=== PATIENT | female | born 1965 | race Caucasian/White ===

== ENCOUNTER 2020-04-21 12:26 | Outpatient (REF) | payer OTHER, SELFPAY ==
[2020-04-21 13:19] LABS: MANUAL DIFF FLAG NO
[2020-04-21 13:23] LABS: Basophils Absolute Auto 0.1 X10*3/uL (0.0-0.2); Basophils Percent Auto 1.1 % (0-2); Eosinophils Absolute Auto 0.2 X10*3/uL (0.0-0.4); Eosinophils Percent Auto 4.4 % (0-4); Hematocrit 38.4 % (37-47); Hemoglobin 12.9 g/dl (12.0-16.0); Imm Gran Abs Auto 0.01 X10*3/uL (0.00-0.03); Imm Gran Pct Auto 0.2 % (0.0-0.4); Lymphocytes Absolute Auto 1.9 X10*3/uL (1.2-4.9); Lymphocytes Percent Auto 41.8 % (20-40); Mean Corpuscular HGB Conc 33.6 g/dl (31.0-35.0); Mean Corpuscular Hemoglobin 32.7 pg (27.0-33.0); Mean Corpuscular Volume 97.2 fL (80-98); Mean Platelet Volume 10.7 fL (9.4-12.3); Monocytes Absolute Auto 0.4 X10*3/uL (0.1-1.2); Neutrophils Percent Auto 44.5 % (45-73); Platelet Count 211 X10*3/uL (160-400); Red Blood Count 3.95 X10*6/uL (4.20-5.50); Red Cell Distribution Width 13.6 % (11.0-16.0); White Blood Count 4.5 X10*3/uL (4.8-10.8)
[2020-04-21 14:11] LABS: Alanine Aminotransferase 7 U/L (0-31); Albumin Level 4.1 g/dL (3.5-5.0); Alkaline Phosphatase 52 U/L (39-117); Anion Gap 11 (12-20); Aspartate Amino Transferase 13 U/L (5-31); Bilirubin Total 0.4 mg/dL (0.0-1.0); Blood Urea Nitrogen 11 mg/dL (9-16); C Reactive Protein 0.05 mg/dL (< or = 0.50); Calcium 8.7 mg/dL (8.4-10.2); Carbon Dioxide 25 mmol/L (22-29); Chloride 106 mmol/L (96-108); Estimated Glomerular Filt Rate > 60; Glucose Random 116 mg/dL (60-115); Potassium 4.4 mmol/l (3.3-5.1); Sodium 138 mmol/L (135-145); Total Protein 6.6 g/dL (6.5-8.0)
[2020-04-21 14:21] LABS: Erythrocyte Sedimentation Rate 2 MM/HR (0-20)
== END 2020-04-21 12:27 | disposition home or self-care (01) ==
LOC: HO.LAB 12:26
PROVIDERS: PCP Nurse Practitioner Family; Visit Provider Student in an Organized Health Care Education/Training Program
DX: L40.50 Arthropathic psoriasis, unspecified (principal); L40.9 Psoriasis, unspecified; I10 Essential (primary) hypertension
CPT/HCPCS: 36415; 80053; 85025; 85652; 86140

== ENCOUNTER → 2020-04-22 09:46 | Outpatient (BNVA) | payer OTHER, SELFPAY | PROVIDERS: PCP Nurse Practitioner Family; Referring Provider Nurse Practitioner Family; Visit Provider Student in an Organized Health Care Education/Training Program | DX: L40.59 Other psoriatic arthropathy (principal); M19.90 Unspecified osteoarthritis, unspecified site; L40.9 Psoriasis, unspecified; F41.8 Other specified anxiety disorders; Z79.899 Other long term (current) drug therapy | CPT/HCPCS: 99212 ==

== ENCOUNTER → 2020-06-09 08:37 | Outpatient (BNVA) | payer OTHER, SELFPAY | PROVIDERS: PCP Nurse Practitioner Family; Visit Provider Nurse Practitioner | DX: Z76.89 Persons encountering health services in other specified circumstances (principal) ==

== ENCOUNTER → 2020-07-21 10:58 | Outpatient (BNVA) | payer OTHER, SELFPAY | PROVIDERS: PCP Nurse Practitioner Family; Visit Provider Internal Medicine | DX: F17.210 Nicotine dependence, cigarettes, uncomplicated (principal); J44.9 Chronic obstructive pulmonary disease, unspecified | CPT/HCPCS: 99212 ==

== ENCOUNTER 2020-08-24 16:02 | Outpatient (REF) | payer OTHER, SELFPAY ==
[2020-08-24 16:29] LABS: MANUAL DIFF FLAG NO
[2020-08-24 16:32] LABS: Basophils Percent Auto 0.5 % (0-2); Eosinophils Absolute Auto 0.2 X10*3/uL (0.0-0.4); Eosinophils Percent Auto 2.7 % (0-4); Hematocrit 41.4 % (37-47); Hemoglobin 13.8 g/dl (12.0-16.0); Lymphocytes Percent Auto 35.8 % (20-40); Mean Corpuscular HGB Conc 33.3 g/dl (31.0-35.0); Mean Corpuscular Hemoglobin 33.1 pg (27.0-33.0); Mean Corpuscular Volume 99.3 fL (80-98); Monocytes Absolute Auto 0.5 X10*3/uL (0.1-1.2); Monocytes Percent Auto 8.7 % (2-11); Neutrophils Percent Auto 52.3 % (45-73); Platelet Count 258 X10*3/uL (160-400); Red Blood Count 4.17 X10*6/uL (4.20-5.50); Red Cell Distribution Width 13.9 % (11.0-16.0); White Blood Count 5.6 X10*3/uL (4.8-10.8)
[2020-08-24 17:12] LABS: Albumin Level 4.4 g/dL (3.5-5.0); Alkaline Phosphatase 88 U/L (39-117); Anion Gap 13 (12-20); Aspartate Amino Transferase 14 U/L (5-31); Blood Urea Nitrogen 14 mg/dL (9-16); C Reactive Protein 0.44 mg/dL (< or = 0.50); Calcium 9.2 mg/dL (8.4-10.2); Carbon Dioxide 27 mmol/L (22-29); Chloride 105 mmol/L (96-108); Estimated Glomerular Filt Rate 56; Glucose Random 98 mg/dL (60-115); Potassium 4.2 mmol/L (3.3-5.1); Sodium 141 mmol/L (135-145)
[2020-08-24 17:18] LABS: Erythrocyte Sedimentation Rate 3 MM/HR (0-20)
[2020-08-24 19:02] LABS: Alanine Aminotransferase 16 U/L (0-31); Bilirubin Total 0.6 mg/dL (0.0-1.0); Total Protein 7.5 g/dL (6.5-8.0)
== END 2020-08-24 16:03 | disposition home or self-care (01) ==
LOC: HO.LAB 16:02
PROVIDERS: PCP Nurse Practitioner Family; Visit Provider Student in an Organized Health Care Education/Training Program
DX: L40.50 Arthropathic psoriasis, unspecified (principal)
CPT/HCPCS: 36415; 80053; 85025; 85652; 86140

== ENCOUNTER → 2020-08-26 14:24 | Outpatient (BNV) | payer OTHER, SELFPAY | PROVIDERS: PCP Nurse Practitioner Family; Visit Provider Internal Medicine Medical Oncology | DX: D47.2 Monoclonal gammopathy (principal) | CPT/HCPCS: 99213; 99214 ==

== ENCOUNTER → 2020-12-10 13:45 | Outpatient (BNVA) | payer OTHER, SELFPAY | PROVIDERS: PCP Nurse Practitioner Family; Visit Provider Student in an Organized Health Care Education/Training Program | DX: L40.50 Arthropathic psoriasis, unspecified (principal); Z79.899 Other long term (current) drug therapy | CPT/HCPCS: 99212 ==

== ENCOUNTER 2020-12-13 12:54 | Outpatient (REF) | payer OTHER, SELFPAY ==
[2020-12-13 13:35] LABS: MANUAL DIFF FLAG NO
[2020-12-13 13:43] LABS: Basophils Absolute Auto 0.1 X10*3/uL (0.0-0.2); Eosinophils Absolute Auto 0.3 X10*3/uL (0.0-0.4); Eosinophils Percent Auto 6.7 % (0-4); Hematocrit 39.5 % (37-47); Hemoglobin 13.2 g/dl (12.0-16.0); Imm Gran Abs Auto 0.01 X10*3/uL (0.00-0.03); Imm Gran Pct Auto 0.2 % (0.0-0.4); Lymphocytes Absolute Auto 1.8 X10*3/uL (1.2-4.9); Lymphocytes Percent Auto 37.5 % (20-40); Mean Corpuscular HGB Conc 33.4 g/dl (31.0-35.0); Mean Corpuscular Hemoglobin 32.8 pg (27.0-33.0); Mean Platelet Volume 11.2 fL (9.4-12.3); Monocytes Absolute Auto 0.5 X10*3/uL (0.1-1.2); Neutrophils Absolute Auto 2.1 X10*3/uL (2.0-8.3); Neutrophils Percent Auto 43.6 % (45-73); Platelet Count 221 X10*3/uL (160-400); Red Blood Count 4.03 X10*6/uL (4.20-5.50); White Blood Count 4.8 X10*3/uL (4.8-10.8)
[2020-12-13 14:09] LABS: Alanine Aminotransferase 14 U/L (0-31); Albumin Level 3.8 g/dL (3.5-5.0); Alkaline Phosphatase 76 U/L (39-117); Anion Gap 12 (12-20); Aspartate Amino Transferase 14 U/L (5-31); Bilirubin Total 0.2 mg/dL (0.0-1.0); Blood Urea Nitrogen 21 mg/dL (9-16); C Reactive Protein 0.17 mg/dL (< or = 0.50); Calcium 9.2 mg/dL (8.4-10.2); Carbon Dioxide 23 mmol/L (22-29); Chloride 108 mmol/L (96-108); Estimated Glomerular Filt Rate > 60; Glucose Random 103 mg/dL (60-115); Sodium 138 mmol/L (135-145); Total Protein 6.7 g/dL (6.5-8.0)
[2020-12-13 14:23] LABS: Erythrocyte Sedimentation Rate 5 MM/HR (0-20)
== END 2020-12-13 12:55 | disposition home or self-care (01) ==
LOC: HO.LAB 12:54
PROVIDERS: PCP Nurse Practitioner Family; Visit Provider Student in an Organized Health Care Education/Training Program
DX: L40.50 Arthropathic psoriasis, unspecified (principal)
CPT/HCPCS: 36415; 80053; 85025; 85652; 86140

== ENCOUNTER → 2020-12-20 13:26 | Outpatient (BNVA) | payer OTHER, SELFPAY | PROVIDERS: PCP Nurse Practitioner Family; Referring Provider Nurse Practitioner Family; Visit Provider Nurse Practitioner | DX: F07.81 Postconcussional syndrome (principal); R11.2 Nausea with vomiting, unspecified; R63.4 Abnormal weight loss; D47.2 Monoclonal gammopathy; F10.11 Alcohol abuse, in remission; K21.9 Gastro-esophageal reflux disease without esophagitis | CPT/HCPCS: 99212 ==

== ENCOUNTER 2020-12-30 15:11 | Outpatient (REF) | payer OTHER, SELFPAY ==
[2020-12-30 15:38] LABS: MANUAL DIFF FLAG NO
[2020-12-30 15:43] LABS: Basophils Percent Auto 0.5 % (0-2); Eosinophils Absolute Auto 0.3 X10*3/uL (0.0-0.4); Eosinophils Percent Auto 4.7 % (0-4); Imm Gran Abs Auto 0.02 X10*3/uL (0.00-0.03); Imm Gran Pct Auto 0.3 % (0.0-0.4); Lymphocytes Absolute Auto 1.9 X10*3/uL (1.2-4.9); Lymphocytes Percent Auto 32.2 % (20-40); Mean Corpuscular HGB Conc 33.3 g/dl (31.0-35.0); Mean Corpuscular Hemoglobin 32.3 pg (27.0-33.0); Mean Corpuscular Volume 96.8 fL (80-98); Mean Platelet Volume 10.1 fL (9.4-12.3); Monocytes Absolute Auto 0.5 X10*3/uL (0.1-1.2); Monocytes Percent Auto 8.4 % (2-11); Neutrophils Absolute Auto 3.2 X10*3/uL (2.0-8.3); Neutrophils Percent Auto 53.9 % (45-73); Platelet Count 266 X10*3/uL (160-400); Red Blood Count 4.34 X10*6/uL (4.20-5.50); Red Cell Distribution Width 13.7 % (11.0-16.0)
[2020-12-30 16:04] LABS: Alanine Aminotransferase 11 U/L (0-31); Albumin Level 4.1 g/dL (3.5-5.0); Alkaline Phosphatase 84 U/L (39-117); Anion Gap 14 (12-20); Aspartate Amino Transferase 11 U/L (5-31); Bilirubin Total 0.2 mg/dL (0.0-1.0); Blood Urea Nitrogen 20 mg/dL (9-16); Calcium 9.5 mg/dL (8.4-10.2); Carbon Dioxide 24 mmol/L (22-29); Chloride 104 mmol/L (96-108); Estimated Glomerular Filt Rate > 60; Glucose Random 119 mg/dL (60-115); Potassium 4.5 mmol/L (3.3-5.1); Sodium 137 mmol/L (135-145); Total Protein 7.2 g/dL (6.5-8.0)
[2020-12-30 16:09] LABS: Amylase 83 U/L (28-100)
[2020-12-30 16:19] LABS: Glucose Urine UA NEG (NEG); Leukocyte Esterase Urine 1+ (NEG); Nitrite Urine NEG (NEG); PH 6.5 (5.0-8.0); Specific Gravity - Urine 1.015 (1.005-1.025); UACC Culture Trigger YES; Urine Blood NEG (NEG); Urine Ketones NEG (NEG); Urine Protein TRACE MG/DL (NEG-TRACE)
[2020-12-30 16:23] LABS: Appearance Urine CLEAR; Color Urine DARK YELLOW
[2020-12-30 16:23] LABS: Lipase 78 U/L (8-78)
[2020-12-30 16:25] LABS: TSH reflex Free T4 1.16 uIU/mL (0.32-4.0)
[2020-12-30 16:30] LABS: Bacteria Urine 1+ /LPF; Mucus Urine 1+ /LPF; RBC Urine 0-2 /HPF (0); Squamous Epithelial Cell Urine TRACE /LPF
[2021-01-01 12:16] LABS: IgA 187 mg/dL (47-310); IgG 1428 mg/dL (600-1640); IgM 70 mg/dL (50-300)
[2021-01-04 12:17] LABS: Gliadin Deamidated IgA Ab 4 Units; Gliadin Deamidated IgG Ab 2 Units
[2021-01-04 14:41] LABS: Transglutaminase Ab IgG 1 U/mL; Transglutaminase IgA 1 U/mL
== END 2020-12-30 15:12 | disposition home or self-care (01) ==
LOC: HO.LAB 15:11
PROVIDERS: Internal Medicine Medical Oncology; PCP Nurse Practitioner Family; Visit Provider Nurse Practitioner
DX: D47.2 Monoclonal gammopathy (principal); R11.2 Nausea with vomiting, unspecified; R63.4 Abnormal weight loss
CPT/HCPCS: 36415; 80053; 81001; 81003; 82150; 82784; 83516; 83690; 84443; 85025; 86334; 87086

== ENCOUNTER 2021-01-04 15:59 | Outpatient (REF) | payer OTHER, SELFPAY ==
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
== END 2021-01-04 16:00 | disposition home or self-care (01) ==
LOC: HO.HMGCX 15:59
PROVIDERS: PCP Nurse Practitioner Family; Visit Provider Nurse Practitioner Family
DX: M25.532 Pain in left wrist (principal); M79.602 Pain in left arm; M79.603 Pain in arm, unspecified; W19.XXXA Unspecified fall, initial encounter; Y09 Assault by unspecified means
CPT/HCPCS: 73090; 73110

== ENCOUNTER 2021-01-10 16:03 | Outpatient (REF) | payer OTHER, SELFPAY ==
[2021-01-10 17:53] LABS: Glucose Urine UA NEG (NEG); Leukocyte Esterase Urine 1+ (NEG); Nitrite Urine NEG (NEG); PH 6.5 (5.0-8.0); UACC Culture Trigger YES; Urine Blood NEG (NEG); Urine Ketones NEG (NEG); Urine Protein TRACE MG/DL (NEG-TRACE)
[2021-01-10 17:56] LABS: Appearance Urine CLOUDY; Color Urine YELLOW
[2021-01-10 18:08] LABS: Amorphous Sediment Urine 3+ /LPF; Bacteria Urine 1+ /LPF; RBC Urine 0 /HPF (0); Squamous Epithelial Cell Urine 2+ /LPF
== END 2021-01-10 16:04 | disposition home or self-care (01) ==
LOC: HO.LAB 16:03
PROVIDERS: PCP Nurse Practitioner Family; Visit Provider Nurse Practitioner
DX: N39.0 Urinary tract infection, site not specified (principal)
CPT/HCPCS: 81001; 81003; 87086

== ENCOUNTER → 2021-02-22 10:34 | Outpatient (REF) | payer OTHER, SELFPAY ==
--- NOTE | ~2021-02-22 | NM_ITS ---
EXAMINATION: RADIONUCLIDE SOLID FOOD GASTRIC EMPTYING 4-HOUR STUDY CLINICAL INFORMATION: Nausea with vomiting. COMPARISON: No previous gastric emptying study is available for comparison. TECHNIQUE: A standard meal consisting of 4 oz of Egg Beaters brand equivalent tagged with 580 microcuries Tc-99m Sulfur Colloid, 8 oz water and 2 slices of toast with jelly was administered orally to the patient. Images were obtained using a dual head gamma camera in the anterior and posterior projections over of the stomach immediately post ingestion and at hourly intervals up to 4 hours post ingestion. The anterior and posterior counts at each time interval were averaged using the geometric mean and expressed as percentage of the immediate post ingestion counts. FINDINGS: There is good visualization of activity in the stomach immediately post ingestion. As the study progresses, there is there is some clearance of activity from the stomach and progressively increasing small bowel activity visualized, but at the end of the study there is mildly severe abnormal retention of activity in the stomach at 4 hours. Retention in the stomach at each time interval was: 1 hour 88% (normal 37%-90%) 2 hours 68% (normal 30%-60%) 3 hours 38% 4 hours 25% (normal 0%-10%) VA/NM gastric emptying study IMPRESSION: Abnormal study. There is mild abnormal retention of solid food in the stomach at 4 hours.
== END ==
LOC: HO.NUCMED 10:34
PROVIDERS: Visit Provider Nurse Practitioner
DX: R11.2 Nausea with vomiting, unspecified (principal); R63.4 Abnormal weight loss
CPT/HCPCS: 78264; A9541

== ENCOUNTER 2021-03-16 10:29 | Outpatient (REF) | payer OTHER, SELFPAY ==
--- NOTE | ~2021-03-16 | US_ITS ---
EXAMINATION: US ABDOMEN COMPLETE CLINICAL INFORMATION: Nausea with vomiting. COMPARISON: None TECHNIQUE: Real-time imaging of the abdominal viscera. FINDINGS: PANCREAS: Normal. ABDOMINAL AORTA: The abdominal aorta is normal in caliber. INFERIOR VENA CAVA: Visualized portions are normal. LIVER: Normal. The liver is normal in size. The liver contour is normal. Parenchymal echogenicity is normal. No focal hepatic lesion. There is no intrahepatic biliary duct dilatation seen. GALLBLADDER: The gallbladder is contracted without evidence of stones, sludge, polyps, or pericholecystic fluid. COMMON BILE DUCT: Normal in caliber measuring 0.2 cm in diameter. RIGHT KIDNEY: There is a small 1 cm cyst in the midpole. No hydronephrosis or renal calculi. The kidney measures 10.7 cm in maximum dimension. LEFT KIDNEY: There is a 3 mm stone in the lower pole. No hydronephrosis or focal parenchymal lesions. The kidney measures 10.2 cm in maximum dimension. SPLEEN: Normal. The spleen measures 8.4 cm in maximum dimension. FREE FLUID: None. US/US abdomen complete IMPRESSION: Contracted gallbladder. Small right renal cyst. Small left renal stone.
== END 2021-03-16 10:30 | disposition home or self-care (01) ==
LOC: HO.HMGCX 10:29
PROVIDERS: PCP Nurse Practitioner Family; Visit Provider Nurse Practitioner
DX: R11.2 Nausea with vomiting, unspecified (principal); R63.4 Abnormal weight loss
CPT/HCPCS: 76700

== ENCOUNTER → 2021-03-17 11:56 | Day surgery (SDC) | payer OTHER, SELFPAY ==
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
[2021-03-17 12:18] VITALS: BMI 18.8
[2021-03-17 12:37] VITALS: BP 106/71; PULSE 68; RESP 15; TEMP 36.8; O2SAT 97
[2021-03-17] MEDS: Lactated Ringers 1,000 ML 100 ML IVCONT (12:50)
[2021-03-17] MEDS: ondansetron HCL 4 MG/2 ML VIAL 8 MG IVPUSH (13:06)
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
--- NOTE | 2021-03-17 14:42 | P.BOP_ITS ---
Brief Operative Note Date of Service: 03/17/21 Pre-op diagnosis: GERD, altered bowel habits Post-op diagnosis: same Procedure: see op note Surgeon: Ham Lopez MD Anesthesia: MAC Was an Investigative Agent used for this Procedure?: No Estimated blood loss (mL): 0 Condition: stable Disposition: PACU
--- NOTE | 2021-03-17 14:44 | P.OP_ITS ---
Operative Note Operative Note Date of Service: 03/17/21 Narrative: Operative Information Procedure Description: EGD, Colonoscopy FLEXIBLE TRANSORAL UPPER GASTROINTESTINAL ENDOSCOPY AND COLONOSCOPY PROCEDURE NOTE UPPER ENDOSCOPY Consent: Indications for the procedure and potential complications of bleeding, perforation, reaction to medications and missed diagnosis were discussed with the patient and informed consent was obtained. Instrument: Olympus GIF H 190 J mid size upper endoscope Monitoring: Vital signs and clinical assessment, continuous EKG monitoring, Pulse oximetry, Carbon Dioxide monitoring and blood pressure monitoring were done throughout the procedure. Procedure: The patient was placed in the left lateral decubitis position and pre-procedure medications were administered and a bite block was placed. The endoscope was inserted into the mouth and advanced under direct vision to the third part of duodenum. A careful inspection was made as the upper endoscope was withdrawn including a retroflexed examination of the proximal stomach; Findings and interventions are described below. Findings: Larynx:normal Esophagus: GE junction at 40 cm, diaphragm hiatus at 40 cm, esophagitis LA grade A noted with patulous LES Stomach: Patchy erythema. Biopsies were obtained. Grade 3 flap valve on retroflexed examination of the cardia. There were granules in her stomach probably from ingested medications. Duodenum: Normal bulb and descending duodenum, bx taken Intervention: Biopsies as noted above COLONOSCOPY Instrument: Olympus variable stiffness pediatric scope 190L then swapped to EGD scoep again due to v tight rectosigmoid junction Colonoscopy Monitoring: Vital signs and clinical assessment, continuous EKG monitoring, Pulse oximetry, Carbon Dioxide monitoring and blood pressure monitoring were done throughout the procedure. Colon withdrawal time was 12 minutes. Procedure: The patient was placed in the left lateral decubitis position and pre-procedure medications were administered. After a digital rectal examination of the ano-rectum, the video colonoscope was inserted into the rectum and advanced through the colon to the cecum/TI. The colonoscope was slowly withdrawn in a retrograde panoramic fashion and the colon mucosa was carefully examined including a retroflexed view of the rectum. Findings and interventions are described below. Procedure Difficulty:hard due to angulated rectosigmoid, and pressure applied to reach cecum Findings: Terminal Ileum-not intubated Cecum:normal Ascending Colon: 8-10 mm long sessile polyp removed with cold snare Transverse Colon -normal Descending Colon:normal Sigmoid Colon:moderate severe diverticulosis, with tight colon and hypertrophied mucosa Rectum: Retroflexion with small internal hemorrhoids, grade I Anorectum - normal Colon preparation: [place] Bowel Preparation Scale Right colon; 2 Transverse colon: 1 Left colon; 1 (0 = Unprepared colon segment with mucosa not seen due to solid stool that cannot be cleared. 1 = Portion of mucosa of the colon segment seen, but other areas of the colon segment not well seen due to staining, residual stool and/or opaque liquid. 2 = Minor amount of residual staining, small fragments of stool and/or opaque liquid, but mucosa of colon segment seen well. 3 = Entire mucosa of colon segment seen well with no residual staining, small fragments of stool or opaque liquid) Impression and Post Procedure Diagnosis: Endoscopy Findings: gastroparesis esophagitis gastritis Colonoscopy Findings: polyp internal hemorrhoids diverticular disease poor prep Plan: Await Pathology results Repeat Colonoscopy in 1 year or earlier if clinically indicated, next time consider 2 d prep avoid straining at stool, epsom salts and sitz bath, anusol supps or cream Above findings were reviewed with the patient and relevant handouts were provided if indicated.
[2021-03-17 15:26] VITALS: BP 99/52; PULSE 56; RESP 15; TEMP 36.4; O2SAT 99
[2021-03-17 15:41] VITALS: BP 116/80; PULSE 64; RESP 18; TEMP 36.4; O2SAT 97
== END | disposition home or self-care (01) ==
PROVIDERS: PCP Nurse Practitioner Family; Visit Provider Internal Medicine Gastroenterology
PROC: (CPT 45385; principal; 2021-03-17 14:10)
DX: K21.00 Gastro-esophageal reflux disease with esophagitis, without bleeding (principal); K31.84 Gastroparesis; K29.70 Gastritis, unspecified, without bleeding; R63.4 Abnormal weight loss; R19.4 Change in bowel habit; D12.2 Benign neoplasm of ascending colon; K57.30 Diverticulosis of large intestine without perforation or abscess without bleeding; K64.0 First degree hemorrhoids; I10 Essential (primary) hypertension; J44.9 Chronic obstructive pulmonary disease, unspecified; F17.210 Nicotine dependence, cigarettes, uncomplicated; Z79.899 Other long term (current) drug therapy
CPT/HCPCS: 45385; 43239; 88305; 88342; J2405; J3010

== ENCOUNTER → 2021-04-29 11:29 | Outpatient (BNVA) | payer OTHER, SELFPAY | PROVIDERS: PCP Nurse Practitioner Family; Referring Provider Nurse Practitioner Family; Visit Provider Nurse Practitioner | DX: K30 Functional dyspepsia (principal); K21.9 Gastro-esophageal reflux disease without esophagitis; R63.4 Abnormal weight loss | CPT/HCPCS: 99212 ==

== ENCOUNTER → 2021-05-27 14:35 | Outpatient (BNVA) | payer OTHER, SELFPAY | PROVIDERS: PCP Nurse Practitioner Family; Referring Provider Nurse Practitioner Family; Visit Provider Nurse Practitioner | DX: K59.04 Chronic idiopathic constipation (principal); K21.9 Gastro-esophageal reflux disease without esophagitis; K30 Functional dyspepsia | CPT/HCPCS: 99212 ==

== ENCOUNTER 2021-06-27 14:27 | Outpatient (REF) | payer OTHER, SELFPAY ==
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
== END 2021-06-27 14:28 | disposition home or self-care (01) ==
LOC: HO.HMGCX 14:27
PROVIDERS: PCP Nurse Practitioner Family; Visit Provider Nurse Practitioner Family
DX: B34.9 Viral infection, unspecified (principal)
CPT/HCPCS: 71046

== ENCOUNTER 2021-06-27 14:31 | Outpatient (REF) | payer OTHER, SELFPAY | END 2021-06-27 14:32 | disposition home or self-care (01) | LOC: HO.HMGCLDS 14:31 | PROVIDERS: Visit Provider Internal Medicine | DX: Z20.822 Contact with and (suspected) exposure to COVID-19 (principal) | CPT/HCPCS: C9803; U0003; U0005 ==

== ENCOUNTER 2021-06-28 14:44 | Outpatient (REF) | payer OTHER, SELFPAY | END 2021-06-28 14:45 | disposition home or self-care (01) | LOC: HO.HMGCLNP 14:44 | PROVIDERS: Visit Provider Nurse Practitioner Family | DX: B34.9 Viral infection, unspecified (principal) | CPT/HCPCS: 87070; 87077; 87186; 87205 ==

== ENCOUNTER 2021-06-30 14:57 | Outpatient (REF) | payer OTHER, SELFPAY ==
[2021-06-30 16:32] LABS: MANUAL DIFF FLAG NO
[2021-06-30 16:37] LABS: Basophils Percent Auto 0.5 % (0-2); Eosinophils Absolute Auto 0.2 X10*3/uL (0.0-0.4); Eosinophils Percent Auto 3.9 % (0-4); Hematocrit 36.6 % (37.0-47.0); Hemoglobin 12.2 g/dl (12.0-16.0); Imm Gran Abs Auto 0.02 X10*3/uL (0.00-0.03); Imm Gran Pct Auto 0.4 % (0.0-0.4); Lymphocytes Absolute Auto 1.6 X10*3/uL (1.2-4.9); Lymphocytes Percent Auto 28.1 % (20-40); Mean Corpuscular HGB Conc 33.3 g/dl (31.0-35.0); Mean Corpuscular Hemoglobin 32.5 pg (27.0-33.0); Mean Corpuscular Volume 97.6 fL (80.0-98.0); Monocytes Absolute Auto 0.6 X10*3/uL (0.1-1.2); Monocytes Percent Auto 10.9 % (2-11); Neutrophils Absolute Auto 3.1 x10*3/uL (2.0-8.3); Neutrophils Percent Auto 56.2 % (45-73); Platelet Count 324 X10*3/uL (160-400); Red Blood Count 3.75 X10*6/uL (4.20-5.50); Red Cell Distribution Width 14.6 % (11.0-16.0); White Blood Count 5.6 X10*3/uL (4.8-10.8)
[2021-06-30 17:04] LABS: Alanine Aminotransferase 15 U/L (0-31); Albumin Level 3.6 g/dL (3.5-5.0); Alkaline Phosphatase 78 U/L (39-117); Anion Gap 9 (12-20); Aspartate Amino Transferase 13 U/L (5-31); Bilirubin Total 0.2 mg/dL (0.0-1.0); Blood Urea Nitrogen 22 mg/dL (9-16); C Reactive Protein 0.69 mg/dL (< or = 0.50); Calcium 9.2 mg/dL (8.4-10.2); Carbon Dioxide 28 mmol/L (22-29); Chloride 107 mmol/L (96-108); Estimated Glomerular Filt Rate > 60; Glucose Random 101 mg/dL (60-115); Potassium 4.9 mmol/L (3.3-5.1); Sodium 139 mmol/L (135-145); Total Protein 6.7 g/dL (6.5-8.0)
[2021-06-30 18:04] LABS: Erythrocyte Sedimentation Rate 16 MM/HR (0-20)
== END 2021-06-30 14:58 | disposition home or self-care (01) ==
LOC: HO.HMGCLDS 14:57
PROVIDERS: PCP Nurse Practitioner Family; Visit Provider Nurse Practitioner Family
DX: L40.50 Arthropathic psoriasis, unspecified (principal)
CPT/HCPCS: 36415; 80053; 85025; 85652; 86140

== ENCOUNTER 2021-07-14 15:28 | Outpatient (REF) | payer OTHER, SELFPAY ==
--- NOTE | ~2021-07-14 | XR_ITS ---
EXAMINATION: XR ABDOMEN WITH DECUBITUS VIEWS CLINICAL INDICATION: Chronic idiopathic constipation COMPARISON: Ultrasound abdomen 03/21/2021 TECHNIQUE: Abdomen with decubitus view FINDINGS: On upright view there is no air-fluid level or free air. There is scattered stool in the left colon. There is gas without distention in right colon and the small bowel loops. There is no organomegaly. No radiopaque calculi seen. No gross bony abnormality. XR/XR abdomen w decubitus IMPRESSION: Mild constipation.
== END 2021-07-14 15:29 | disposition home or self-care (01) ==
LOC: HO.XRAY 15:28
PROVIDERS: PCP Nurse Practitioner Family; Referring Provider Nurse Practitioner Family; Visit Provider Nurse Practitioner
DX: K59.04 Chronic idiopathic constipation (principal); K30 Functional dyspepsia; K21.9 Gastro-esophageal reflux disease without esophagitis
CPT/HCPCS: 74021; 99212

== ENCOUNTER 2021-07-20 10:23 | Outpatient (REF) | payer OTHER, SELFPAY ==
--- NOTE | ~2021-07-20 | CT_ITS ---
EXAMINATION: CT chest w con. CLINICAL INFORMATION: Reason for Exam R91.1 - Solitary pulmonary nodule COMPARISON: Multiple prior CTs most recent May 2019 TECHNIQUE: Multidetector volumetric CT imaging of the chest was done. Axial MIP volume rendering provided. Sagittal and coronal reformatted images were obtained. This CT examination was performed using dose optimization techniques as appropriate, variously including the following: *Automated exposure control *Adjustment of mA and/or kV according to patient size (this includes techniques or standardized protocols for targeted exams where dose is matched to indication/reason for exam; i.e. extremities or head) *Use of iterative reconstruction technique CONTRAST: 65 mL of Omnipaque 350 injected DLP: 76 mGy-cm FINDINGS: SPORT PSYCHOLOGIST: LINES/TUBES: Legal Administrative Assistant reviewed, no lines. LUNGS: Lung parenchyma: Mild pulmonary emphysema. Lung nodules/masses: There are several patchy solid and nonsolid opacities in the left upper and left lower lobe the largest peripheral pleural-based irregular nodule left lower lobe measures 1.2 x 1.1 cm image 315 series 8, irregular nodule left lower lobe 1.2 x 0.6 cm image 423 series 8 peripheral pleural-based density at lingula 0.8 cm. Irregular density left lower lobe 1 x 0.6 cm image 368 series 8. Peripheral pleural-based 6 mm density left lower lobe image of 333 series 8. Few other smaller densities present, right parahilar partially solid density the solid component measure 1.4 x 1 cm image 245 series 8, given the multiplicity of these nodules this is concerning for possible organizing pneumonia, underlying pathologic process neoplasm cannot be excluded. These have newly developed since most recent prior CT of 2019. AIRWAYS: Trachea and bronchi are normal. PLEURA: No pleural effusion or pneumothorax. MEDIASTINUM AND JÚNIOR: No mediastinal, hilar or axillary lymphadenopathy. No mediastinal mass. VESSELS: HEART AND PERICARDIUM: Thoracic aorta is normal in size. Heart is normal in size. No pericardial effusion. Pulmonary arteries are normal in size. LOWER NECK, AXILLA: The visualized thyroid gland is unremarkable. No axillary mass or adenopathy. VISUALIZED ABDOMEN: Unremarkable CHEST WALL AND BONES: No chest wall mass. The visualized bony thorax is within normal limits. CT/CT chest w con IMPRESSION: *There are several patchy irregular solid and partially solid opacities newly developed since prior CT, there are found in the lungs bilaterally, the largest involving the right parahilar region, also found in the lingula base, and mostly involving the left lower lobe, the largest in the right hilar region measure up to 1.2 cm. And largest on the left lower lobe 1.2 cm. Although may represent organizing pneumonia, cannot rule out pathologic process. Would recommend correlation with short-term follow-up CT in 12 weeks. *No lymphadenopathy. *Mild pulmonary emphysema. Various management parameters for solitary pulmonary nodules are in the literature. According to the UPDATED 2017 Fleischner Society recommendations, the advised follow-up imaging for multiple solid nodules, the largest measuring 6 mm or greater, is: LOW RISK PATIENT: CT at 3-6 months, then consider CT at 18-24 months. HIGH RISK PATIENT: CT at 3-6 months, then at 18-24 months. Reference: Guidelines for Management of Incidental Pulmonary Nodules Detected on CT Images: From the Fleischner Society 2017.
[2021-07-20] MEDS: iohexoL 350 MG/ML 100 ML INFUS..BTL IV (11:41)
== END 2021-07-20 10:24 | disposition home or self-care (01) ==
LOC: HO.CT 10:23
PROVIDERS: Visit Provider Nurse Practitioner Family
DX: R91.1 Solitary pulmonary nodule (principal)
CPT/HCPCS: 71260; Q9967

== ENCOUNTER 2021-08-22 14:58 | Outpatient (REF) | payer OTHER, SELFPAY ==
[2021-08-22 16:31] LABS: MANUAL DIFF FLAG NO
[2021-08-22 16:45] LABS: Basophils Absolute Auto 0.1 X10*3/uL (0.0-0.2); Basophils Percent Auto 0.9 % (0-2); Eosinophils Absolute Auto 0.2 X10*3/uL (0.0-0.4); Hematocrit 37.5 % (37.0-47.0); Hemoglobin 12.3 g/dl (12.0-16.0); Imm Gran Abs Auto 0.01 X10*3/uL (0.00-0.03); Imm Gran Pct Auto 0.2 % (0.0-0.4); Lymphocytes Absolute Auto 2.5 X10*3/uL (1.2-4.9); Mean Corpuscular HGB Conc 32.8 g/dl (31.0-35.0); Mean Corpuscular Hemoglobin 31.9 pg (27.0-33.0); Mean Corpuscular Volume 97.4 fL (80.0-98.0); Mean Platelet Volume 10.6 fL (9.4-12.3); Monocytes Absolute Auto 0.7 X10*3/uL (0.1-1.2); Monocytes Percent Auto 12.3 % (2-11); Neutrophils Percent Auto 36.6 % (45-73); Platelet Count 232 X10*3/uL (160-400); Red Blood Count 3.85 X10*6/uL (4.20-5.50); White Blood Count 5.5 X10*3/uL (4.8-10.8)
[2021-08-22 16:55] LABS: Alanine Aminotransferase 13 U/L (0-31); Alkaline Phosphatase 66 U/L (39-117); Anion Gap 10 (12-20); Aspartate Amino Transferase 17 U/L (5-31); Bilirubin Total 0.3 mg/dL (0.0-1.0); Blood Urea Nitrogen 15 mg/dL (9-16); C Reactive Protein 0.09 mg/dL (< or = 0.50); Calcium 9.3 mg/dL (8.4-10.2); Carbon Dioxide 29 mmol/L (22-29); Chloride 103 mmol/L (96-108); Estimated Glomerular Filt Rate > 60; Glucose Random 81 mg/dL (60-115); Potassium 4.3 mmol/L (3.3-5.1); Sodium 138 mmol/L (135-145); Total Protein 6.8 g/dL (6.5-8.0)
[2021-08-22 17:38] LABS: Erythrocyte Sedimentation Rate 3 MM/HR (0-20)
== END 2021-08-22 14:59 | disposition home or self-care (01) ==
LOC: HO.HMGCLDS 14:58
PROVIDERS: PCP Nurse Practitioner Family; Visit Provider Nurse Practitioner Family
DX: L40.50 Arthropathic psoriasis, unspecified (principal)
CPT/HCPCS: 36415; 80053; 85025; 85652; 86140

== ENCOUNTER → 2021-08-23 15:12 | Outpatient (BNVA) | payer OTHER, SELFPAY | PROVIDERS: PCP Nurse Practitioner Family; Visit Provider Internal Medicine | DX: J44.9 Chronic obstructive pulmonary disease, unspecified (principal); R91.8 Other nonspecific abnormal finding of lung field; U09.9 Post COVID-19 condition, unspecified; F17.210 Nicotine dependence, cigarettes, uncomplicated; Z79.899 Other long term (current) drug therapy | CPT/HCPCS: 99212 ==

== ENCOUNTER → 2021-08-25 13:23 | Outpatient (BNVA) | payer OTHER, SELFPAY | PROVIDERS: PCP Nurse Practitioner Family; Visit Provider Nurse Practitioner Family | DX: L40.50 Arthropathic psoriasis, unspecified (principal); M79.7 Fibromyalgia; J44.9 Chronic obstructive pulmonary disease, unspecified; U09.9 Post COVID-19 condition, unspecified; R06.2 Wheezing; F07.81 Postconcussional syndrome; S09.90XD Unspecified injury of head, subsequent encounter; X58.XXXD Exposure to other specified factors, subsequent encounter; F17.210 Nicotine dependence, cigarettes, uncomplicated; Z88.6 Allergy status to analgesic agent; Z79.899 Other long term (current) drug therapy | CPT/HCPCS: 99212 ==

== ENCOUNTER 2021-09-29 11:00 | Outpatient (REF) | payer OTHER, SELFPAY ==
--- NOTE | 2021-09-29 15:54 | PFT_ITS ---
INDICATION: COPD. SPIROMETRY: FEV1 to FVC is 67% with an FEV1 of 2.66 L, which is 91% predicted and an FVC of 3.96 L, which is 105% predicted. No significant response to bronchodilators noted. Maximum voluntary ventilation 82% predicted. LUNG VOLUMES: Total lung capacity 119% predicted. Residual volume 127% predicted. DIFFUSION CAPACITY: DLCO 56% predicted. COMPARISONS: PFTs from 2019. INTERPRETATION: There is an obstructive ventilatory defect consistent mild COPD. No significant response to bronchodilators noted. Normal maximum voluntary ventilation. Lung volumes with a trend of hyperinflation and significant air trapping. In addition to that, the patient does have a moderate diffusion impairment, likely secondary to emphysema and/or the parenchymal lung conditions should be considered. When compared to 2019, there was a significant improvement in the FVC, a trend improvement in the FEV1, trend increase in the total lung capacity, a trend increase in the residual volume and a trend increase in the diffusion capacity. Clinical correlation warranted. MD ALMAZ Varghese/ENMA / [id number]
== END 2021-09-29 11:01 | disposition home or self-care (01) ==
LOC: HO.RESP 11:00
PROVIDERS: PCP Nurse Practitioner Family; Visit Provider Internal Medicine
DX: J44.9 Chronic obstructive pulmonary disease, unspecified (principal); U09.9 Post COVID-19 condition, unspecified; F17.210 Nicotine dependence, cigarettes, uncomplicated
CPT/HCPCS: 94060; 94727; 94729

== ENCOUNTER 2021-10-06 10:52 | Outpatient (REF) | payer OTHER, SELFPAY ==
--- NOTE | ~2021-10-06 | CT_ITS ---
EXAMINATION: CT CHEST WITH CONTRAST CLINICAL INFORMATION: Abnormal lung findings. COMPARISON: CT chest 10/06/2021. TECHNIQUE: Multidetector volumetric CT imaging of the chest was obtained after the administration of 50 mL of Omnipaque 350 intravenous contrast without immediate adverse reactions. Axial MIP volume rendering provided. Sagittal and coronal reformatted images were obtained. This CT examination was performed using dose optimization techniques as appropriate, variously including the following: *Automated exposure control *Adjustment of mA and/or kV according to patient size (this includes techniques or standardized protocols for targeted exams where dose is matched to indication/reason for exam; i.e. extremities or head) *Use of iterative reconstruction technique DLP: 84 mGy-cm FINDINGS: ROUTE SUPERVISOR: Hyperexpanded lungs. LUNGS: There is minimal bilateral apical parenchymal scarring with pleural thickening. Previously visualized multiple patchy irregular shaped opacities have resolved. They were probably multifocal infiltrates. There is no acute infiltrative process seen at this time. There are no lung nodules, mass or consolidation. Minimal dependent atelectasis seen in the right lung base. MEDIASTINUM: The thyroid lobes are symmetrical and normal. The central trachea and bronchi are widely patent. The heart size and great vessels are normal caliber. No pericardial effusion seen. The central trachea and the bronchi are widely patent. No abnormal size mediastinal lymphadenopathy seen. PLEURA: There is no pleural effusion. No pleural mass or thickening. AXILLA: No lymphadenopathy. UPPER ABDOMEN: Visualized liver, spleen, pancreas and bilateral adrenal glands unremarkable. OSSEOUS STRUCTURES: No lytic or sclerotic process seen. CT/CT chest w con IMPRESSION: Interval complete resolution of multiple solid and partially semi solid opacities throughout both lungs. There is no parenchymal masses, consolidation or nodules. Fleischner guidelines were followed.
[2021-10-06 11:21] LABS: Alanine Aminotransferase 14 U/L (0-31); Albumin Level 3.9 g/dL (3.5-5.0); Alkaline Phosphatase 65 U/L (39-117); Anion Gap 10 (12-20); Aspartate Amino Transferase 14 U/L (5-31); Bilirubin Total 0.4 mg/dL (0.0-1.0); Blood Urea Nitrogen 17 mg/dL (9-16); Calcium 9.1 mg/dL (8.4-10.2); Carbon Dioxide 28 mmol/L (22-29); Chloride 105 mmol/L (96-108); Estimated Glomerular Filt Rate > 60; Glucose Random 110 mg/dL (60-115); Potassium 4.2 mmol/L (3.3-5.1); Sodium 139 mmol/L (135-145); Total Protein 6.9 g/dL (6.5-8.0)
[2021-10-06] MEDS: iohexoL 350 MG/ML 100 ML INFUS..BTL 65 ML IV (11:57)
== END 2021-10-06 10:53 | disposition home or self-care (01) ==
LOC: HO.CT 10:52
PROVIDERS: Visit Provider Nurse Practitioner Family
DX: R91.1 Solitary pulmonary nodule (principal)
CPT/HCPCS: 36415; 71260; 80053; Q9967

== ENCOUNTER → 2021-10-18 11:12 | Outpatient (BNVA) | payer OTHER, SELFPAY | PROVIDERS: PCP Nurse Practitioner Family; Visit Provider Internal Medicine | DX: J44.9 Chronic obstructive pulmonary disease, unspecified (principal); U09.9 Post COVID-19 condition, unspecified; R91.8 Other nonspecific abnormal finding of lung field; F17.210 Nicotine dependence, cigarettes, uncomplicated | CPT/HCPCS: 99212 ==

== ENCOUNTER → 2021-10-20 14:04 | Outpatient (BNVA) | payer OTHER, SELFPAY | PROVIDERS: PCP Nurse Practitioner Family; Referring Provider Nurse Practitioner Family; Visit Provider Nurse Practitioner | DX: K30 Functional dyspepsia (principal); K59.04 Chronic idiopathic constipation; K21.9 Gastro-esophageal reflux disease without esophagitis; Z79.899 Other long term (current) drug therapy | CPT/HCPCS: 99212 ==

== ENCOUNTER 2021-11-25 13:21 | Outpatient (REF) | payer OTHER, SELFPAY ==
[2021-11-25 16:32] LABS: MANUAL DIFF FLAG NO
[2021-11-25 16:37] LABS: Basophils Percent Auto 0.9 % (0-2); Eosinophils Absolute Auto 0.2 X10*3/uL (0.0-0.4); Eosinophils Percent Auto 5.3 % (0-4); Hematocrit 40.6 % (37.0-47.0); Hemoglobin 13.5 g/dl (12.0-16.0); Imm Gran Abs Auto 0.01 X10*3/uL (0.00-0.03); Imm Gran Pct Auto 0.2 % (0.0-0.4); Lymphocytes Absolute Auto 1.6 X10*3/uL (1.2-4.9); Mean Corpuscular HGB Conc 33.3 g/dl (31.0-35.0); Mean Corpuscular Hemoglobin 31.6 pg (27.0-33.0); Mean Corpuscular Volume 95.1 fL (80.0-98.0); Mean Platelet Volume 10.6 fL (9.4-12.3); Monocytes Absolute Auto 0.5 X10*3/uL (0.1-1.2); Monocytes Percent Auto 11.2 % (2-11); Neutrophils Absolute Auto 2.2 x10*3/uL (2.0-8.3); Neutrophils Percent Auto 48.4 % (45-73); Platelet Count 235 X10*3/uL (160-400); Red Blood Count 4.27 X10*6/uL (4.20-5.50); Red Cell Distribution Width 14.1 % (11.0-16.0); White Blood Count 4.6 X10*3/uL (4.8-10.8)
[2021-11-25 16:51] LABS: Alanine Aminotransferase 17 U/L (0-31); Alkaline Phosphatase 69 U/L (39-117); Anion Gap 12 (12-20); Aspartate Amino Transferase 16 U/L (5-31); Bilirubin Total 0.5 mg/dL (0.0-1.0); Blood Urea Nitrogen 16 mg/dL (9-16); C Reactive Protein 0.71 mg/dL (< or = 0.50); Calcium 9.1 mg/dL (8.4-10.2); Carbon Dioxide 25 mmol/L (22-29); Chloride 105 mmol/L (96-108); Estimated Glomerular Filt Rate > 60; Glucose Random 113 mg/dL (60-115); Potassium 4.9 mmol/L (3.3-5.1); Sodium 137 mmol/L (135-145); Total Protein 7.1 g/dL (6.5-8.0)
[2021-11-25 17:46] LABS: Erythrocyte Sedimentation Rate 4 MM/HR (0-20)
== END 2021-11-25 13:22 | disposition home or self-care (01) ==
LOC: HO.HMGCLDS 13:21
PROVIDERS: PCP Nurse Practitioner Family; Visit Provider Nurse Practitioner Family
DX: L40.50 Arthropathic psoriasis, unspecified (principal)
CPT/HCPCS: 36415; 80053; 85025; 85652; 86140

== ENCOUNTER → 2021-11-28 10:52 | Outpatient (BNVA) | payer OTHER, SELFPAY | PROVIDERS: PCP Nurse Practitioner Family; Visit Provider Nurse Practitioner Family | DX: L40.50 Arthropathic psoriasis, unspecified (principal); L40.9 Psoriasis, unspecified | CPT/HCPCS: 99212 ==

== ENCOUNTER 2021-12-05 14:38 | Outpatient (REF) | payer OTHER, SELFPAY ==
[2021-12-05 16:14] LABS: MANUAL DIFF FLAG NO
[2021-12-05 16:23] LABS: Basophils Absolute Auto 0.1 X10*3/uL (0.0-0.2); Basophils Percent Auto 0.8 % (0-2); Eosinophils Absolute Auto 0.4 X10*3/uL (0.0-0.4); Eosinophils Percent Auto 6.9 % (0-4); Hematocrit 37.3 % (37.0-47.0); Hemoglobin 12.3 g/dl (12.0-16.0); Imm Gran Abs Auto 0.02 X10*3/uL (0.00-0.03); Imm Gran Pct Auto 0.3 % (0.0-0.4); Lymphocytes Absolute Auto 2.5 X10*3/uL (1.2-4.9); Lymphocytes Percent Auto 39.8 % (20-40); Mean Corpuscular Hemoglobin 31.9 pg (27.0-33.0); Mean Corpuscular Volume 96.6 fL (80.0-98.0); Mean Platelet Volume 10.2 fL (9.4-12.3); Monocytes Absolute Auto 0.7 X10*3/uL (0.1-1.2); Monocytes Percent Auto 10.6 % (2-11); Neutrophils Absolute Auto 2.6 x10*3/uL (2.0-8.3); Neutrophils Percent Auto 41.6 % (45-73); Platelet Count 239 X10*3/uL (160-400); Red Blood Count 3.86 X10*6/uL (4.20-5.50); Red Cell Distribution Width 14.6 % (11.0-16.0); White Blood Count 6.2 X10*3/uL (4.8-10.8)
== END 2021-12-05 14:39 | disposition home or self-care (01) ==
LOC: HO.HMGCLDS 14:38
PROVIDERS: PCP Nurse Practitioner Family; Visit Provider Nurse Practitioner Family
DX: L40.50 Arthropathic psoriasis, unspecified (principal)
CPT/HCPCS: 36415; 85025

== ENCOUNTER 2021-12-28 13:00 | Outpatient (REF) | payer OTHER, SELFPAY ==
[2021-12-28 14:28] LABS: C Reactive Protein 0.09 mg/dL (< or = 0.50)
== END 2021-12-28 13:01 | disposition home or self-care (01) ==
LOC: HO.HMGCLDS 13:00
PROVIDERS: Visit Provider Nurse Practitioner Family
DX: L40.50 Arthropathic psoriasis, unspecified (principal)
CPT/HCPCS: 36415; 86140

== ENCOUNTER 2022-03-16 18:37 | Outpatient (REF) | payer OTHER, SELFPAY ==
--- NOTE | ~2022-03-16 | MR_ITS ---
EXAMINATION: MR BRAIN WITHOUT AND WITH CONTRAST CLINICAL INFORMATION: 56-year-old with history of head injury/concussions, with headaches. Right opercular T2 lesion. Follow-up exam. COMPARISON: 11/07/2018 MRI. TECHNIQUE: Multiplanar, multisequence MRI of the brain was obtained before and after the intravenous administration of 6.5 mL Gadavist. FINDINGS: Brain Volume: Within normal limits within the limitations of qualitative assessment. 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 Brain and Meninges: DWI sequence demonstrates no restricted diffusion to suggest acute or subacute cerebral ischemia. Redemonstrated are scattered patchy zones of FLAIR/T2 signal hyperintensity within the subcortical and deeper white matter of both parieto-occipital regions which are stable in number and morphology from the previous study. Punctate foci of subcortical white matter T2 hyperintensity are seen within the left frontal lobe which are stable, with a patchy nonspecific zone of FLAIR/T2 signal hyperintensity within the immediate subcortical and juxtacortical region of the left frontal operculum unchanged in morphology. A few stable small T2 hyperintensities are seen within the subcortical white matter along the cerebral convexities bilaterally. No definite new lesions are identified since the previous exam. No posterior fossa lesions. No pathologic enhancement identified and no evidence for extra-axial fluid collection, mass lesion, space-occupying process or mass effect. Gradient refocused imaging demonstrates no evidence for hemorrhage, hemosiderin staining or abnormal mineral deposition. Ventricles and Subarachnoid Spaces: The ventricular system and subarachnoid spaces are within normal limits without hydrocephalus, stable in appearance. Orbital Structures: The visualized orbital structures are grossly unremarkable within the limitations of the study. Vascular: Signal voids are noted in the visualized major intracranial vessels. Osseous Structures, Sinuses/Mastoids, Extracranial Soft Tissues: Minor mucosal thickening in the ethmoid complex is stable. Osseous marrow signal intensity appears within normal limits. There are chronic posttraumatic changes involving the subgaleal soft tissues along the right frontal convexity unchanged in appearance. MR/MR head/brain wo/w con IMPRESSION: 1. Nonspecific T2 hyperintense lesions throughout both cerebral hemispheres with no abnormal enhancement largely unchanged in appearance. No definite new lesions are identified. The overall pattern is nonspecific but chronic ischemic microangiopathy is a consideration. Findings in the left frontal operculum could conceivably be postinflammatory or postinfectious. There is no mass effect to suggest tumor. 2. No pathologic intracranial enhancement, space-occupying process, mass effect, hemorrhage or hydrocephalus.
== END 2022-03-16 18:38 | disposition home or self-care (01) ==
LOC: HO.MRI 18:37
PROVIDERS: Visit Provider Psychiatry & Neurology Neurology
DX: F07.81 Postconcussional syndrome (principal)
CPT/HCPCS: 70553; A9585

== ENCOUNTER 2022-03-21 13:00 | Outpatient (RCR) | payer OTHER, SELFPAY ==
[2022-01-24 12:58] VITALS: BP 120/90; PULSE 56; O2SAT 98
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
--- NOTE | 2022-03-24 13:16 | MHC.PT.DC ---
[facility] [place] Office [place] Office [place] Office [address] Annabelle Deleon [address] [phone] F: [phone] F: [phone] F: [phone] F: [phone] Physical Therapy Discharge Report Diagnosis: This is a 56 yo female presenting to skilled PT with a script for vestibular disorder. Date of Surgery: Date of Evaluation: 01/24/22 Date of Discharge: 03/24/22 Treatments to Date: 11 Cancellations to Date: 0 No Shows to Date: 0 Discharge Status: Achieved Goals Improved Function Independent with HEP Patient Elected to Stop Discharge Summary: Patient was instructed in vestibular HEP for MCCLELLAND, dizziness and memory. She feels like she has had reduced sxs of pressure in the occiput and less throbbing pain in her head however continues to have MCCLELLAND's regularly. She feels ready for self management and has improved overall. She is following up with her PCP in regards to her concerns. DC to HEP Electronically signed by: Kanchan Rowan PT Please sign and return to therapist. Thank you for your referral.
== END 2022-03-24 13:16 | disposition home or self-care (01) ==
LOC: HO.PTCHIC 13:00
PROVIDERS: PCP Nurse Practitioner Family; Visit Provider Nurse Practitioner Family
DX: H81.90 Unspecified disorder of vestibular function, unspecified ear (principal)
CPT/HCPCS: 97110; 97112; 97140; 97162

== ENCOUNTER → 2022-04-17 11:06 | Outpatient (BNVA) | payer OTHER, SELFPAY | PROVIDERS: PCP Nurse Practitioner Family; Visit Provider Internal Medicine | DX: J44.9 Chronic obstructive pulmonary disease, unspecified (principal); F17.210 Nicotine dependence, cigarettes, uncomplicated; Z86.16 Personal history of COVID-19 | CPT/HCPCS: 99212 ==

== ENCOUNTER → 2022-04-20 11:55 | Outpatient (BNVA) | payer OTHER, SELFPAY | PROVIDERS: PCP Nurse Practitioner Family; Visit Provider Nurse Practitioner | DX: K59.04 Chronic idiopathic constipation (principal); K30 Functional dyspepsia; K21.9 Gastro-esophageal reflux disease without esophagitis | CPT/HCPCS: 99212 ==

== ENCOUNTER 2022-04-28 13:08 | Outpatient (REF) | payer OTHER, SELFPAY ==
[2022-04-28 13:55] LABS: MANUAL DIFF FLAG NO
[2022-04-28 14:05] LABS: Basophils Absolute Auto 0.1 X10*3/uL (0.0-0.2); Basophils Percent Auto 0.9 % (0-2); Eosinophils Absolute Auto 0.4 X10*3/uL (0.0-0.4); Eosinophils Percent Auto 6.4 % (0-4); Hematocrit 39.4 % (37.0-47.0); Hemoglobin 13.1 g/dl (12.0-16.0); Imm Gran Abs Auto 0.03 X10*3/uL (0.00-0.03); Imm Gran Pct Auto 0.6 % (0.0-0.4); Lymphocytes Absolute Auto 1.9 X10*3/uL (1.2-4.9); Lymphocytes Percent Auto 34.2 % (20-40); Mean Corpuscular HGB Conc 33.2 g/dl (31.0-35.0); Mean Corpuscular Hemoglobin 32.3 pg (27.0-33.0); Mean Platelet Volume 10.3 fL (9.4-12.3); Monocytes Absolute Auto 0.7 X10*3/uL (0.1-1.2); Monocytes Percent Auto 12.9 % (2-11); Neutrophils Absolute Auto 2.5 x10*3/uL (2.0-8.3); Platelet Count 233 X10*3/uL (160-400); Red Blood Count 4.06 X10*6/uL (4.20-5.50); Red Cell Distribution Width 14.1 % (11.0-16.0); White Blood Count 5.4 X10*3/uL (4.8-10.8)
[2022-04-28 14:41] LABS: Erythrocyte Sedimentation Rate 3 MM/HR (0-20)
[2022-04-28 15:05] LABS: Alanine Aminotransferase 13 U/L (0-31); Aspartate Amino Transferase 13 U/L (5-31); C Reactive Protein 0.26 mg/dL (< or = 0.50); Estimated Glomerular Filt Rate > 60
== END 2022-04-28 13:09 | disposition home or self-care (01) ==
LOC: HO.HMGCLDS 13:08
PROVIDERS: PCP Nurse Practitioner Family; Visit Provider Nurse Practitioner Family
DX: L40.50 Arthropathic psoriasis, unspecified (principal); Z79.899 Other long term (current) drug therapy
CPT/HCPCS: 36415; 82565; 84450; 84460; 85025; 85652; 86140

== ENCOUNTER → 2022-05-01 10:57 | Outpatient (BNVA) | payer OTHER, SELFPAY | PROVIDERS: PCP Nurse Practitioner Family; Referring Provider Nurse Practitioner Family; Visit Provider Nurse Practitioner Family | DX: L40.50 Arthropathic psoriasis, unspecified (principal); L40.9 Psoriasis, unspecified | CPT/HCPCS: 99212 ==

== ENCOUNTER → 2022-08-22 11:14 | Outpatient (BNVA) | payer OTHER, SELFPAY | PROVIDERS: PCP Nurse Practitioner Family; Visit Provider Internal Medicine | DX: K21.9 Gastro-esophageal reflux disease without esophagitis (principal) ==

== ENCOUNTER 2022-09-13 10:40 | Outpatient (REF) | payer OTHER, SELFPAY ==
[2022-09-13 11:52] LABS: MANUAL DIFF FLAG NO
[2022-09-13 12:07] LABS: Basophils Absolute Auto 0.1 X10*3/uL (0.0-0.2); Basophils Percent Auto 0.8 % (0-2); Eosinophils Absolute Auto 0.4 X10*3/uL (0.0-0.4); Hematocrit 39.8 % (37.0-47.0); Hemoglobin 13.3 g/dl (12.0-16.0); Imm Gran Abs Auto 0.04 X10*3/uL (0.00-0.03); Imm Gran Pct Auto 0.5 % (0.0-0.4); Lymphocytes Absolute Auto 1.8 X10*3/uL (1.2-4.9); Lymphocytes Percent Auto 23.7 % (20-40); Mean Corpuscular HGB Conc 33.4 g/dl (31.0-35.0); Mean Corpuscular Hemoglobin 32.8 pg (27.0-33.0); Mean Platelet Volume 10.6 fL (9.4-12.3); Monocytes Absolute Auto 0.7 X10*3/uL (0.1-1.2); Monocytes Percent Auto 8.8 % (2-11); Neutrophils Absolute Auto 4.5 x10*3/uL (2.0-8.3); Neutrophils Percent Auto 61.2 % (45-73); Platelet Count 259 X10*3/uL (160-400); Red Blood Count 4.06 X10*6/uL (4.20-5.50); White Blood Count 7.4 X10*3/uL (4.8-10.8)
[2022-09-13 12:42] LABS: Erythrocyte Sedimentation Rate 17 MM/HR (0-20)
[2022-09-13 13:18] LABS: Alanine Aminotransferase 16 U/L (0-31); Aspartate Amino Transferase 16 U/L (5-31); C Reactive Protein 0.47 mg/dL (< or = 0.50); Estimated Glomerular Filt Rate > 60
== END 2022-09-13 10:41 | disposition home or self-care (01) ==
LOC: HO.HMGCLDS 10:40
PROVIDERS: PCP Nurse Practitioner Family; Visit Provider Nurse Practitioner Family
DX: L40.50 Arthropathic psoriasis, unspecified (principal); Z79.899 Other long term (current) drug therapy
CPT/HCPCS: 36415; 82565; 84450; 84460; 85025; 85652; 86140

== ENCOUNTER → 2022-10-18 13:47 | Outpatient (BNVA) | payer OTHER, SELFPAY | PROVIDERS: PCP Nurse Practitioner Family; Visit Provider Nurse Practitioner Family | DX: L40.50 Arthropathic psoriasis, unspecified (principal); L40.9 Psoriasis, unspecified | CPT/HCPCS: 99212 ==

== ENCOUNTER 2022-10-23 15:29 | Outpatient (REF) | payer OTHER, SELFPAY ==
--- NOTE | ~2022-10-23 | CT_ITS ---
EXAMINATION: CT CHEST SCREENING CLINICAL INFORMATION: Nicotine dependence. COMPARISON: CT chest 10/06/2021. TECHNIQUE: Multidetector volumetric CT imaging of the chest is performed without contrast using low dose technique. Additional 2D coronal and sagittal reformatted images and axial 3D maximum intensity projection (MIP) images are generated on the CT workstation. This CT examination was performed using dose optimization techniques as appropriate, variously including the following: *Automated exposure control *Adjustment of mA and/or kV according to patient size (this includes techniques or standardized protocols for targeted exams where dose is matched to indication/reason for exam; i.e. extremities or head) *Use of iterative reconstruction technique DLP: 38 mGy-cm FINDINGS: LUNGS: The lungs are expanded with patchy atelectatic changes right lung base. There is a 3 mm soft tissue nodule right upper lobe medially axial image 19/4, stable. It appears more of a focal parenchymal thickening. It is stable and unchanged. No additional nodules seen. MEDIASTINUM: Thyroid lobes are symmetrical and normal. The central trachea and bronchi are widely patent. Heart size and the great vessels are normal caliber. No abnormal size mediastinal or hilar lymph nodes seen. CORONARY ARTERY CALCIFICATION: None visualized on this study. PLEURA: There is no pleural effusion. No pleural mass or thickening. AXILLA: No lymphadenopathy. UPPER ABDOMEN: Visualized liver, spleen and adrenal glands are unremarkable. OSSEOUS STRUCTURES: No aggressive lytic or sclerotic process seen. CT/CT lung screening IMPRESSION: Unremarkable CT chest exam. ASSESSMENT: Lung-RADS category 2: Benign RECOMMENDATION: Low-dose annual CT chest.
== END 2022-10-23 15:30 | disposition home or self-care (01) ==
LOC: HO.CT 15:29
PROVIDERS: PCP Nurse Practitioner Family; Visit Provider Physician Assistant Medical
DX: Z12.2 Encounter for screening for malignant neoplasm of respiratory organs (principal); F17.210 Nicotine dependence, cigarettes, uncomplicated
CPT/HCPCS: 71271

== ENCOUNTER → 2022-10-27 14:03 | Outpatient (BNVA) | payer OTHER, SELFPAY | PROVIDERS: PCP Nurse Practitioner Family; Visit Provider Physician Assistant Medical | DX: F17.210 Nicotine dependence, cigarettes, uncomplicated (principal) | CPT/HCPCS: G0296 ==

== ENCOUNTER → 2022-11-01 10:36 | Outpatient (BNVA) | payer OTHER, SELFPAY | PROVIDERS: PCP Nurse Practitioner Family; Visit Provider Internal Medicine | DX: J44.9 Chronic obstructive pulmonary disease, unspecified (principal); F17.210 Nicotine dependence, cigarettes, uncomplicated | CPT/HCPCS: 99212 ==

== ENCOUNTER → 2022-11-10 12:19 | Outpatient (BNVA) | payer OTHER, SELFPAY | PROVIDERS: PCP Nurse Practitioner Family; Visit Provider Nurse Practitioner | DX: K30 Functional dyspepsia (principal); K21.9 Gastro-esophageal reflux disease without esophagitis; K59.04 Chronic idiopathic constipation | CPT/HCPCS: 99212 ==

== ENCOUNTER 2022-11-30 10:59 | Outpatient (REF) | payer OTHER, SELFPAY ==
--- NOTE | ~2022-11-30 | MM_ITS ---
EXAMINATION: BONE DENSITOMETRY CLINICAL INDICATION: Nicotine dependence, unspecified, uncomplicated. COMPARISON: Baseline BD dated 12/13/2018. TECHNIQUE: Using a [employer] DXA System (software version: 13.1) manufactured by [employer], dual-energy x-ray absorptiometry was performed of the lumbar spine and left hip. The images are of good technical quality. Summary results are attached. FINDINGS: AP SPINE L1-L4: Current: BMD 1.047 g/cm2, Z-score -0.2, T-score -1.1, osteopenia, 4.4% decrease from baseline (<5% change is not significant). Baseline: BMD 1.095 g/cm2. LEFT FEMUR, NECK: Current: BMD 0.653 g/cm2, Z-score -1.7, T-score -2.8, osteoporosis. Baseline: BMD 0.763 g/cm2. LEFT FEMUR, TOTAL: Current: BMD 0.777 g/cm2, Z-score -1.1, T-score -1.8, osteopenia, 10.9% decrease from baseline (<5% change is not significant). Baseline: BMD 0.872 g/cm2. IDENTIFIED RISK FACTORS: Early menopause, secondary osteoporosis, tobacco use (current smoker), family history (parental hip fracture). HISTORY OF FRACTURE: None listed. MEDICATIONS: Calcium supplements or multivitamin, vitamin D. MM/XR DEXA axial skeleton IMPRESSION: 1. DIAGNOSIS: Osteoporosis based on the lowest T-score value of -2.8 in the femoral neck applying World Health Organization criteria. 2. 10-YEAR FRACTURE RISK PREDICTION, FRAX: According to the guidelines, FRAX calculation should only be performed on patients in the osteopenia bone density category. Therefore, FRAX was not performed on this patient. 3. Treatment Recommendations: NOF guidelines recommend consideration for treatment in postmenopausal women and men age 50 and older presenting with the following: -A hip or vertebral (clinical or morphometric) fracture. -T-score less than or equal to -2.5 at the femoral neck or spine after appropriate evaluation to exclude secondary causes. -Low bone mass at the hip or spine and a 10-year fracture probability by FRAX of greater than or equal to 3% for hip fracture or greater than or equal to 20% for major osteoporotic fracture based on the [place] adapted WHO algorithm. 4. Other Recommendations: All treatment decisions require clinical judgment and consideration of individual patient factors, including patient preferences, comorbidities, previous drug use, risk factors not captured in the FRAX model (e.g. frailty, falls, vitamin D deficiency, increased bone turnover, interval significant decline in bone density) and possible under or overestimation of fracture risk by FRAX. Additional medical evaluation for secondary cause of low bone mineral density may be appropriate. FUTURE SCAN RECOMMENDATION: People with diagnosed cases of osteoporosis or at high risk for fracture should have regular bone mineral density tests. For patients eligible for Medicare, routine testing is allowed once every 2 years. The testing frequency can be increased to one year for patients who have rapidly progressing disease, those who are receiving or discontinuing medical therapy to restore bone mass, or have additional risk factors.
== END 2022-11-30 11:00 | disposition home or self-care (01) ==
LOC: HO.MAMMO 10:59
PROVIDERS: PCP Nurse Practitioner Family; Visit Provider Nurse Practitioner Family
DX: Z13.820 Encounter for screening for osteoporosis (principal); Z78.0 Asymptomatic menopausal state; M85.80 Other specified disorders of bone density and structure, unspecified site
CPT/HCPCS: 77080

== ENCOUNTER 2023-02-06 14:11 | Outpatient (AMB) | payer OTHER, SELFPAY ==
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
[2023-02-06 14:28] VITALS: BP 116/92; PULSE 69; BMI 23.9
== END 2023-02-06 15:40 | disposition home or self-care (01) ==
PROVIDERS: PCP Nurse Practitioner Family; Visit Provider Internal Medicine Endocrinology, Diabetes & Metabolism
DX: M81.0 Age-related osteoporosis without current pathological fracture (principal)
CPT/HCPCS: 99204

== ENCOUNTER → 2023-02-06 14:11 | Outpatient (BNVA) | payer OTHER, SELFPAY | PROVIDERS: PCP Nurse Practitioner Family; Visit Provider Internal Medicine Endocrinology, Diabetes & Metabolism | DX: M81.0 Age-related osteoporosis without current pathological fracture (principal) | CPT/HCPCS: 99202 ==

== ENCOUNTER 2023-02-07 10:56 | Outpatient (REF) | payer OTHER, SELFPAY ==
[2023-02-07 13:12] LABS: MANUAL DIFF FLAG NO
[2023-02-07 13:24] LABS: Appearance Urine Clear; Basophils Absolute Auto 0.1 X10*3/uL (0.0-0.2); Basophils Percent Auto 0.7 % (0-2); Color Urine Yellow; Eosinophils Absolute Auto 0.2 X10*3/uL (0.0-0.4); Eosinophils Percent Auto 3.3 % (0-4); Glucose Urine UA Negative (Negative); Hematocrit 43.7 % (37.0-47.0); Hemoglobin 14.7 g/dl (12.0-16.0); Imm Gran Abs Auto 0.03 X10*3/uL (0.00-0.03); Imm Gran Pct Auto 0.4 % (0.0-0.4); Leukocyte Esterase Urine Negative (Negative); Lymphocytes Absolute Auto 2.1 X10*3/uL (1.2-4.9); Lymphocytes Percent Auto 30.8 % (20-40); Mean Corpuscular HGB Conc 33.6 g/dl (31.0-35.0); Mean Corpuscular Hemoglobin 32.1 pg (27.0-33.0); Mean Corpuscular Volume 95.4 fL (80.0-98.0); Mean Platelet Volume 10.4 fL (9.4-12.3); Monocytes Absolute Auto 0.5 X10*3/uL (0.1-1.2); Monocytes Percent Auto 7.6 % (2-11); Neutrophils Absolute Auto 3.8 x10*3/uL (2.0-8.3); Neutrophils Percent Auto 57.2 % (45-73); Nitrite Urine Negative (Negative); Platelet Count 301 X10*3/uL (160-400); Red Blood Count 4.58 X10*6/uL (4.20-5.50); Red Cell Distribution Width 14.3 % (11.0-16.0); UMIC TRIGGER UACC YES; Urine Blood Trace (Negative); Urine Ketones Negative (Negative); Urine Protein Negative (Neg-Trace); White Blood Count 6.7 X10*3/uL (4.8-10.8)
[2023-02-07 13:33] LABS: Bacteria Urine None Seen (None Seen); Hyaline Casts Urine 0-2 /LPF (0-2); Squamous Epithelial Cell Urine 0-2 /HPF (0-2); WBC Urine 0-5 /HPF (0-5)
[2023-02-07 13:43] LABS: Alanine Aminotransferase 11 U/L (0-31); Alkaline Phosphatase 70 U/L (39-117); Anion Gap 11 (12-20); Aspartate Amino Transferase 13 U/L (5-31); Bilirubin Total 0.5 mg/dL (0.0-1.0); Blood Urea Nitrogen 12 mg/dL (9-16); C Reactive Protein 0.33 mg/dL (< or = 0.50); Calcium 9.6 mg/dL (8.4-10.2); Carbon Dioxide 27 mmol/L (22-29); Chloride 106 mmol/L (96-108); Cholesterol 256 mg/dL; Estimated Glomerular Filt Rate > 60; Glucose Fasting 111 mg/dL (60-99); Glucose Random 113 mg/dL (60-115); HDL Cholesterol 68 mg/dL; LDL Cholesterol Calculated 171 mg/dl; Potassium 3.8 mmol/L (3.3-5.1); Sodium 140 mmol/L (135-145); Total Protein 7.5 g/dL (6.5-8.0); Triglycerides 86 mg/dL
[2023-02-07 14:02] LABS: TSH reflex Free T4 1.73 uIU/mL (0.32-4.0); Vitamin D 25-OH Total 75.7 ng/mL (>30)
[2023-02-07 14:06] LABS: Erythrocyte Sedimentation Rate 10 MM/HR (0-20)
== END 2023-02-07 10:57 | disposition home or self-care (01) ==
LOC: HO.HMGCLDS 10:56
PROVIDERS: Absent Provider Nurse Practitioner Family; PCP Nurse Practitioner Family; Referring Provider Internal Medicine Medical Oncology; Visit Provider Nurse Practitioner Family
DX: Z00.00 Encounter for general adult medical examination without abnormal findings (principal); M85.80 Other specified disorders of bone density and structure, unspecified site; L40.50 Arthropathic psoriasis, unspecified
CPT/HCPCS: 36415; 80053; 80061; 81001; 82306; 84443; 85025; 85652; 86140

== ENCOUNTER 2023-02-14 12:57 | Outpatient (REF) | payer OTHER, SELFPAY ==
[2023-02-14 16:26] LABS: Phosphorus 3.2 mg/dL (2.7-4.5)
[2023-02-14 16:39] LABS: Free T4 (Free Thyroxine) 0.89 ng/dL (0.71-1.85); Thyroid Stimulating Hormone 2.76 uIU/mL (0.32-4.0); Vitamin D 25-OH Total 93.8 ng/mL (>30)
== END 2023-02-14 12:58 | disposition home or self-care (01) ==
LOC: HO.HMGCLDS 12:57
PROVIDERS: Visit Provider Internal Medicine Endocrinology, Diabetes & Metabolism
DX: M81.0 Age-related osteoporosis without current pathological fracture (principal)
CPT/HCPCS: 36415; 82306; 84100; 84439; 84443

== ENCOUNTER 2023-03-16 14:50 | Outpatient (REF) | payer OTHER, SELFPAY ==
[2023-03-16 15:59] LABS: Urine Cytology See Pathology rpt
[2023-03-16 16:05] LABS: Appearance Urine Clear; Color Urine Yellow; Glucose Urine UA Negative (Negative); Leukocyte Esterase Urine Negative (Negative); Nitrite Urine Negative (Negative); Specific Gravity - Urine <= 1.005 (1.005-1.025); Urine Blood Negative (Negative); Urine Ketones Negative (Negative); Urine Protein Negative (Neg-Trace)
== END 2023-03-16 14:51 | disposition home or self-care (01) ==
LOC: HO.HMGCLDS 14:50
PROVIDERS: PCP Nurse Practitioner Family; Visit Provider Nurse Practitioner Family
DX: Z00.00 Encounter for general adult medical examination without abnormal findings (principal); R31.29 Other microscopic hematuria
CPT/HCPCS: 81001; 81003; 87086; 88112

== ENCOUNTER 2023-03-20 12:52 | Outpatient (AMB) | payer OTHER, SELFPAY ==
[2023-03-20 12:58] VITALS: BP 100/68; PULSE 69; O2SAT 96; BMI 24.6
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
== END 2023-03-20 13:26 | disposition home or self-care (01) ==
PROVIDERS: Visit Provider Nurse Practitioner Family
DX: R73.01 Impaired fasting glucose (principal); Z78.0 Asymptomatic menopausal state; F32.9 Major depressive disorder, single episode, unspecified; F41.9 Anxiety disorder, unspecified; F43.10 Post-traumatic stress disorder, unspecified
CPT/HCPCS: 99213

== ENCOUNTER 2023-03-21 10:14 | Outpatient (AMB) | payer OTHER, SELFPAY ==
--- NOTE | 2023-03-21 10:17 | A.OFFVIS_ITS ---
Intake Vital Signs 03/21/23 10:18 Height 5 ft 7 in Weight 158 lb 11.725 oz BMI 24.9 BP 104/66 Blood Pressure Location Rt brachial Position Sitting Pulse 60 Pulse Source Pulse Oximeter Temp 97.3 F Temp Source Skin Pulse Oximetry (%) 97 Intake Visit Reasons: psoriatic arthritis Intake Note: Pt seen today for PsA follow up. 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 Accompanied by: Self / Same As Patient Allergies gabapentin [GABAPENTIN] Allergy (Mild, Verified 03/21/23 10:20) SWELLING pregabalin [From LYRICA] Allergy (Mild, Verified 03/21/23 10:20) AGITATION, swelling, SWELLING Medication List - Last Reconciled 03/21/23 by Rafi Liao MD amitriptyline 50 mg PO BEDTIME bempedoic acid-ezetimibe 180-10 mg 1 tab PO DAILY 90 days ubunxffxjx-qjrjckdjcscvy-eyoo 50-325-40 mg 1 tab PO Q6H PRN clonazepam 1 mg PO BID 30 days etanercept (Enbrel SureClick) 50 mg subcut QWEEK fluticasone propion-salmeterol 250-50 mcg/dose (Advair Diskus) 1 inh inhalation BID 30 days hydroxyzine HCl 50 mg PO BID PRN loratadine (Allergy Relief (loratadine)) 10 mg PO DAILY PRN 30 days methocarbamol 750 mg PO TID PRN 30 days metoclopramide HCl 10 mg PO QID omeprazole 40 mg PO DAILY ondansetron 8 mg PO Q12H PRN 30 days polyethylene glycol 3350 (Miralax) 17 grams PO DAILY PRN propranolol 20 mg PO BID trazodone 100 mg (2 x 50 mg) PO BEDTIME PRN venlafaxine ER 75 mg PO DAILY 90 days venlafaxine ER 150 mg PO DAILY Ventolin HFA 90 mcg/actuation (albuterol sulfate) 2 puffs inhalation Q6H PRN 30 days NS HPI HPI Comments History of Present Illness Details 57yoF presents for follow-up of psoriatic arthritis. Last seen by Gabi Watts On Enbrel weekly, tolerating this well. Patient is doing well overall. She states that 2 months ago she held the Enbrel due to a mild viral infection, she had a few spots of psoriasis that lasted about a week then they resolved when Enbrel was restarted. She was recently evaluated by Endocrinology for osteoporosis and started on vitamin-D. She has no complaints today [facility] Medical History (Updated 03/21/23 @ 10:53 by Rafi Liao MD) Nicotine dependence, cigarettes, uncomplicated Osteopenia (~2018) Hypertensive retinopathy of both eyes Tubular adenoma of colon (~2020) Post covid-19 condition, unspecified (~06/2021) Delayed gastric emptying PTSD (post-traumatic stress disorder) HTN (hypertension) Depression COPD (chronic obstructive pulmonary disease) Cigarette nicotine dependence History of cocaine abuse History of alcohol abuse Nausea Post concussive syndrome (~2019) Fibromyalgia Psoriasis Psoriatic arthritis Facial trauma Surgical History History of right breast biopsy History of cranial surgery History of colonoscopy History of foot surgery History of foot surgery Family History Father Family history of diabetes mellitus Medical history non-contributory Maternal Grandmother Rectal cancer Maternal Grandfather Stomach cancer Family/Other Bone cancer Mother Breast cancer Social History Household Members: Spouse Housing: Apartment Are you a primary medicare coordinator to a significant other at home: No Do you presently have visiting nurse or other home services: No Alcohol intake: current Alcohol intake frequency: holidays/special occasions only Patient Tobacco Use Status: Current everyday Tobacco user Tobacco use type: Cigarette Cigarette Packs Per Day: 0.5 Years Smoked: (onset 11yo, x 46yrs, max 1ppd, now 1/2ppd - 30pyh) e-Cigarette/Vaping Use: Never Used Second Hand Smoke Exposure: Yes Substance Use Type: Marijuana service: No Current occupational status: disabled Cognitive needs: No Hearing needs: No Vision needs: No Review of Systems Musc Denies arthralgias Skin/Breast Denies rash Physical Exam Vital Signs: Last Vital Signs Temp 97.3 F 03/21/23 10:18 Pulse 60 03/21/23 10:18 BP 104/66 03/21/23 10:18 Pulse Ox 97 03/21/23 10:18 BMI result Body Mass Index 24.9 Const General: cooperative, healthy appearing and comfortable Nutritional Appearance: average body habitus Orientation/consciousness: patient oriented x3 Limitations: no limitations HEENT Head: Yes normocephalic and Yes atraumatic Mouth: moist mucous membranes Resp Effort & Inspection: normal respiratory effort and able to speak in complete sentences Auscultation: clear to auscultation bilaterally Cardio Rate: regular rate Rhythm: regular rhythm Heart sounds: S1 normal heart sound present GI Inspection: No distended Palpation (GI): Soft to palpation and nontender Skin General skin exam: no rashes or lesions noted Neuro General: patient oriented x3 Extrem Other: Mild osteoarthritic changes of both hands with no active synovitis No nail pitting Normal range of motion of both elbows and shoulders without pain Assessment & Plan Assessment & Plan (1) Psoriatic arthritis: Comment: Enbrel 02/2019- present effective Methotrexate: before 2018- dates are not available to me-patient is unsure why this was stopped. Code(s): L40.50 - Arthropathic psoriasis, unspecified Plan: This is a 57-year-old female with psoriasis and psoriatic arthritis. Well controlled on Enbrel weekly. Inflammatory markers normal. Patient gets flares of psoriasis when Enbrel is held (when she has a viral infection for example) Continue Enbrel 50 mg once weekly Labs before next visit in 6 months (2) Psoriasis: Comment: (Derm = Dr. Becca Bonilla) no longer follows up with Derm Code(s): L40.9 - Psoriasis, unspecified Plan: Skin is clear today (3) High risk medication use: Code(s): Z79.899 - Other exterminator helper (current) drug therapy Plan: Side effects of Enbrel were discussed with the patient in detail including increased risk of infection, demyelinating disease, reactivation of latent TB, possible increased risk of solid and skin tumors. Patient fully aware. Advised patient to seek medical care KIRK if patient has an infection and advised patient to stop the medication until the infection is resolved. Advised patient to get a yearly skin exam (4) Immunization counseling: Code(s): Z71.85 - Encounter for immunization safety counseling Plan: Inform patient that the fall is upon os and there is an increase in respiratory infections. Advised patient to get the flu vaccine for this season. Inform patient to get the new COVID booster if available and new RSV vaccine if available. No need to hold Enbrel for these vaccines. (5) Osteoporosis: Code(s): M81.0 - Age-related osteoporosis without current pathological fracture Qualifiers: Osteoporosis type: age-related Presence of current pathological fracture: without current pathological fracture Qualified Code(s): M81.0 - Age- related osteoporosis without current pathological fracture Plan: Managed by endocrinology Plan I spent 32 minutes reviewing patient's chart, evaluating patient, ordering diagnostic workup, counseling patient and documenting in the chart Orders: Orders Complete Blood Count Auto Diff 6 Months L40.50 - Arthropathic psoriasis, unspecified C Reactive Protein 6 Months L40.50 - Arthropathic psoriasis, unspecified T Spot TB 6 Months Z11.7 - Encounter for testing for latent tuberculosis infection Comprehensive Met. Panel 6 Months L40.50 - Arthropathic psoriasis, unspecified Erythrocyte Sedimentation Rate 6 Months L40.50 - Arthropathic psoriasis, unspecified Hepatitis A,B,C Profile 6 Months Z11.59 - Encounter for screening for other v iral diseases Coding Level of Care Code Est Pt Level 4 (18075) Diagnoses Psoriatic arthritis L40.50 Psoriasis L40.9 High risk medication use Z79.899 Immunization counseling Z71.85 Age-related osteoporosis without current pathological fracture M81.0 Osteoporosis type: age-related Presence of current pathological fracture: without current pathological fracture
[2023-03-21 10:18] VITALS: BP 104/66; PULSE 60; TEMP 36.3; O2SAT 97; BMI 24.9
== END 2023-03-21 10:47 | disposition home or self-care (01) ==
PROVIDERS: PCP Nurse Practitioner Family; Visit Provider Student in an Organized Health Care Education/Training Program
DX: L40.50 Arthropathic psoriasis, unspecified (principal); L40.9 Psoriasis, unspecified; Z79.899 Other long term (current) drug therapy; Z71.85 Encounter for immunization safety counseling; M81.0 Age-related osteoporosis without current pathological fracture
CPT/HCPCS: 99214

== ENCOUNTER → 2023-03-21 10:14 | Outpatient (BNVA) | payer OTHER, SELFPAY | PROVIDERS: PCP Nurse Practitioner Family; Visit Provider Student in an Organized Health Care Education/Training Program | DX: L40.50 Arthropathic psoriasis, unspecified (principal); M81.0 Age-related osteoporosis without current pathological fracture; Z71.85 Encounter for immunization safety counseling; Z79.899 Other long term (current) drug therapy | CPT/HCPCS: 99212 ==

== ENCOUNTER 2023-03-26 09:48 | Outpatient (AMB) | payer OTHER, SELFPAY ==
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
[2023-03-26 09:53] VITALS: BP 122/80; PULSE 66; O2SAT 94; BMI 24.7
== END 2023-03-26 11:11 | disposition home or self-care (01) ==
PROVIDERS: Visit Provider Nurse Practitioner Family
DX: G43.009 Migraine without aura, not intractable, without status migrainosus (principal); F07.81 Postconcussional syndrome; R41.89 Other symptoms and signs involving cognitive functions and awareness; R90.82 White matter disease, unspecified; R06.83 Snoring; G25.81 Restless legs syndrome; G47.9 Sleep disorder, unspecified; G47.19 Other hypersomnia
CPT/HCPCS: 99204

== ENCOUNTER → 2023-03-26 09:48 | Outpatient (BNVA) | payer OTHER, SELFPAY | PROVIDERS: Visit Provider Nurse Practitioner Family ==

== ENCOUNTER → 2023-04-16 11:15 | Outpatient (BNVA) | payer OTHER, SELFPAY | PROVIDERS: PCP Nurse Practitioner Family; Visit Provider Nurse Practitioner Family ==

== ENCOUNTER 2023-04-24 10:22 | Outpatient (AMB) | payer OTHER, SELFPAY ==
--- NOTE | 2023-04-24 10:30 | MHC.OFFVIS ---
Intake Vital Signs 04/24/23 10:31 Height 5 ft 7 in Weight 154 lb BMI 24.1 BP 130/90 H Blood Pressure Location Lt brachial Position Sitting Pulse 71 Pulse Source Pulse Oximeter Pulse Oximetry (%) 99 Oxygen Delivery Method Room Air Intake Visit Reasons: COPD Intake Note: pt is here for follow up and states her shortness of breath is more than usual, the phelgm in am Director Of Consulting Services Required: No Allergies gabapentin [GABAPENTIN] Allergy (Mild, Verified 04/24/23 10:57) SWELLING pregabalin [From LYRICA] Allergy (Mild, Verified 04/24/23 10:57) AGITATION, swelling, SWELLING Medication List - Last Reconciled 04/24/23 by Rome Parekh MD amitriptyline 50 mg PO BEDTIME dmxoeodvpg-mbbmahrzrxojl-ydpw 50-325-40 mg 1 tab PO Q6H PRN calcium citrate 250 mg PO DAILY cholecalciferol (vitamin D3) 50 mcg PO DAILY clonazepam 1 mg PO BID 30 days Enbrel SureClick (etanercept) 50 mg subcut QWEEK NS ezetimibe 10 mg PO DAILY 90 days fluoride (sodium) 1.1% (Denta 5000 Plus) 1 appl PO DAILY fluticasone propion-salmeterol 250-50 mcg/dose (Advair Diskus) 1 ea inhalation BID galcanezumab-gnlm (Emgality Pen) 120 mg subcut ONCE 30 days hydroxyzine HCl 50 mg PO BID PRN loratadine (Allergy Relief (loratadine)) 10 mg PO DAILY PRN 30 days magnesium oxide 400 mg PO BEDTIME 30 days methocarbamol 750 mg PO TID PRN 30 days omeprazole 40 mg PO DAILY ondansetron 8 mg PO Q12H PRN 30 days polyethylene glycol 3350 (Miralax) 17 grams PO DAILY PRN propranolol 20 mg PO BID riboflavin (vitamin B2) 400 mg PO DAILY 30 days trazodone 100 mg (2 x 50 mg) PO BEDTIME PRN venlafaxine ER 75 mg PO DAILY 90 days venlafaxine ER 150 mg PO DAILY Ventolin HFA 90 mcg/actuation (albuterol sulfate) 2 puffs inhalation Q6H PRN 30 days NS Do you need a note to return to daycare/school/sports/work: No HPI COPD HPI Details 57 YEARS OLD FEMALE CASE OF CHRONIC OBSTRUCTIVE PULMONARY DISEASE, COMES FOR HER ROUTINE FOLLOW-UP. SAY IS THAT HER BREATHING IS LITTLE BIT WORSE, WITH INCREASED SHORTNESS OF BREATH ON WALKING AROUND OR CLIMBING STAIRS. ALSO HAS MORE FREQUENT COUGH AND SOMETIMES PRODUCTIVE OF YELLOWISH PHLEGM. SHE DOES USE HER ADVAIR TWICE A DAY REGULARLY AND ALBUTEROL ONLY NEEDED. THE MAIN PROBLEM IS WHICH SHE RECOGNIZES VERY WELL, THAT SHE CONTINUES TO SMOKE. SHE HAD QUIT FOR A SHORT PERIOD THEN RESUMED SMOKING, NOW SHE IS TRYING TO CUT DOWN THE CIGARETTES , AND IS DOWN TO 6 A DAY. [facility] Medical History (Updated 04/24/23 @ 11:02 by Rome Parekh MD) Nicotine dependence, cigarettes, uncomplicated Osteopenia (~2018) Hypertensive retinopathy of both eyes Tubular adenoma of colon (~2020) Post covid-19 condition, unspecified (~06/2021) Delayed gastric emptying PTSD (post-traumatic stress disorder) HTN (hypertension) Depression COPD (chronic obstructive pulmonary disease) Cigarette nicotine dependence History of cocaine abuse History of alcohol abuse Nausea Post concussive syndrome (~2019) Fibromyalgia Psoriasis Psoriatic arthritis Facial trauma Surgical History History of right breast biopsy History of cranial surgery History of colonoscopy History of foot surgery History of foot surgery Family History Father Family history of diabetes mellitus Medical history non-contributory Maternal Grandmother Rectal cancer Maternal Grandfather Stomach cancer Family/Other Bone cancer Mother Breast cancer Social History (Updated 04/24/23 @ 10:40 by Mariam White Marla) Household Members: Spouse Housing: Apartment Are you a primary healthcare administrative assistant to a significant other at home: No Do you presently have visiting nurse or other home services: No Alcohol intake: current Alcohol intake frequency: holidays/special occasions only Patient Tobacco Use Status: Current everyday Tobacco user Tobacco use type: Cigarette Cigarette Packs Per Day: 0.25 Cigarettes Per Day: 6 Years Smoked: (onset 11yo, x 46yrs, max 1ppd, now 1/2ppd - 30pyh) e-Cigarette/Vaping Use: Never Used Second Hand Smoke Exposure: Yes Substance Use Type: Marijuana service: No Current occupational status: disabled Cognitive needs: No Hearing needs: No Vision needs: No Review of Systems Const All systems reviewed & are unremarkable except as noted in HPI and below Reports headache(s) Eyes Reports no additional complaints ENT Reports headache(s) and Reports nasal congestion (MILD OFF AND ON) Card Denies chest pain, Denies irregular heart rhythm and Denies leg edema Resp Reports as per HPI GI Reports no additional complaints, Reports heartburn and Reports nausea Reports no additional complaints Musc Reports back pain Skin/Breast Reports system reviewed and no additional complaints, except as documented Neuro Reports headache(s) and Reports memory loss (Has had post concussion syndrome) Psych Reports anxiety (Mild chronic), Reports depression (Mild) and Reports memory loss (Has had post concussion syndrome) Physical Exam Vital Signs: Last Vital Signs Pulse 71 04/24/23 10:31 BP 130/90 H 04/24/23 10:31 Pulse Ox 99 04/24/23 10:31 Oxygen Delivery Method Room Air 04/24/23 10:31 BMI result Body Mass Index 24.1 Const General: comfortable, no acute distress, alert and awake Orientation/consciousness: patient oriented x3 HEENT Head: Yes normal to inspection General nose exam: No nasal polyps present and No nasal discharge present Face and sinus: Yes sinuses nontender Mouth: oropharynx normal Throat: Yes posterior oropharynx normal Eyes General: appearance normal, both eyes and all related structures Neck Neck: Yes normal visual inspection, Yes no lymphadenopathy, Yes trachea midline and Yes no JVD Thyroid: Thyroid normal Chest Chest palpation & inspection: normal inspection of the chest, normal palpation of entire chest wall and no tenderness Resp Other: Percussion note is resonant, she does have good breath sounds on both sides,slightly distant , equal. No audible wheezes crepitations or rhonchi. Cardio Palpation: normal PMI Rate: regular rate Rhythm: regular rhythm Heart sounds: no gallops and no murmurs GI Palpation (GI): Soft to palpation, Tenderness to palpation present (GI), No hepatosplenomegaly present and Palpable mass present Auscultation: normal bowel sounds Back/Spine/Pelvis Thoracic/Lumbar Spine: thoracic and lumbar spine normal to inspection Skin General skin exam: no rashes or lesions noted Neuro General: patient oriented x3 and no focal motor deficits Cranial nerves: Yes CN's II-XII intact bilaterally Extrem General: Yes normal to inspection, Yes no clubbing, cyanosis or edema and Yes no calf tenderness Psych Speech and movement: Normal speech and movement present Assessment & Plan Assessment & Plan (1) COPD (chronic obstructive pulmonary disease): Comment: She has mild to moderate degree of chronic obstructive pulmonary disease, which has stayed quite stable over the past many years. Now she complains of slightly increased cough and SOB . sec to cigarettes smoking . TX : ADVAIR 250-50 one inh bid Albuterol HFA ( VENTOLIN ) 2 puffs Q 6 hours only p.r.n.. * I a.m. requesting an appointment for complete pulmonary function test. Then will decide if we need to upgrade her treatment regimen. Code(s): J44.9 - Chronic obstructive pulmonary disease, unspecified (2) Cigarette nicotine dependence: Comment: (current smoker x 40+yrs, down to 4-5 cig /day) determined to quit completely. HAD QUIT COMPLETELY FOR A FEW MONTHS AND THEN RESUME SMOKING NOW SMOKING 10 CIGARETTES A DAY, COUNSELLED TO QUIT , TRYING TO REDUCE THE NUMBER OF CIGARETTES SLOWLY ON HER OWN, NOW DOWN TO 6 CIGARETTES A DAY. SHE IS IN ANNUAL LUNG SCREENING PROGRAM, BUT HAS HAD NO CT SCAN YET. Code(s): F17.210 - Nicotine dependence, cigarettes, uncomplicated Coding Level of Care Code Est Pt Level 3 (10557) Diagnoses COPD (chronic obstructive pulmonary disease) J44.9 Cigarette nicotine dependence F17.210
[2023-04-24 10:31] VITALS: BP 130/90; PULSE 71; O2SAT 99; BMI 24.1
== END 2023-04-24 10:58 | disposition home or self-care (01) ==
PROVIDERS: PCP Nurse Practitioner Family; Visit Provider Internal Medicine
DX: J44.9 Chronic obstructive pulmonary disease, unspecified (principal); F17.210 Nicotine dependence, cigarettes, uncomplicated
CPT/HCPCS: 99213

== ENCOUNTER → 2023-04-24 10:22 | Outpatient (BNVA) | payer OTHER, SELFPAY | PROVIDERS: PCP Nurse Practitioner Family; Visit Provider Internal Medicine | DX: J44.9 Chronic obstructive pulmonary disease, unspecified (principal); F17.210 Nicotine dependence, cigarettes, uncomplicated | CPT/HCPCS: 99212 ==

== ENCOUNTER 2023-04-25 12:38 | Outpatient (RCR) | payer OTHER, SELFPAY ==
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
== END 2023-06-06 11:50 | disposition home or self-care (01) ==
LOC: HO.OT 12:38
PROVIDERS: PCP Nurse Practitioner Family; Visit Provider Nurse Practitioner Family
DX: F07.81 Postconcussional syndrome (principal); F09 Unspecified mental disorder due to known physiological condition
CPT/HCPCS: 97166

== ENCOUNTER 2023-05-19 13:45 | Outpatient (REF) | payer OTHER, SELFPAY ==
[2023-05-19 15:22] LABS: Anion Gap 12 (12-20); Blood Urea Nitrogen 19 mg/dL (9-16); Calcium 9.2 mg/dL (8.4-10.2); Carbon Dioxide 27 mmol/L (22-29); Chloride 103 mmol/L (96-108); Estimated Glomerular Filt Rate 53; Glucose Random 125 mg/dL (60-115); Potassium 3.8 mmol/L (3.3-5.1); Sodium 138 mmol/L (135-145)
== END 2023-05-19 13:46 | disposition home or self-care (01) ==
LOC: HO.HMGCLDS 13:45
PROVIDERS: PCP Nurse Practitioner Family; Visit Provider Nurse Practitioner Family
DX: I10 Essential (primary) hypertension (principal)
CPT/HCPCS: 36415; 80048

== ENCOUNTER 2023-05-21 09:59 | Outpatient (REF) | payer OTHER, SELFPAY ==
--- NOTE | ~2023-05-21 | CT_ITS ---
EXAMINATION: CT ANGIOGRAM NECK CLINICAL INFORMATION: 57-year-old with abnormal findings on previous brain MRI. COMPARISON: 03/16/2022 MRI brain. TECHNIQUE: Volumetric CT angiography of the head and neck was performed from the upper thorax to the skull vertex utilizing the bolus intravenous administration of 70 mL of Omnipaque 350 contrast material. 2D multiplanar reconstructions and 3D MIP renderings were performed either on an independent workstation or at the CT console workstation. Precontrast and delayed postcontrast imaging of the brain was obtained as well. The degree of stenosis determined by NASCET criteria. This CT examination was performed using dose optimization techniques as appropriate, variously including the following: *Automated exposure control *Adjustment of mA and/or kV according to patient size (this includes techniques or standardized protocols for targeted exams where dose is matched to indication/reason for exam; i.e. extremities or head) *Use of iterative reconstruction technique DLP: 2362 mGy-cm FINDINGS: CTA NECK/CHEST: The thoracic aortic arch shows normal morphology. There is a bovine origin of the left common carotid artery which is an anatomic variant. There is limited assessment of the brachiocephalic vessels due to artifacts. Within these limitations, the brachiocephalic vessels are patent without significant stenosis. The visualized subclavian arteries are patent without significant and stenosis. The right vertebral artery origin is widely patent and normal in caliber at its origin. The left vertebral artery origin is also widely patent and normal in caliber at its origin. The vertebral arteries are codominant and demonstrate no significant focal stenosis or segmental occlusion throughout the neck. Tiny focus of calcified plaque noted in the mid left cervical vertebral artery. Right Carotid: Right common carotid artery is patent and normal in caliber with a smoothly contoured appearance to the right carotid bifurcation with no significant plaque formation. There is tortuosity of the proximal right ICA which is otherwise smoothly contoured and normal in caliber. The right ECA is patent and normal in caliber. Left Carotid: Left common carotid artery is patent and normal in caliber, with a smoothly contoured appearance to the carotid bifurcation with no significant plaque formation. The external carotid artery is patent and normal in caliber. There is tortuosity of the mid left cervical ICA, which forms a 270-degree loop, which is otherwise patent and normal in caliber. CTA HEAD: The intracranial ICAs are patent and normal in caliber. Mild mural calcifications are seen corresponding to both carotid siphons. The A1 and A2 segments are patent and normal in caliber. The anterior communicating artery is not well visualized. The M1 segments, MCA bifurcations and M2 branches are patent and normal in caliber. The intradural vertebral arteries are patent and normal in caliber. The basilar artery is smoothly contoured, patent and normal in caliber. Posterior cerebral arteries are patent and normal in caliber. The posterior communicating arteries are not visualized. CT BRAIN: The brain is structurally within normal limits. There are patchy zones of hypodensity in the subcortical white matter of the parieto-occipital regions bilaterally which appear to correspond to T2 abnormalities on previous MRI and may reflect chronic ischemic microangiopathy. The remainder of the brain is normal in attenuation. Benavides-white matter interface is preserved. No acute territorial infarct, intracranial mass lesion, pathologic intracranial enhancement, space-occupying process, or mass effect are identified. The ventricular system and subarachnoid spaces are within normal limits without hydrocephalus. The calvarium is intact. The visualized airspaces are unopacified. Orbital soft tissue structures appear bilaterally symmetric. There is mild incidental prominence of the left superior ophthalmic vein on current study which is nonspecific. CT NECK/UPPER CHEST, NONVASCULAR IMAGES: No acute process. BONY STRUCTURES: Multilevel cervical DDD and spondylosis noted primarily at C3-C4 and C6-C7 with mild anterolisthesis at C7-T1. Multilevel cervical DJD also noted bilaterally. Otherwise, skeletal structures appear grossly intact. CT/CT angio head neck IMPRESSION: 1. No evidence for large vessel occlusion or significant focal stenosis in the intracranial or extracranial arterial circulation. No evidence for aneurysm, vascular malformation or dissection. 2. Patchy zones of hypodensity in the subcortical white matter of the parieto-occipital regions bilaterally which may reflect chronic ischemic microangiopathy. No regional oligemia. 3. No acute territorial infarct or pathologic intracranial enhancement. No mass effect or hydrocephalus. 4. Multilevel cervical degenerative changes and mild subluxations in the cervical spine, as described above. Note that there was some degree of spinal canal stenosis at C3-C4 and C4-C5 and C5-C6 on previous MRI.
[2023-05-21] MEDS: iohexoL 350 MG/ML 75 ML INFUS..BTL 70 ML IV (11:31)
== END 2023-05-21 10:00 | disposition home or self-care (01) ==
LOC: HO.CT 09:59
PROVIDERS: PCP Nurse Practitioner Family; Visit Provider Nurse Practitioner Family
DX: R90.82 White matter disease, unspecified (principal); R90.89 Other abnormal findings on diagnostic imaging of central nervous system; E78.5 Hyperlipidemia, unspecified; I10 Essential (primary) hypertension
CPT/HCPCS: 70496; 70498; Q9967

== ENCOUNTER 2023-06-06 14:34 | Outpatient (AMB) | payer OTHER, SELFPAY ==
--- NOTE | 2023-06-06 14:47 | MHC.OFFVIS ---
Intake Vital Signs 06/06/23 14:49 Height 5 ft 7 in Weight 149 lb BMI 23.3 BP 120/82 Blood Pressure Location Lt brachial Position Sitting Pulse 72 Pulse Source Pulse Oximeter Pulse Oximetry (%) 98 Oxygen Delivery Method Room Air Intake Visit Reasons: increased shortness of breath Intake Note: pt is here for urgent visit due to shortness of breath that has been going on for 3 weeks. At all times, having to use rescue 3-4 times daily which is new. Not much use prior to this starting 3 weeks ago. Desktop Operator Required: No Allergies gabapentin [GABAPENTIN] Allergy (Mild, Verified 06/06/23 15:13) SWELLING pregabalin [From LYRICA] Allergy (Mild, Verified 06/06/23 15:13) AGITATION, swelling, SWELLING Medication List - Last Reconciled 06/06/23 by Rome Parekh MD amitriptyline 50 mg PO BEDTIME [id number] 50-325-40 mg 1 tab PO Q6H PRN calcium citrate 250 mg PO DAILY cholecalciferol (vitamin D3) 50 mcg PO DAILY clonazepam 1 mg PO BID 30 days Enbrel SureClick (etanercept) 50 mg subcut QWEEK NS ezetimibe 10 mg PO DAILY 90 days fluoride (sodium) 1.1% (Denta 5000 Plus) 1 appl PO DAILY fluticasone propion-salmeterol 250-50 mcg/dose (Advair Diskus) 1 ea inhalation BID galcanezumab-gnlm (Emgality Pen) 120 mg subcut ONCE 30 days hydroxyzine HCl 50 mg PO BID PRN loratadine (Allergy Relief (loratadine)) 10 mg PO DAILY PRN 30 days magnesium oxide 400 mg PO BEDTIME 30 days methocarbamol 750 mg PO TID PRN 30 days omeprazole 40 mg PO DAILY ondansetron 8 mg PO Q12H PRN 30 days polyethylene glycol 3350 (Miralax) 17 grams PO DAILY PRN propranolol 20 mg PO BID riboflavin (vitamin B2) 400 mg PO DAILY 30 days trazodone 100 mg (2 x 50 mg) PO BEDTIME PRN venlafaxine ER 75 mg PO DAILY 90 days venlafaxine ER 150 mg PO DAILY Ventolin HFA 90 mcg/actuation (albuterol sulfate) 2 puffs inhalation Q6H PRN 30 days NS Do you need a note to return to daycare/school/sports/work: No HPI increased shortness of breath HPI Details 57 YEARS OLD FEMALE, SMOKER, WITH THE CHRONIC OBSTRUCTIVE PULMONARY DISEASE. HAS BEEN SICK FOR THE LAST 2 WEEKS AFTER SYMPTOMS OF COMMON COLD. SHE HAS INCREASED COUGH AND SHORTNESS OF BREATH, AND HAS NEEDED TO USE THE RESCUE INHALER 3 TO 4 TIMES A DAY. STILL WAKING UP AT NIGHT WITH SOME WHEEZING, HAS HARD TIME TO WALK AROUND DURING THE DAYTIME DUE TO INCREASED SHORTNESS OF BREATH. FEELS SOMEWHAT WALL BUT HAS NOT CHECKED HER TEMPERATURE. STILL SMOKING NOW HAS CUT DOWN TO LESS THAN HALF PACK A DAY. [facility] Medical History (Updated 06/06/23 @ 15:21 by Rome Parekh MD) COPD exacerbation Nicotine dependence, cigarettes, uncomplicated Osteopenia (~2018) Hypertensive retinopathy of both eyes Tubular adenoma of colon (~2020) Post covid-19 condition, unspecified (~06/2021) Delayed gastric emptying PTSD (post-traumatic stress disorder) HTN (hypertension) Depression COPD (chronic obstructive pulmonary disease) Cigarette nicotine dependence History of cocaine abuse History of alcohol abuse Nausea Post concussive syndrome (~2019) Fibromyalgia Psoriasis Psoriatic arthritis Facial trauma Surgical History History of right breast biopsy History of cranial surgery History of colonoscopy History of foot surgery History of foot surgery Family History Father Family history of diabetes mellitus Medical history non-contributory Maternal Grandmother Rectal cancer Maternal Grandfather Stomach cancer Family/Other Bone cancer Mother Breast cancer Social History Household Members: Spouse Housing: Apartment Are you a primary patient care coordinator to a significant other at home: No Do you presently have visiting nurse or other home services: No Alcohol intake: current Alcohol intake frequency: holidays/special occasions only Patient Tobacco Use Status: Current everyday Tobacco user Tobacco use type: Cigarette Cigarette Packs Per Day: 0.25 Cigarettes Per Day: 6 Years Smoked: (onset 11yo, x 46yrs, max 1ppd, now 1/2ppd - 30pyh) e-Cigarette/Vaping Use: Never Used Second Hand Smoke Exposure: Yes Substance Use Type: Marijuana service: No Current occupational status: disabled Cognitive needs: No Hearing needs: No Vision needs: No Review of Systems Const All systems reviewed & are unremarkable except as noted in HPI and below Reports headache(s) Eyes Reports no additional complaints ENT Reports headache(s) and Reports nasal congestion (MILD OFF AND ON) Card Denies chest pain, Denies irregular heart rhythm and Denies leg edema Resp Reports as per HPI GI Reports no additional complaints, Reports heartburn and Reports nausea Reports no additional complaints Musc Reports back pain Skin/Breast Reports system reviewed and no additional complaints, except as documented Neuro Reports headache(s) and Reports memory loss (Has had post concussion syndrome) Psych Reports anxiety (Mild chronic), Reports depression (Mild) and Reports memory loss (Has had post concussion syndrome) Physical Exam Vital Signs: Last Vital Signs Pulse 72 06/06/23 14:49 BP 120/82 06/06/23 14:49 Pulse Ox 98 06/06/23 14:49 Oxygen Delivery Method Room Air 06/06/23 14:49 BMI result Body Mass Index 23.3 Const General: comfortable, no acute distress, alert and awake Orientation/consciousness: patient oriented x3 HEENT Head: Yes normal to inspection General nose exam: No nasal polyps present and No nasal discharge present Face and sinus: Yes sinuses nontender Mouth: oropharynx normal Throat: Yes posterior oropharynx normal Eyes General: appearance normal, both eyes and all related structures Neck Neck: Yes normal visual inspection, Yes no lymphadenopathy, Yes trachea midline and Yes no JVD Thyroid: Thyroid normal Chest Chest palpation & inspection: normal inspection of the chest, normal palpation of entire chest wall and no tenderness Resp Other: Percussion note is resonant . Breath sounds are distant with prolonged expiratory phase. She does have a few scattered wheezes in the mid chest on both sides. Cardio Palpation: normal PMI Rate: regular rate Rhythm: regular rhythm Heart sounds: no gallops and no murmurs GI Palpation (GI): Soft to palpation, Tenderness to palpation present (GI), No hepatosplenomegaly present and Palpable mass present Auscultation: normal bowel sounds Back/Spine/Pelvis Thoracic/Lumbar Spine: thoracic and lumbar spine normal to inspection Skin General skin exam: no rashes or lesions noted Neuro General: patient oriented x3 and no focal motor deficits Cranial nerves: Yes CN's II-XII intact bilaterally Extrem General: Yes normal to inspection, Yes no clubbing, cyanosis or edema and Yes no calf tenderness Psych Speech and movement: Normal speech and movement present Assessment & Plan Assessment & Plan (1) Nicotine dependence, cigarettes, uncomplicated: Comment: (current smoker, 1ppd x 46yrs, now 1/2ppd - 30pyh) Code(s): F17.210 - Nicotine dependence, cigarettes, uncomplicated Plan: I had a good talk with her and stressed that she has to quit smoking. She does have nicotine patch at home and I told her to start using it. (2) COPD exacerbation: Comment: She is a known case of advanced chronic obstructive pulmonary disease. At present she has acute exacerbation probably due to acute bronchitis caused by a viral infection. Code(s): J44.1 - Chronic obstructive pulmonary disease with (acute) exacerbation (3) COPD (chronic obstructive pulmonary disease): Comment: She has mild to moderate degree of chronic obstructive pulmonary disease, which has stayed quite stable over the past many years. Now she complains of slightly increased cough and SOB . sec to cigarettes smoking . TX : ADVAIR 250-50 one inh bid Albuterol HFA ( VENTOLIN ) 2 puffs Q 6 hours only p.r.n.. * I a.m. requesting an appointment for complete pulmonary function test. Then will decide if we need to upgrade her treatment regimen. Code(s): J44.9 - Chronic obstructive pulmonary disease, unspecified Plan Prednisone 20 mg b.i.d. for 5 days is prescribed Z-Gabriel # 1 Come back after 1 week to 10 days if not fully improved. She has regular appointment in June 2023, I requested a pulmonary function test to be done before that. Orders: Orders PFT pulmonary function test Today F17.210 - Nicotine dependence, cigarettes, uncomplicated, J44.9 - Chronic obstructive pulmonary disease, unspecified Coding Level of Care Code Est Pt Level 3 (19085) Diagnoses Nicotine dependence, cigarettes, uncomplicated F17.210 COPD exacerbation J44.1 COPD (chronic obstructive pulmonary disease) J44.9
[2023-06-06 14:49] VITALS: BP 120/82; PULSE 72; O2SAT 98; BMI 23.3
== END 2023-06-06 15:13 | disposition home or self-care (01) ==
PROVIDERS: PCP Nurse Practitioner Family; Visit Provider Internal Medicine
DX: F17.210 Nicotine dependence, cigarettes, uncomplicated (principal); J44.1 Chronic obstructive pulmonary disease with (acute) exacerbation; J44.9 Chronic obstructive pulmonary disease, unspecified
CPT/HCPCS: 99213

== ENCOUNTER → 2023-06-06 14:34 | Outpatient (BNVA) | payer OTHER, SELFPAY | PROVIDERS: PCP Nurse Practitioner Family; Visit Provider Internal Medicine | DX: J44.1 Chronic obstructive pulmonary disease with (acute) exacerbation (principal); F17.210 Nicotine dependence, cigarettes, uncomplicated | CPT/HCPCS: 99212 ==

== ENCOUNTER 2023-06-14 09:32 | Outpatient (REF) | payer OTHER, SELFPAY ==
[2023-06-14 11:29] LABS: MANUAL DIFF FLAG NO
[2023-06-14 11:52] LABS: Basophils Percent Auto 0.2 % (0-2); Eosinophils Percent Auto 0.5 % (0-4); Hematocrit 40.4 % (37.0-47.0); Hemoglobin 13.6 g/dl (12.0-16.0); Imm Gran Abs Auto 0.04 X10*3/uL (0.00-0.03); Imm Gran Pct Auto 0.5 % (0.0-0.4); Lymphocytes Absolute Auto 2.5 X10*3/uL (1.2-4.9); Lymphocytes Percent Auto 30.4 % (20-40); Mean Corpuscular HGB Conc 33.7 g/dl (31.0-35.0); Mean Corpuscular Hemoglobin 32.2 pg (27.0-33.0); Mean Corpuscular Volume 95.5 fL (80.0-98.0); Mean Platelet Volume 10.7 fL (9.4-12.3); Monocytes Absolute Auto 0.6 X10*3/uL (0.1-1.2); Monocytes Percent Auto 6.9 % (2-11); Neutrophils Absolute Auto 5.1 x10*3/uL (2.0-8.3); Neutrophils Percent Auto 61.5 % (45-73); Platelet Count 255 X10*3/uL (160-400); Red Blood Count 4.23 X10*6/uL (4.20-5.50); Red Cell Distribution Width 14.6 % (11.0-16.0); White Blood Count 8.3 X10*3/uL (4.8-10.8)
[2023-06-14 11:54] LABS: Estimated Average Glucose 108 mg/dL; Hemoglobin A1c % 5.4 % (<6.0)
[2023-06-14 12:32] LABS: Alanine Aminotransferase 10 U/L (0-31); Alkaline Phosphatase 46 U/L (39-117); Anion Gap 13 (12-20); Aspartate Amino Transferase 11 U/L (5-31); Bilirubin Total 0.3 mg/dL (0.0-1.0); Blood Urea Nitrogen 20 mg/dL (9-16); Calcium 9.3 mg/dL (8.4-10.2); Carbon Dioxide 27 mmol/L (22-29); Chloride 106 mmol/L (96-108); Cholesterol 245 mg/dL (<200); Estimated Glomerular Filt Rate > 60; Glucose Fasting 92 mg/dL (60-99); HDL Cholesterol 68 mg/dL (>40); LDL Cholesterol Calculated 155 mg/dL (<100); Potassium 3.6 mmol/L (3.3-5.1); Sodium 142 mmol/L (135-145); Total Protein 6.9 g/dL (6.5-8.0); Triglycerides 110 mg/dL (<150)
== END 2023-06-14 09:33 | disposition home or self-care (01) ==
LOC: HO.HMGCLDS 09:32
PROVIDERS: PCP Nurse Practitioner Family; Visit Provider Nurse Practitioner Family
DX: R73.01 Impaired fasting glucose (principal); Z13.220 Encounter for screening for lipoid disorders
CPT/HCPCS: 36415; 80053; 80061; 83036; 85025

== ENCOUNTER 2023-06-19 14:33 | Outpatient (AMB) | payer OTHER, SELFPAY ==
[2023-06-19 14:36] VITALS: BP 108/80; PULSE 63; O2SAT 97; BMI 24.6
--- NOTE | 2023-06-19 14:36 | A.OFFVIS_ITS ---
Intake Vital Signs 06/19/23 14:36 Height 5 ft 7 in Weight 157 lb BMI 24.6 BP 108/80 Blood Pressure Location Lt brachial Position Sitting Pulse 63 Pulse Source Pulse Oximeter Pulse Oximetry (%) 97 Oxygen Delivery Method Room Air Intake Visit Reasons: Shortness of breath Intake Note: pt is here for sick visit, she had antiobiotic and prednisone and it worked for a few days but the shortness of breath is taking toll on her, on the cough, severe short of breath with any exertion, coughing with some production brown/green, a lot of wheezing and the need to use rescue inhaler 3-4 times daily, which she hardly used prior to this illness. Physician Specialist Required: No Allergies gabapentin [GABAPENTIN] Allergy (Mild, Verified 06/19/23 14:56) SWELLING pregabalin [From LYRICA] Allergy (Mild, Verified 06/19/23 14:56) AGITATION, swelling, SWELLING Medication List - Last Reconciled 06/19/23 by Rome Parekh MD amitriptyline 50 mg PO BEDTIME uyxfciqhmx-uyyeeablckjgj-azov 50-325-40 mg 1 tab PO Q6H PRN calcium citrate 250 mg PO DAILY cholecalciferol (vitamin D3) 50 mcg PO DAILY clonazepam 1 mg PO BID 30 days Enbrel SureClick (etanercept) 50 mg subcut QWEEK NS ezetimibe 10 mg PO DAILY 90 days fluoride (sodium) 1.1% (Denta 5000 Plus) 1 appl PO DAILY fluticasone propion-salmeterol 250-50 mcg/dose (Advair Diskus) 1 ea inhalation BID galcanezumab-gnlm (Emgality Pen) 120 mg subcut ONCE 30 days hydroxyzine HCl 50 mg PO BID PRN loratadine (Allergy Relief (loratadine)) 10 mg PO DAILY PRN 30 days magnesium oxide 400 mg PO BEDTIME 30 days methocarbamol 750 mg PO TID PRN 30 days omeprazole 40 mg PO DAILY ondansetron 8 mg PO Q12H PRN 30 days polyethylene glycol 3350 (Miralax) 17 grams PO DAILY PRN prednisone 20 mg PO BID 5 days propranolol 20 mg PO BID riboflavin (vitamin B2) 400 mg PO DAILY 30 days trazodone 100 mg (2 x 50 mg) PO BEDTIME PRN venlafaxine ER 75 mg PO DAILY 90 days venlafaxine ER 150 mg PO DAILY Ventolin HFA 90 mcg/actuation (albuterol sulfate) 2 puffs inhalation Q6H PRN 30 days NS Do you need a note to return to daycare/school/sports/work: No HPI Shortness of breath HPI Details 57 years old female life long smoker, glover s chronic obstructive pulmonary disease. She was seen here a few weeks ago for her routine visit, and was found to have an acute exacerbation. She was treated with a course of prednisone and Z-Gabriel. After that she did get better for a few days, as soon as she stopped taking prednisone the symptoms started coming back. And she continues to have increased cough some wheezing and shortness of breath on minimal exertion. She does not have any fever or chills or chest pain. She has continue to smoke about half pack of cigarettes a day, But in the last 3 days she has not smoked because of this acute exacerbation. [facility] Medical History COPD exacerbation Nicotine dependence, cigarettes, uncomplicated Osteopenia (~2018) Hypertensive retinopathy of both eyes Tubular adenoma of colon (~2020) Post covid-19 condition, unspecified (~06/2021) Delayed gastric emptying PTSD (post-traumatic stress disorder) HTN (hypertension) Depression COPD (chronic obstructive pulmonary disease) Cigarette nicotine dependence History of cocaine abuse History of alcohol abuse Nausea Post concussive syndrome (~2019) Fibromyalgia Psoriasis Psoriatic arthritis Facial trauma Surgical History History of right breast biopsy History of cranial surgery History of colonoscopy History of foot surgery History of foot surgery Family History Father Family history of diabetes mellitus Medical history non-contributory Maternal Grandmother Rectal cancer Maternal Grandfather Stomach cancer Family/Other Bone cancer Mother Breast cancer Social History Household Members: Spouse Housing: Apartment Are you a primary laboratory animal caretaker to a significant other at home: No Do you presently have visiting nurse or other home services: No Alcohol intake: current Alcohol intake frequency: holidays/special occasions only Patient Tobacco Use Status: Current everyday Tobacco user Tobacco use type: Cigarette Cigarette Packs Per Day: 0.25 Cigarettes Per Day: 6 Years Smoked: (onset 11yo, x 46yrs, max 1ppd, now 1/2ppd - 30pyh) e-Cigarette/Vaping Use: Never Used Second Hand Smoke Exposure: Yes Substance Use Type: Marijuana service: No Current occupational status: disabled Cognitive needs: No Hearing needs: No Vision needs: No Review of Systems Const All systems reviewed & are unremarkable except as noted in HPI and below Reports headache(s) Eyes Reports no additional complaints ENT Reports headache(s) and Reports nasal congestion (MILD OFF AND ON) Card Denies chest pain, Denies irregular heart rhythm and Denies leg edema Resp Reports as per HPI GI Reports no additional complaints, Reports heartburn and Reports nausea Reports no additional complaints Musc Reports back pain Skin/Breast Reports system reviewed and no additional complaints, except as documented Neuro Reports headache(s) and Reports memory loss (Has had post concussion syndrome) Psych Reports anxiety (Mild chronic), Reports depression (Mild) and Reports memory loss (Has had post concussion syndrome) Physical Exam Vital Signs: Last Vital Signs Pulse 63 06/19/23 14:36 BP 108/80 06/19/23 14:36 Pulse Ox 97 06/19/23 14:36 Oxygen Delivery Method Room Air 06/19/23 14:36 BMI result Body Mass Index 24.6 Const General: comfortable, no acute distress, alert and awake Orientation/consciousness: patient oriented x3 HEENT Head: Yes normal to inspection General nose exam: No nasal polyps present and No nasal discharge present Face and sinus: Yes sinuses nontender Mouth: oropharynx normal Throat: Yes posterior oropharynx normal Eyes General: appearance normal, both eyes and all related structures Neck Neck: Yes normal visual inspection, Yes no lymphadenopathy, Yes trachea midline and Yes no JVD Thyroid: Thyroid normal Chest Chest palpation & inspection: normal inspection of the chest, normal palpation of entire chest wall and no tenderness Resp Other: Percussion note is resonant . Breath sounds are distant with prolonged expiratory phase. She does have a few scattered wheezes in the upper chest anteriorly . Cardio Palpation: normal PMI Rate: regular rate Rhythm: regular rhythm Heart sounds: no gallops and no murmurs GI Palpation (GI): Soft to palpation, Tenderness to palpation present (GI), No hepatosplenomegaly present and Palpable mass present Auscultation: normal bowel sounds Back/Spine/Pelvis Thoracic/Lumbar Spine: thoracic and lumbar spine normal to inspection Skin General skin exam: no rashes or lesions noted Neuro General: patient oriented x3 and no focal motor deficits Cranial nerves: Yes CN's II-XII intact bilaterally Extrem General: Yes normal to inspection, Yes no clubbing, cyanosis or edema and Yes no calf tenderness Psych Speech and movement: Normal speech and movement present Results Reviewed Results Reviewed: PFT awaited Assessment & Plan Assessment & Plan (1) COPD exacerbation: Comment: She is a known case of advanced chronic obstructive pulmonary disease. She continues to have low-grade excessive Frederick mckeon of for COPD. Code(s): J44.1 - Chronic obstructive pulmonary disease with (acute) exacerbation Plan: Advised, absolutely no smoking PREDNISONE 20 MG BID FOR 5 DAYS, AND THEN WILL KEEP HER ON PREDNISONE 5 MG DAILY FOR A FEW WEEKS. CONTINUE ADVAIR 250-50 1 INHALATION B.I.D. USE ALBUTEROL HFA 2 PUFFS Q 4-6 HOURS P.R.N. ROBITUSSIN SYRUP 2 TSP T.I.D. FOR COUGH * PATIENT WOULD BE GETTING PULMONARY FUNCTION TEST IN THE NEXT FEW WEEKS AND THEN I WERE RE-EVALUATE HER AFTER THAT. (2) Cigarette nicotine dependence: Comment: (current smoker x 40+yrs, down to 4-5 cig /day) determined to quit completely. HAD QUIT COMPLETELY FOR A FEW MONTHS AND THEN RESUME SMOKING NOW SMOKING 10 CIGARETTES A DAY, COUNSELLED TO QUIT , TRYING TO REDUCE THE NUMBER OF CIGARETTES SLOWLY ON HER OWN, NOW DOWN TO 6 CIGARETTES A DAY. SHE IS IN ANNUAL LUNG SCREENING PROGRAM, BUT HAS HAD NO CT SCAN YET. Code(s): F17.210 - Nicotine dependence, cigarettes, uncomplicated Plan: ADVISE THAT SHE SHOULD QUIT COMPLETELY AND NOW THAT SHE HAS NOT SMOKED FOR 3 DAYS SHE SHOULD NOT GO BACK TO SMOKING AT ALL. Coding Level of Care Code Est Pt Level 3 (52027) Diagnoses COPD exacerbation J44.1 Cigarette nicotine dependence F17.210
== END 2023-06-19 14:54 | disposition home or self-care (01) ==
PROVIDERS: PCP Nurse Practitioner Family; Visit Provider Internal Medicine
DX: J44.1 Chronic obstructive pulmonary disease with (acute) exacerbation (principal); F17.210 Nicotine dependence, cigarettes, uncomplicated
CPT/HCPCS: 99213

== ENCOUNTER → 2023-06-19 14:33 | Outpatient (BNVA) | payer OTHER, SELFPAY | PROVIDERS: PCP Nurse Practitioner Family; Visit Provider Internal Medicine | DX: J44.1 Chronic obstructive pulmonary disease with (acute) exacerbation (principal); F17.210 Nicotine dependence, cigarettes, uncomplicated | CPT/HCPCS: 99212 ==

== ENCOUNTER 2023-07-11 13:28 | Outpatient (AMB) | payer OTHER, SELFPAY ==
[2023-07-11 13:32] VITALS: BP 128/84; PULSE 76; O2SAT 100
--- NOTE | 2023-07-11 13:32 | A.OFFVIS_ITS ---
Intake Vital Signs 07/11/23 13:32 Height 5 ft 7 in BP 128/84 Blood Pressure Location Rt brachial Position Sitting Pulse 76 Pulse Source Pulse Oximeter Pulse Oximetry (%) 100 Oxygen Delivery Method Room Air Intake Visit Reasons: 3 mnts Postconcussional Syndr-Confirmed Intake Note: Patient presents 3 months follow up. im not sure how the injection is working, the second dose taken late due to getting lost Allergies gabapentin [GABAPENTIN] Allergy (Mild, Verified 07/11/23 13:36) SWELLING pregabalin [From LYRICA] Allergy (Mild, Verified 07/11/23 13:36) AGITATION, swelling, SWELLING Medication List - Last Reconciled 07/11/23 by FREDERICK Christy amitriptyline 50 mg PO BEDTIME ycstpctihx-qhytnyailjfwg-mbld 50-325-40 mg 1 tab PO Q6H PRN calcium citrate 250 mg PO DAILY cholecalciferol (vitamin D3) 50 mcg PO DAILY clonazepam 1 mg PO BID 30 days Enbrel SureClick (etanercept) 50 mg subcut QWEEK NS ezetimibe 10 mg PO DAILY 90 days fluoride (sodium) 1.1% (Denta 5000 Plus) 1 appl PO DAILY fluticasone propion-salmeterol 250-50 mcg/dose (Advair Diskus) 1 ea inhalation BID galcanezumab-gnlm (Emgality Pen) 120 mg subcut ONCE 30 days hydroxyzine HCl 50 mg PO BID PRN loratadine (Allergy Relief (loratadine)) 10 mg PO DAILY PRN 30 days magnesium oxide 400 mg PO BEDTIME 30 days methocarbamol 750 mg PO TID PRN 30 days omeprazole 40 mg PO DAILY ondansetron 8 mg PO Q12H PRN 30 days polyethylene glycol 3350 (Miralax) 17 grams PO DAILY PRN prednisone 5 mg PO DAILY 30 days propranolol 20 mg PO BID riboflavin (vitamin B2) 400 mg PO DAILY 30 days trazodone 100 mg (2 x 50 mg) PO BEDTIME PRN venlafaxine ER 75 mg PO DAILY 90 days venlafaxine ER 150 mg PO DAILY Ventolin HFA 90 mcg/actuation (albuterol sulfate) 2 puffs inhalation Q6H PRN 30 days NS HPI HPI Comments History of Present Illness Details 57-yr-old female presents for f/u visit. Pt endorses the following interval medical history changes: she has had a prolonged COPD exacerbation x's the past few weeks. Currently on Prednisone 10mg qd until she has her PFTs and sees Dr Parekh on 07/23/23. Patient denies any chest pain, peripheral swelling. She was not able to complete her home sleep study due to her COPD exacerbation. She continues to have significant shortness of breath at rest. She did start Emgality 240mg x's 1, which did seem to be helpful. The last injection was done a week late, as [facility] delivered it to the wrong house. The last 2 injections- she did have some injection site redness x's 1-2 days. Did not notice an uptick in her respiratory symptoms after any og the Emgality injections. Still waking up daily w/ headache but the headache is not as severe or lasting as long. After review of the follow-up CT angio of the head and neck, which did not show any cervical or intracranial vessel aneurysm, malformations, stenosis, or dissection. However it did show multilevel degenerative changes and mild subluxation in the cervical spine. Patient was offered physical therapy which she has agreed to. She continues to have postconcussive cognitive difficulties. She did have evaluation for OT postconcussion cognitive therapy however there was a scheduling issue, and and then she was not able to start the actual therapy. Baseline headache characteristics: Moderate to severe. Usually starts denton retroorbital, left-sided, but can be holocranial. Crushing pain, throbbing a/w Photophobia, phonophobia, osmophobia- less so now, nausea, brain fog, activity intolerance. 05/21/23, CT/CT angio head neck IMPRESSION: 1. No evidence for large vessel occlusio n or significant focal stenosis in the intracranial or extracranial arterial circulation. No evidence for aneurysm, vascular malformation or dissection. 2. Patchy zones of hypodensity in the danielle bcortical white matter of the parieto-occipital regions bilaterally which may reflect chronic ischemic microangiopathy. No regional oligemia. 3. No acute territorial infarct or patho logic intracranial enhancement. No mass effect or hydrocephalus. 4. Multilevel cervical degenerative mccullough ges and mild subluxations in the cervical spine, as described above. Note that there was some degree of spinal canal stenosis at C3-C4 and C4-C5 and C5-C6 on previous MRI. PFSH Medical History COPD exacerbation Nicotine dependence, cigarettes, uncomplicated Osteopenia (~2018) Hypertensive retinopathy of both eyes Tubular adenoma of colon (~2020) Post covid-19 condition, unspecified (~06/2021) Delayed gastric emptying PTSD (post-traumatic stress disorder) HTN (hypertension) Depression COPD (chronic obstructive pulmonary disease) Cigarette nicotine dependence History of cocaine abuse History of alcohol abuse Nausea Post concussive syndrome (~2019) Fibromyalgia Psoriasis Psoriatic arthritis Facial trauma Surgical History History of right breast biopsy History of cranial surgery History of colonoscopy History of foot surgery History of foot surgery Family History Father Family history of diabetes mellitus Medical history non-contributory Maternal Grandmother Rectal cancer Maternal Grandfather Stomach cancer Family/Other Bone cancer Mother Breast cancer Social History Household Members: Spouse Housing: Apartment Are you a primary career based intervention coordinator to a significant other at home: No Do you presently have visiting nurse or other home services: No Alcohol intake: current Alcohol intake frequency: holidays/special occasions only Patient Tobacco Use Status: Current everyday Tobacco user Tobacco use type: Cigarette Cigarette Packs Per Day: 0.25 Cigarettes Per Day: 6 Years Smoked: (onset 11yo, x 46yrs, max 1ppd, now 1/2ppd - 30pyh) e-Cigarette/Vaping Use: Never Used Second Hand Smoke Exposure: Yes Substance Use Type: Marijuana service: No Current occupational status: disabled Cognitive needs: No Hearing needs: No Vision needs: No Physical Exam Vital Signs: Last Vital Signs Pulse 76 07/11/23 13:32 BP 128/84 07/11/23 13:32 Pulse Ox 100 07/11/23 13:32 Oxygen Delivery Method Room Air 07/11/23 13:32 Const General: cooperative and no acute distress Orientation/consciousness: patient oriented x3 Resp Other: Patient has shortness of breath at rest Breath sounds: Left upper and left lower lobes expiratory wheeze, right lower lobe expiratory wheeze Cardio Rate: regular rate Rhythm: regular rhythm Neuro General: patient oriented x3 Cranial nerves: Yes CN's II-XII intact bilaterally Cognition (Neuro): normal cognition Psych Appearance: grossly normal Mental Status: mental status grossly normal Speech and movement: Normal speech and movement present Affect: normal affect Attitude: cooperative Assessment & Plan Assessment & Plan (1) Post concussive syndrome: Onset Date: ~2019 Comment: (frontal skull fx, s/p repair - still has headaches, light sensitivity and nausea) Code(s): F07.81 - Postconcussional syndrome (2) Cognitive dysfunction: Code(s): F09 - Unspecified mental disorder due to known physiological condition (3) Shortness of breath at rest: Code(s): R06.02 - Shortness of breath Plan Order placed for chest x-ray, as patient has persistent shortness of breath at rest. Encouraged patient to increase her p.r.n. Ventolin use. Follow-up with Dr. Parekh. Reviewed head/neck CTA- no cervical/intracranial vessel stenosis, malformation or aneurysm Old HST to assess for sleep apnea- until her current respiratory symptoms are improved As are OT Department is no longer operating post-concussion cognitive tx, will refer patient for his speech therapy for the same. ? ? For overall headache management: Track headaches Patient may try blue light filtering glasses, green glasses, green light bulb, green light therapy. Avoid wearing sunglasses inside. ? For acute headache treatment: May continue Fioricet for now. Consider gepant in f/u. Previous acute migraine medication trials: Sumatriptan- ineffective Acute migraine medication contraindications: Tripatns d/t HTN and HLD ? For headache prevention medication: Riboflavin 400mg qam Magnesium 400mg qhs Continue Amitriptyline 50mg qhs Continue Propranolol 20mg bid- would not increase furtehr d/t Asthma/COPD dx. Continue Emgality 120mg sc q month- monitor injection site redness, if worsens can pre treat with Benadryl p.r.n.. Previous migraine prevention medication trials: As above Migraine prevention medication contraindications: Topiramate- d/t h/o nephrolithiasis ? Pt to follow-up in 3 months or sooner prn. Orders: Orders XR chest 2V Today J44.1 - Chronic obstructive pulmonary disease with (acute) exacerbation, R06.02 - Shortness of breath Referrals Speech and Hearing Referral F07.81 - Postconcussional syndrome, F09 - Unspecified mental disorder due to known physiological condition Coding Level of Care Code Est Pt Level 4 (30554) Diagnoses Post concussive syndrome F07.81 Cognitive dysfunction F09 Shortness of breath at rest R06.02
== END 2023-07-11 14:23 | disposition home or self-care (01) ==
PROVIDERS: PCP Nurse Practitioner Family; Visit Provider Nurse Practitioner Family
DX: J44.9 Chronic obstructive pulmonary disease, unspecified (principal); R41.89 Other symptoms and signs involving cognitive functions and awareness; F07.81 Postconcussional syndrome; G44.309 Post-traumatic headache, unspecified, not intractable
CPT/HCPCS: 99214

== ENCOUNTER → 2023-07-11 13:28 | Outpatient (BNVA) | payer OTHER, SELFPAY | PROVIDERS: PCP Nurse Practitioner Family; Visit Provider Nurse Practitioner Family | DX: F07.81 Postconcussional syndrome (principal); F09 Unspecified mental disorder due to known physiological condition; R06.02 Shortness of breath; Z79.899 Other long term (current) drug therapy | CPT/HCPCS: 99212 ==

== ENCOUNTER 2023-07-11 15:06 | Outpatient (REF) | payer OTHER, SELFPAY ==
--- NOTE | ~2023-07-11 | XR_ITS ---
EXAMINATION: XR CHEST CLINICAL INFORMATION: Shortness of breath COMPARISON: Frontal view 06/27/21 TECHNIQUE: 2 views of the chest were obtained. FINDINGS: There is tortuosity the aorta. The cardiac size vernell and vasculature are within normal limits. There are large lung volumes. There is no pneumonia, edema, or mass. No pleural fluid or pneumothorax. XR/XR chest 2V IMPRESSION: No pneumonia or edema. Hyperinflation.
== END 2023-07-11 15:07 | disposition home or self-care (01) ==
LOC: HO.HMGCX 15:06
PROVIDERS: PCP Nurse Practitioner Family; Visit Provider Nurse Practitioner Family
DX: R06.02 Shortness of breath (principal); J44.1 Chronic obstructive pulmonary disease with (acute) exacerbation
CPT/HCPCS: 71046

== ENCOUNTER 2023-07-23 09:52 | Outpatient (REF) | payer OTHER, SELFPAY ==
--- NOTE | 2023-07-23 11:13 | PFT_ITS ---
Indication: COPD Spirometry [FEV1 to FVC 62%; FEV1 2.27 L; FVC 3.64 L. No significant response to bronchodilators noted. Maximum voluntary ventilation 78% predicted] Lung Volumes [Total lung capacity 105% predicted; residual volume 110% predicted] Diffusion Capacity [DLCO 80% predicted] Comparisons [None] Interpretation [There has an obstructive ventilatory defect consistent with COPD. Most significant response to bronchodilators noted. Mild decrease in the maximum voluntary ventilation which could be secondary to deconditioning. Lung volumes are normal except for trend of air trapping due to COPD. The diffusing capacity is low normal. Clinical correlation warranted] MTDD
== END 2023-07-23 09:53 | disposition home or self-care (01) ==
LOC: HO.RESP 09:52
PROVIDERS: PCP Nurse Practitioner Family; Visit Provider Internal Medicine
DX: J44.9 Chronic obstructive pulmonary disease, unspecified (principal); F17.210 Nicotine dependence, cigarettes, uncomplicated; Z79.899 Other long term (current) drug therapy
CPT/HCPCS: 94010; 94727; 94729; 99212

== ENCOUNTER 2023-07-23 11:13 | Outpatient (AMB) | payer OTHER, SELFPAY ==
[2023-07-23 11:33] VITALS: BP 130/90; PULSE 62; O2SAT 97; BMI 24.1
--- NOTE | 2023-07-23 11:33 | MHC.OFFVIS ---
Intake Vital Signs 07/23/23 11:33 Height 5 ft 7 in Weight 154 lb BMI 24.1 BP 130/90 H Blood Pressure Location Lt brachial Position Sitting Pulse 62 Pulse Source Pulse Oximeter Pulse Oximetry (%) 97 Oxygen Delivery Method Room Air Intake Visit Reasons: Same day PFT Intake Note: pt is here for follow up and still short of breath, and intermittent cough . Had PFT this AM Prison Warden Required: No Allergies gabapentin [GABAPENTIN] Allergy (Mild, Verified 07/23/23 12:02) SWELLING pregabalin [From LYRICA] Allergy (Mild, Verified 07/23/23 12:02) AGITATION, swelling, SWELLING Medication List - Last Reconciled 07/23/23 by Rome Parekh MD amitriptyline 50 mg PO BEDTIME gjbzaulobw-qigbeawptupvl-xipc 50-325-40 mg 1 tab PO Q6H PRN calcium citrate 250 mg PO DAILY cholecalciferol (vitamin D3) 50 mcg PO DAILY clonazepam 1 mg PO BID 30 days Enbrel SureClick (etanercept) 50 mg subcut QWEEK NS ezetimibe 10 mg PO DAILY 90 days fluoride (sodium) 1.1% (Denta 5000 Plus) 1 appl PO DAILY fluticasone propion-salmeterol 250-50 mcg/dose (Advair Diskus) 1 ea inhalation BID galcanezumab-gnlm (Emgality Pen) 120 mg subcut ONCE 30 days hydroxyzine HCl 50 mg PO BID PRN loratadine (Allergy Relief (loratadine)) 10 mg PO DAILY PRN 30 days magnesium oxide 400 mg PO BEDTIME 30 days methocarbamol 750 mg PO TID PRN 30 days omeprazole 40 mg PO DAILY ondansetron 8 mg PO Q12H PRN 30 days polyethylene glycol 3350 (Miralax) 17 grams PO DAILY PRN prednisone 5 mg PO DAILY 30 days propranolol 20 mg PO BID riboflavin (vitamin B2) 400 mg PO DAILY 30 days trazodone 100 mg (2 x 50 mg) PO BEDTIME PRN venlafaxine ER 75 mg PO DAILY 90 days venlafaxine ER 150 mg PO DAILY Ventolin HFA 90 mcg/actuation (albuterol sulfate) 2 puffs inhalation Q6H PRN 30 days NS Do you need a note to return to daycare/school/sports/work: No HPI Same day PFT HPI Details This 58 years old female is here for follow-up for her bronchial asthma/COPD. In the last few weeks she was having an acute exacerbation, with cough, and wheezing. She has taken a course of prednisone and then after that she was on prednisone 5 mg once a day for the last week. Currently she has improved, She still has intermittent cough but seems to be mostly related to her smoking. She still gets short of breath on walking fast or climbing stairs. She has mild nasal congestion. She does have history of anxiety and mild depression. She had quit smoking for a few months but then restarted smoking about 4-5 cigarettes a day. She claims that her still smokes and is difficult for her to quit completely. [facility] Medical History (Updated 07/23/23 @ 12:13 by Rome Parekh MD) Asthma COPD exacerbation Nicotine dependence, cigarettes, uncomplicated Osteopenia (~2018) Hypertensive retinopathy of both eyes Tubular adenoma of colon (~2020) Post covid-19 condition, unspecified (~06/2021) Delayed gastric emptying PTSD (post-traumatic stress disorder) HTN (hypertension) Depression COPD (chronic obstructive pulmonary disease) Cigarette nicotine dependence History of cocaine abuse History of alcohol abuse Nausea Post concussive syndrome (~2019) Fibromyalgia Psoriasis Psoriatic arthritis Facial trauma Surgical History History of right breast biopsy History of cranial surgery History of colonoscopy History of foot surgery History of foot surgery Family History Father Family history of diabetes mellitus Medical history non-contributory Maternal Grandmother Rectal cancer Maternal Grandfather Stomach cancer Family/Other Bone cancer Mother Breast cancer Social History Household Members: Spouse Housing: Apartment Are you a primary pediatric acute care unit nurse to a significant other at home: No Do you presently have visiting nurse or other home services: No Alcohol intake: current Alcohol intake frequency: holidays/special occasions only Patient Tobacco Use Status: Current everyday Tobacco user Tobacco use type: Cigarette Cigarette Packs Per Day: 0.25 Cigarettes Per Day: 3 Years Smoked: (onset 11yo, x 46yrs, max 1ppd, now 1/2ppd - 30pyh) e-Cigarette/Vaping Use: Never Used Second Hand Smoke Exposure: Yes Substance Use Type: Marijuana service: No Current occupational status: disabled Cognitive needs: No Hearing needs: No Vision needs: No Review of Systems Const All systems reviewed & are unremarkable except as noted in HPI and below Reports headache(s) Eyes Reports no additional complaints ENT Reports headache(s) and Reports nasal congestion (MILD OFF AND ON) Card Denies chest pain, Denies irregular heart rhythm and Denies leg edema Resp Reports as per HPI GI Reports no additional complaints, Reports heartburn and Reports nausea Reports no additional complaints Musc Reports back pain Skin/Breast Reports system reviewed and no additional complaints, except as documented Neuro Reports headache(s) and Reports memory loss (Has had post concussion syndrome) Psych Reports anxiety (Mild chronic), Reports depression (Mild) and Reports memory loss (Has had post concussion syndrome) Physical Exam Vital Signs: Last Vital Signs Pulse 62 07/23/23 11:33 BP 130/90 H 07/23/23 11:33 Pulse Ox 97 07/23/23 11:33 Oxygen Delivery Method Room Air 07/23/23 11:33 BMI result Body Mass Index 24.1 Const General: comfortable, no acute distress, alert and awake Orientation/consciousness: patient oriented x3 HEENT Head: Yes normal to inspection General nose exam: No nasal polyps present and No nasal discharge present Face and sinus: Yes sinuses nontender Mouth: oropharynx normal Throat: Yes posterior oropharynx normal Eyes General: appearance normal, both eyes and all related structures Neck Neck: Yes normal visual inspection, Yes no lymphadenopathy, Yes trachea midline and Yes no JVD Thyroid: Thyroid normal Chest Chest palpation & inspection: normal inspection of the chest, normal palpation of entire chest wall and no tenderness Resp Other: Percussion note is resonant . Breath sounds are slightly distant , No wheezes or crepitations are heard today . Cardio Palpation: normal PMI Rate: regular rate Rhythm: regular rhythm Heart sounds: no gallops and no murmurs GI Palpation (GI): Soft to palpation, Tenderness to palpation present (GI), No hepatosplenomegaly present and Palpable mass present Auscultation: normal bowel sounds Back/Spine/Pelvis Thoracic/Lumbar Spine: thoracic and lumbar spine normal to inspection Skin General skin exam: no rashes or lesions noted Neuro General: patient oriented x3 and no focal motor deficits Cranial nerves: Yes CN's II-XII intact bilaterally Extrem General: Yes normal to inspection, Yes no clubbing, cyanosis or edema and Yes no calf tenderness Psych Speech and movement: Normal speech and movement present Results Reviewed Results Reviewed: PULMONARY FUNCTION TEST PERFORMED THIS MORNING, IS ESSENTIALLY NORMAL. THERE IS ONLY MILD OBSTRUCTIVE AIRWAY DISORDER WITHOUT MUCH RESPONSE TO BRONCHODILATOR THERAPY. Assessment & Plan Assessment & Plan (1) Asthma: Comment: PATIENT DOES HAVE FEATURES OF CHRONIC ASTHMA/COPD. PULMONARY FUNCTION TEST TODAY DOES NOT SHOW ANY SIGNIFICANT ABNORMALITY EXCEPT FOR MILD DECREASE IN FEF 25-75 CLINICALLY I THINK SHE HAS BRONCHIAL ASTHMA , WITH FREQUENT FLARE UPS. Code(s): J45.909 - Unspecified asthma, uncomplicated Plan: EXPLAINED TO HER AND REASSURED. TX : ADVAIR 250-51 INHALATION B.I.D. VENTOLIN HFA 2 PUFFS Q. 4-6 HOURS P.R.N. NO NEED OF PREDNISONE AT THIS TIME. SHE MAY NEED INTERMITTENT SHORT COURSES OF PREDNISONE IF SHE GETS ANY. ACUTE EXACERBATION (2) Cigarette nicotine dependence: Comment: (current smoker x 40+yrs, down to 4-5 cig /day) determined to quit completely. HAD QUIT COMPLETELY FOR A FEW MONTHS AND THEN RESUMED SMOKING NOW SMOKING 5-6 CIGARETTES A DAY, Code(s): F17.210 - Nicotine dependence, cigarettes, uncomplicated Plan: COUNSELLED TO QUIT , TRYING TO REDUCE THE NUMBER OF CIGARETTES SLOWLY ON HER OWN, NOW DOWN TO 6 CIGARETTES A DAY. I STRESS THAT SHE MUST QUIT COMPLETELY. I EXPLAINED TO HER THAT HER AGGRAVATED SYMPTOMS ARE MOSTLY DUE TO SMOKING. SHE IS IN ANNUAL LUNG SCREENING PROGRAM, BUT HAS HAD NO CT SCAN YET. (3) Anxiety and depression: Comment: SHE HAS CHRONIC BIPOLAR DISORDER WITH ANXIETY AND DEPRESSION. ALSO HAS MILD COGNITIVE IMPAIRMENT AND FOR THAT SHE HAS BEEN SEEN BY [facility] [place] [facility]ICINE [facility]. Code(s): F41.9 - Anxiety disorder, unspecified; F32.9 - Major depressive disorder, single episode, unspecified Plan: ABOVE Coding Level of Care Code Est Pt Level 3 (93549) Diagnoses Asthma J45.909 Cigarette nicotine dependence F17.210 Anxiety and depression F41.9; F32.9
== END 2023-07-23 12:02 | disposition home or self-care (01) ==
PROVIDERS: PCP Nurse Practitioner Family; Visit Provider Internal Medicine
DX: J45.909 Unspecified asthma, uncomplicated (principal); F17.210 Nicotine dependence, cigarettes, uncomplicated
CPT/HCPCS: 94060; 94727; 94729; 99213

== ENCOUNTER 2023-08-01 10:00 | Outpatient (REF) | payer OTHER, SELFPAY ==
[2023-08-01 14:15] LABS: Creatinine, mg/dL 31.27
[2023-08-01 14:30] LABS: Creatinine, 24Hr Urine 0.9 G/Day (1.0-2.0); Total Volume 24 Hour Urine 2825 mL
[2023-08-02 17:58] LABS: Calcium, 24 Hr Urine 113 mg/24 h; Calcium/Creatinine Ratio 121 mg/g creat (30-275); Creatinine 24Hr Urine 0.93 g/24 h (0.50-2.15)
== END 2023-08-01 10:01 | disposition home or self-care (01) ==
LOC: HO.HMGCLNP 10:00
PROVIDERS: PCP Nurse Practitioner Family; Visit Provider Internal Medicine Endocrinology, Diabetes & Metabolism
DX: M81.0 Age-related osteoporosis without current pathological fracture (principal)
CPT/HCPCS: 82340; 82570

== ENCOUNTER 2023-08-09 12:40 | Outpatient (AMB) | payer OTHER, SELFPAY ==
--- NOTE | 2023-08-09 12:47 | MHC.OFFVIS ---
Intake Vital Signs 08/09/23 12:56 Height 5 ft 7 in Weight 147 lb 14.883 oz BMI 23.2 BP 130/78 Blood Pressure Location Lt brachial Position Sitting Pulse 78 Pulse Source Pulse Oximeter Intake Visit Reasons: Osteoporosis-confirmed Intake Note: Patient present today for Osteoporosis follow up visit. Coin Machine Supervisor Required: No Accompanied by: Spouse Allergies gabapentin [GABAPENTIN] Allergy (Mild, Verified 08/09/23 13:04) SWELLING pregabalin [From LYRICA] Allergy (Mild, Verified 08/09/23 13:04) AGITATION, swelling, SWELLING HPI HPI Comments History of Present Illness Details 57 YO F with is seen in consultation at the request of PCP for Osteoporosis. First diagnosed in couple of mos ago . Never Received treatment in the past No history of pathologic fracture or ONJ. Has several servings of dietary calcium per day in the form ofmilk and cheese . Not Takes Calcium supplement Took 5000 IU of Vitamin D dailyup to couple of days ago Takes PPI, anticoagulant, antiepileptic or glucocorticoid medication. Does weight bearing exercise 7 days per week in the form of push- ups . Fracture history: No Height loss: Yes 2 inches CERTIFIED PROSTHETIST history: Menopause early 40s nl menses before Denies history of Kidney stones: Denies family history of Osteoporosis or hip fracture. UTD on dental cleanings and sees dentist every 6 months. No planned upcoming dental work or extractions. Current tabacco use 1/2 ppd /day Has hot flashes . Had precancerous breast cancer DXA dated : TScore in L femoral neck =-2.8 T-Score L-S =-1.1 Labs: C/O dizziness [facility] Medical History (Updated 07/23/23 @ 12:13 by Rome Parekh MD) Asthma COPD exacerbation Nicotine dependence, cigarettes, uncomplicated Osteopenia (~2018) Hypertensive retinopathy of both eyes Tubular adenoma of colon (~2020) Post covid-19 condition, unspecified (~06/2021) Delayed gastric emptying PTSD (post-traumatic stress disorder) HTN (hypertension) Depression COPD (chronic obstructive pulmonary disease) Cigarette nicotine dependence History of cocaine abuse History of alcohol abuse Nausea Post concussive syndrome (~2019) Fibromyalgia Psoriasis Psoriatic arthritis Facial trauma Surgical History History of right breast biopsy History of cranial surgery History of colonoscopy History of foot surgery History of foot surgery Family History Father Family history of diabetes mellitus Medical history non-contributory Maternal Grandmother Rectal cancer Maternal Grandfather Stomach cancer Family/Other Bone cancer Mother Breast cancer Social History Household Members: Spouse Housing: Apartment Are you a primary career development engineer to a significant other at home: No Do you presently have visiting nurse or other home services: No Alcohol intake: current Alcohol intake frequency: holidays/special occasions only Patient Tobacco Use Status: Current everyday Tobacco user Tobacco use type: Cigarette Cigarette Packs Per Day: 0.25 Cigarettes Per Day: 3 Years Smoked: (onset 11yo, x 46yrs, max 1ppd, now 1/2ppd - 30pyh) e-Cigarette/Vaping Use: Never Used Second Hand Smoke Exposure: Yes Substance Use Type: Marijuana service: No Current occupational status: disabled Cognitive needs: No Hearing needs: No Vision needs: No Physical Exam Vital Signs: Last Vital Signs Pulse 78 08/09/23 12:56 BP 130/78 08/09/23 12:56 BMI result Body Mass Index 23.2 Assessment & Plan Assessment & Plan (1) Osteoporosis: Code(s): M81.0 - Age-related osteoporosis without current pathological fracture Qualifiers: Osteoporosis type: age-related Presence of current pathological fracture: without current pathological fracture Qualified Code(s): M81.0 - Age-related osteoporosis without current pathological fracture Plan: This is a 57-year-old white female with a history of osteoporosis. Negative secondary workup After a long and Careful conversation with the patient and her father, regarding possible treatment options including use of oral or intravenous bisphosphonate or Prolia, or observation with follow-up DEXA, patient is opting for non pharmacologic treatment with calcium and vitamin-D. Considering her age she is still at low risk for fracture. She will be referred back to her primary care provider who can order a DEXA bone density in 1 year's time if the osteoporosis progress, can either start oral or intravenous bisphosphonate or send the patient back to endocrinology Coding Level of Care Code Est Pt Level 3 (90485) Diagnoses Age-related osteoporosis without current pathological fracture M81.0 Osteoporosis type: age-related Presence of current pathological fracture: without current pathological fracture
[2023-08-09 12:56] VITALS: BP 130/78; PULSE 78; BMI 23.2
== END 2023-08-09 13:38 | disposition home or self-care (01) ==
PROVIDERS: PCP Nurse Practitioner Family; Visit Provider Internal Medicine Endocrinology, Diabetes & Metabolism
DX: M81.0 Age-related osteoporosis without current pathological fracture (principal)
CPT/HCPCS: 99213

== ENCOUNTER → 2023-08-09 12:40 | Outpatient (BNVA) | payer OTHER, SELFPAY | PROVIDERS: PCP Nurse Practitioner Family; Visit Provider Internal Medicine Endocrinology, Diabetes & Metabolism | DX: M81.0 Age-related osteoporosis without current pathological fracture (principal) | CPT/HCPCS: 99212 ==

== ENCOUNTER 2023-08-13 13:04 | Outpatient (AMB) | payer OTHER, SELFPAY ==
--- NOTE | 2023-08-13 13:08 | MHC.PC.OV ---
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: No Accompanied by: Self / Same As Patient Allergies gabapentin [GABAPENTIN] Allergy (Mild, Verified 08/13/23 16:06) SWELLING pregabalin [From LYRICA] Allergy (Mild, Verified 08/13/23 16:06) AGITATION, swelling, SWELLING Medication List - Last Reconciled 08/13/23 by David Stinson, PSYCHOLOGIST CHIEF-BC amitriptyline 50 mg PO BEDTIME [id number]-[id number]-amvs 50-325-40 mg 1 tab PO Q6H PRN calcium citrate 250 mg PO DAILY cholecalciferol (vitamin D3) 50 mcg PO DAILY clonazepam 1 mg PO BID 30 days Enbrel SureClick (etanercept) 50 mg subcut QWEEK NS ezetimibe 10 mg PO DAILY 90 days fluoride (sodium) 1.1% (Denta 5000 Plus) 1 appl PO DAILY fluticasone propion-salmeterol 250-50 mcg/dose (Advair Diskus) 1 ea inhalation BID galcanezumab-gnlm (Emgality Pen) 120 mg subcut ONCE 30 days hydroxyzine HCl 50 mg PO BID PRN loratadine (Allergy Relief (loratadine)) 10 mg PO DAILY PRN 30 days magnesium oxide 400 mg PO BEDTIME 30 days methocarbamol 750 mg PO TID PRN 30 days omeprazole 40 mg PO DAILY ondansetron 8 mg PO Q12H PRN 30 days polyethylene glycol 3350 (Miralax) 17 grams PO DAILY PRN propranolol 20 mg PO BID riboflavin (vitamin B2) 400 mg PO DAILY 30 days trazodone 100 mg (2 x 50 mg) PO BEDTIME PRN venlafaxine ER 150 mg PO DAILY venlafaxine ER 75 mg PO DAILY 90 days Ventolin HFA 90 mcg/actuation (albuterol sulfate) 2 puffs inhalation Q6H PRN 30 days NS Tobacco use date assessed: 08/13/23 Dental Screening Dental Screen Date: 08/13/23 Did you have a dental visit in the last 12 months?: Yes Did you have a dental problem in the last 6 months where you did not have access to dental care?: No Was dental information given to patient?: Patient has dentist HPI Follow up/Missed 07/19/23 HPI Details headaches/Post concussive syndrome. sees neurology, getting emgality injections. She reports these injections were not consistent like they should be. She does report a slight difference in her headaches (not as long lasting). Pt does report ongoing photophobia and sonophobia. Denies fever, chills, n/v, blurred vision. [facility] Medical History Asthma COPD exacerbation Nicotine dependence, cigarettes, uncomplicated Osteopenia (~2018) Hypertensive retinopathy of both eyes Tubular adenoma of colon (~2020) Post covid-19 condition, unspecified (~06/2021) Delayed gastric emptying PTSD (post-traumatic stress disorder) HTN (hypertension) Depression COPD (chronic obstructive pulmonary disease) Cigarette nicotine dependence History of cocaine abuse History of alcohol abuse Nausea Post concussive syndrome (~2019) Fibromyalgia Psoriasis Psoriatic arthritis Facial trauma Surgical History History of right breast biopsy History of cranial surgery History of colonoscopy History of foot surgery History of foot surgery Family History Father Family history of diabetes mellitus Medical history non-contributory Maternal Grandmother Rectal cancer Maternal Grandfather Stomach cancer Family/Other Bone cancer Mother Breast cancer Social History Household Members: Spouse Housing: Apartment Are you a primary pet care attendant to a significant other at home: No Do you presently have visiting nurse or other home services: No Alcohol intake: current Alcohol intake frequency: holidays/special occasions only Patient Tobacco Use Status: Current everyday Tobacco user Tobacco use type: Cigarette Cigarette Packs Per Day: 0.25 Cigarettes Per Day: 3 Years Smoked: (onset 11yo, x 46yrs, max 1ppd, now 1/2ppd - 30pyh) Packs Per Year: 0 Packs per year/per ci.00 e-Cigarette/Vaping Use: Never Used Second Hand Smoke Exposure: Yes Substance Use Type: Marijuana service: No Current occupational status: disabled Cognitive needs: No Hearing needs: No Vision needs: No Questionnaire PHQ-9 Over the last 2 weeks, how often have you been bothered by any of the following problems? 1. Little interest or pleasure in doing things: several days 2. Feeling down, depressed, or hopeless: several days 3. Trouble falling or staying asleep, or sleeping too much: nearly every day 4. Feeling tired or having little energy: nearly every day 5. Poor appetite or overeating: nearly every day 6. Feeling bad about yourself - or that you are a failure or have let yourself or your family down: nearly every day 7. Trouble concentrating on things, such as reading the newspaper or watching television: nearly every day 8. Moving or speaking so slowly that other people could have noticed. Or the opposite - being so fidgety or restless that you have been moving around a lot more than usual: not at all 9. Thoughts that you would be better off or of hurting yourself in some way: not at all Total score: 17 Depression Screening Interpretation: Positive Depression Screening Done: Yes 05604 - PHQ-9 Billing: Yes Source: Developed by Drs. Natalio Zimmer, Angelique Bucio, Joseph Frederick and colleagues, with an educational diandra from [employer]. Thrive Questionnaire Date Thrive assessed: 08/13/23 I am a: Patient What is your living situation today?: I have a steady place to live Within the past 12 months, did the food you bought not last and you didn't have the money to get more?: Never true Within the past 12 months, did you worry whether your food would run out before you got money to buy more?: Never true Do you have trouble paying for medicines?: No Do you have trouble getting transportation to medical appointments?: No Do you have trouble paying your heating and electricity bill?: No Do you have trouble taking care of your child, family member or friend?: No Do you have trouble with day-to-day activities such as bathing, preparing meals, shopping, managing finances, etc.?: No Are you currently unemployed and looking for a job?: No Are you interested in more education?: No Please select the resources that you would like help with: None Currently or been in a relationship where the following occur: no concerns reported THRIVE Score: 0 AUDIT C Alcohol Use Questionnaire (AUDIT-C) 1. How often do you have a drink containing alcohol?: Monthly or less 2. How many drinks containing alcohol do you have on a typical day when you are drinking?: 1 or 2 3. How often do you have six or more drinks on one occasion?: Never Total Score: 1 Score Reviewed/Action Taken: Yes JODEE-7 AMB Questionnaire JODEE-7 Date JODEE - 7 assessed: 08/13/23 Feeling nervous, anxious, or on edge: 2 = More than half the days Not being able to stop or control worryin = Several days Worrying too much about different things: 1 = Several days Trouble relaxin = Several days Being so restless that it is hard to sit still: 1 = Several days Becoming easily annoyed or irritable: 1 = Several days Feeling afraid as if something awful might happen: 0 = Not at all Total JODEE-7 score (0-4 normal; 5-9 mild; 10-14 moderate; 15-21 severe): 7 Source: Developed by Drs. Natalio Zimmer, Angelique Bucio, Joseph Frederick and colleagues, with an educational diandra from [employer]. JODEE-7 Assessment Billing JODEE-7 Assessment Tool: JODEE-7 Assessment 56580 Review of Systems Const Reports as per HPI Physical exam (Primary Care) Vital Signs: Last Vital Signs Pulse 78 08/13/23 13:09 BP 112/80 08/13/23 13:09 Pulse Ox 98 08/13/23 13:09 BMI result Body Mass Index 24.1 Tobacco/Smoking Status: Tobacco use Status Tobacco use date assessed 08/13/23 08/13/23 13:10 Patient Tobacco Use Status Current everyday Tobacco 08/13/23 13:10 Tobacco use type Cigarette 08/13/23 13:10 e-Cigarette/Vaping Use Never Used 08/13/23 13:10 PHQ-9: PHQ-9 Score PHQ-9: Total score 17 08/13/23 13:51 Depression Screening Interpretation: Positive Thrive Assessment: Date of Thrive Assessment Date Thrive assessed 08/13/23 08/13/23 13:24 Currently or been in a relationship where the following occur: no concerns reported Const General: cooperative Orientation/consciousness: patient oriented x3 Eyes Pupils: Equal, round and reactive pupils present Resp Effort & Inspection: normal respiratory effort Auscultation: diminished lung sounds Cardio Rate: regular rate Rhythm: regular rhythm Heart sounds: S1 normal heart sound present and S2 normal heart sound present Neuro Other: arm pull test negative General: patient oriented x3 and CN's II-XI intact bilaterally Cranial nerves: Yes Equal, round and reactive pupils present Gait exam (Neuro): Normal gait present Motor exam (neuro): 5/5 motor strength present throughout Coordination: pqym-qe-gmci test normal Romberg Test: Negative Psych Appearance: grossly normal Mental Status: mental status grossly normal Speech and movement: Normal speech and movement present Affect: normal affect Attitude: cooperative Thought process: Normal thought process present Thought content: Normal thought content present Insight: Good insight present (Psych) Judgement: Good judgement present (Psych) Office Procedures Flu Questionnaire Does the patient have a severe egg allergy?: No Does the patient have severe life threatening allergies?: No Does the patient have a fever or illness today?: No Has the patient ever had Guillain-[place] Syndrome?: No Has the patient ever had any past reaction to a flu shot?: No Immunizations flu vacc [id number] 6mos up(PF) 60 mcg(15 mcgx4)/0.5 mL IM syringe Performing Provider: EBER Granger [facility] Administered by: Kota Perkins CMA on 08/13/23 13:56 Dose Route Admin Location Dispensed Lot Number Expiration Date NDC Methods Time Analyst 0.5 mL IM Left Deltoid 0.5 mL [id number] 12/23/23 58877-853-78 [employer] VIS Given Date VIS Provided VIS Publication Date 08/13/23 Single Vaccine 21 Eligibility Eligibility Date Funding Source Not [facility] Eligible 08/13/23 Private Assessment and Plan Assessment & Plan (1) Osteoporosis: Code(s): M81.0 - Age-related osteoporosis without current pathological fracture Qualifiers: Osteoporosis type: age-related Presence of current pathological fracture: without current pathological fracture Qualified Code(s): M81.0 - Age-related osteoporosis without current pathological fracture Plan: Bone density ordered (2) Migraine without aura: Code(s): G43.009 - Migraine without aura, not intractable, without status migrainosus (3) Post concussive syndrome: Onset Date: ~2019 Comment: (frontal skull fx, s/p repair - still has headaches, light sensitivity and nausea) Code(s): F07.81 - Postconcussional syndrome Plan: cont following up with neuro Plan The patient agreed to the use of a medical secretary for this encounter. Scribed for EBER Nixon by Elvia López medical secretary, on 08/13/2023 at 13:35 EST. Orders: Orders XR DEXA axial skeleton 364 Days M81.0 - Age-related osteoporosis without current pathological fracture Influenza [id number] Immunization Today Z23 - Encounter for immunization Coding Level of Care Code Est Pt Level 3 (13397) Diagnoses Age-related osteoporosis without current pathological fracture M81.0 Osteoporosis type: age-related Presence of current pathological fracture: without current pathological fracture Migraine without aura G43.009 Post concussive syndrome F07.81 Additional Codes JODEE-7 Assessment Billing - JODEE-7 Assessment Tool: JODEE-7 Assessment 43867 ([id number])
[2023-08-13 13:09] VITALS: BP 112/80; PULSE 78; O2SAT 98; BMI 24.1
== END 2023-08-13 14:32 | disposition home or self-care (01) ==
PROVIDERS: PCP Nurse Practitioner Family; Visit Provider Nurse Practitioner Family
DX: M81.0 Age-related osteoporosis without current pathological fracture (principal); G43.009 Migraine without aura, not intractable, without status migrainosus; F07.81 Postconcussional syndrome; Z23 Encounter for immunization
CPT/HCPCS: 90471; 90686; 99213

== ENCOUNTER → 2023-10-10 12:50 | Outpatient (REF) | payer OTHER, SELFPAY | LOC: HO.SL 12:50 | PROVIDERS: PCP Nurse Practitioner Family; Visit Provider Nurse Practitioner Family | DX: G25.81 Restless legs syndrome (principal); R06.83 Snoring; G47.9 Sleep disorder, unspecified | CPT/HCPCS: 95806 ==

== ENCOUNTER → 2023-10-10 13:01 | Outpatient (BNV) | payer OTHER, SELFPAY | PROVIDERS: PCP Nurse Practitioner Family; Visit Provider Psychiatry & Neurology Neurology | DX: R06.83 Snoring (principal) | CPT/HCPCS: 95806 ==

== ENCOUNTER 2023-10-12 13:18 | Outpatient (AMB) | payer OTHER, SELFPAY ==
[2023-10-12 13:39] VITALS: BP 98/82; PULSE 72; O2SAT 98; BMI 24.0
--- NOTE | 2023-10-12 13:39 | MHC.OFFVIS ---
Vital Signs 10/12/23 13:39 Height 5 ft 7 in Weight 153 lb BMI 24.0 BP 98/82 Blood Pressure Location Rt brachial Position Sitting Pulse 72 Pulse Source Pulse Oximeter Pulse Oximetry (%) 98 Oxygen Delivery Method Room Air Intake Visit Reasons: 3 mnts f/u-conf Intake Note: Patient presents for 3 month follow up. patient had the sleep study last night. headaches are less frequent but still there. Allergies gabapentin [GABAPENTIN] Allergy (Mild, Verified 10/12/23 13:42) SWELLING pregabalin [From LYRICA] Allergy (Mild, Verified 10/12/23 13:42) AGITATION, swelling, SWELLING Medication List - Last Reconciled 10/12/23 by FREDERICK Christy amitriptyline 50 mg PO BEDTIME [id number]-[id number]-fqdh 50-325-40 mg 1 tab PO Q6H PRN calcium citrate 250 mg PO DAILY cholecalciferol (vitamin D3) 50 mcg PO DAILY clonazepam 1 mg PO BID 30 days doxycycline hyclate 100 mg PO BID 10 days Enbrel SureClick (etanercept) 50 mg subcut QWEEK NS ezetimibe 10 mg PO DAILY 90 days fluoride (sodium) 1.1% (Denta 5000 Plus) 1 appl PO DAILY fluticasone furoate-vilanterol 200-25 mcg/dose (Breo Ellipta) 1 inh inhalation DAILY 30 days fluticasone propion-salmeterol 250-50 mcg/dose (Advair Diskus) 1 ea inhalation BID galcanezumab-gnlm (Emgality Pen) 120 mg subcut ONCE 30 days hydroxyzine HCl 50 mg PO BID PRN loratadine (Allergy Relief (loratadine)) 10 mg PO DAILY PRN 30 days magnesium oxide 400 mg PO BEDTIME 30 days methocarbamol 750 mg PO TID PRN 30 days omeprazole 40 mg PO DAILY ondansetron 8 mg PO Q12H PRN 30 days polyethylene glycol 3350 (Miralax) 17 grams PO DAILY PRN propranolol 20 mg PO BID riboflavin (vitamin B2) 400 mg PO DAILY 30 days trazodone 100 mg (2 x 50 mg) PO BEDTIME PRN venlafaxine ER 150 mg PO DAILY venlafaxine ER 75 mg PO DAILY 90 days Ventolin HFA 90 mcg/actuation (albuterol sulfate) 2 puffs inhalation Q6H PRN 30 days NS HPI Comments Details: 58-yr-old female presents for f/u visit. Pt reports she has been working w/ Dr Parekh for her ongoing SOB and COPD management. She again today is quite SOB. She did her HST last night. She has not started cognitive tx yet- her 1st appt is 11/24/23. She continues to have postconcussive cognitive difficulties- very forgetful. She is still waking up daily w/ sinus congestion and headache, but not as severe or lasting as long. Baseline headache characteristics: Moderate to severe. Usually starts denton retroorbital, left-sided, but can be holocranial. Crushing pain, throbbing a/w Photophobia, phonophobia, osmophobia- less so now, nausea, brain fog, activity intolerance. [facility] Medical History Asthma COPD exacerbation Nicotine dependence, cigarettes, uncomplicated Osteopenia (~2018) Hypertensive retinopathy of both eyes Tubular adenoma of colon (~2020) Post covid-19 condition, unspecified (~06/2021) Delayed gastric emptying PTSD (post-traumatic stress disorder) HTN (hypertension) Depression COPD (chronic obstructive pulmonary disease) Cigarette nicotine dependence History of cocaine abuse History of alcohol abuse Nausea Post concussive syndrome (~2019) Fibromyalgia Psoriasis Psoriatic arthritis Facial trauma Surgical History History of right breast biopsy History of cranial surgery History of colonoscopy History of foot surgery History of foot surgery Family History Father Family history of diabetes mellitus Medical history non-contributory Maternal Grandmother Rectal cancer Maternal Grandfather Stomach cancer Family/Other Bone cancer Mother Breast cancer Social History Household Members: Spouse Housing: Apartment Are you a primary life care planner to a significant other at home: No Do you presently have visiting nurse or other home services: No Alcohol intake: current Alcohol intake frequency: holidays/special occasions only Patient Tobacco Use Status: Current everyday Tobacco user Tobacco use type: Cigarette Cigarette Packs Per Day: 0.25 Cigarettes Per Day: 3 Years Smoked: (onset 11yo, x 46yrs, max 1ppd, now 1/2ppd - 30pyh) e-Cigarette/Vaping Use: Never Used Second Hand Smoke Exposure: Yes Substance Use Type: Marijuana service: No Current occupational status: disabled Cognitive needs: No Hearing needs: No Vision needs: No Physical Exam Vital Signs: Last Vital Signs Pulse 72 10/12/23 13:39 BP 98/82 10/12/23 13:39 Pulse Ox 98 10/12/23 13:39 Oxygen Delivery Method Room Air 10/12/23 13:39 BMI result Body Mass Index 24.0 Const General: cooperative and no acute distress Orientation/consciousness: patient oriented x3 Resp Other: Non-productive loose cough. Effort & Inspection: normal respiratory effort and able to speak in complete sentences Auscultation: rhonchi throughout Neuro General: patient oriented x3 Cranial nerves: Yes CN's II-XII intact bilaterally Cognition (Neuro): normal cognition Psych Appearance: grossly normal Mental Status: mental status grossly normal Speech and movement: Normal speech and movement present Affect: normal affect Attitude: cooperative Assessment & Plan Assessment & Plan (1) Migraine without aura: Code(s): G43.009 - Migraine without aura, not intractable, without status migrainosus Category: Medical (2) Cognitive dysfunction: Code(s): F09 - Unspecified mental disorder due to known physiological condition Category: Medical (3) Sleep difficulties: Code(s): G47.9 - Sleep disorder, unspecified Category: Medical Plan For ongoing cough and SOB: Pt advised to f/u w/ Dr Parekh. Encouraged pt to increase her p.r.n. Ventolin use. Trial Azelastine- in hops this alleviates nasal/sinus congestion and am headaches. Will review HST results when available. 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 ?? For overall headache management: Track headaches Patient may try blue light filtering glasses, green glasses, green light bulb, green light therapy. Avoid wearing sunglasses inside. ? For acute headache treatment: May continue Fioricet for now. Consider gepant in f/u. Previous acute migraine medication trials: Sumatriptan- ineffective Acute migraine medication contraindications: Triptans d/t HTN and HLD ? For headache prevention medication: Riboflavin 400mg qam Magnesium 400mg qhs Continue Amitriptyline 50mg qhs Continue Propranolol 20mg bid- would not increase furtehr d/t Asthma/COPD dx. Continue Emgality 120mg sc q month- monitor injection site redness, if worsens can pre treat with Benadryl p.r.n.. Previous migraine prevention medication trials: As above Migraine prevention medication contraindications: Topiramate- d/t h/o nephrolithiasis ? Pt to follow-up in 6 months or sooner prn. Addendum: 10/23/23, HST showed AHI 1.4/hr w/ O2 travis 84% (w/ SpO2 < 90% x's 135min and < 88% x's 27.7 min of 499 min study). Will forward results to Dr Parekh. Medications: New azelastine administer into each nostril 2 sprays intranasal BID 30 mL 6RF 30 days Scribe Plan - Not visible on output: Reviewed possible medication side effects, including but not limited to drowsiness, dizziness. Coding Level of Care Code Est Pt Level 4 (16972) Diagnoses Migraine without aura G43.009 Cognitive dysfunction F09 Sleep difficulties G47.9
== END 2023-10-12 14:16 | disposition home or self-care (01) ==
PROVIDERS: PCP Nurse Practitioner Family; Visit Provider Nurse Practitioner Family
DX: G43.009 Migraine without aura, not intractable, without status migrainosus (principal); R41.89 Other symptoms and signs involving cognitive functions and awareness; G47.9 Sleep disorder, unspecified
CPT/HCPCS: 99214

== ENCOUNTER → 2023-10-12 13:18 | Outpatient (BNVA) | payer OTHER, SELFPAY | PROVIDERS: PCP Nurse Practitioner Family; Visit Provider Nurse Practitioner Family | DX: G43.009 Migraine without aura, not intractable, without status migrainosus (principal); F09 Unspecified mental disorder due to known physiological condition; G47.9 Sleep disorder, unspecified | CPT/HCPCS: 99212 ==

== ENCOUNTER 2023-10-30 15:23 | Outpatient (REF) | payer OTHER, SELFPAY ==
--- NOTE | ~2023-10-30 | XR_ITS ---
EXAMINATION: XR CHEST CLINICAL INFORMATION: COPD with acute exacerbation. COMPARISON: 07/11/2023. TECHNIQUE: 2 views of the chest were obtained. FINDINGS: Again noted are hyperinflated lungs. There may be some minimal atelectasis at the right lung base. No consolidation, lung masses or effusions. Heart size normal. No evidence of CHF. XR/XR chest 2V IMPRESSION: No acute intrathoracic disease. Some minimal right basilar atelectasis.
== END 2023-10-30 15:24 | disposition home or self-care (01) ==
LOC: HO.XRAY 15:23
PROVIDERS: PCP Nurse Practitioner Family; Visit Provider Internal Medicine
DX: J44.1 Chronic obstructive pulmonary disease with (acute) exacerbation (principal)
CPT/HCPCS: 71046; 99212

== ENCOUNTER 2023-10-30 15:23 | Outpatient (AMB) | payer OTHER, SELFPAY ==
[2023-10-30 15:31] VITALS: BP 110/80; PULSE 79; O2SAT 98; BMI 23.3
--- NOTE | 2023-10-30 15:31 | A.OFFVIS_ITS ---
Vital Signs 10/30/23 15:31 Height 5 ft 7 in Weight 148 lb 12.992 oz BMI 23.3 BP 110/80 Blood Pressure Location Lt brachial Position Sitting Pulse 79 Pulse Source Pulse Oximeter Pulse Oximetry (%) 98 Oxygen Delivery Method Room Air Intake Visit Reasons: COPD Intake Note: pt is here for follow up and is having a difficult time with shortness of breath all the time, wheezing, she just is not feeling good at all, this has been going on for months [employer] Consultant Required: No Allergies gabapentin [GABAPENTIN] Allergy (Mild, Verified 10/30/23 16:01) SWELLING pregabalin [From LYRICA] Allergy (Mild, Verified 10/30/23 16:01) AGITATION, swelling, SWELLING Medication List - Last Reconciled 10/30/23 by Rome aPrekh MD amitriptyline 50 mg PO BEDTIME azelastine 2 sprays intranasal BID 30 days pyxtrfuemr-mwekylrdksjnb-kqnx 50-325-40 mg 1 tab PO Q6H PRN calcium citrate 250 mg PO DAILY cholecalciferol (vitamin D3) 50 mcg PO DAILY clonazepam 1 mg PO BID 30 days Enbrel SureClick (etanercept) 50 mg subcut QWEEK NS ezetimibe 10 mg PO DAILY 90 days fluoride (sodium) 1.1% (Denta 5000 Plus) 1 appl PO DAILY fluticasone furoate-vilanterol 200-25 mcg/dose (Breo Ellipta) 1 inh inhalation DAILY 30 days galcanezumab-gnlm (Emgality Pen) 120 mg subcut ONCE 30 days hydroxyzine HCl 50 mg PO BID PRN loratadine (Allergy Relief (loratadine)) 10 mg PO DAILY PRN 30 days magnesium oxide 400 mg PO BEDTIME 30 days methocarbamol 750 mg PO TID PRN 30 days omeprazole 40 mg PO DAILY ondansetron 8 mg PO Q12H PRN 30 days polyethylene glycol 3350 (Miralax) 17 grams PO DAILY PRN propranolol 20 mg PO BID riboflavin (vitamin B2) 400 mg PO DAILY 30 days trazodone 100 mg (2 x 50 mg) PO BEDTIME PRN venlafaxine ER 75 mg PO DAILY 90 days venlafaxine ER 150 mg PO DAILY Ventolin HFA 90 mcg/actuation (albuterol sulfate) 2 puffs inhalation Q6H PRN 30 days NS Do you need a note to return to daycare/school/sports/work: No HPI HPI COPD: Details: THIS 58 YEARS OLD FEMALE IS HERE FOR AN URGENT VISIT BECAUSE SHE HAS BEEN FEELING CONGESTED ALL THE TIMES WITH FREQUENT COUGH AND INCREASED SHORTNESS OF BREATH FOR ABOUT 2-3 WEEKS. SHE DENIES ANY FEVER OR CHILLS. SHE FEELS TIRED. HAS HAD NO EXPOSURE TO ANY SICK%. SHE STILL SMOKES 1 OR 2 CIGARETTES IN THE MORNING. [facility] Medical History Asthma COPD exacerbation Nicotine dependence, cigarettes, uncomplicated Osteopenia (~2018) Hypertensive retinopathy of both eyes Tubular adenoma of colon (~2020) Post covid-19 condition, unspecified (~06/2021) Delayed gastric emptying PTSD (post-traumatic stress disorder) HTN (hypertension) Depression COPD (chronic obstructive pulmonary disease) Cigarette nicotine dependence History of cocaine abuse History of alcohol abuse Nausea Post concussive syndrome (~2019) Fibromyalgia Psoriasis Psoriatic arthritis Facial trauma Surgical History History of right breast biopsy History of cranial surgery History of colonoscopy History of foot surgery History of foot surgery Family History Father Family history of diabetes mellitus Medical history non-contributory Maternal Grandmother Rectal cancer Maternal Grandfather Stomach cancer Family/Other Bone cancer Mother Breast cancer Social History Household Members: Spouse Housing: Apartment Are you a primary cardiac care nurse to a significant other at home: No Do you presently have visiting nurse or other home services: No Alcohol intake: current Alcohol intake frequency: holidays/special occasions only Patient Tobacco Use Status: Current everyday Tobacco user Tobacco use type: Cigarette Cigarette Packs Per Day: 0.25 Cigarettes Per Day: 1 Years Smoked: (onset 11yo, x 46yrs, max 1ppd, now 1/2ppd - 30pyh) e-Cigarette/Vaping Use: Never Used Second Hand Smoke Exposure: Yes Substance Use Type: Marijuana service: No Current occupational status: disabled Cognitive needs: No Hearing needs: No Vision needs: No Review of Systems Const All systems reviewed & are unremarkable except as noted in HPI and below Reports headache(s) Eyes Reports no additional complaints ENT Reports headache(s) and Reports nasal congestion (MILD OFF AND ON) Card Denies chest pain, Denies irregular heart rhythm and Denies leg edema Resp Reports as per HPI GI Reports no additional complaints, Reports heartburn and Reports nausea Reports no additional complaints Musc Reports back pain Skin/Breast Reports system reviewed and no additional complaints, except as documented Neuro Reports headache(s) and Reports memory loss (Has had post concussion syndrome) Psych Reports anxiety (Mild chronic), Reports depression (Mild) and Reports memory loss (Has had post concussion syndrome) Physical Exam Vital Signs: Last Vital Signs Pulse 79 10/30/23 15:31 BP 110/80 10/30/23 15:31 Pulse Ox 98 10/30/23 15:31 Oxygen Delivery Method Room Air 10/30/23 15:31 BMI result Body Mass Index 23.3 Const General: comfortable, no acute distress, alert and awake Orientation/consciousness: patient oriented x3 HEENT Head: Yes normal to inspection General nose exam: No nasal polyps present and No nasal discharge present Face and sinus: Yes sinuses nontender Mouth: oropharynx normal Throat: Yes posterior oropharynx normal Eyes General: appearance normal, both eyes and all related structures Neck Neck: Yes normal visual inspection, Yes no lymphadenopathy, Yes trachea midline and Yes no JVD Thyroid: Thyroid normal Chest Chest palpation & inspection: normal inspection of the chest, normal palpation of entire chest wall and no tenderness Resp Other: Percussion note is resonant . Breath sounds are slightly distant , HAS BILATERAL SCATTERED WHEEZES THROUGHOUT THE CHEST. Cardio Palpation: normal PMI Rate: regular rate Rhythm: regular rhythm Heart sounds: no gallops and no murmurs GI Palpation (GI): Soft to palpation, Tenderness to palpation present (GI), No hepatosplenomegaly present and Palpable mass present Auscultation: normal bowel sounds Back/Spine/Pelvis Thoracic/Lumbar Spine: thoracic and lumbar spine normal to inspection Skin General skin exam: no rashes or lesions noted Neuro General: patient oriented x3 and no focal motor deficits Cranial nerves: Yes CN's II-XII intact bilaterally Extrem General: Yes normal to inspection, Yes no clubbing, cyanosis or edema and Yes no calf tenderness Psych Speech and movement: Normal speech and movement present Assessment & Plan Assessment & Plan (1) COPD exacerbation: Comment: She is a known case of advanced chronic obstructive pulmonary disease. She continues to have low-grade EXCERBATION of COPD. Code(s): J44.1 - Chronic obstructive pulmonary disease with (acute) exacerbation Category: Medical Plan: CHEST X-RAY ORDERED TO RULE OUT ANY CONSOLIDATION. CONTINUE BREO-, 201 INHALATION DAILY CONTINUE USING VENTOLIN 2 PUFFS. Q 4-6 HOURS P.R.N. PREDNISONE 5 MG 2 TABLETS B.I.D. FOR 1 WEEK 2 TABLETS DAILY FOR 1 WEEK ONE TABLET DAILY TO CONTINUE TILL NEXT VISIT. (2) Asthma: Comment: PATIENT DOES HAVE FEATURES OF CHRONIC ASTHMA/COPD. PULMONARY FUNCTION TEST DID NOT SHOW ANY SIGNIFICANT ABNORMALITY EXCEPT FOR MILD DECREASE IN FEF 25-75 CLINICALLY I THINK SHE HAS BRONCHIAL ASTHMA , WITH FREQUENT FLARE UPS. Code(s): J45.909 - Unspecified asthma, uncomplicated Category: Medical Plan: TX UNDER COPD EXCERBATION (3) Nicotine dependence, cigarettes, uncomplicated: Comment: (current smoker, 1ppd x 46yrs, now 1/2ppd - 30pyh).says she has reduced to 1-2 cigarettes a day Code(s): F17.210 - Nicotine dependence, cigarettes, uncomplicated Category: Medical Plan: I counseled her and stress that she has to stop smoking completely . Orders: Orders XR chest 2V Today J44.1 - Chronic obstructive pulmonary disease with (acute) exacerbation Medications: New prednisone patient was instructed to take 2 tabs bid for one week the decrease to 2 tabs daily 10 mg (2 x 5 mg) PO BID 14 days 56 tabs 0RF copd excerbation Coding Level of Care Code Est Pt Level 4 (43645) Diagnoses COPD exacerbation J44.1 Asthma J45.909 Nicotine dependence, cigarettes, uncomplicated F17.210
== END 2023-10-30 16:00 | disposition home or self-care (01) ==
PROVIDERS: PCP Nurse Practitioner Family; Visit Provider Internal Medicine
DX: J44.1 Chronic obstructive pulmonary disease with (acute) exacerbation (principal); J45.909 Unspecified asthma, uncomplicated; F17.210 Nicotine dependence, cigarettes, uncomplicated
CPT/HCPCS: 99214

== ENCOUNTER 2023-11-27 15:42 | Outpatient (AMB) | payer OTHER, SELFPAY ==
[2023-11-27 15:46] VITALS: BP 132/82; PULSE 64; O2SAT 99; BMI 23.8
--- NOTE | 2023-11-27 15:46 | MHC.OFFVIS ---
Vital Signs 11/27/23 15:46 Height 5 ft 7 in Weight 152 lb BMI 23.8 BP 132/82 Blood Pressure Location Lt brachial Position Sitting Pulse 64 Pulse Source Pulse Oximeter Pulse Oximetry (%) 99 Oxygen Delivery Method Room Air Intake Visit Reasons: COPD Intake Note: pt is here for follow up and still wheezing, short of breath and a lot of phegm junk coming out, no energy, sometimes she has to stop talking in the middle of a sentence to catch her breath. Medical Technologist Clinical Required: No Allergies gabapentin [GABAPENTIN] Allergy (Mild, Verified 11/27/23 15:51) SWELLING pregabalin [From LYRICA] Allergy (Mild, Verified 11/27/23 15:51) AGITATION, swelling, SWELLING Medication List - Last Reconciled 11/27/23 by Rome Parekh MD amitriptyline 50 mg PO BEDTIME azelastine 2 sprays intranasal BID 30 days wjgtrngrzf-bqtdimzjfpxxt-wcgy 50-325-40 mg 1 tab PO Q6H PRN calcium citrate 250 mg PO DAILY cholecalciferol (vitamin D3) 50 mcg PO DAILY clonazepam 1 mg PO BID 30 days Enbrel SureClick (etanercept) 50 mg subcut QWEEK NS ezetimibe 10 mg PO DAILY 90 days fluoride (sodium) 1.1% (Denta 5000 Plus) 1 appl PO DAILY fluticasone furoate-vilanterol 200-25 mcg/dose (Breo Ellipta) 1 inh inhalation DAILY 30 days galcanezumab-gnlm (Emgality Pen) 120 mg subcut ONCE 30 days hydroxyzine HCl 50 mg PO BID PRN loratadine (Allergy Relief (loratadine)) 10 mg PO DAILY PRN 30 days magnesium oxide 400 mg PO BEDTIME 30 days methocarbamol 750 mg PO TID PRN 30 days omeprazole 40 mg PO DAILY ondansetron 8 mg PO Q12H PRN 30 days polyethylene glycol 3350 (Miralax) 17 grams PO DAILY PRN propranolol 20 mg PO BID riboflavin (vitamin B2) 400 mg PO DAILY 30 days trazodone 100 mg (2 x 50 mg) PO BEDTIME PRN venlafaxine ER 75 mg PO DAILY 90 days venlafaxine ER 150 mg PO DAILY Ventolin HFA 90 mcg/actuation (albuterol sulfate) 2 puffs inhalation Q6H PRN 30 days NS Do you need a note to return to daycare/school/sports/work: No HPI HPI COPD: Details: Anne is here for follow-up after 1 month. She did have a prolonged course of prednisone, and just finished it a few days ago. She claims that it did not make any difference in her shortness of breath. She continues to have frequent cough and gets short of breath on minimal exertion. She is using Breo in the morning and then uses albuterol couple times during the day. She still smoking but down to 1 or 2 cigarettes a day. There is lot of anxiety factor. [facility] Medical History Asthma COPD exacerbation Nicotine dependence, cigarettes, uncomplicated Osteopenia (~2018) Hypertensive retinopathy of both eyes Tubular adenoma of colon (~2020) Post covid-19 condition, unspecified (~06/2021) Delayed gastric emptying PTSD (post-traumatic stress disorder) HTN (hypertension) Depression COPD (chronic obstructive pulmonary disease) Cigarette nicotine dependence History of cocaine abuse History of alcohol abuse Nausea Post concussive syndrome (~2019) Fibromyalgia Psoriasis Psoriatic arthritis Facial trauma Surgical History History of right breast biopsy History of cranial surgery History of colonoscopy History of foot surgery History of foot surgery Family History Father Family history of diabetes mellitus Medical history non-contributory Maternal Grandmother Rectal cancer Maternal Grandfather Stomach cancer Family/Other Bone cancer Mother Breast cancer Social History Household Members: Spouse Housing: Apartment Are you a primary transitional care manager to a significant other at home: No Do you presently have visiting nurse or other home services: No Alcohol intake: current Alcohol intake frequency: holidays/special occasions only Patient Tobacco Use Status: Current everyday Tobacco user Tobacco use type: Cigarette Cigarette Packs Per Day: 0.25 Cigarettes Per Day: 1 Years Smoked: (onset 11yo, x 46yrs, max 1ppd, now 1/2ppd - 30pyh) e-Cigarette/Vaping Use: Never Used Second Hand Smoke Exposure: Yes Substance Use Type: Marijuana service: No Current occupational status: disabled Cognitive needs: No Hearing needs: No Vision needs: No Review of Systems Const All systems reviewed & are unremarkable except as noted in HPI and below Reports headache(s) Eyes Reports no additional complaints ENT Reports headache(s) and Reports nasal congestion (MILD OFF AND ON) Card Denies chest pain, Denies irregular heart rhythm and Denies leg edema Resp Reports as per HPI GI Reports no additional complaints, Reports heartburn and Reports nausea Reports no additional complaints Musc Reports back pain Skin/Breast Reports system reviewed and no additional complaints, except as documented Neuro Reports headache(s) and Reports memory loss (Has had post concussion syndrome) Psych Reports anxiety (Mild chronic), Reports depression (Mild) and Reports memory loss (Has had post concussion syndrome) Physical Exam Vital Signs: Last Vital Signs Pulse 64 11/27/23 15:46 BP 132/82 11/27/23 15:46 Pulse Ox 99 11/27/23 15:46 Oxygen Delivery Method Room Air 11/27/23 15:46 BMI result Body Mass Index 23.8 Const General: comfortable, no acute distress, alert and awake Orientation/consciousness: patient oriented x3 HEENT Head: Yes normal to inspection General nose exam: No nasal polyps present and No nasal discharge present Face and sinus: Yes sinuses nontender Mouth: oropharynx normal Throat: Yes posterior oropharynx normal Eyes General: appearance normal, both eyes and all related structures Neck Neck: Yes normal visual inspection, Yes no lymphadenopathy, Yes trachea midline and Yes no JVD Thyroid: Thyroid normal Chest Chest palpation & inspection: normal inspection of the chest, normal palpation of entire chest wall and no tenderness Resp Other: Percussion note is resonant . Breath sounds are distant , There are no audible wheezes rhonchi or crepitations today. Cardio Palpation: normal PMI Rate: regular rate Rhythm: regular rhythm Heart sounds: no gallops and no murmurs GI Palpation (GI): Soft to palpation, Tenderness to palpation present (GI), No hepatosplenomegaly present and Palpable mass present Auscultation: normal bowel sounds Back/Spine/Pelvis Thoracic/Lumbar Spine: thoracic and lumbar spine normal to inspection Skin General skin exam: no rashes or lesions noted Neuro General: patient oriented x3 and no focal motor deficits Cranial nerves: Yes CN's II-XII intact bilaterally Extrem General: Yes normal to inspection, Yes no clubbing, cyanosis or edema and Yes no calf tenderness Psych Speech and movement: Normal speech and movement present Assessment & Plan Assessment & Plan (1) Asthma: Comment: PATIENT DOES HAVE FEATURES OF CHRONIC ASTHMA/COPD. PULMONARY FUNCTION TEST DID NOT SHOW ANY SIGNIFICANT ABNORMALITY EXCEPT FOR MILD DECREASE IN FEF 25-75 CLINICALLY I THINK SHE HAS BRONCHIAL ASTHMA , WITH FREQUENT FLARE UPS. Code(s): J45.909 - Unspecified asthma, uncomplicated Category: Medical Plan: Breo 200-251 inhalation daily. Combivent Respimat 1 inhalation Q 6 hours while awake. No need to take any oral prednisone (2) Shortness of breath at rest: Comment: Pulmonary function test had shown only mild obstructive disorder. Her shortness of breath at rest and on exertion is somewhat out of proportion to the findings on PFT. I think there is a component of anxiety, and deconditioning. Code(s): R06.02 - Shortness of breath Category: Medical Plan: Advised to continue meds as prescribed. Also try to do deep breathing exercises with breath holding and pursed lip breathing technique 3 times a day. (3) Cigarette nicotine dependence: Comment: (current smoker x 40+yrs, down to 1-2 cig /day) determined to quit completely. HAD QUIT COMPLETELY FOR A FEW MONTHS AND THEN RESUMED SMOKING Code(s): F17.210 - Nicotine dependence, cigarettes, uncomplicated Category: Social Hx Plan: Counseled that she should try to quit smoking completely (4) Anxiety and depression: Comment: SHE HAS CHRONIC BIPOLAR DISORDER WITH ANXIETY AND DEPRESSION. ALSO HAS MILD COGNITIVE IMPAIRMENT AND FOR THAT SHE HAS BEEN SEEN BY [facility]LEEP MEDICINE SERVICE. Code(s): F41.9 - Anxiety disorder, unspecified; F32.9 - Major depressive disorder, single episode, unspecified Category: Medical Plan: Continue the present anxiolytic medications . Coding Level of Care Code Est Pt Level 4 (92826) Diagnoses Asthma J45.909 Shortness of breath at rest R06.02 Cigarette nicotine dependence F17.210 Anxiety and depression F41.9; F32.9
== END 2023-11-27 16:01 | disposition home or self-care (01) ==
PROVIDERS: PCP Nurse Practitioner Family; Visit Provider Internal Medicine
DX: J45.909 Unspecified asthma, uncomplicated (principal); R06.02 Shortness of breath; F17.210 Nicotine dependence, cigarettes, uncomplicated; F41.9 Anxiety disorder, unspecified; F32.9 Major depressive disorder, single episode, unspecified
CPT/HCPCS: 99214

== ENCOUNTER → 2023-11-27 15:42 | Outpatient (BNVA) | payer OTHER, SELFPAY | PROVIDERS: PCP Nurse Practitioner Family; Visit Provider Internal Medicine | DX: J45.909 Unspecified asthma, uncomplicated (principal); R06.02 Shortness of breath; F41.9 Anxiety disorder, unspecified; F32.9 Major depressive disorder, single episode, unspecified; F17.210 Nicotine dependence, cigarettes, uncomplicated; Z71.6 Tobacco abuse counseling | CPT/HCPCS: 99212 ==

== ENCOUNTER 2023-11-30 15:00 | Outpatient (REF) | payer OTHER, SELFPAY ==
[2023-11-30 15:59] LABS: MANUAL DIFF FLAG NO
[2023-11-30 16:11] LABS: Basophils Percent Auto 0.6 % (0-2); Eosinophils Absolute Auto 0.1 X10*3/uL (0.0-0.4); Eosinophils Percent Auto 1.8 % (0-4); Hemoglobin 15.3 g/dl (12.0-16.0); Imm Gran Abs Auto 0.02 X10*3/uL (0.00-0.03); Imm Gran Pct Auto 0.4 % (0.0-0.4); Lymphocytes Absolute Auto 1.3 X10*3/uL (1.2-4.9); Lymphocytes Percent Auto 27.5 % (20-40); Mean Corpuscular Hemoglobin 32.7 pg (27.0-33.0); Mean Corpuscular Volume 96.2 fL (80.0-98.0); Mean Platelet Volume 9.9 fL (9.4-12.3); Monocytes Absolute Auto 0.4 X10*3/uL (0.1-1.2); Monocytes Percent Auto 7.2 % (2-11); Neutrophils Absolute Auto 3.1 x10*3/uL (2.0-8.3); Neutrophils Percent Auto 62.5 % (45-73); Platelet Count 295 X10*3/uL (160-400); Red Blood Count 4.68 X10*6/uL (4.20-5.50); Red Cell Distribution Width 15.1 % (11.0-16.0); White Blood Count 4.9 X10*3/uL (4.8-10.8)
[2023-11-30 16:35] LABS: Alanine Aminotransferase 16 U/L (0-31); Albumin Level 4.3 g/dL (3.5-5.0); Alkaline Phosphatase 74 U/L (39-117); Anion Gap 14 (12-20); Aspartate Amino Transferase 17 U/L (5-31); Bilirubin Total 0.4 mg/dL (0.0-1.0); Blood Urea Nitrogen 12 mg/dL (9-16); C Reactive Protein 0.77 mg/dL (< or = 0.50); Calcium 10.3 mg/dL (8.4-10.2); Carbon Dioxide 29 mmol/L (22-29); Chloride 101 mmol/L (96-108); Estimated Glomerular Filt Rate > 60; Glucose Random 117 mg/dL (60-115); Potassium 4.4 mmol/L (3.3-5.1); Sodium 140 mmol/L (135-145); Total Protein 8.2 g/dL (6.5-8.0)
[2023-11-30 16:52] LABS: Erythrocyte Sedimentation Rate 7 MM/HR (0-20)
[2023-12-01 03:41] LABS: HBS Num1 1.16 mIU/mL (0-7.99); HBc Num1 0.09 S/CO (0.00-0.79); HBsAGNum1 0.22 S/CO (0.00-0.99); Hepatitis A Antibody IgM 0.19 Index (0-0.79); Hepatitis B Core Antibody Nonreactive (Nonreactive); Hepatitis B Surface Antigen Negative (Negative); ~Hepatitis A Antibody IgM Nonreactive (Nonreactive); ~Hepatitis B Surface Antibody NONREACTIVE (Nonreactive); ~Hepatitis C Antibody Nonreactive (Nonreactive)
== END 2023-11-30 15:01 | disposition home or self-care (01) ==
LOC: HO.HMGCLDS 15:00
PROVIDERS: PCP Nurse Practitioner Family; Visit Provider Student in an Organized Health Care Education/Training Program
DX: L40.50 Arthropathic psoriasis, unspecified (principal); Z11.59 Encounter for screening for other viral diseases
CPT/HCPCS: 36415; 80053; 85025; 85652; 86140; 86704; 86706; 86709; 86803; 87340

== ENCOUNTER 2023-12-04 15:31 | Outpatient (AMB) | payer OTHER, SELFPAY ==
[2023-12-04 15:42] VITALS: BP 130/64; PULSE 80; O2SAT 97; BMI 23.7
--- NOTE | 2023-12-04 15:42 | A.OFFVIS_ITS ---
Vital Signs 12/04/23 15:42 Height 5 ft 7 in Weight 151 lb 3.794 oz BMI 23.7 BP 130/64 Blood Pressure Location Rt brachial Position Sitting Pulse 80 Pulse Source Pulse Oximeter Pulse Oximetry (%) 97 Oxygen Delivery Method Room Air Intake Visit Reasons: PSA Intake Note: Patient last seen 03/21/23 presents today for follow up and test results. 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 Accompanied by: Self / Same As Patient Allergies gabapentin [GABAPENTIN] Allergy (Mild, Verified 12/04/23 15:49) SWELLING pregabalin [From LYRICA] Allergy (Mild, Verified 12/04/23 15:49) AGITATION, swelling, SWELLING Medication List - Last Reconciled 12/04/23 by Rafi Liao MD amitriptyline 50 mg PO BEDTIME azelastine 2 sprays intranasal BID 30 days utkiubjbmk-jzijajmauwqre-uzdg 50-325-40 mg 1 tab PO Q6H PRN calcium citrate 250 mg PO DAILY cholecalciferol (vitamin D3) 50 mcg PO DAILY clonazepam 1 mg PO BID 30 days Enbrel SureClick (etanercept) 50 mg subcut QWEEK NS ezetimibe 10 mg PO DAILY 90 days fluoride (sodium) 1.1% (Denta 5000 Plus) 1 appl PO DAILY fluticasone furoate-vilanterol 200-25 mcg/dose (Breo Ellipta) 1 inh inhalation DAILY 30 days galcanezumab-gnlm (Emgality Pen) 120 mg subcut ONCE 30 days hydroxyzine HCl 50 mg PO BID PRN ipratropium-albuterol 20-100 mcg/actuation (Combivent Respimat) 1 puff inhalation Q6H 30 days loratadine (Allergy Relief (loratadine)) 10 mg PO DAILY PRN 30 days magnesium oxide 400 mg PO BEDTIME 30 days methocarbamol 750 mg PO TID PRN 30 days omeprazole 40 mg PO DAILY ondansetron 8 mg PO Q12H PRN 30 days polyethylene glycol 3350 (Miralax) 17 grams PO DAILY PRN propranolol 20 mg PO BID riboflavin (vitamin B2) 400 mg PO DAILY 30 days trazodone 100 mg (2 x 50 mg) PO BEDTIME PRN venlafaxine ER 75 mg PO DAILY 90 days venlafaxine ER 150 mg PO DAILY Ventolin HFA 90 mcg/actuation (albuterol sulfate) 2 puffs inhalation Q6H PRN 30 days NS HPI Comments Details: 58yoF presents for follow-up of psoriatic arthritis. On Enbrel weekly, tolerating this well. Patient states that her psoriasis and psoriatic arthritis are doing reasonably well overall. She has not had any major flare-ups. She states that she gets some pain her left thumb. No significant swelling. She states that she had a few episodes when her right knee was catching, it did not give out on her. She did not fall. She has a couple of episodes a week. Denies any trauma to the knee. She has 1 small round patch of psoriasis on her right mckeon. Over the last week patient has been having worsening shortness of breath, sore throat, productive cough and feeling cold. It looks like she is coming down with COPD exacerbation. [facility]LY [facility] Medical History Asthma COPD exacerbation Nicotine dependence, cigarettes, uncomplicated Osteopenia (~2018) Hypertensive retinopathy of both eyes Tubular adenoma of colon (~2020) Post covid-19 condition, unspecified (~06/2021) Delayed gastric emptying PTSD (post-traumatic stress disorder) HTN (hypertension) Depression COPD (chronic obstructive pulmonary disease) Cigarette nicotine dependence History of cocaine abuse History of alcohol abuse Nausea Post concussive syndrome (~2019) Fibromyalgia Psoriasis Psoriatic arthritis Facial trauma Surgical History History of right breast biopsy History of cranial surgery History of colonoscopy History of foot surgery History of foot surgery Family History Father Family history of diabetes mellitus Medical history non-contributory Maternal Grandmother Rectal cancer Maternal Grandfather Stomach cancer Family/Other Bone cancer Mother Breast cancer Social History Household Members: Spouse Housing: Apartment Are you a primary director of critical care to a significant other at home: No Do you presently have visiting nurse or other home services: No Alcohol intake: current Alcohol intake frequency: holidays/special occasions only Patient Tobacco Use Status: Current everyday Tobacco user Tobacco use type: Cigarette Cigarette Packs Per Day: 0.25 Cigarettes Per Day: 1 Years Smoked: (onset 11yo, x 46yrs, max 1ppd, now 1/2ppd - 30pyh) e-Cigarette/Vaping Use: Never Used Second Hand Smoke Exposure: Yes Substance Use Type: Marijuana service: No Current occupational status: disabled Cognitive needs: No Hearing needs: No Vision needs: No Review of Systems Const Details: Feeling cold ENT Reports sore throat Card Reports dyspnea and Reports dyspnea on exertion Resp Reports cough, Reports dyspnea, Reports dyspnea on exertion and Reports wheezing Musc Reports arthralgias Aller/Immun Reports wheezing Physical Exam Const General: cooperative, in distress and anxious Nutritional Appearance: average body habitus Orientation/consciousness: patient oriented x3 Resp Effort & Inspection: audible wheezes, Actively coughing and respiratory distress Auscultation: rhonchi and wheezes Skin Other: Small round patch of psoriasis on her right mckeon Neuro General: patient oriented x3 Extrem Other: Positive Esperanza's test on the left No active synovitis otherwise Negative Charlene's test right knee Assessment & Plan Assessment & Plan (1) Psoriatic arthritis: Comment: Enbrel 02/2019- present effective Methotrexate: before 2019- dates are not available to me-patient is unsure why this was stopped. Code(s): L40.50 - Arthropathic psoriasis, unspecified Category: Medical Plan: This is a 58-year-old female with psoriasis and psoriatic arthritis. Well controlled on Enbrel weekly. Continue Enbrel. Patient continues to have COPD exacerbations, advised patient to skip Enbrel whenever she has a COPD exacerbation. If patient continues to have frequent COPD exacerbations, Enbrel might have to P switched to a different DMARDs Continue Enbrel 50 mg once weekly for now Follow-up in 4 months (2) Psoriasis: Comment: (Derm = Dr. Becca Bonilla) no longer follows up with Derm Code(s): L40.9 - Psoriasis, unspecified Category: Medical Plan: Skin is clear today except for 1 patch on her right mckeon (3) COPD exacerbation: Comment: She is a known case of advanced chronic obstructive pulmonary disease. She continues to have low-grade EXCERBATION of COPD. Code(s): J44.1 - Chronic obstructive pulmonary disease with (acute) exacerbation Category: Medical Plan: Obvious exacerbation today, her breathing is labored, wheezing on exam, tachypneic, I strongly advised patient to go to the emergency room. She refuses. She states that she will go to the ER if her symptoms get worse. Will prescribe prednisone taper and doxycycline. (4) High risk medication use: Code(s): Z79.899 - Other terminal operator (current) drug therapy Category: Medical Plan: Side effects of Enbrel were discussed with the patient in detail including increased risk of infection, demyelinating disease, reactivation of latent TB, possible increased risk of solid and skin tumors. Patient fully aware. Advised patient to seek medical care [facility] if patient has an infection and advised patient to stop the medication until the infection is resolved. Advised patient to get a yearly skin exam (5) Osteoporosis: Code(s): M81.0 - Age-related osteoporosis without current pathological fracture Category: Medical Qualifiers: Osteoporosis type: age-related Presence of current pathological fracture: without current pathological fracture Qualified Code(s): M81.0 - Age- related osteoporosis without current pathological fracture Plan: Managed by endocrinology Plan I spent 45 minutes reviewing patient's chart, evaluating patient, ordering diagnostic workup, counseling patient and documenting in the chart Medications: New doxycycline hyclate 100 mg PO BID 10 days 20 caps 0RF prednisone 20 mg PO BID 10 tabs 0RF Coding Level of Care Code Est Pt Level 5 (83458) Diagnoses Psoriatic arthritis L40.50 Psoriasis L40.9 COPD exacerbation J44.1 High risk medication use Z79.899 Age-related osteoporosis without current pathological fracture M81.0 Osteoporosis type: age-related Presence of current pathological fracture: without current pathological fracture
== END 2023-12-04 16:04 | disposition home or self-care (01) ==
PROVIDERS: PCP Nurse Practitioner Family; Visit Provider Student in an Organized Health Care Education/Training Program
DX: L40.50 Arthropathic psoriasis, unspecified (principal); L40.9 Psoriasis, unspecified; J44.1 Chronic obstructive pulmonary disease with (acute) exacerbation; Z79.899 Other long term (current) drug therapy; M81.0 Age-related osteoporosis without current pathological fracture
CPT/HCPCS: 99215

== ENCOUNTER → 2023-12-04 15:31 | Outpatient (BNVA) | payer OTHER, SELFPAY | PROVIDERS: PCP Nurse Practitioner Family; Visit Provider Student in an Organized Health Care Education/Training Program | DX: L40.50 Arthropathic psoriasis, unspecified (principal); L40.9 Psoriasis, unspecified; J44.1 Chronic obstructive pulmonary disease with (acute) exacerbation; M81.0 Age-related osteoporosis without current pathological fracture; Z79.899 Other long term (current) drug therapy | CPT/HCPCS: 99212 ==

== ENCOUNTER 2023-12-24 13:28 | Outpatient (RCR) | payer OTHER, SELFPAY ==
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
== END 2024-03-25 12:55 | disposition still patient (30) ==
LOC: HO.SH 13:28
PROVIDERS: PCP Nurse Practitioner Family; Visit Provider Nurse Practitioner Family
DX: F07.81 Postconcussional syndrome (principal); F09 Unspecified mental disorder due to known physiological condition
CPT/HCPCS: 92523

== ENCOUNTER 2023-12-25 13:20 | Outpatient (AMB) | payer OTHER, SELFPAY ==
[2023-12-25 13:26] VITALS: BP 120/84; PULSE 63; O2SAT 96; BMI 23.3
--- NOTE | 2023-12-25 13:26 | A.OFFVIS_ITS ---
Vital Signs 12/25/23 13:26 Height 5 ft 7 in Weight 149 lb 0.9 oz BMI 23.3 BP 120/84 Blood Pressure Location Lt brachial Position Sitting Pulse 63 Pulse Source Pulse Oximeter Pulse Oximetry (%) 96 Oxygen Delivery Method Room Air Intake Visit Reasons: COPD Intake Note: pt is here for follow up and states Allergies gabapentin [GABAPENTIN] Allergy (Mild, Verified 12/25/23 13:33) SWELLING pregabalin [From LYRICA] Allergy (Mild, Verified 12/25/23 13:33) AGITATION, swelling, SWELLING Medication List - Last Reconciled 12/25/23 by Rome Parekh MD amitriptyline 50 mg PO BEDTIME azelastine 2 sprays intranasal BID 30 days ntewewihzs-xruxgzwpjjtvn-ubfl 50-325-40 mg 1 tab PO Q6H PRN calcium citrate 250 mg PO DAILY cholecalciferol (vitamin D3) 50 mcg PO DAILY clonazepam 1 mg PO BID PRN doxycycline hyclate 100 mg PO BID 10 days Enbrel SureClick (etanercept) 50 mg subcut QWEEK NS ezetimibe 10 mg PO DAILY 90 days fluoride (sodium) 1.1% (Denta 5000 Plus) 1 appl PO DAILY fluticasone furoate-vilanterol 200-25 mcg/dose (Breo Ellipta) 1 inh inhalation DAILY 30 days galcanezumab-gnlm (Emgality Pen) 120 mg subcut ONCE 30 days hydroxyzine HCl 50 mg PO BID PRN ipratropium-albuterol 20-100 mcg/actuation (Combivent Respimat) 1 puff inhalation Q6H 30 days loratadine (Allergy Relief (loratadine)) 10 mg PO DAILY PRN 30 days magnesium oxide 400 mg PO BEDTIME 30 days methocarbamol 750 mg PO TID PRN 30 days omeprazole 40 mg PO DAILY ondansetron 8 mg PO Q12H PRN 30 days polyethylene glycol 3350 (Miralax) 17 grams PO DAILY PRN prednisone 20 mg PO BID propranolol 20 mg PO BID riboflavin (vitamin B2) 400 mg PO DAILY 30 days trazodone 100 mg (2 x 50 mg) PO BEDTIME PRN venlafaxine ER 75 mg PO DAILY 90 days venlafaxine ER 150 mg PO DAILY Ventolin HFA 90 mcg/actuation (albuterol sulfate) 2 puffs inhalation Q6H PRN 30 days NS Do you need a note to return to daycare/school/sports/work: No HPI HPI COPD: Details: ABOUT 4 WEEKS AGO JAX WAS TREATED WITH A COURSE OF PREDNISONE AND DOXYCYCLINE PRESCRIBED BY THE DIE DEVELOPER.DR WALLACE . SINCE THEN SHE HAS BEEN RELATIVELY BETTER, BUT STILL GETS SHORT OF BREATH ON MINIMAL EXERTION. SOME OF FOR INCREASED SHORTNESS OF BREATH IS DEFINITELY RELATED TO HER ANXIETY. SHE IS USING BREO ELLIPTA 200-25 ONCE A DAY AND COMBIVENT RESPIMAT 2 OR 3 TIMES A DAY UNFORTUNATELY SHE IS STILL SMOKING 4-5 CIGARETTES A DAY HE REMAINS A BUNDLE OF NERVES. [facility] Medical History Asthma COPD exacerbation Nicotine dependence, cigarettes, uncomplicated Osteopenia (~2018) Hypertensive retinopathy of both eyes Tubular adenoma of colon (~2020) Post covid-19 condition, unspecified (~06/2021) Delayed gastric emptying PTSD (post-traumatic stress disorder) HTN (hypertension) Depression COPD (chronic obstructive pulmonary disease) Cigarette nicotine dependence History of cocaine abuse History of alcohol abuse Nausea Post concussive syndrome (~2019) Fibromyalgia Psoriasis Psoriatic arthritis Facial trauma Surgical History History of right breast biopsy History of cranial surgery History of colonoscopy History of foot surgery History of foot surgery Family History Father Family history of diabetes mellitus Medical history non-contributory Maternal Grandmother Rectal cancer Maternal Grandfather Stomach cancer Family/Other Bone cancer Mother Breast cancer Social History Household Members: Spouse Housing: Apartment Are you a primary care information associate to a significant other at home: No Do you presently have visiting nurse or other home services: No Alcohol intake: current Alcohol intake frequency: holidays/special occasions only Patient Tobacco Use Status: Current everyday Tobacco user Tobacco use type: Cigarette Cigarette Packs Per Day: 0.25 Cigarettes Per Day: 1 Years Smoked: (onset 11yo, x 46yrs, max 1ppd, now 1/2ppd - 30pyh) e-Cigarette/Vaping Use: Never Used Second Hand Smoke Exposure: Yes Substance Use Type: Marijuana service: No Current occupational status: disabled Cognitive needs: No Hearing needs: No Vision needs: No Review of Systems Const All systems reviewed & are unremarkable except as noted in HPI and below Reports headache(s) Eyes Reports no additional complaints ENT Reports headache(s) and Reports nasal congestion (MILD OFF AND ON) Card Denies chest pain, Denies irregular heart rhythm and Denies leg edema Resp Reports as per HPI GI Reports no additional complaints, Reports heartburn and Reports nausea Reports no additional complaints Musc Reports back pain Skin/Breast Reports system reviewed and no additional complaints, except as documented Neuro Reports headache(s) and Reports memory loss (Has had post concussion syndrome) Psych Reports anxiety (Mild chronic), Reports depression (Mild) and Reports memory loss (Has had post concussion syndrome) Physical Exam Vital Signs: Last Vital Signs Pulse 63 12/25/23 13:26 BP 120/84 12/25/23 13:26 Pulse Ox 96 12/25/23 13:26 Oxygen Delivery Method Room Air 12/25/23 13:26 BMI result Body Mass Index 23.3 Const General: comfortable, no acute distress, alert and awake Orientation/consciousness: patient oriented x3 HEENT Head: Yes normal to inspection General nose exam: No nasal polyps present and No nasal discharge present Face and sinus: Yes sinuses nontender Mouth: oropharynx normal Throat: Yes posterior oropharynx normal Eyes General: appearance normal, both eyes and all related structures Neck Neck: Yes normal visual inspection, Yes no lymphadenopathy, Yes trachea midline and Yes no JVD Thyroid: Thyroid normal Chest Chest palpation & inspection: normal inspection of the chest, normal palpation of entire chest wall and no tenderness Resp Other: Percussion note is resonant . Breath sounds are distant , There are no audible wheezes rhonchi or crepitations today. Cardio Palpation: normal PMI Rate: regular rate Rhythm: regular rhythm Heart sounds: no gallops and no murmurs GI Palpation (GI): Soft to palpation, Tenderness to palpation present (GI), No hepatosplenomegaly present and Palpable mass present Auscultation: normal bowel sounds Back/Spine/Pelvis Thoracic/Lumbar Spine: thoracic and lumbar spine normal to inspection Skin General skin exam: no rashes or lesions noted Neuro General: patient oriented x3 and no focal motor deficits Cranial nerves: Yes CN's II-XII intact bilaterally Extrem General: Yes normal to inspection, Yes no clubbing, cyanosis or edema and Yes no calf tenderness Psych Speech and movement: Normal speech and movement present Assessment & Plan Assessment & Plan (1) Cigarette nicotine dependence: Comment: (current smoker x 40+yrs, down to 4-5 cig /day) determined to quit completely. HAD QUIT COMPLETELY FOR A FEW MONTHS AND THEN RESUMED SMOKING Code(s): F17.210 - Nicotine dependence, cigarettes, uncomplicated Category: Social Hx Plan: HAD A GOOD DISCUSSION AND ENCOURAGED HER TO QUIT SMOKING COMPLETELY. SHE HAS VERY ANXIOUS PERSONALITY AND IT IS SOMEWHAT HARD FOR HER TO QUIT COMPLETELY (2) Asthma: Comment: PATIENT DOES HAVE FEATURES OF CHRONIC ASTHMA/COPD. PULMONARY FUNCTION TEST DID NOT SHOW ANY SIGNIFICANT ABNORMALITY EXCEPT FOR MILD DECREASE IN FEF 25-75 CLINICALLY I THINK SHE HAS BRONCHIAL ASTHMA , WITH FREQUENT FLARE UPS. Code(s): J45.909 - Unspecified asthma, uncomplicated Category: Medical Plan: SEE UNDER COPD (3) COPD (chronic obstructive pulmonary disease): Comment: She has mild to moderate degree of chronic obstructive pulmonary disease, which has stayed quite stable over the past many years. Now she complains of slightly increased cough and SOB . sec to cigarettes smoking . [place] : BREO 200-25 1 INH DAILY COMBIVENT RESPIMAT , 1 INH , Q 6 HRS PRN ( TRY NOT TO USE MORE THAN 3 /DAY Code(s): J44.9 - Chronic obstructive pulmonary disease, unspecified Category: Medical Coding Level of Care Code Est Pt Level 3 (72267) Diagnoses Cigarette nicotine dependence F17.210 Asthma J45.909 COPD (chronic obstructive pulmonary disease) J44.9
--- NOTE | 2023-12-25 13:53 | MHC.OFFVIS ---
Vital Signs 12/25/23 13:26 Height 5 ft 7 in Weight 149 lb 0.9 oz BMI 23.3 BP 120/84 Blood Pressure Location Lt brachial Position Sitting Pulse 63 Pulse Source Pulse Oximeter Pulse Oximetry (%) 96 Oxygen Delivery Method Room Air Intake Visit Reasons: COPD Allergies gabapentin [GABAPENTIN] Allergy (Mild, Verified 12/25/23 13:33) SWELLING pregabalin [From LYRICA] Allergy (Mild, Verified 12/25/23 13:33) AGITATION, swelling, SWELLING Medication List - Last Reconciled 12/25/23 by Rome Parekh MD amitriptyline 50 mg PO BEDTIME azelastine 2 sprays intranasal BID 30 days zhtgvlhoev-mzpklnwgacpzl-fjvi 50-325-40 mg 1 tab PO Q6H PRN calcium citrate 250 mg PO DAILY cholecalciferol (vitamin D3) 50 mcg PO DAILY clonazepam 1 mg PO BID PRN doxycycline hyclate 100 mg PO BID 10 days Enbrel SureClick (etanercept) 50 mg subcut QWEEK NS ezetimibe 10 mg PO DAILY 90 days fluoride (sodium) 1.1% (Denta 5000 Plus) 1 appl PO DAILY fluticasone furoate-vilanterol 200-25 mcg/dose (Breo Ellipta) 1 inh inhalation DAILY 30 days galcanezumab-gnlm (Emgality Pen) 120 mg subcut ONCE 30 days hydroxyzine HCl 50 mg PO BID PRN ipratropium-albuterol 20-100 mcg/actuation (Combivent Respimat) 1 puff inhalation Q6H 30 days loratadine (Allergy Relief (loratadine)) 10 mg PO DAILY PRN 30 days magnesium oxide 400 mg PO BEDTIME 30 days methocarbamol 750 mg PO TID PRN 30 days omeprazole 40 mg PO DAILY ondansetron 8 mg PO Q12H PRN 30 days polyethylene glycol 3350 (Miralax) 17 grams PO DAILY PRN prednisone 20 mg PO BID propranolol 20 mg PO BID riboflavin (vitamin B2) 400 mg PO DAILY 30 days trazodone 100 mg (2 x 50 mg) PO BEDTIME PRN venlafaxine ER 75 mg PO DAILY 90 days venlafaxine ER 150 mg PO DAILY Ventolin HFA 90 mcg/actuation (albuterol sulfate) 2 puffs inhalation Q6H PRN 30 days NS PFS Medical History Asthma COPD exacerbation Nicotine dependence, cigarettes, uncomplicated Osteopenia (~2018) Hypertensive retinopathy of both eyes Tubular adenoma of colon (~2020) Post covid-19 condition, unspecified (~06/2021) Delayed gastric emptying PTSD (post-traumatic stress disorder) HTN (hypertension) Depression COPD (chronic obstructive pulmonary disease) Cigarette nicotine dependence History of cocaine abuse History of alcohol abuse Nausea Post concussive syndrome (~2019) Fibromyalgia Psoriasis Psoriatic arthritis Facial trauma Surgical History History of right breast biopsy History of cranial surgery History of colonoscopy History of foot surgery History of foot surgery Family History Father Family history of diabetes mellitus Medical history non-contributory Maternal Grandmother Rectal cancer Maternal Grandfather Stomach cancer Family/Other Bone cancer Mother Breast cancer Social History Household Members: Spouse Housing: Apartment Are you a primary nonfarm animal caretaker to a significant other at home: No Do you presently have visiting nurse or other home services: No Alcohol intake: current Alcohol intake frequency: holidays/special occasions only Patient Tobacco Use Status: Current everyday Tobacco user Tobacco use type: Cigarette Cigarette Packs Per Day: 0.25 Cigarettes Per Day: 1 Years Smoked: (onset 11yo, x 46yrs, max 1ppd, now 1/2ppd - 30pyh) e-Cigarette/Vaping Use: Never Used Second Hand Smoke Exposure: Yes Substance Use Type: Marijuana service: No Current occupational status: disabled Cognitive needs: No Hearing needs: No Vision needs: No Physical Exam Vital Signs: Last Vital Signs Pulse 63 12/25/23 13:26 BP 120/84 12/25/23 13:26 Pulse Ox 96 12/25/23 13:26 Oxygen Delivery Method Room Air 12/25/23 13:26 BMI result Body Mass Index 23.3 Quality Reporting (2019) Adult ([facility] 138/2/22/69) Body Mass Index: 23.3 Assessment & Plan Assessment & Plan (1) Cigarette nicotine dependence: Comment: (current smoker x 40+yrs, down to 4-5 cig /day) determined to quit completely. HAD QUIT COMPLETELY FOR A FEW MONTHS AND THEN RESUMED SMOKING Code(s): F17.210 - Nicotine dependence, cigarettes, uncomplicated Category: Social Hx Plan: AGAIN DISCUSSED WITH HER IN DETAIL AND URGED HER TO QUIT COMPLETELY. (2) Asthma: Comment: PATIENT DOES HAVE FEATURES OF CHRONIC ASTHMA/COPD. PULMONARY FUNCTION TEST DID NOT SHOW ANY SIGNIFICANT ABNORMALITY EXCEPT FOR MILD DECREASE IN FEF 25-75 CLINICALLY I THINK SHE HAS BRONCHIAL ASTHMA , WITH FREQUENT FLARE UPS. Code(s): J45.909 - Unspecified asthma, uncomplicated Category: Medical Plan: SEE UNDER COPD (3) COPD (chronic obstructive pulmonary disease): Comment: She has mild to moderate degree of chronic obstructive pulmonary disease, which has stayed quite stable over the past many years. Now she complains of slightly increased cough and SOB . sec to cigarettes smoking . Code(s): J44.9 - Chronic obstructive pulmonary disease, unspecified Category: Medical Plan: [place] : BREO 200-25 1 INH DAILY COMBIVENT RESPIMAT , 1 INH , Q 6 HRS PRN ( TRY NOT TO USE MORE THAN 3 /DAY Coding Level of Care Code Est Pt Level 3 (53472) Diagnoses Cigarette nicotine dependence F17.210 Asthma J45.909 COPD (chronic obstructive pulmonary disease) J44.9
[2023-12-25 13:55] VITALS: BMI 23.3
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
[2023-12-25 15:01] VITALS: BMI 23.3
== END 2023-12-25 13:44 | disposition home or self-care (01) ==
PROVIDERS: PCP Nurse Practitioner Family; Visit Provider Internal Medicine
DX: J44.9 Chronic obstructive pulmonary disease, unspecified (principal); F17.210 Nicotine dependence, cigarettes, uncomplicated
CPT/HCPCS: 99213

== ENCOUNTER → 2023-12-25 13:20 | Outpatient (BNVA) | payer OTHER, SELFPAY | PROVIDERS: PCP Nurse Practitioner Family; Visit Provider Internal Medicine | DX: J44.9 Chronic obstructive pulmonary disease, unspecified (principal); J45.909 Unspecified asthma, uncomplicated; F17.210 Nicotine dependence, cigarettes, uncomplicated | CPT/HCPCS: 99212 ==

== ENCOUNTER 2023-12-26 13:01 | Outpatient (REF) | payer OTHER, SELFPAY ==
--- NOTE | ~2023-12-26 | CT_ITS ---
EXAMINATION: CT LOW-DOSE SCREENING CHEST WITHOUT CONTRAST CLINICAL INFORMATION: Nicotine dependence, cigarettes, uncomplicated. The patient is a current smoker with a 36 pack-year history of smoking. COMPARISON: Multiple prior CT scans of the chest, the most recent of which is dated 10/23/2022 and the most remote of which is dated 11/30/2006. TECHNIQUE: Multidetector volumetric CT imaging of the chest is performed on a Siemens SOMATOM Definition scanner without contrast using low dose technique. Additional 2D coronal and sagittal reformatted images and axial 3D maximum intensity projection (MIP) images are generated on the CT workstation. This CT examination was performed using dose optimization techniques as appropriate, variously including the following: *Automated exposure control. *Adjustment of mA and/or kV according to patient size (this includes techniques or standardized protocols for targeted exams where dose is matched to indication/reason for exam; i.e. extremities or head). *Use of iterative reconstruction technique. TOTAL EXAM DLP: 42 mGy-cm CTDIvol: 1.28 mGy FINDINGS: PULMONARY NODULES: A few tiny pulmonary nodules or densities are present, the largest measuring 4 mm in the right upper lobe and unchanged. No new, increasing-sized or suspicious pulmonary nodule. LUNGS: Lungs bilaterally symmetrically expanded. Some basilar scarring/atelectasis at the right lung base is unchanged. There is mild emphysema along with mild bronchial thickening No focal lung nodule or mass. No effusion or pneumothorax. Central airways patent. MEDIASTINUM: No mediastinal, hilar or axillary adenopathy or free fluid collection. CORONARY ARTERY CALCIFICATION: Mild. THYROID GLAND: Unremarkable to the extent seen. CARDIOVASCULAR STRUCTURES: Aortic and heart size normal. No pericardial effusion. CHEST WALL/AXILLA: Unremarkable. UPPER ABDOMEN: Included portions of the solid organs in the upper abdomen unremarkable on noncontrast imaging. OSSEOUS STRUCTURES: No suspicious focal findings. CT/CT lung screening IMPRESSION: 1. No evidence of pulmonary malignancy. 2. Mild emphysema and bronchial thickening. 3. Incidental findings (s category): No incidental findings. ASSESSMENT: Lung-RADS Category 2: Benign appearance or behavior of nodules. N/A. RECOMMENDATION: Continued routine annual low-dose CT lung screening in 1 year is recommended. An order for CT CHEST LOW DOSE CANCER SCREENING ([id number]) can be placed.
== END 2023-12-26 13:02 | disposition home or self-care (01) ==
LOC: HO.CT 13:01
PROVIDERS: PCP Nurse Practitioner Family; Visit Provider Physician Assistant Medical
DX: Z12.2 Encounter for screening for malignant neoplasm of respiratory organs (principal); F17.210 Nicotine dependence, cigarettes, uncomplicated
CPT/HCPCS: 71271

== ENCOUNTER 2024-01-07 13:09 | Outpatient (REF) | payer OTHER, SELFPAY ==
[2024-01-07 16:38] LABS: Alanine Aminotransferase 12 U/L (0-31); Albumin Level 3.9 g/dL (3.5-5.0); Alkaline Phosphatase 54 U/L (39-117); Anion Gap 12 (12-20); Aspartate Amino Transferase 12 U/L (5-31); Bilirubin Total 0.2 mg/dL (0.0-1.0); Blood Urea Nitrogen 14 mg/dL (9-16); Calcium 9.7 mg/dL (8.4-10.2); Carbon Dioxide 27 mmol/L (22-29); Chloride 105 mmol/L (96-108); Cholesterol 239 mg/dL (<200); Estimated Glomerular Filt Rate > 60; Glucose Fasting 104 mg/dL (60-99); HDL Cholesterol 56 mg/dL (>40); LDL Cholesterol Calculated 164 mg/dL (<100); Potassium 4.3 mmol/L (3.3-5.1); Sodium 140 mmol/L (135-145); Total Protein 7.2 g/dL (6.5-8.0); Triglycerides 97 mg/dL (<150)
== END 2024-01-07 13:10 | disposition home or self-care (01) ==
LOC: HO.HMGCLDS 13:09
PROVIDERS: PCP Nurse Practitioner Family; Visit Provider Nurse Practitioner Family
DX: E78.5 Hyperlipidemia, unspecified (principal)
CPT/HCPCS: 36415; 80053; 80061

== ENCOUNTER 2024-01-08 12:26 | Outpatient (AMB) | payer OTHER, SELFPAY ==
--- NOTE | 2024-01-08 12:29 | MHC.PC.OV ---
Vital Signs 01/08/24 12:34 Height 5 ft 7 in Weight 152 lb BMI 23.8 BP 110/68 Blood Pressure Location Rt brachial Position Sitting Pulse 72 Pulse Source Pulse Oximeter Pulse Oximetry (%) 97 Oxygen Delivery Method Room Air Intake Visit Reasons: annual physical Intake Note: Patient here for physical exam. Mammo: 2022 Pap: 2022 colon: no colonoscopy Allergies gabapentin [GABAPENTIN] Allergy (Mild, Verified 01/08/24 12:38) SWELLING pregabalin [From LYRICA] Allergy (Mild, Verified 01/08/24 12:38) AGITATION, swelling, SWELLING Medication List - Last Reconciled 01/08/24 by David Stinson, CANCER GENETIC COUNSELOR-BC amitriptyline 50 mg PO BEDTIME azelastine 2 sprays intranasal BID 30 days vhskjrpecr-sfbrqfbycedrg-gfdr 50-325-40 mg 1 tab PO Q6H PRN calcium citrate 250 mg PO DAILY cholecalciferol (vitamin D3) 50 mcg PO DAILY clonazepam 1 mg PO BID PRN 30 days Enbrel SureClick (etanercept) 50 mg subcut QWEEK NS fluoride (sodium) 1.1% (Denta 5000 Plus) 1 appl PO DAILY fluticasone furoate-vilanterol 200-25 mcg/dose (Breo Ellipta) 1 inh inhalation DAILY 30 days galcanezumab-gnlm (Emgality Pen) 120 mg subcut ONCE 30 days hydroxyzine HCl 50 mg PO BID PRN ipratropium-albuterol 20-100 mcg/actuation (Combivent Respimat) 1 puff inhalation Q6H 30 days loratadine (Allergy Relief (loratadine)) 10 mg PO DAILY PRN 30 days magnesium oxide 400 mg PO BEDTIME 30 days methocarbamol 750 mg PO TID PRN 30 days omeprazole 40 mg PO DAILY ondansetron 8 mg PO Q12H PRN 30 days polyethylene glycol 3350 (Miralax) 17 grams PO DAILY PRN prednisone 10 mg orally: 6 tabs for 2 days, 5 tabs for 2 days, 4t for 2d, 3t for 2d, 2t for 2d, 1t for 2d.; 12 days propranolol 20 mg PO BID riboflavin (vitamin B2) 400 mg PO DAILY 30 days trazodone 100 mg (2 x 50 mg) PO BEDTIME PRN venlafaxine ER 75 mg PO DAILY 90 days venlafaxine ER 150 mg PO DAILY Ventolin HFA 90 mcg/actuation (albuterol sulfate) 2 puffs inhalation Q6H PRN 30 days NS Tobacco use date assessed: 08/13/23 Dental Screening Dental Screen Date: 08/13/23 HPI annual physical HPI Details pt is here for a PE. Pt does report sob (as witnessed in room today as well), seeing pulmonary monthly for this (occurring for over a month now), CT done on 12/25 (awaiting report), sating fine, pt is holding a conversation without difficulty. 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 Will refer for repeat colon screen. Pt has a neurologist, a protohistorian, and a senior computer specialist. HPI Comments History of Present Illness Details Pt is here for a PE. colonoscopy is up to date [facility] Medical History Asthma COPD exacerbation Nicotine dependence, cigarettes, uncomplicated Osteopenia (~2018) Hypertensive retinopathy of both eyes Tubular adenoma of colon (~2020) Post covid-19 condition, unspecified (~06/2021) Delayed gastric emptying PTSD (post-traumatic stress disorder) HTN (hypertension) Depression COPD (chronic obstructive pulmonary disease) Cigarette nicotine dependence History of cocaine abuse History of alcohol abuse Nausea Post concussive syndrome (~2019) Fibromyalgia Psoriasis Psoriatic arthritis Facial trauma Surgical History History of right breast biopsy History of cranial surgery History of colonoscopy History of foot surgery History of foot surgery Family History Father Family history of diabetes mellitus Medical history non-contributory Maternal Grandmother Rectal cancer Maternal Grandfather Stomach cancer Family/Other Bone cancer Mother Breast cancer Social History Household Members: Spouse Housing: Apartment Are you a primary career technical education teacher to a significant other at home: No Do you presently have visiting nurse or other home services: No Alcohol intake: current Alcohol intake frequency: holidays/special occasions only Patient Tobacco Use Status: Current everyday Tobacco user Tobacco use type: Cigarette Cigarette Packs Per Day: 0.25 Cigarettes Per Day: 1 Years Smoked: (onset 11yo, x 46yrs, max 1ppd, now 1/2ppd - 30pyh) e-Cigarette/Vaping Use: Never Used Second Hand Smoke Exposure: Yes Substance Use Type: Marijuana service: No Current occupational status: disabled Cognitive needs: No Hearing needs: No Vision needs: No Questionnaire PHQ-9 Over the last 2 weeks, how often have you been bothered by any of the following problems? 1. Little interest or pleasure in doing things: more than half the days 2. Feeling down, depressed, or hopeless: more than half the days 3. Trouble falling or staying asleep, or sleeping too much: more than half the days 4. Feeling tired or having little energy: more than half the days 5. Poor appetite or overeating: several days 6. Feeling bad about yourself - or that you are a failure or have let yourself or your family down: several days 7. Trouble concentrating on things, such as reading the newspaper or watching television: not at all 8. Moving or speaking so slowly that other people could have noticed. Or the opposite - being so fidgety or restless that you have been moving around a lot more than usual: several days 9. Thoughts that you would be better off or of hurting yourself in some way: not at all Total score: 11 Depression Screening Interpretation: Positive (does not want a therapist currently, denies any si or hi) Depression Screening Follow-up: Existing condition Depression Screening Done: Yes 97615 - PHQ-9 Billing: Yes Source: Developed by Drs. Natalio Zimmer, Angelique Bucio, Joseph Frederick and colleagues, with an educational diandra from [employer]. Thrive Questionnaire Date Thrive assessed: 01/08/24 I am a: Patient What is your living situation today?: I have a place to live, but I am worried about losing it in the future Within the past 12 months, did the food you bought not last and you didn't have the money to get more?: Never true Within the past 12 months, did you worry whether your food would run out before you got money to buy more?: Never true Do you have trouble paying for medicines?: No Do you have trouble getting transportation to medical appointments?: No Do you have trouble paying your heating and electricity bill?: Yes Do you have trouble taking care of your child, family member or friend?: Yes Do you have trouble with day-to-day activities such as bathing, preparing meals, shopping, managing finances, etc.?: Yes Are you currently unemployed and looking for a job?: No Are you interested in more education?: No Please select the resources that you would like help with: Housing/Fci Currently or been in a relationship where the following occur: No concerns reported THRIVE Score: 2 AUDIT C Alcohol Use Questionnaire (AUDIT-C) 1. How often do you have a drink containing alcohol?: 2-4 times a month 2. How many drinks containing alcohol do you have on a typical day when you are drinking?: 1 or 2 3. How often do you have six or more drinks on one occasion?: Never Total Score: 2 JODEE-7 AMB Questionnaire JODEE-7 Date JODEE - 7 assessed: 01/08/24 Feeling nervous, anxious, or on edge: 3 = Nearly every day Not being able to stop or control worryin = Nearly every day Worrying too much about different things: 3 = Nearly every day Trouble relaxin = Nearly every day Being so restless that it is hard to sit still: 3 = Nearly every day Becoming easily annoyed or irritable: 3 = Nearly every day Feeling afraid as if something awful might happen: 1 = Several days Total JODEE-7 score (0-4 normal; 5-9 mild; 10-14 moderate; 15-21 severe): 19 Source: Developed by Drs. Natalio Zimmer, Angelique Bucio, Joseph Frederick and colleagues, with an educational diandra from [employer]. JODEE-7 Assessment Billing JODEE-7 Assessment Tool: JODEE-7 Assessment 33018 (refuses therapist/psychiatrist currently, denies any si or hi. ) Review of Systems Const Denies chills and Denies fever(s) Eyes Denies blurry vision ENT Denies vertigo, Denies dizziness and Denies sore throat Card Denies chest pain at rest, Denies chest pain with activity, Denies diaphoresis, Denies dyspnea and Denies dyspnea on exertion Resp Denies cough, Denies dyspnea, Denies dyspnea on exertion and Denies wheezing GI Denies abdominal pain, Denies melena, Denies hematochezia, Denies constipation, Denies diarrhea and Denies loose stools Denies hematuria Musc Denies numbness and Denies tingling Skin/Breast Denies lesions Neuro Denies vertigo, Denies dizziness, Denies numbness and Denies tingling Psych Denies anxiety, Denies depression, Denies homicidal ideation, Denies suicidal ideation and Denies other (substance abuse) Aller/Immun Denies wheezing Physical exam (Primary Care) Vital Signs: Last Vital Signs Pulse 72 01/08/24 12:34 BP 110/68 01/08/24 12:34 Pulse Ox 97 01/08/24 12:34 Oxygen Delivery Method Room Air 01/08/24 12:34 BMI result Body Mass Index 23.8 Tobacco/Smoking Status: Tobacco use Status Tobacco use date assessed 08/13/23 01/08/24 12:33 Patient Tobacco Use Status Current everyday Tobacco 01/08/24 12:33 Tobacco use type Cigarette 01/08/24 12:33 e-Cigarette/Vaping Use Never Used 01/08/24 12:33 PHQ-9: PHQ-9 Score PHQ-9: Total score 11 01/08/24 12:33 Depression Screening Interpretation: Positive (does not want a therapist currently, denies any si or hi) Depression Screening Follow-up: Existing condition Thrive Assessment: Date of Thrive Assessment Date Thrive assessed 01/08/24 01/08/24 12:33 Currently or been in a relationship where the following occur: No concerns reported Const General: cooperative Nutritional Appearance: well nourished Orientation/consciousness: patient oriented x3 HENMT Head: Yes normal to inspection, Yes normocephalic and Yes atraumatic Ears: TM normal on the right and TM normal on the left Eyes General: appearance normal, both eyes and all related structures Alignment and Position: alignment normal and position normal Neck Neck: Yes normal visual inspection and Yes no lymphadenopathy Resp Other: coarse wheezes throughout, Cardio Rate: regular rate Rhythm: regular rhythm Heart sounds: S1 normal heart sound present, S2 normal heart sound present and no murmurs GI Palpation (GI): Soft to palpation and nontender Auscultation: normal bowel sounds Skin Rashes: no rashes Neuro General: patient oriented x3, moves all extremities, no focal motor deficits and deep tendon reflexes 2+ bilaterally Romberg Test: Negative Extrem Right lower extremity: no edema Left lower extremity: no edema Psych Affect: normal affect Attitude: cooperative Thought process: Normal thought process present Assessment and Plan Assessment & Plan (1) Screening for colon cancer: Code(s): Z12.11 - Encounter for screening for malignant neoplasm of colon (2) Encounter for routine adult physical exam with abnormal findings: Code(s): Z00.01 - Encounter for general adult medical examination with abnormal findings (3) Wheezing: Code(s): R06.2 - Wheezing Plan: prednisone taper, follow up with pulmonary (4) Anxiety and depression: Code(s): F41.9 - Anxiety disorder, unspecified; F32.9 - Major depressive disorder, single episode, unspecified Plan: refuses therapist currently, clonazepam does help. Encouraged to use PRN only, no SI or HI noted, will cont to monitor. Orders: Referrals Gastroenterology Referral Z12.11 - Encounter for screening for malignant neoplasm of colon Medications: New prednisone 10 mg orally: 6 tabs for 2 days, 5 tabs for 2 days, 4t for 2d, 3t for 2d, 2t for 2d, 1t for 2d.; 12 days 42 tabs 0RF Changed From clonazepam 1 mg PO BID PRN 30 tabs 0RF anxiety attacks To clonazepam 1 mg PO BID 30 days PRN 60 tabs 0RF anxiety attacks Refilled trazodone 100 mg (2 x 50 mg) PO BEDTIME PRN 60 tabs 1RF for insomnia Coding Level of Care Code Est Pt Prev Care 40-64y(61976) Diagnoses Screening for colon cancer Z12.11 Encounter for routine adult physical exam with abnormal findings Z00.01 Wheezing R06.2 Anxiety and depression F41.9; F32.9 Additional Codes JODEE-7 Assessment Billing - JODEE-7 Assessment Tool: JODEE-7 Assessment [id number] ([id number])
[2024-01-08 12:34] VITALS: BP 110/68; PULSE 72; O2SAT 97; BMI 23.8
== END 2024-01-08 13:20 | disposition home or self-care (01) ==
PROVIDERS: PCP Nurse Practitioner Family; Visit Provider Nurse Practitioner Family
DX: Z00.01 Encounter for general adult medical examination with abnormal findings (principal); Z12.11 Encounter for screening for malignant neoplasm of colon; R06.2 Wheezing; F41.9 Anxiety disorder, unspecified; F32.9 Major depressive disorder, single episode, unspecified
CPT/HCPCS: 99213; 99396

== ENCOUNTER 2024-01-24 13:14 | Outpatient (AMB) | payer OTHER, SELFPAY ==
--- NOTE | 2024-01-24 13:18 | MHC.OFFVIS ---
Vital Signs 01/24/24 13:19 Height 5 ft 7 in Weight 151 lb 0.266 oz BMI 23.6 BP 110/82 Pulse 74 Pulse Source Pulse Oximeter Pulse Oximetry (%) 100 Oxygen Delivery Method Room Air Intake Visit Reasons: COPD Intake Note: pt is here for follow up and states she did have prednisone by pcp, but she is very tight today, and at times has to stop talking mid sentence at times has to stop speaking. Medical Office Technologist Required: No Allergies gabapentin [GABAPENTIN] Allergy (Mild, Verified 01/24/24 13:26) SWELLING pregabalin [From LYRICA] Allergy (Mild, Verified 01/24/24 13:26) AGITATION, swelling, SWELLING Do you need a note to return to daycare/school/sports/work: No HPI HPI COPD: Details: Anne comes for follow-up after 1 month. She could not go without the prednisone burst for 1 month, and since last week has been on prednisone taper prescribed by her primary care physician. This was not due to any acute respiratory infection, She say is that the humidity in the apartment and outdoors makes her breathing worse. She starts having increased cough and chest congestion. She is still smoking 1 or 2 cigarettes a day, claiming that when she smokes it makes her cough and bring up the phlegm, after which she feels better. She does use her Breo regularly, and Combivent Respimat 4 times a day. Also uses Ventolin as a rescue inhaler quite frequently. [facility] Medical History Asthma COPD exacerbation Nicotine dependence, cigarettes, uncomplicated Osteopenia (~2018) Hypertensive retinopathy of both eyes Tubular adenoma of colon (~2020) Post covid-19 condition, unspecified (~06/2021) Delayed gastric emptying PTSD (post-traumatic stress disorder) HTN (hypertension) Depression COPD (chronic obstructive pulmonary disease) Cigarette nicotine dependence History of cocaine abuse History of alcohol abuse Nausea Post concussive syndrome (~2019) Fibromyalgia Psoriasis Psoriatic arthritis Facial trauma Surgical History History of right breast biopsy History of cranial surgery History of colonoscopy History of foot surgery History of foot surgery Family History Father Family history of diabetes mellitus Medical history non-contributory Maternal Grandmother Rectal cancer Maternal Grandfather Stomach cancer Family/Other Bone cancer Mother Breast cancer Social History Household Members: Spouse Housing: Apartment Are you a primary healthcare associate to a significant other at home: No Do you presently have visiting nurse or other home services: No Alcohol intake: current Alcohol intake frequency: holidays/special occasions only Patient Tobacco Use Status: Current everyday Tobacco user Tobacco use type: Cigarette Cigarette Packs Per Day: 0.25 Cigarettes Per Day: 1 Years Smoked: (onset 11yo, x 46yrs, max 1ppd, now 1/2ppd - 30pyh) e-Cigarette/Vaping Use: Never Used Second Hand Smoke Exposure: Yes Substance Use Type: Marijuana service: No Current occupational status: disabled Cognitive needs: No Hearing needs: No Vision needs: No Review of Systems Const All systems reviewed & are unremarkable except as noted in HPI and below Reports headache(s) Eyes Reports no additional complaints ENT Reports headache(s) and Reports nasal congestion (MILD OFF AND ON) Card Denies chest pain, Denies irregular heart rhythm and Denies leg edema Resp Reports as per HPI GI Reports no additional complaints, Reports heartburn and Reports nausea Reports no additional complaints Musc Reports back pain Skin/Breast Reports system reviewed and no additional complaints, except as documented Neuro Reports headache(s) and Reports memory loss (Has had post concussion syndrome) Psych Reports anxiety (Mild chronic), Reports depression (Mild) and Reports memory loss (Has had post concussion syndrome) Physical Exam Vital Signs: Last Vital Signs Pulse 74 01/24/24 13:19 BP 110/82 01/24/24 13:19 Pulse Ox 100 01/24/24 13:19 Oxygen Delivery Method Room Air 01/24/24 13:19 BMI result Body Mass Index 23.6 Const General: comfortable, no acute distress, alert and awake Orientation/consciousness: patient oriented x3 HEENT Head: Yes normal to inspection General nose exam: No nasal polyps present and No nasal discharge present Face and sinus: Yes sinuses nontender Mouth: oropharynx normal Throat: Yes posterior oropharynx normal Eyes General: appearance normal, both eyes and all related structures Neck Neck: Yes normal visual inspection, Yes no lymphadenopathy, Yes trachea midline and Yes no JVD Thyroid: Thyroid normal Chest Chest palpation & inspection: normal inspection of the chest, normal palpation of entire chest wall and no tenderness Resp Other: Percussion note is resonant . Breath sounds are distant , There are scattered audible wheezes on both sides . Cardio Palpation: normal PMI Rate: regular rate Rhythm: regular rhythm Heart sounds: no gallops and no murmurs GI Palpation (GI): Soft to palpation, Tenderness to palpation present (GI), No hepatosplenomegaly present and Palpable mass present Auscultation: normal bowel sounds Back/Spine/Pelvis Thoracic/Lumbar Spine: thoracic and lumbar spine normal to inspection Skin General skin exam: no rashes or lesions noted Neuro General: patient oriented x3 and no focal motor deficits Cranial nerves: Yes CN's II-XII intact bilaterally Extrem General: Yes normal to inspection, Yes no clubbing, cyanosis or edema and Yes no calf tenderness Psych Speech and movement: Normal speech and movement present Assessment & Plan Assessment & Plan (1) COPD (chronic obstructive pulmonary disease): Comment: She has moderate degree of chronic obstructive pulmonary disease, which has stayed quite stable over the past many years. Now she complains of increased cough and SOB . sec to cigarettes smoking . THE ANXIETY SYNDROME THAT SHE SUFFERS FROM ALSO AGGRAVATES HER RESPIRATORY SYMPTOMS. She continues to have very frequent acute exacerbations requiring prednisone bursts . Code(s): J44.9 - Chronic obstructive pulmonary disease, unspecified Category: Medical Plan: CONTINUE BREO 200-25 1 INHALATION DAILY. I AM GOING TO START HER ON PREDNISONE 5 MG ON A DAILY BASIS, AND SEE IF THIS CAN CUT DOWN THE FREQUENCY OF HER ACUTE EXACERBATIONS. WILL CHANGE COMBIVENT RESPIMAT TO IPRATROPIUM-ALBUTEROL SOLUTION BY NEBULIZER Q 6 HOURS WHILE AWAKE, USE VENTOLIN 2 PUFFS Q 4-6 HOURS P.R.N. ONLY FOR ACUTE ATTACKS, (2) Nicotine dependence, cigarettes, uncomplicated: Comment: (current smoker, 1ppd x 46yrs, now 1/2ppd - 30pyh).says she has reduced to 1-2 cigarettes a day Code(s): F17.210 - Nicotine dependence, cigarettes, uncomplicated Category: Medical Plan: TALKED TO HER ABOUT QUITTING COMPLETELY, SHE TELLS ME THAT SHE IS DOWN TO 1-2 CIGARETTES A DAY, AND CAN NOT QUIT COMPLETELY AT THIS TIME. Medications: New prednisone 5 mg PO DAILY 30 days 30 tabs 3RF COPD ipratropium-albuterol 0.5 mg-3 mg(2.5 mg base)/3 mL 3 mL inhalation Q6H 30 days 360 mL 3RF ASTHMA/COPD Coding Level of Care Code Est Pt Level 3 (17269) Diagnoses COPD (chronic obstructive pulmonary disease) J44.9 Nicotine dependence, cigarettes, uncomplicated F17.210
[2024-01-24 13:19] VITALS: BP 110/82; PULSE 74; O2SAT 100; BMI 23.6
== END 2024-01-24 13:42 | disposition home or self-care (01) ==
PROVIDERS: PCP Nurse Practitioner Family; Visit Provider Internal Medicine
DX: J44.9 Chronic obstructive pulmonary disease, unspecified (principal); F17.210 Nicotine dependence, cigarettes, uncomplicated
CPT/HCPCS: 99213

== ENCOUNTER → 2024-01-24 13:14 | Outpatient (BNVA) | payer OTHER, SELFPAY | PROVIDERS: PCP Nurse Practitioner Family; Visit Provider Internal Medicine | DX: J44.9 Chronic obstructive pulmonary disease, unspecified (principal); F17.210 Nicotine dependence, cigarettes, uncomplicated | CPT/HCPCS: 99212 ==

== ENCOUNTER 2024-02-28 13:36 | Outpatient (AMB) | payer OTHER, SELFPAY ==
[2024-02-28 13:49] VITALS: BP 142/82; PULSE 76; O2SAT 99; BMI 23.3
--- NOTE | 2024-02-28 13:49 | MHC.OFFVIS ---
Vital Signs 02/28/24 13:49 Height 5 ft 7 in Weight 149 lb 0.92 oz BMI 23.3 BP 142/82 H Blood Pressure Location Lt brachial Position Sitting Pulse 76 Pulse Source Pulse Oximeter Pulse Oximetry (%) 99 Oxygen Delivery Method Room Air Intake Visit Reasons: copd Intake Note: pt is here for follow up and breathing is little better, mornings are the worst. ON prednisone 5mg daily, she did run out of her elipta inhaler for a few days. Floor Care Specialist Required: No Allergies gabapentin [GABAPENTIN] Allergy (Mild, Verified 02/28/24 14:10) SWELLING pregabalin [From LYRICA] Allergy (Mild, Verified 02/28/24 14:10) AGITATION, swelling, SWELLING Medication List - Last Reconciled 02/28/24 by Rome Parekh MD amitriptyline 50 mg PO BEDTIME azelastine 2 sprays intranasal BID 30 days zxtobdrsjy-lhhxdtgvykgpy-thke 50-325-40 mg 1 tab PO Q6H PRN calcium citrate 250 mg PO DAILY cholecalciferol (vitamin D3) 50 mcg PO DAILY clonazepam 1 mg PO BID PRN 30 days Enbrel SureClick (etanercept) 50 mg subcut QWEEK NS fluoride (sodium) 1.1% (Denta 5000 Plus) 1 appl PO DAILY fluticasone furoate-vilanterol 200-25 mcg/dose (Breo Ellipta) 1 inh inhalation DAILY 30 days galcanezumab-gnlm (Emgality Pen) 120 mg subcut ONCE 30 days hydroxyzine HCl 50 mg PO BID PRN ipratropium-albuterol 0.5 mg-3 mg(2.5 mg base)/3 mL 3 mL inhalation Q6H 30 days ipratropium-albuterol 20-100 mcg/actuation (Combivent Respimat) 1 puff inhalation Q6H 30 days loratadine (Allergy Relief (loratadine)) 10 mg PO DAILY PRN 90 days magnesium oxide 400 mg PO BEDTIME 30 days methocarbamol 750 mg PO TID PRN 30 days omeprazole 40 mg PO DAILY ondansetron 8 mg PO Q12H PRN 30 days polyethylene glycol 3350 (Miralax) 17 grams PO DAILY PRN prednisone 5 mg PO DAILY 30 days propranolol 20 mg PO BID riboflavin (vitamin B2) 400 mg PO DAILY 30 days trazodone 100 mg (2 x 50 mg) PO BEDTIME PRN venlafaxine ER 75 mg PO DAILY 90 days venlafaxine ER 150 mg PO DAILY Ventolin HFA 90 mcg/actuation (albuterol sulfate) 2 puffs inhalation Q6H PRN 30 days NS Do you need a note to return to daycare/school/sports/work: No HPI HPI copd: Details: Anne is 58 years old female, known case of asthma/COPD, smoker, and with lot of anxiety, who was getting acute exacerbations very frequently. Since last visit 1 month ago, she has been on prednisone 5 mg daily, and she has been definitely much better. Still gets short of breath on walking around and still has mild intermittent cough but she has had no acute spells of wheezing or shortness of breath. She was out of Breo for a few days and she could notes this a big difference, felt much better and back to baseline as soon as she started using it again. Smoking down to 1 cigarette a day and on some days she does not feel like smoking. [facility] Medical History Asthma COPD exacerbation Nicotine dependence, cigarettes, uncomplicated Osteopenia (~2018) Hypertensive retinopathy of both eyes Tubular adenoma of colon (~2020) Post covid-19 condition, unspecified (~06/2021) Delayed gastric emptying PTSD (post-traumatic stress disorder) HTN (hypertension) Depression COPD (chronic obstructive pulmonary disease) Cigarette nicotine dependence History of cocaine abuse History of alcohol abuse Nausea Post concussive syndrome (~2019) Fibromyalgia Psoriasis Psoriatic arthritis Facial trauma Surgical History History of right breast biopsy History of cranial surgery History of colonoscopy History of foot surgery History of foot surgery Family History Father Family history of diabetes mellitus Medical history non-contributory Maternal Grandmother Rectal cancer Maternal Grandfather Stomach cancer Family/Other Bone cancer Mother Breast cancer Social History Household Members: Spouse Housing: Apartment Are you a primary career technical education teacher to a significant other at home: No Do you presently have visiting nurse or other home services: No Alcohol intake: current Alcohol intake frequency: holidays/special occasions only Patient Tobacco Use Status: Current everyday Tobacco user Tobacco use type: Cigarette Cigarette Packs Per Day: 0.25 Cigarettes Per Day: 1 Years Smoked: (onset 11yo, x 46yrs, max 1ppd, now 1/2ppd - 30pyh) e-Cigarette/Vaping Use: Never Used Second Hand Smoke Exposure: Yes Substance Use Type: Marijuana service: No Current occupational status: disabled Cognitive needs: No Hearing needs: No Vision needs: No Review of Systems Const All systems reviewed & are unremarkable except as noted in HPI and below Reports headache(s) Eyes Reports no additional complaints ENT Reports headache(s) and Reports nasal congestion (MILD OFF AND ON) Card Denies chest pain, Denies irregular heart rhythm and Denies leg edema Resp Reports as per HPI GI Reports no additional complaints, Reports heartburn and Reports nausea Reports no additional complaints Musc Reports back pain Skin/Breast Reports system reviewed and no additional complaints, except as documented Neuro Reports headache(s) and Reports memory loss (Has had post concussion syndrome) Psych Reports anxiety (Mild chronic), Reports depression (Mild) and Reports memory loss (Has had post concussion syndrome) Physical Exam Vital Signs: Last Vital Signs Pulse 76 02/28/24 13:49 BP 142/82 H 02/28/24 13:49 Pulse Ox 99 02/28/24 13:49 Oxygen Delivery Method Room Air 02/28/24 13:49 BMI result Body Mass Index 23.3 Const General: comfortable, no acute distress, alert and awake Orientation/consciousness: patient oriented x3 HEENT Head: Yes normal to inspection General nose exam: No nasal polyps present and No nasal discharge present Face and sinus: Yes sinuses nontender Mouth: oropharynx normal Throat: Yes posterior oropharynx normal Eyes General: appearance normal, both eyes and all related structures Neck Neck: Yes normal visual inspection, Yes no lymphadenopathy, Yes trachea midline and Yes no JVD Thyroid: Thyroid normal Chest Chest palpation & inspection: normal inspection of the chest, normal palpation of entire chest wall and no tenderness Resp Other: Percussion note is resonant . Breath sounds are distant , There are no wheezes or rhonchi today. Cardio Palpation: normal PMI Rate: regular rate Rhythm: regular rhythm Heart sounds: no gallops and no murmurs GI Palpation (GI): Soft to palpation, Tenderness to palpation present (GI), No hepatosplenomegaly present and Palpable mass present Auscultation: normal bowel sounds Back/Spine/Pelvis Thoracic/Lumbar Spine: thoracic and lumbar spine normal to inspection Skin General skin exam: no rashes or lesions noted Neuro General: patient oriented x3 and no focal motor deficits Cranial nerves: Yes CN's II-XII intact bilaterally Extrem General: Yes normal to inspection, Yes no clubbing, cyanosis or edema and Yes no calf tenderness Psych Speech and movement: Normal speech and movement present Assessment & Plan Assessment & Plan (1) Asthma: Comment: PATIENT DOES HAVE FEATURES OF CHRONIC ASTHMA/COPD. PULMONARY FUNCTION TEST DID NOT SHOW ANY SIGNIFICANT ABNORMALITY EXCEPT FOR MILD DECREASE IN FEF 25-75 CLINICALLY I THINK SHE HAS BRONCHIAL ASTHMA , WITH FREQUENT FLARE UPS. IT HAS BEEN BETTER AND WELL CONTROLLED SINCE SHE IS ON DAILY PREDNISONE 5 MG A DAY. Code(s): J45.909 - Unspecified asthma, uncomplicated Category: Medical Plan: ADVISED TO CUT DOWN PREDNISONE TO 5 MG ON ALTERNATE DAYS. CONTINUE BREO 200-25 1 INHALATION DAILY. IPRATROPIUM-ALBUTEROL SOLUTION IN THE NEBULIZER Q 6 HOURS WHILE AWAKE. IPRATROPIUM-ALBUTEROL 20-100( COMBIVENT RESPIMAT) 1 INHALATION Q 6 HOURS P.R.N. WHEN OUTDOORS. (2) Cigarette nicotine dependence: Comment: (current smoker x 40+yrs, down to 5-10 cig /day) determined to quit completely. HAD QUIT COMPLETELY FOR A FEW MONTHS AND THEN RESUMED SMOKING NOW DOWN TO 1 OR 2 CIGARETTES A DAY AND IS TRYING HARD TO QUIT COMPLETELY. Code(s): F17.210 - Nicotine dependence, cigarettes, uncomplicated Category: Social Hx Plan: AGAIN COUNSELED TO STOP SMOKING COMPLETELY Coding Level of Care Code Est Pt Level 3 (97152) Diagnoses Asthma J45.909 Cigarette nicotine dependence F17.210
== END 2024-02-28 14:12 | disposition home or self-care (01) ==
PROVIDERS: PCP Nurse Practitioner Family; Visit Provider Internal Medicine
DX: J45.909 Unspecified asthma, uncomplicated (principal); F17.210 Nicotine dependence, cigarettes, uncomplicated
CPT/HCPCS: 99213

== ENCOUNTER → 2024-02-28 13:36 | Outpatient (BNVA) | payer OTHER, SELFPAY | PROVIDERS: PCP Nurse Practitioner Family; Visit Provider Internal Medicine | DX: J44.9 Chronic obstructive pulmonary disease, unspecified (principal); F17.210 Nicotine dependence, cigarettes, uncomplicated | CPT/HCPCS: 99212 ==

== ENCOUNTER 2024-04-21 14:52 | Outpatient (RCR) | payer OTHER, SELFPAY | END 2024-07-16 14:09 | disposition home or self-care (01) | LOC: HO.SH 14:52 | PROVIDERS: PCP Nurse Practitioner Family; Visit Provider Nurse Practitioner Family | DX: F07.81 Postconcussional syndrome (principal); F09 Unspecified mental disorder due to known physiological condition | CPT/HCPCS: 92507 ==

== ENCOUNTER → 2024-05-01 10:54 | Outpatient (BNVA) | payer OTHER, SELFPAY | PROVIDERS: PCP Nurse Practitioner Family; Visit Provider Internal Medicine ==

== ENCOUNTER 2024-05-09 09:53 | Outpatient (REF) | payer OTHER, SELFPAY ==
--- NOTE | ~2024-05-09 | XR_ITS ---
EXAMINATION: XR CHEST CLINICAL INFORMATION: Cough. COMPARISON: Most recent CT lung screening dated 12/26/2023. TECHNIQUE: 2 views of the chest were obtained. FINDINGS: The lungs are clear. The cardiomediastinal silhouette is normal in size. There is no pleural effusion or pneumothorax. No acute osseous abnormality. XR/XR chest 2V IMPRESSION: No acute cardiopulmonary findings. Electronically signed by: Nic Acosta MD 05/09/2024 11:47 AM [facility]
== END 2024-05-09 09:54 | disposition home or self-care (01) ==
LOC: HO.HMGCX 09:53
PROVIDERS: PCP Nurse Practitioner Family; Visit Provider Physician Assistant
DX: J44.1 Chronic obstructive pulmonary disease with (acute) exacerbation (principal); R05.9 Cough, unspecified; R11.2 Nausea with vomiting, unspecified
CPT/HCPCS: 71046; 94640; 99212

== ENCOUNTER 2024-05-09 09:53 | Outpatient (AMB) | payer OTHER, SELFPAY ==
[2024-05-09 09:54] VITALS: BP 130/90; PULSE 90; TEMP 36.5; O2SAT 100
--- NOTE | 2024-05-09 09:54 | AM.OFFWIN_ITS ---
Intake Vital Signs 05/09/24 09:54 Height 5 ft 7 in BP 130/90 H Blood Pressure Location Rt brachial Position Sitting Pulse 90 Pulse Source Pulse Oximeter Temp 97.7 F Temp Source Oral Pulse Oximetry (%) 100 Oxygen Delivery Method Room Air Intake Visit Reasons: EP-GI, copd short of breath Intake Note: pt is here for Shortness of breath due to COPD Patient Tobacco Use Status: Current everyday Tobacco user Allergies gabapentin [GABAPENTIN] Allergy (Mild, Verified 05/09/24 09:54) SWELLING pregabalin [From LYRICA] Allergy (Mild, Verified 05/09/24 09:54) AGITATION, swelling, SWELLING Do you need a note to return to daycare/school/sports/work: No HPI HPI Comments History of Present Illness Details Patient is a 58-year-old female here with multiple complaints. She tells me for the last week, she has been vomiting and unable to keep anything down. She tells me she only took small sips of water for a week straight and di d not take any of her medications for 5 days because she was unable to keep them down. She tells me that her blood pressure ended up elevated, her stomach is bothering her tremendously and she is very nauseous and she has become short of breath. She tells me that she ended up being able to take small sips of Pedialyte eventually some toast and ate her 1st meal in a week, last night. She took all of her medications this morning but she did not take her 5 mg of prednisone. She tells me she has been increasingly short of breath on and off for the last 5 days. Her systems management consultant just changed her prednisone to 5 mg every other day and she was not sure when she should restart it. She did not do an inhaler or a nebulizer treatment this morning at home. She tells me she has been using Zofran that she got from a friend because she ran out of hers. [facility] Medical History Asthma COPD exacerbation Nicotine dependence, cigarettes, uncomplicated Osteopenia (~2018) Hypertensive retinopathy of both eyes Tubular adenoma of colon (~2020) Post covid-19 condition, unspecified (~06/2021) Delayed gastric emptying PTSD (post-traumatic stress disorder) HTN (hypertension) Depression COPD (chronic obstructive pulmonary disease) Cigarette nicotine dependence History of cocaine abuse History of alcohol abuse Nausea Post concussive syndrome (~2019) Fibromyalgia Psoriasis Psoriatic arthritis Facial trauma Surgical History History of right breast biopsy History of cranial surgery History of colonoscopy History of foot surgery History of foot surgery Family History Father Family history of diabetes mellitus Medical history non-contributory Maternal Grandmother Rectal cancer Maternal Grandfather Stomach cancer Family/Other Bone cancer Mother Breast cancer Social History Household Members: Spouse Housing: Apartment Are you a primary pharmacy customer care specialist to a significant other at home: No Do you presently have visiting nurse or other home services: No Alcohol intake: current Alcohol intake frequency: holidays/special occasions only Patient Tobacco Use Status: Current everyday Tobacco user Tobacco use type: Cigarette Cigarette Packs Per Day: 0.25 Cigarettes Per Day: 1 Years Smoked: (onset 11yo, x 46yrs, max 1ppd, now 1/2ppd - 30pyh) e-Cigarette/Vaping Use: Never Used Second Hand Smoke Exposure: Yes Substance Use Type: Marijuana service: No Current occupational status: disabled Cognitive needs: No Hearing needs: No Vision needs: No Review of Systems Const All systems reviewed & are unremarkable except as noted in HPI and below Physical Exam Vital Signs: Last Vital Signs Temp 97.7 F 05/09/24 09:54 Pulse 90 05/09/24 09:54 BP 130/90 H 05/09/24 09:54 Pulse Ox 100 05/09/24 09:54 Oxygen Delivery Method Room Air 05/09/24 09:54 Const General: cooperative, healthy appearing, comfortable and acute distress mild and respiratory Orientation/consciousness: patient oriented x3 Limitations: no limitations HEENT Head: Yes normal to inspection Ears: hearing grossly normal bilaterally and external ears normal General nose exam: Normal external nose present, Normal nares present and No nasal discharge present Face and sinus: Yes normal facial exam Mouth: Normal oral and palatal mucosa present and moist mucous membranes Throat: Yes tonsils normal, Yes uvula midline and Yes posterior oropharynx abnormal (Erythema) Eyes General: appearance normal, both eyes and all related structures Neck Neck: Yes normal visual inspection Resp Effort & Inspection: normal respiratory effort, able to speak in complete sentences, not tachypneic, no tripod positioning and no use of accessory muscles Auscultation: wheezes expiratory wheezes (Slight) and diminished lung sounds Cardio Rate: regular rate Rhythm: regular rhythm Heart sounds: normal S1 and S2 Skin General skin exam: no rashes or lesions noted Neuro General: patient oriented x3 Extrem General: Yes normal to inspection and Yes no clubbing, cyanosis or edema Office Procedures Nebulizer Treatment Nebulizer Treatment [id number] RX initial, or Nebulizer Subsequent Treatment Office Meds albuterol sulfate 2.5 mg/3 mL (0.083 %) solution for nebulization Performing Provider: Naomi Yang PA-C Performing Location: [facility] Administered by: Naomi Yang PA-C on 05/09/24 10:27 Dose Route Admin Location Dispensed Lot Number Expiration Date ND Vehicle Refinisher 2.5 mg inhalation 3 mL [id number] 08/22/25 23393-725-13 prednisone 20 mg tablet Performing Provider: Naomi Yang PA-C Performing Location: [facility] [place] Administered by: Naomi Yang PA-C on 05/09/24 10:27 Dose Route Admin Location Dispensed Lot Number Expiration Date ND Vehicle Refinisher 20 mg PO 2 tab [id number] 09/22/25 Assessment & Plan Assessment & Plan (1) COPD exacerbation: Comment: She is a known case of advanced chronic obstructive pulmonary disease. She continues to have low-grade EXCERBATION of COPD. Code(s): J44.1 - Chronic obstructive pulmonary disease with (acute) exacerbation Plan: Vital signs are stable, patient was tachypneic, lung sounds were little dim with a small expiratory wheeze so we gave her a nebulizer treatment in the office and gave her 40 mg of prednisone. I am also having her get a chest x-ray though she has no other symptoms of an upper respiratory infection. (2) Nausea and vomiting: Code(s): R11.2 - Nausea with vomiting, unspecified Qualifiers: Vomiting type: unspecified Qualified Code(s): R11.2 - Nausea with vomiting, unspecified Plan: Refilled patient's prescription for Zofran and gave her a Zofran in the office. Recommended she follow up with her PCP if she still having GI issues. And keep her appointment with the GI specialist after the 1st of the year Plan See above Orders: Orders AMB Nebulizer Treatment Today J44.1 - Chronic obstructive pulmonary disease with (acute) exacerbation AMB Prednisone Adult Dose Today J44.1 - Chronic obstructive pulmonary disease with (acute) exacerbation XR chest 2V Today R05.9 - Cough, unspecified AMB Ondansetron Adult Dose Today R11.2 - Nausea with vomiting, unspecified Medications: New ondansetron 4 mg translingual ONCE 1 tab 0RF nausea R11.2 - Nausea with vomiting, unspecified prednisone 40 mg (2 x 20 mg) PO DAILY 8 tabs 0RF Refilled ondansetron 8 mg PO Q12H 30 days PRN 60 tabs 0RF nausea and vomiting Coding Level of Care Code Est Pt Level 5 (76402) Diagnoses COPD exacerbation J44.1 Nausea and vomiting, unspecified vomiting type R11.2 Vomiting type: unspecified CPT Codes Nebulizer Treatment - Nebulizer Treatment, initial or subsequent: [id number]- Nebulizer/MDI RX initial, or Nebulizer Subsequent Treatment ([id number])
== END 2024-05-09 10:56 | disposition home or self-care (01) ==
PROVIDERS: PCP Nurse Practitioner Family; Visit Provider Physician Assistant
DX: J44.1 Chronic obstructive pulmonary disease with (acute) exacerbation (principal); R11.2 Nausea with vomiting, unspecified

== ENCOUNTER 2024-06-17 12:35 | Outpatient (REF) | payer OTHER, SELFPAY ==
--- NOTE | ~2024-06-17 | XR_ITS ---
EXAMINATION: XR RIBS, BILATERAL CLINICAL INFORMATION: R07.9 - Chest pain, unspecified COMPARISON: Chest radiograph 05/09/2024 CT chest 12/26/2023 TECHNIQUE: Single view chest and 3 views of the bilateral ribs were obtained. FINDINGS: Lungs are clear. No consolidation, pneumothorax, or pleural effusion. The cardiomediastinal silhouette and pulmonary vasculature are normal. Osseous structures are unremarkable. Ribs are intact. No displaced fractures are identified. XR/XR ribs BI min 4V w CXR1V IMPRESSION: 1. No acute pulmonary disease. 2. No displaced rib fractures. Electronically signed by: Mario Ballard MD 06/17/2024 05:44 PM EST
== END 2024-06-17 12:36 | disposition home or self-care (01) ==
LOC: HO.HMGCX 12:35
PROVIDERS: PCP Nurse Practitioner Family; Visit Provider Student in an Organized Health Care Education/Training Program
DX: L40.50 Arthropathic psoriasis, unspecified (principal); L40.9 Psoriasis, unspecified; R07.9 Chest pain, unspecified; J44.1 Chronic obstructive pulmonary disease with (acute) exacerbation; M23.91 Unspecified internal derangement of right knee; Z79.899 Other long term (current) drug therapy; Z91.81 History of falling
CPT/HCPCS: 71111; 99212

== ENCOUNTER 2024-06-17 12:35 | Outpatient (AMB) | payer OTHER, SELFPAY ==
--- NOTE | 2024-06-17 12:45 | A.OFFVIS_ITS ---
Vital Signs 06/17/24 12:47 Height 5 ft 7 in Weight 139 lb BMI 21.8 BP 132/70 Blood Pressure Location Lt brachial Position Sitting Pulse 78 Pulse Source Pulse Oximeter Pulse Oximetry (%) 100 Oxygen Delivery Method Room Air Intake Visit Reasons: PSA Intake Note: Patient last seen by Doctor Rafi Liao on 12/04/23. Presents today for PsA follow up. Patient fell last week, she's hurting would like chest x-ray, if possible. Allergies gabapentin [GABAPENTIN] Allergy (Mild, Verified 06/17/24 12:46) SWELLING pregabalin [From LYRICA] Allergy (Mild, Verified 06/17/24 12:46) AGITATION, swelling, SWELLING Medication List - Last Reconciled 06/17/24 by Rafi Liao MD amitriptyline 50 mg PO BEDTIME azelastine 2 sprays intranasal BID 30 days jcplhtvtbd-fezchosbldbsd-aosu 50-325-40 mg 1 tab PO Q6H PRN calcium citrate 250 mg PO DAILY cholecalciferol (vitamin D3) 50 mcg PO DAILY clonazepam 1 mg PO BID PRN 30 days Enbrel SureClick (etanercept) 50 mg subcut QWEEK NS fluoride (sodium) 1.1% (Denta 5000 Plus) 1 appl PO DAILY fluticasone furoate-vilanterol 200-25 mcg/dose (Breo Ellipta) 1 inh inhalation DAILY 30 days galcanezumab-gnlm (Emgality Pen) 120 mg subcut ONCE 30 days hydroxyzine HCl 50 mg PO BID PRN ipratropium-albuterol 0.5 mg-3 mg(2.5 mg base)/3 mL 3 mL inhalation Q6H 30 days ipratropium-albuterol 20-100 mcg/actuation (Combivent Respimat) 1 puff inhalati on Q6H 30 days loratadine (Allergy Relief (loratadine)) 10 mg PO DAILY PRN 90 days magnesium oxide 400 mg PO BEDTIME 30 days methocarbamol 750 mg PO TID PRN 30 days omeprazole 40 mg PO DAILY ondansetron 8 mg PO Q12H PRN 30 days polyethylene glycol 3350 (Miralax) 17 grams PO DAILY PRN prednisone 40 mg (2 x 20 mg) PO DAILY prednisone 5 mg PO DAILY 30 days propranolol 20 mg PO BID riboflavin (vitamin B2) 400 mg PO DAILY 30 days tramadol 50 mg PO TID PRN trazodone 100 mg (2 x 50 mg) PO BEDTIME PRN venlafaxine ER 75 mg PO DAILY 90 days venlafaxine ER 150 mg PO DAILY Ventolin HFA 90 mcg/actuation (albuterol sulfate) 2 puffs inhalation Q6H PRN 30 days NS HPI Comments Details: 58yoF presents for follow-up of psoriatic arthritis. Patient states that she discontinued Enbrel for a few months as she was having recurrent COPD exacerbations requiring antibiotics and prednisone. She restarted Enbrel about 3 weeks ago. She stated that she has multiple psoriasis patches on her back and legs. About 2 weeks ago her right knee gave out on her and she fell and hit her chest, for the last 2 weeks she has been having chest pain that is worsening. She is concerned that she has a fracture. She has chest pain with breathing. She states that over the last few months, her right knee gave out on her multiple times, she fell twice, most recent fall was 2 weeks ago. [facility] Medical History Asthma COPD exacerbation Nicotine dependence, cigarettes, uncomplicated Osteopenia (~2018) Hypertensive retinopathy of both eyes Tubular adenoma of colon (~2020) Post covid-19 condition, unspecified (~06/2021) Delayed gastric emptying PTSD (post-traumatic stress disorder) HTN (hypertension) Depression COPD (chronic obstructive pulmonary disease) Cigarette nicotine dependence History of cocaine abuse History of alcohol abuse Nausea Post concussive syndrome (~2019) Fibromyalgia Psoriasis Psoriatic arthritis Facial trauma Surgical History History of right breast biopsy History of cranial surgery History of colonoscopy History of foot surgery History of foot surgery Family History Father Family history of diabetes mellitus Medical history non-contributory Maternal Grandmother Rectal cancer Maternal Grandfather Stomach cancer Family/Other Bone cancer Mother Breast cancer Social History Household Members: Spouse Housing: Apartment Are you a primary home health care social worker to a significant other at home: No Do you presently have visiting nurse or other home services: No Alcohol intake: current Alcohol intake frequency: holidays/special occasions only Patient Tobacco Use Status: Current everyday Tobacco user Tobacco use type: Cigarette Cigarette Packs Per Day: 0.25 Cigarettes Per Day: 1 Years Smoked: (onset 11yo, x 46yrs, max 1ppd, now 1/2ppd - 30pyh) e-Cigarette/Vaping Use: Never Used Second Hand Smoke Exposure: Yes Substance Use Type: Marijuana service: No Current occupational status: disabled Cognitive needs: No Hearing needs: No Vision needs: No Review of Systems Card Reports chest pain Musc Denies joint swelling Skin/Breast Reports rash Physical Exam Vital Signs: Last Vital Signs Pulse 78 06/17/24 12:47 BP 132/70 06/17/24 12:47 Pulse Ox 100 06/17/24 12:47 Oxygen Delivery Method Room Air 06/17/24 12:47 BMI result Body Mass Index 21.8 Const General: cooperative and anxious Nutritional Appearance: average body habitus Orientation/consciousness: patient oriented x3 Limitations: no limitations HEENT Head: Yes normocephalic and Yes atraumatic Mouth: moist mucous membranes Chest Other: Right chest wall tenderness Resp Other: Chest pain with deep breath Coarse breathing sounds but there is no wheezing today Effort & Inspection: normal respiratory effort and able to speak in complete sentences Cardio Rate: regular rate Skin Other: Small patches of psoriasis on her back, shins, Neuro General: patient oriented x3 Extrem Other: No active synovitis today Assessment & Plan Assessment & Plan (1) Psoriatic arthritis: Comment: Enbrel 02/2019- present effective Methotrexate: before 2019- dates are not available to me-patient is unsure why this was stopped. Code(s): L40.50 - Arthropathic psoriasis, unspecified Category: Medical Plan: This is a 58-year-old female with psoriasis and psoriatic arthritis who presents for follow-up. Since last visit 6 months ago patient had multiple COPD exacerbations requiring antibiotics and prednisone. She had to hold her Enbrel 4 months. Just restarted it 3 weeks ago. On exam today there is no active synovitis but she has active psoriasis patches. Discussed with patient that it was likely a good idea to switch to a non TNF inhibitor biologic DMARD. Interleukin 17 inhibitors such as Taltz have been associated with lower risk of serious infections compared to TNF inhibitors. Patient agreed to proceed. We will switch Enbrel to Taltz. Will start prior authorization for Taltz [facility] before next visit in 3 months (2) Psoriasis: Comment: (Derm = Dr. Becca Bonilla) no longer follows up with Derm Code(s): L40.9 - Psoriasis, unspecified Category: Medical Plan: Active psoriasis patches on exam today. Taltz is generally much more effective for psoriasis compared to Enbrel (3) COPD exacerbation: Comment: She is a known case of advanced chronic obstructive pulmonary disease. She continues to have low-grade EXCERBATION of COPD. Code(s): J44.1 - Chronic obstructive pulmonary disease with (acute) exacerbation Category: Medical Plan: Multiple COPD exacerbations over the last 6 months requiring antibiotics, steroids and holding her Enbrel. As mentioned above, we will switch to Taltz (4) High risk medication use: Code(s): Z79.899 - Other mcfp (current) drug therapy Category: Medical Plan: Side effects of Taltz were discussed with the patient in detail including increased risk of infection, including oropharyngeal candidiasis , reactivation of latent TB, possible increased risk of solid and skin tumors. Patient fully aware. Advised patient to seek medical care [facility] if patient has an infection and advised patient to stop the medication until the infection is resolved. Advised patient to get a yearly skin exam (5) Fall: Code(s): W19.XXXA - Unspecified fall, initial encounter Category: Medical Plan: Per patient multiple falls over the last few months as her right knee gives out on her. She continues to have right sided chest wall pain. Will order chest x- ray to rule out fracture. (6) Internal derangement of knee: Code(s): M23.90 - Unspecified internal derangement of unspecified knee Category: Medical Qualifiers: Laterality: right Qualified Code(s): M23.91 - Unspecified internal derangement of right knee Plan: Will order right knee MRI to rule out internal derangement such as a meniscal or ligament tear Plan I spent 45 minutes reviewing patient's chart, evaluating patient, ordering diagnostic workup, counseling patient and documenting in the chart Orders: Orders XR ribs BI min 4V w CXR1V Today R07.9 - Chest pain, unspecified MR knee RT wo con Today M23.90 - Unspecified internal derangement of unspecified knee Medications: New tramadol 50 mg PO TID PRN 10 tabs 0RF pain ixekizumab (Taltz Autoinjector) Inject 2 pens (160 mg) subcutaneously at week 0 then 80 mg every 4 weeks 2 mL 2RF Coding Level of Care Code Est Pt Level 5 (93104) Complex EM visit Add On G2211 Diagnoses Psoriatic arthritis L40.50 Psoriasis L40.9 COPD exacerbation J44.1 High risk medication use Z79.899 Fall W19.XXXA Internal derangement of right knee M23.91 Laterality: right
[2024-06-17 12:47] VITALS: BP 132/70; PULSE 78; O2SAT 100; BMI 21.8
== END 2024-06-17 13:12 | disposition home or self-care (01) ==
PROVIDERS: PCP Nurse Practitioner Family; Visit Provider Student in an Organized Health Care Education/Training Program
DX: L40.50 Arthropathic psoriasis, unspecified (principal); L40.9 Psoriasis, unspecified; J44.1 Chronic obstructive pulmonary disease with (acute) exacerbation; Z79.899 Other long term (current) drug therapy; W19.XXXA Unspecified fall, initial encounter; M23.91 Unspecified internal derangement of right knee
CPT/HCPCS: 99215; G2211

== ENCOUNTER 2024-07-28 12:15 | Outpatient (REF) | payer OTHER, SELFPAY ==
--- NOTE | ~2024-07-28 | MR_ITS ---
EXAMINATION: MRI RIGHT KNEE WITHOUT CONTRAST HISTORY: INTERNAL DERANGEMENT COMPARISON: Correlation is made with plain films of the right knee dated 11/13/2018. TECHNIQUE: Coronal T1 and fat-suppressed proton density, sagittal proton density and fat-suppressed proton density, and axial fat suppressed T2 weighted MR images of the right knee were obtained. FINDINGS: Bone marrow: There is a moderate to large area of bone marrow edema involving the anterior aspect of the lateral tibial plateau, compatible with a bone contusion. There are cystic changes involving the posterior aspect of the lateral tibial plateau. Joint effusion: There is no joint effusion. Dubois's cyst: There is no Dubois's cyst. Articular cartilage: There is moderate osteoarthritis of the patellofemoral compartment with cartilage loss, osteophyte formation, and subchondral marrow changes. There is mild osteoarthritis of the lateral compartment. Muscles: The visualized muscles demonstrate normal signal intensity. Anterior cruciate ligament: Intact Posterior cruciate ligament: Intact Medial collateral ligament: Intact Lateral collateral ligament: Intact Medial meniscus: Intact Lateral meniscus: There is a horizontally oriented linear T2 hyperintense focus within the lateral meniscus involving both the anterior horn, body, and posterior horn, which contacts the superior joint surface, consistent with a horizontal tear. Popliteus tendon: Intact Quadriceps tendon: Intact Patellar tendon: Intact Patellar retinacula: Intact MR/MR knee RT wo con IMPRESSION: 1. Moderate to large bone contusion involving the anterior aspect of the lateral tibial plateau. 2. Moderate osteoarthritis of the patellofemoral compartment. Mild osteoarthritis of the lateral compartment. 3. Horizontal tear of the lateral meniscus. Electronically signed by: Natalio Erickson MD 07/29/2024 07:22 AM EST
== END 2024-07-28 12:16 | disposition home or self-care (01) ==
LOC: HO.MRI 12:15
PROVIDERS: PCP Nurse Practitioner Family; Visit Provider Student in an Organized Health Care Education/Training Program
DX: M23.91 Unspecified internal derangement of right knee (principal)
CPT/HCPCS: 73721

== ENCOUNTER → 2024-07-28 12:30 | Outpatient (BNV) | payer OTHER, SELFPAY | PROVIDERS: PCP Nurse Practitioner Family; Visit Provider Radiology Diagnostic Radiology | DX: S80.01XA Contusion of right knee, initial encounter (principal); S83.281A Other tear of lateral meniscus, current injury, right knee, initial encounter; M17.11 Unilateral primary osteoarthritis, right knee | CPT/HCPCS: 73721 ==

== ENCOUNTER 2024-07-30 11:55 | Outpatient (REF) | payer OTHER, SELFPAY ==
[2024-07-30 17:29] LABS: Influenza A PCR NEGATIVE (Negative); Influenza B PCR NEGATIVE (Negative); Resp Syncy Virus RNA Qual PCR NEGATIVE (Negative); SARS COV2 PCR INHOUSE NEGATIVE (Negative)
== END 2024-07-30 11:56 | disposition home or self-care (01) ==
LOC: HO.LAB 11:55
PROVIDERS: PCP Nurse Practitioner Family; Visit Provider Physician Assistant
DX: J44.1 Chronic obstructive pulmonary disease with (acute) exacerbation (principal); J22 Unspecified acute lower respiratory infection; M54.50 Low back pain, unspecified
CPT/HCPCS: 0241U; 94640; 99212

== ENCOUNTER 2024-07-30 14:46 | Outpatient (REF) | payer OTHER, SELFPAY ==
--- NOTE | ~2024-07-30 | XR_ITS ---
EXAMINATION: XR CHEST CLINICAL INFORMATION: R05.9 - Cough, unspecified COMPARISON: June 17, 2024. TECHNIQUE: 2 views of the chest were obtained. FINDINGS: Pulmonary reticular pattern. Hyperinflated lungs. No consolidation, pleural effusion or pneumothorax. Cardiomediastinal silhouette demonstrates a tortuous thoracic aorta. Osseous structures are intact. Osteopenia versus osteoporosis. Bilateral apical lung scarring. XR/XR chest 2V IMPRESSION: Chronic interstitial lung disease should be considered. Electronically signed by: Nain Barahona MD 07/30/2024 03:21 PM [facility] MEDRANO
== END 2024-07-30 14:47 | disposition home or self-care (01) ==
LOC: HO.HMGCX 14:46
PROVIDERS: PCP Nurse Practitioner Family; Visit Provider Physician Assistant
DX: R05.9 Cough, unspecified (principal)
CPT/HCPCS: 71046

== ENCOUNTER → 2024-07-30 14:52 | Outpatient (BNV) | payer OTHER, SELFPAY | PROVIDERS: PCP Nurse Practitioner Family; Visit Provider Radiology Diagnostic Radiology | DX: R05.9 Cough, unspecified (principal) | CPT/HCPCS: 71046 ==

== ENCOUNTER 2024-08-13 12:56 | Outpatient (AMB) | payer OTHER, SELFPAY ==
[2024-08-13 13:09] VITALS: BP 116/70; PULSE 69; O2SAT 99; BMI 22.1
--- NOTE | 2024-08-13 13:09 | A.OFFVIS_ITS ---
Vital Signs 08/13/24 13:09 Height 5 ft 7 in Weight 141 lb BMI 22.1 BP 116/70 Blood Pressure Location Rt brachial Position Sitting Pulse 69 Pulse Source Pulse Oximeter Pulse Oximetry (%) 99 Oxygen Delivery Method Room Air Intake Visit Reasons: 6 mnts f/u appt Intake Note: Patient presents follow up migraine Allergies gabapentin [GABAPENTIN] Allergy (Mild, Verified 08/13/24 13:11) SWELLING pregabalin [From LYRICA] Allergy (Mild, Verified 08/13/24 13:11) AGITATION, swelling, SWELLING Medication List - Last Reconciled 08/13/24 by FREDERICK Christy amitriptyline 50 mg PO BEDTIME azelastine 2 sprays intranasal BID 30 days azithromycin For 250 mg dose pack: take 500 mg today (day 1), then 250 mg for 4 days (days 2-5) PO ahwazldjlz-zhaindhtzullf-pxnt 50-325-40 mg 1 tab PO Q6H PRN calcium citrate 250 mg PO DAILY cholecalciferol (vitamin D3) 50 mcg PO DAILY clonazepam 1 mg PO BID PRN 30 days famotidine (Pepcid) 20 mg PO BEDTIME fluoride (sodium) 1.1% (Denta 5000 Plus) 1 appl PO DAILY fluticasone furoate-vilanterol 200-25 mcg/dose (Breo Ellipta) 1 inh inhalation DAILY 30 days galcanezumab-gnlm (Emgality Pen) 120 mg subcut ONCE 30 days hydroxyzine HCl 50 mg PO BID PRN ipratropium-albuterol 0.5 mg-3 mg(2.5 mg base)/3 mL 3 mL inhalation Q6H 30 days ipratropium-albuterol 20-100 mcg/actuation (Combivent Respimat) 1 puff inhalation Q6H 30 days ixekizumab (Taltz Autoinjector) Inject 2 pens (160 mg) subcutaneously at week 0 then 80 mg every 4 weeks lidocaine 4% 1 patch topical BID PRN Magic Mouthwash Diphen/Nystat/Antacid 1:1:1 10 mL PO .every 6 hours methocarbamol 750 mg PO TID PRN 30 days omeprazole 40 mg PO DAILY ondansetron 8 mg PO Q12H PRN 30 days polyethylene glycol 3350 (Miralax) 17 grams PO DAILY PRN prednisone 50 mg PO QAM propranolol 20 mg PO BID riboflavin (vitamin B2) 400 mg PO DAILY 30 days trazodone 100 mg (2 x 50 mg) PO BEDTIME PRN HPI Comments Details: 59-yr-old female presents for f/u visit for migraine and sleep difficulties. HST did not show sleep apnea, however did show some nocturnal hypoxemia. 10/23/23, HST showed AHI 1.4/hr w/ O2 travis 84% (w/ SpO2 < 90% x's 135min and < 88% x's 27.7 min of 499 min study). She states that the azelastine at bedtime helps some, still wakes up in the morning with congestion. Pt reports she has been working closely w/ Dr Parekh for her ongoing SOB and COPD management. She continues to have postconcussive cognitive difficulties- very forgetful. She started [employer]- but then could not continue d/t being sick, her friend passing, and her being dx'd w/ dementia. She is having 2-3 migraine days per week, which can still be severe and cause activity intolerance. Prior to starting Emgality, she was having daily w/ sinus congestion and headache. In April, as she was not feeling well, she tried to hold her amitriptyline but headaches increased during that time, so she resumed it. Using Tylenol prn. Using Aleve liquigel prn, which is more helpful. Rarely using Fioricet. Baseline headache characteristics: Moderate to severe. Usually starts denton retroorbital, left-sided, but can be holocranial. Crushing pain, throbbing a/w Photophobia, phonophobia, osmophobia- less so now, nausea, brain fog, activity intolerance. She is not sleeping as well. Prone to ruminating thoughts. She states her 74 yr old has early stages of dementia. Trazodone is not helping any more. [facility] Medical History Asthma COPD exacerbation Nicotine dependence, cigarettes, uncomplicated Osteopenia (~2018) Hypertensive retinopathy of both eyes Tubular adenoma of colon (~2020) Post covid-19 condition, unspecified (~06/2021) Delayed gastric emptying PTSD (post-traumatic stress disorder) HTN (hypertension) Depression COPD (chronic obstructive pulmonary disease) Cigarette nicotine dependence History of cocaine abuse History of alcohol abuse Nausea Post concussive syndrome (~2020) Fibromyalgia Psoriasis Psoriatic arthritis Facial trauma Surgical History History of right breast biopsy History of cranial surgery History of colonoscopy History of foot surgery History of foot surgery Family History Father Family history of diabetes mellitus Medical history non-contributory Maternal Grandmother Rectal cancer Maternal Grandfather Stomach cancer Family/Other Bone cancer Mother Breast cancer Social History Household Members: Spouse Housing: Apartment Are you a primary ambulatory care to a significant other at home: No Do you presently have visiting nurse or other home services: No Alcohol intake: current Alcohol intake frequency: holidays/special occasions only Patient Tobacco Use Status: Current everyday Tobacco user Tobacco use type: Cigarette Cigarette Packs Per Day: 0.25 Cigarettes Per Day: 1 Years Smoked: (onset 11yo, x 46yrs, max 1ppd, now 1/2ppd - 30pyh) e-Cigarette/Vaping Use: Never Used Second Hand Smoke Exposure: Yes Substance Use Type: Marijuana service: No Current occupational status: disabled Cognitive needs: No Hearing needs: No Vision needs: No Physical Exam Vital Signs: Last Vital Signs Pulse 69 08/13/24 13:09 BP 116/70 08/13/24 13:09 Pulse Ox 99 08/13/24 13:09 Oxygen Delivery Method Room Air 08/13/24 13:09 BMI result Body Mass Index 22.1 Const General: cooperative and no acute distress Orientation/consciousness: patient oriented x3 Resp Effort & Inspection: normal respiratory effort and able to speak in complete sentences Neuro General: patient oriented x3 Cranial nerves: Yes CN's II-XII intact bilaterally Cognition (Neuro): normal cognition Psych Appearance: grossly normal Mental Status: mental status grossly normal Speech and movement: Normal speech and movement present Affect: normal affect Attitude: cooperative Assessment & Plan Assessment & Plan (1) Migraine without aura: Code(s): G43.009 - Migraine without aura, not intractable, without status migrainosus Category: Medical (2) Cognitive dysfunction: Code(s): F09 - Unspecified mental disorder due to known physiological condition Category: Medical (3) Sleep difficulties: Code(s): G47.9 - Sleep disorder, unspecified Category: Medical Plan For sleep difficulties: Continue Azelastine q.h.s.- to decreased nasal congestion symptoms. Trazodone 50-100 mg p.r.n.. Discussed trialing a scheduled antidepressant/antianxiety agent, such as duloxetine or escitalopram, to decrease tendency for ruminating thoughts at bedtime. Patient will consider, and let us know. List of sleep education books/resources on strategies to optimize sleep hygiene shared with patient. For postconcussive cognitive difficulties: Patient will call speech therapy office to reschedule [employer] tx appointment. ?? For overall headache management: Track headaches Patient may try blue light filtering glasses, green glasses, green light bulb, green light therapy. Avoid wearing sunglasses inside. ? For acute headache treatment: May continue Fioricet for now. Trial Ubrogepant (Ubrelvy) 100mg tab, 1/2 - 1 tab (50-100mg) at onset of h eadache, may repeat in 2 hours. Max of 2 tabs (200mg) per 24 hours. May adjunct with OTC Tylenol 650mg q 4 hours, Ibuprofen 600mg q 6 hours, or Naproxen 440mg q 12 hrs prn. Do not take w/ Butalbital (Fioricet or Fiorinal). Potential adverse effects, include but are not limited to fatigue, nausea, dry mouth, constipation Previous acute migraine medication trials: Sumatriptan- ineffective Acute migraine medication contraindications: Triptans d/t HTN and HLD ? For headache prevention medication: Riboflavin 400mg qam Magnesium 400mg qhs Continue Amitriptyline 50mg qhs Continue Propranolol 20mg bid- would not increase furtehr d/t Asthma/COPD dx. Continue Emgality 120mg sc q month- monitor injection site redness, if worsens can pre treat with Benadryl p.r.n.. Previous migraine prevention medication trials: As above Migraine prevention medication contraindications: Topiramate- d/t h/o nephrolithiasis ? Pt to follow-up in 6 months or sooner prn. Medications: New ubrogepant (Ubrelvy) take at onset of migraine, may repeat in 2hrs (may take w/ Ibuprofen) 50 - 100 mg (0.5 - 1 x 100 mg) PO ONCE PRN 16 tabs 3RF migraine headache 30 days Refilled riboflavin (vitamin B2) 400 mg PO DAILY 30 tabs 6RF 30 days Coding Level of Care Code Est Pt Level 4 (36617) Diagnoses Migraine without aura G43.009 Cognitive dysfunction F09 Sleep difficulties G47.9
== END 2024-08-13 13:49 | disposition home or self-care (01) ==
PROVIDERS: PCP Nurse Practitioner Family; Visit Provider Nurse Practitioner Family
DX: G43.009 Migraine without aura, not intractable, without status migrainosus (principal); R41.89 Other symptoms and signs involving cognitive functions and awareness; G47.9 Sleep disorder, unspecified
CPT/HCPCS: 99214

== ENCOUNTER → 2024-08-13 12:56 | Outpatient (BNVA) | payer OTHER, SELFPAY | PROVIDERS: PCP Nurse Practitioner Family; Visit Provider Nurse Practitioner Family | DX: G43.009 Migraine without aura, not intractable, without status migrainosus (principal) | CPT/HCPCS: 99212 ==

== ENCOUNTER 2024-08-21 14:14 | Outpatient (AMB) | payer OTHER, SELFPAY ==
[2024-08-21 14:24] VITALS: BP 130/70; PULSE 76; O2SAT 98; BMI 22.1
--- NOTE | 2024-08-21 14:24 | MHC.OFFVIS ---
Vital Signs 08/21/24 14:24 Height 5 ft 7 in Weight 141 lb BMI 22.1 BP 130/70 Blood Pressure Location Lt brachial Position Sitting Pulse 76 Pulse Source Pulse Oximeter Pulse Oximetry (%) 98 Oxygen Delivery Method Room Air Intake Visit Reasons: COPD Intake Note: pt is here for follow up and is not doing well due to a fall, extreme back pain, and breathing is difficult due to wheeze at times but the pain is unbearable. urgent care was full,pt needs refill on nebulizer meds (duoneb) Freight Tallier Required: No Allergies gabapentin [GABAPENTIN] Allergy (Mild, Verified 08/21/24 14:47) SWELLING pregabalin [From LYRICA] Allergy (Mild, Verified 08/21/24 14:47) AGITATION, swelling, SWELLING Medication List - Last Reconciled 08/21/24 by Rome Parekh MD amitriptyline 50 mg PO BEDTIME azelastine 2 sprays intranasal BID 30 days ooyudeiqwb-jtgpvwasoiamy-ecvs 50-325-40 mg 1 tab PO Q6H PRN calcium citrate 250 mg PO DAILY cholecalciferol (vitamin D3) 50 mcg PO DAILY clonazepam 1 mg PO BID PRN 30 days famotidine (Pepcid) 20 mg PO BEDTIME fluoride (sodium) 1.1% (Denta 5000 Plus) 1 appl PO DAILY fluticasone furoate-vilanterol 200-25 mcg/dose (Breo Ellipta) 1 inh inhalation DAILY 30 days galcanezumab-gnlm (Emgality Pen) 120 mg subcut ONCE 30 days hydroxyzine HCl 50 mg PO BID PRN ipratropium-albuterol 0.5 mg-3 mg(2.5 mg base)/3 mL 3 mL inhalation Q6H 30 days ipratropium-albuterol 20-100 mcg/actuation (Combivent Respimat) 1 puff inhalation Q6H 30 days ixekizumab (Taltz Autoinjector) Inject 2 pens (160 mg) subcutaneously at week 0 then 80 mg every 4 weeks lidocaine 4% 2 patches topical Q24H 30 days Magic Mouthwash Diphen/Nystat/Antacid 1:1:1 10 mL PO .every 6 hours methocarbamol 750 mg PO TID PRN 30 days omeprazole 40 mg PO DAILY ondansetron 8 mg PO Q12H PRN 30 days polyethylene glycol 3350 (Miralax) 17 grams PO DAILY PRN propranolol 20 mg PO BID riboflavin (vitamin B2) 400 mg PO DAILY 30 days trazodone 100 mg (2 x 50 mg) PO BEDTIME PRN ubrogepant (Ubrelvy) 50 - 100 mg (0.5 - 1 x 100 mg) PO ONCE PRN 30 days Do you need a note to return to daycare/school/sports/work: No HPI HPI COPD: Details: THIS 59 YEARS OLD FEMALE WITH SEVERE ASTHMA/COPD SYNDROME AND RECURRENT ACUTE EXACERBATIONS, COMES AFTER 3 MONTHS FOR ROUTINE FOLLOW-UP. SHE WAS ABLE TO GO OFF PREDNISONE. BREATHING QUIROZ DOING WELL WITH BREO AND USE IPRATROPIUM-ALBUTEROL SOLUTION IN THE NEBULIZER OR BY COMBIVENT INHALER. UNFORTUNATELY SHE IS COMPLAINING OF LOT OF BACK PAIN AND DIFFICULTY IN WALKING DUE TO A RECENT FALL ON THE STAIRS. HER MAIN COMPLAINT AT THIS TIME IS BACK PAIN AND BEING UNCOMFORTABLE IN VARIOUS POSITIONS. SHE IS WALKING SLOW AND IS SOMEWHAT TEARY DUE TO THE BACK PAIN [facility] Medical History Asthma COPD exacerbation Nicotine dependence, cigarettes, uncomplicated Osteopenia (~2018) Hypertensive retinopathy of both eyes Tubular adenoma of colon (~2020) Post covid-19 condition, unspecified (~06/2021) Delayed gastric emptying PTSD (post-traumatic stress disorder) HTN (hypertension) Depression COPD (chronic obstructive pulmonary disease) Cigarette nicotine dependence History of cocaine abuse History of alcohol abuse Nausea Post concussive syndrome (~2019) Fibromyalgia Psoriasis Psoriatic arthritis Facial trauma Surgical History History of right breast biopsy History of cranial surgery History of colonoscopy History of foot surgery History of foot surgery Family History Father Family history of diabetes mellitus Medical history non-contributory Maternal Grandmother Rectal cancer Maternal Grandfather Stomach cancer Family/Other Bone cancer Mother Breast cancer Social History Household Members: Spouse Housing: Apartment Are you a primary student career development specialist to a significant other at home: No Do you presently have visiting nurse or other home services: No Alcohol intake: current Alcohol intake frequency: holidays/special occasions only Patient Tobacco Use Status: Current everyday Tobacco user Tobacco use type: Cigarette Cigarette Packs Per Day: 0.25 Cigarettes Per Day: 1 Years Smoked: (onset 11yo, x 46yrs, max 1ppd, now 1/2ppd - 30pyh) e-Cigarette/Vaping Use: Never Used Second Hand Smoke Exposure: Yes Substance Use Type: Marijuana service: No Current occupational status: disabled Cognitive needs: No Hearing needs: No Vision needs: No Review of Systems Const All systems reviewed & are unremarkable except as noted in HPI and below Reports headache(s) Eyes Reports no additional complaints ENT Reports headache(s) and Reports nasal congestion (MILD OFF AND ON) Card Denies chest pain, Denies irregular heart rhythm and Denies leg edema Resp Reports as per HPI GI Reports no additional complaints, Reports heartburn and Reports nausea Reports no additional complaints Musc Reports back pain Skin/Breast Reports system reviewed and no additional complaints, except as documented Neuro Reports headache(s) and Reports memory loss (Has had post concussion syndrome) Psych Reports anxiety (Mild chronic), Reports depression (Mild) and Reports memory loss (Has had post concussion syndrome) Physical Exam Vital Signs: Last Vital Signs Pulse 76 08/21/24 14:24 BP 130/70 08/21/24 14:24 Pulse Ox 98 08/21/24 14:24 Oxygen Delivery Method Room Air 08/21/24 14:24 BMI result Body Mass Index 22.1 Const General: comfortable, no acute distress, alert and awake Orientation/consciousness: patient oriented x3 HEENT Head: Yes normal to inspection General nose exam: No nasal polyps present and No nasal discharge present Face and sinus: Yes sinuses nontender Mouth: oropharynx normal Throat: Yes posterior oropharynx normal Eyes General: appearance normal, both eyes and all related structures Neck Neck: Yes normal visual inspection, Yes no lymphadenopathy, Yes trachea midline and Yes no JVD Thyroid: Thyroid normal Chest Chest palpation & inspection: normal inspection of the chest, normal palpation of entire chest wall and no tenderness Resp Other: Percussion note is resonant . Breath sounds are distant , There are no wheezes or rhonchi today. Cardio Palpation: normal PMI Rate: regular rate Rhythm: regular rhythm Heart sounds: no gallops and no murmurs GI Palpation (GI): Soft to palpation, Tenderness to palpation present (GI), No hepatosplenomegaly present and Palpable mass present Auscultation: normal bowel sounds Back/Spine/Pelvis Thoracic/Lumbar Spine: thoracic and lumbar spine normal to inspection and other (BACK IS VERY STIFF AND TENDER TO TOUCH) Skin General skin exam: no rashes or lesions noted Neuro General: patient oriented x3 and no focal motor deficits Cranial nerves: Yes CN's II-XII intact bilaterally Extrem General: Yes normal to inspection, Yes no clubbing, cyanosis or edema and Yes no calf tenderness Psych Speech and movement: Normal speech and movement present Assessment & Plan Assessment & Plan (1) COPD (chronic obstructive pulmonary disease): Comment: She has moderate degree of chronic obstructive pulmonary disease, which has stayed quite stable over the past many years. Now she complains of increased cough and SOB . sec to cigarettes smoking . THE ANXIETY SYNDROME THAT SHE SUFFERS FROM ALSO AGGRAVATES HER RESPIRATORY SYMPTOMS. She continues to have very frequent acute exacerbations requiring prednisone bursts . Lately she has been off prednisone for many weeks. Code(s): J44.9 - Chronic obstructive pulmonary disease, unspecified Category: Medical Plan: Breo 200-251 inhalation daily. Ipratropium-albuterol solution in the nebulizer Q 6 hours p.r.n. while at home. Combivent Respimat 1 inhalation Q 6 hours p.r.n. when outdoors. (2) Asthma: Comment: PATIENT DOES HAVE FEATURES OF CHRONIC ASTHMA/COPD. PULMONARY FUNCTION TEST DID NOT SHOW ANY SIGNIFICANT ABNORMALITY EXCEPT FOR MILD DECREASE IN FEF 25-75 CLINICALLY I THINK SHE HAS BRONCHIAL ASTHMA , WITH FREQUENT FLARE UPS. IT HAS BEEN BETTER AND WELL CONTROLLED SINCE SHE IS ON DAILY PREDNISONE 5 MG A DAY, SHE HAS BEEN OFF ORAL PREDNISONE FOR THE PAST SEVERAL WEEKS. Code(s): J45.909 - Unspecified asthma, uncomplicated Category: Medical Plan: UNDER COPD (3) Nicotine dependence, cigarettes, uncomplicated: Comment: (current smoker, 1ppd x 46yrs, now 1/2ppd - 30pyh).says she has reduced to 1-2 cigarettes a day Code(s): F17.210 - Nicotine dependence, cigarettes, uncomplicated Category: Medical Plan: AGAIN DISCUSSED WITH HER AND STRESSED THAT SHE NEEDS TO QUIT SMOKING COMPLETELY Coding Level of Care Code Est Pt Level 3 (56297) Diagnoses COPD (chronic obstructive pulmonary disease) J44.9 Asthma J45.909 Nicotine dependence, cigarettes, uncomplicated F17.210
== END 2024-08-21 14:49 | disposition home or self-care (01) ==
PROVIDERS: PCP Nurse Practitioner Family; Visit Provider Internal Medicine
DX: J44.9 Chronic obstructive pulmonary disease, unspecified (principal); J45.909 Unspecified asthma, uncomplicated; F17.210 Nicotine dependence, cigarettes, uncomplicated
CPT/HCPCS: 99213

== ENCOUNTER → 2024-08-21 14:14 | Outpatient (BNVA) | payer OTHER, SELFPAY | PROVIDERS: PCP Nurse Practitioner Family; Visit Provider Internal Medicine | DX: J44.9 Chronic obstructive pulmonary disease, unspecified (principal); J45.909 Unspecified asthma, uncomplicated; F17.210 Nicotine dependence, cigarettes, uncomplicated | CPT/HCPCS: 99212 ==

== ENCOUNTER 2024-09-22 10:25 | Outpatient (AMB) | payer OTHER, SELFPAY ==
[2024-09-22 10:43] VITALS: BP 120/70; PULSE 78; O2SAT 96; BMI 21.9
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
== END 2024-09-22 11:33 | disposition home or self-care (01) ==
LOC: HO.HMCC 10:25
PROVIDERS: PCP Nurse Practitioner Family; Visit Provider Nurse Practitioner Family
DX: M54.50 Low back pain, unspecified (principal); W19.XXXA Unspecified fall, initial encounter; M79.18 Myalgia, other site; E78.5 Hyperlipidemia, unspecified

== ENCOUNTER 2024-09-22 10:25 | Outpatient (REF) | payer OTHER, SELFPAY ==
--- NOTE | ~2024-09-22 | XR_ITS ---
EXAMINATION: XR SACRUM AND COCCYX CLINICAL INFORMATION: M79.18 - Myalgia, other site COMPARISON: Correlated to lumbar x-ray dated November 13, 2018. TECHNIQUE: 2 views of the sacrum and 2 views of the coccyx were obtained. FINDINGS: No acute cortical disruption. No lytic or blastic lesions. No gross malalignment. XR/XR sacrum coccyx min 2V IMPRESSION: No acute fracture. Negative exam. Electronically signed by: Nain Barahona MD 09/23/2024 02:14 PM EDT
== END 2024-09-22 10:26 | disposition home or self-care (01) ==
LOC: HO.HMGCX 10:25
PROVIDERS: PCP Nurse Practitioner Family; Visit Provider Nurse Practitioner Family
DX: M79.18 Myalgia, other site (principal); M54.50 Low back pain, unspecified; E78.5 Hyperlipidemia, unspecified; Z91.81 History of falling; Z13.30 Encounter for screening examination for mental health and behavioral disorders, unspecified
CPT/HCPCS: 72220; 96127; 99212

== ENCOUNTER → 2024-09-22 11:36 | Outpatient (BNV) | payer OTHER, SELFPAY | PROVIDERS: PCP Nurse Practitioner Family; Visit Provider Radiology Diagnostic Radiology | DX: M79.18 Myalgia, other site (principal) | CPT/HCPCS: 72220 ==

== ENCOUNTER 2024-09-26 17:43 | Outpatient (REF) | payer OTHER, SELFPAY ==
--- NOTE | ~2024-09-26 | MR_ITS ---
EXAMINATION: MR LUMBAR SPINE WITHOUT CONTRAST CLINICAL INFORMATION: Low back pain, unspecified. Numbness and pain, both lower extremities COMPARISON: None available. TECHNIQUE: MRI of the lumbar spine was obtained using routine sequences without contrast. FINDINGS: Last rib-bearing vertebra labeled T12. Superior endplate bone marrow STIR signal at L4 with the 20% volume loss of the vertebral body. No retropulsion. Bone marrow STIR signal within the anterior inferior endplate of L2. There is Schmorl node in the inferior endplate of L2 and 30% volume loss of the anterior aspect of the vertebral body. Multilevel marginal osteophyte formation and disc desiccation. Bone marrow inhomogeneity. Modic type II endplate changes at L5-S1. Intrinsic hyperintense T1 bone lesion at T12 and L1. Grade 1 retrolisthesis at L2-3 and to a lesser extent L1-2 and L3-4 levels. Conus medullaris ends at pedicle of L1 with normal signal. T12-L1: No disc herniation. No neuroforamina stenosis. L1-2: Broad-based disc bulging. Facet joint hypertrophy. No compression upon neural elements. L2-3: Broad-based disc bulging. Facet joint and ligamentum flavum hypertrophy. Reduced AP diameter of the thecal sac and neuroforamina. No compression upon neural elements. L3-4: Broad-based disc bulging. Facet joint and ligamentum flavum hypertrophy. Reduced AP diameter of the thecal sac and the neural foramina likely encroaching the L4 nerve root on the lateral recesses. L4-5: Asymmetric to the left broad-based disc bulging. Facet joint and ligamentum flavum hypertrophy. Reduced AP diameter of the thecal sac and the neural foramina likely encroaching the L5 exiting nerve root on the lateral recesses. L5-S1: Broad-based disc bulging. Facet joint hypertrophy. Bilateral neuroforamina narrowing, left greater than right. No prevertebral compartment hematoma, mass or fluid collection. Fatty atrophy of the lower lumbar muscles from L3 to sacrum. Prominent epidural fat in the sacrum. Multifocal hyperintense T2/cystic lesions in both kidneys. MR/MR lumbar spine wo con IMPRESSION: Multilevel lumbar spondylosis more conspicuous at L2-3, L3-4 and L4-5 levels encroaching the exiting nerve roots. Acute to subacute superior endplate compression deformity at L4 and anterior vertebral body at inferior endplate of L2. Electronically signed by: Nain Barahona MD 09/29/2024 07:40 AM EDT
== END 2024-09-26 17:44 | disposition home or self-care (01) ==
LOC: HO.MRI 17:43
PROVIDERS: PCP Nurse Practitioner Family; Visit Provider Nurse Practitioner Family
DX: M54.50 Low back pain, unspecified (principal); W19.XXXA Unspecified fall, initial encounter
CPT/HCPCS: 72148

== ENCOUNTER → 2024-09-26 17:52 | Outpatient (BNV) | payer OTHER, SELFPAY | PROVIDERS: PCP Nurse Practitioner Family; Visit Provider Radiology Diagnostic Radiology | DX: M47.816 Spondylosis without myelopathy or radiculopathy, lumbar region (principal) | CPT/HCPCS: 72148 ==

== ENCOUNTER 2024-10-02 09:32 | Outpatient (REF) | payer OTHER, SELFPAY ==
[2024-10-02 13:26] LABS: MANUAL DIFF FLAG NO
[2024-10-02 13:45] LABS: Basophils Absolute Auto 0.1 X10*3/uL (0.0-0.2); Basophils Percent Auto 0.8 % (0-2); Eosinophils Absolute Auto 0.3 X10*3/uL (0.0-0.4); Eosinophils Percent Auto 4.4 % (0-4); Hemoglobin 13.6 g/dl (12.0-16.0); Imm Gran Abs Auto 0.03 X10*3/uL (0.00-0.03); Imm Gran Pct Auto 0.5 % (0.0-0.4); Lymphocytes Percent Auto 51.2 % (20-40); Mean Corpuscular HGB Conc 33.2 g/dl (31.0-35.0); Mean Corpuscular Hemoglobin 31.9 pg (27.0-33.0); Mean Corpuscular Volume 96.2 fL (80.0-98.0); Mean Platelet Volume 10.7 fL (9.4-12.3); Monocytes Absolute Auto 0.5 X10*3/uL (0.1-1.2); Monocytes Percent Auto 8.4 % (2-11); Neutrophils Absolute Auto 2.1 x10*3/uL (2.0-8.3); Neutrophils Percent Auto 34.7 % (45-73); Platelet Count 340 X10*3/uL (160-400); Red Blood Count 4.26 X10*6/uL (4.20-5.50); Red Cell Distribution Width 13.4 % (11.0-16.0); White Blood Count 5.9 X10*3/uL (4.8-10.8)
[2024-10-02 14:17] LABS: Alanine Aminotransferase 10 U/L (0-31); Alkaline Phosphatase 63 U/L (39-117); Anion Gap 13 (12-20); Aspartate Amino Transferase 16 U/L (5-31); Bilirubin Total 0.5 mg/dL (0.0-1.0); Blood Urea Nitrogen 12 mg/dL (9-16); Calcium 9.4 mg/dL (8.4-10.2); Carbon Dioxide 26 mmol/L (22-29); Chloride 107 mmol/L (96-108); Cholesterol 237 mg/dL (<200); Estimated Glomerular Filt Rate > 60; Glucose Fasting 102 mg/dL (60-99); HDL Cholesterol 55 mg/dL (>40); LDL Cholesterol Calculated 161 mg/dL (<100); Potassium 3.7 mmol/L (3.3-5.1); Sodium 142 mmol/L (135-145); TSH reflex Free T4 3.46 uIU/mL (0.32-4.0); Total Protein 7.2 g/dL (6.5-8.0); Triglycerides 106 mg/dL (<150)
[2024-10-02 16:05] LABS: Appearance Urine Clear; Color Urine Yellow; Glucose Urine UA Negative (Negative); Leukocyte Esterase Urine Negative (Negative); Nitrite Urine Negative (Negative); Urine Blood Negative (Negative); Urine Ketones Negative (Negative); Urine Protein Negative (Neg-Trace)
== END 2024-10-02 09:33 | disposition home or self-care (01) ==
LOC: HO.HMGCLDS 09:32
PROVIDERS: PCP Nurse Practitioner Family; Visit Provider Nurse Practitioner Family
DX: E78.5 Hyperlipidemia, unspecified (principal)
CPT/HCPCS: 36415; 80053; 80061; 81003; 84443; 85025

== ENCOUNTER 2024-10-03 13:42 | Outpatient (AMB) | payer OTHER, SELFPAY ==
--- NOTE | 2024-10-03 13:59 | HO.SPINEOV ---
Intake Visit Reasons: LBP Intake Note: Mrs. Leung is here today c/o low back pain. [place] [facility] [place] Ed Manager Required: No Allergies gabapentin [GABAPENTIN] Allergy (Mild, Verified 09/22/24 10:44) SWELLING pregabalin [From LYRICA] Allergy (Mild, Verified 09/22/24 10:44) AGITATION, swelling, SWELLING Assessment & Plan Assessment & Plan (1) Lumbar compression fracture: Code(s): S32.000A - Wedge compression fracture of unspecified lumbar vertebra, initial encounter for closed fracture Category: Medical Plan Dear Sola, Thank you for referring Mrs Leung to our office today. She is a 59-year-old female history of osteoporosis, lifelong smoker, presents after a fall in May which gave her low back pain, and then about a month ago after she thought she was doing better, she noticed a increase in the pain for no specific reason. It is located all along the paraspinal regions encompassing most of her lumbar spine. No radicular symptoms, no cauda equina symptoms. She has been taking tramadol, using heat, ice, lidocaine patches, icy hot etc. with no relief. She underwent an MRI recently showing degenerative disc disease and acute to subacute compression fractures at L2 and L4. She was sent in for an evaluation PMH: History of COPD, lifelong smoker, psoriatic arthritis, hypertension, history of nausea vomiting, right breast lumpectomy, surgical repair of bones on both feet. History of anxiety. Social hx: She is still smokes about half a pack a day, denies any marijuana or alcohol abuse Medications: Emgality for migraines, omeprazole, methocarbamol, hydroxyzine, Klonopin, Fioricet, loratadine, propranolol, amitriptyline, coconut oil, multivitamin, vitamin-D, calcium carbonate, vitamin B12, Breo Ellipta inhaler, Combivent, trazodone, Taltz injection for psoriatic arthritis Allergies: Gabapentin and Lyrica Physical exam: Awake alert oriented no acute distress very slow to stand up, tenderness over the lumbar region, strength is limited in hip flexion secondary to pain but otherwise motor exam and reflexes are normal Imaging review: Lumbar MRI shows multilevel moderate degenerative disc disease but of meaning related to her current pain there are 2 acute compression fractures at L2 and L4, no retropulsion Impression: 59-year-old female history of osteoporosis, for the most part untreated because the patient did not want to take any pills last time she met with Dr. Gayle, now who presents with compression fractures after fall in May. A month ago the pain got worse without trauma suggesting that her osteoporosis is a bigger factor in this. I told her there few options to treat this. One is to give her a back support brace and a little more time and it may go away on its own. Second would be a kyphoplasty, and that would expedite healing. Because she has been in pain now for a number of months she preferred to lean in the direction of kyphoplasty. I will get her in contact with Dr. Haney who can help expedite a kyphoplasty. Secondly, I reinforced the need for her to get in contact with her immigration law specialist Dr. Gayle and have a discussion again about treating her osteoporosis. In the past she has only chose to do calcium and vitamin-D because she did not want to take anymore pills, but I warnerd that this problem with the compression fractures may become chronic and lifelong if she does not try to at least prevent worsening of the osteoporosis. That would include not only taking medication, but quitting smoking. She will get in contact with Dr. Gayle office to arrange a follow up appointment. Thank you for allowing us to care for your patient. The total time spent with this visit with this patient was 45 minutes reviewing history, physical exam, lumbar imaging review, and implementation of treatment plan or further diagnostic testing Jose Roberts MD,PhD [facility] Orders: Referrals Pain Management Referral S32.000A - Wedge compression fracture of unspecified lumbar vertebra, initial encounter for closed fracture Coding Level of Care Code New Pt Level 4 (57530) Diagnoses Lumbar compression fracture S32.000A
== END 2024-10-03 14:25 | disposition home or self-care (01) ==
LOC: HO.HNS 13:43
PROVIDERS: PCP Nurse Practitioner Family; Referring Provider Nurse Practitioner Family; Visit Provider Physician Assistant
DX: S32.000A Wedge compression fracture of unspecified lumbar vertebra, initial encounter for closed fracture (principal)
CPT/HCPCS: 99204

== ENCOUNTER → 2024-10-03 13:42 | Outpatient (BNVA) | payer OTHER, SELFPAY | PROVIDERS: PCP Nurse Practitioner Family; Referring Provider Nurse Practitioner Family; Visit Provider Physician Assistant | DX: S32.000A Wedge compression fracture of unspecified lumbar vertebra, initial encounter for closed fracture (principal); M81.0 Age-related osteoporosis without current pathological fracture; W19.XXXA Unspecified fall, initial encounter; Y93.9 Activity, unspecified; Y92.9 Unspecified place or not applicable; Y99.9 Unspecified external cause status | CPT/HCPCS: 99202 ==

== ENCOUNTER → 2024-10-13 07:06 | Outpatient (BNVA) | payer OTHER, SELFPAY | PROVIDERS: PCP Nurse Practitioner Family; Visit Provider Nurse Practitioner Family ==

== ENCOUNTER 2024-10-27 10:39 | Outpatient (AMB) | payer OTHER, SELFPAY ==
--- NOTE | 2024-10-27 10:54 | MHC.OFFVIS ---
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 Allergies gabapentin [GABAPENTIN] Allergy (Mild, Verified 10/27/24 10:57) SWELLING pregabalin [From LYRICA] Allergy (Mild, Verified 10/27/24 10:57) AGITATION, swelling, SWELLING Medication List - Last Reconciled 10/27/24 by Fatoumata Pro LPN amitriptyline 50 mg PO BEDTIME azelastine 2 sprays intranasal BID 30 days xneffcwlrt-lcuojkjihlfxf-xpzy 50-325-40 mg 1 tab PO Q6H PRN calcium citrate 250 mg PO DAILY cholecalciferol (vitamin D3) 50 mcg PO DAILY clonazepam 1 mg PO BID PRN 30 days cyclobenzaprine 10 mg PO BID PRN 30 days famotidine 20 mg PO BEDTIME fluoride (sodium) 1.1% (Denta 5000 Plus) 1 appl PO DAILY fluticasone furoate-vilanterol 200-25 mcg/dose (Breo Ellipta) 1 inh inhalation DAILY 30 days galcanezumab-gnlm (Emgality Pen) 120 mg subcut ONCE 30 days hydroxyzine HCl 50 mg PO BID PRN ipratropium-albuterol 0.5 mg-3 mg(2.5 mg base)/3 mL 3 mL inhalation .prn 30 days ipratropium-albuterol 20-100 mcg/actuation (Combivent Respimat) 1 puff inhalation Q6H 30 days ixekizumab (Taltz Autoinjector) 80 mg subcut Q4W lidocaine 4% 2 patches topical Q24H 30 days lidocaine 5% 1 patch topical DAILY Magic Mouthwash Diphen/Nystat/Antacid 1:1:1 10 mL PO .every 6 hours omeprazole 40 mg PO DAILY ondansetron 8 mg PO Q12H PRN 30 days oxycodone-acetaminophen 5-325 mg (Percocet) 1 tab PO Q8H PRN 4 days polyethylene glycol 3350 (Miralax) 17 grams PO DAILY PRN propranolol 20 mg PO BID riboflavin (vitamin B2) 400 mg PO DAILY 30 days trazodone 100 mg (2 x 50 mg) PO BEDTIME PRN ubrogepant (Ubrelvy) 50 - 100 mg (0.5 - 1 x 100 mg) PO ONCE PRN 30 days HPI HPI Wedge compression fracture of lumbar vertebra: Details: History of Present Illness The patient is a 59-year-old female presenting with back pain after fall-induced lumbar compression fractures. The patient's pain, localized to the lower back, has significantly increased since a fall down six stairs in May. An MRI from last month detailed acute and subacute compression deformities at L2 and L4. The patient's pain rating varies from 8 to 9 out of 10, affecting sleep and daily activities. Previously tried medications include oxycodone and tramadol, offering slight relief. The patient's medical history is significant for osteoporosis, with past recommendations for DEXA scan follow-up. The impact is substantial, limiting her functional capacity. Pain Description - Onset and Timing: Aggravated by fall in May. - Quality and Character: Severe pain, rated 8 to 9 out of 10. - Primary Location: Lower back. - Areas of Radiation: Pain reported in back, neck, knees, feet, and head. - Exacerbating Factors: Physical activity. - Relieving Factors: Moderate relief with oxycodone and tramadol. - Interfering Activities: Sleep and ability to perform activities of daily living affected. Physical Exam - Musculoskeletal- Tenderness to palpation over the L2 and L4 spinous processes. Results - MRI of Lumbar Spine: Acute, subacute compression deformities at L2 and L4. - DEXA Scan: Osteoporosis with a T-score of -2.8 at the femoral neck. Pain Management - Affect: Pain affecting patient's mood and daily functioning. - Analgesia: Current medications include tramadol. Pain level at 8-9/10. - Adverse Effects: None reported. - Activities of Daily Living: Pain severely impacts sleep and functions. - Aberrant Drug-Related Behaviors: Concern regarding historical management noted. [facility] Medical History Asthma COPD exacerbation Nicotine dependence, cigarettes, uncomplicated Osteopenia (~2018) Hypertensive retinopathy of both eyes Tubular adenoma of colon (~2020) Post covid-19 condition, unspecified (~06/2021) Delayed gastric emptying PTSD (post-traumatic stress disorder) HTN (hypertension) Depression COPD (chronic obstructive pulmonary disease) Cigarette nicotine dependence History of cocaine abuse History of alcohol abuse Nausea Post concussive syndrome (~2019) Fibromyalgia Psoriasis Psoriatic arthritis Facial trauma Surgical History History of right breast biopsy History of cranial surgery History of colonoscopy History of foot surgery History of foot surgery Family History Father Family history of diabetes mellitus Medical history non-contributory Maternal Grandmother Rectal cancer Maternal Grandfather Stomach cancer Family/Other Bone cancer Mother Breast cancer Social History Household Members: Spouse Housing: Apartment Are you a primary healthcare administration intern to a significant other at home: No Do you presently have visiting nurse or other home services: No Alcohol intake: current Alcohol intake frequency: holidays/special occasions only Patient Tobacco Use Status: Current everyday Tobacco user Tobacco use type: Cigarette Cigarette Packs Per Day: 0.25 Cigarettes Per Day: 1 Years Smoked: (onset 11yo, x 46yrs, max 1ppd, now 1/2ppd - 30pyh) e-Cigarette/Vaping Use: Never Used Second Hand Smoke Exposure: Yes Substance Use Type: Marijuana service: No Current occupational status: disabled Cognitive needs: No Hearing needs: No Vision needs: No Physical Exam Vital Signs: Last Vital Signs Pulse 75 10/27/24 10:56 Resp 16 10/27/24 10:56 BP 124/64 10/27/24 10:56 Pulse Ox 98 10/27/24 10:56 Oxygen Delivery Method Room Air 10/27/24 10:56 BMI result Body Mass Index 26.0 Assessment & Plan Assessment & Plan (1) Osteoporosis: Code(s): M81.0 - Age-related osteoporosis without current pathological fracture Category: Medical Qualifiers: Osteoporosis type: age-related Presence of current pathological fracture: without current pathological fracture Qualified Code(s): M81.0 - Age-related osteoporosis without current pathological fracture (2) Osteoporotic compression fracture of spine with delayed healing: Code(s): M80.88XG - Other osteoporosis with current pathological fracture, vertebra(e), subsequent encounter for fracture with delayed healing Category: Medical Plan Plan - Kyphoplasty for L2 and L4 fractures. - One-time tramadol prescription for pain relief. - Follow-up DEXA scan ordered per endocrinology recommendation from last year. - Insurance authorization for kyphoplasty. - Coordinate with endocrinology post-procedure. Patient was informed and verbally consented to the use of an ambient scribe for clinic note documentation during this visit. Discussion Notes I discussed the condition of lumbar compression fractures and the available management strategies with the patient. A kyphoplasty procedure was recommended, entailing minimally invasive surgery to alleviate fractures at L2 and L4, which will involve the insertion of a balloon and cement in the vertebral body. I detailed the procedure's goals, benefits including reduction of pain, and possible complications. Tramadol prescription was issued to manage acute discomfort until the procedure. Discussions included the need for insurance authorization and subsequent placement scheduling. Coordination was advised for continued osteoporosis management via follow-up DEXA scan and endocrinology consultation. Patient Instructions - Undergo the kyphoplasty procedure as soon as scheduled. - Take prescribed tramadol only as directed for pain relief. - Complete follow-up DEXA scan as scheduled. - Monitor for any new symptoms or increased pain and report immediately. - Follow up with the social worker health services regarding osteoporosis management. Orders: Orders XR DEXA axial skeleton 10/27/24 M81.0 - Age-related osteoporosis without current pathological fracture, S32.000A - Wedge compression fracture of unspecified lumbar vertebra, initial encounter for closed fracture Coding Level of Care Code New Pt Level 4 (12483) Diagnoses Age-related osteoporosis without current pathological fracture M81.0 Osteoporosis type: age-related Presence of current pathological fracture: without current pathological fracture Osteoporotic compression fracture of spine with delayed healing M80.88XG
[2024-10-27 10:56] VITALS: BP 124/64; PULSE 75; RESP 16; O2SAT 98; BMI 26.0
== END 2024-10-27 11:28 | disposition home or self-care (01) ==
LOC: HO.PMC 10:40
PROVIDERS: PCP Nurse Practitioner Family; Visit Provider Internal Medicine
DX: M80.88XG Other osteoporosis with current pathological fracture, vertebra(e), subsequent encounter for fracture with delayed healing (principal)
CPT/HCPCS: 99204

== ENCOUNTER → 2024-10-27 10:39 | Outpatient (BNVA) | payer OTHER, SELFPAY | PROVIDERS: PCP Nurse Practitioner Family; Visit Provider Internal Medicine | DX: M81.0 Age-related osteoporosis without current pathological fracture (principal); M80.88XG Other osteoporosis with current pathological fracture, vertebra(e), subsequent encounter for fracture with delayed healing | CPT/HCPCS: 99202 ==

== ENCOUNTER 2024-11-18 13:29 | Outpatient (AMB) | payer OTHER, SELFPAY ==
[2024-11-18 13:34] VITALS: BP 130/88; PULSE 94; O2SAT 97; BMI 21.1
--- NOTE | 2024-11-18 13:34 | MHC.OFFVIS ---
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 Required: No Allergies gabapentin [GABAPENTIN] Allergy (Mild, Verified 11/18/24 13:50) SWELLING pregabalin [From LYRICA] Allergy (Mild, Verified 11/18/24 13:50) AGITATION, swelling, SWELLING Medication List - Last Reconciled 11/18/24 by Rome Parekh MD amitriptyline 50 mg PO BEDTIME azelastine 2 sprays intranasal BID 30 days npjxacpmqm-wpuhcqhzqvehv-ajja 50-325-40 mg 1 tab PO Q6H PRN calcium citrate 250 mg PO DAILY cholecalciferol (vitamin D3) 50 mcg PO DAILY clonazepam 1 mg PO BID PRN 30 days cyclobenzaprine 10 mg PO BID PRN 30 days famotidine 20 mg PO BEDTIME fluoride (sodium) 1.1% (Denta 5000 Plus) 1 appl PO DAILY fluticasone furoate-vilanterol 200-25 mcg/dose (Breo Ellipta) 1 inh inhalation DAILY 30 days galcanezumab-gnlm (Emgality Pen) 120 mg subcut ONCE 30 days hydroxyzine HCl 50 mg PO BID PRN ipratropium-albuterol 0.5 mg-3 mg(2.5 mg base)/3 mL 3 mL inhalation .prn 30 days ipratropium-albuterol 20-100 mcg/actuation (Combivent Respimat) 1 puff inhalation Q6H 30 days ixekizumab (Taltz Autoinjector) 80 mg subcut Q4W lidocaine 4% 2 patches topical Q24H 30 days lidocaine 5% 1 patch topical DAILY Magic Mouthwash Diphen/Nystat/Antacid 1:1:1 10 mL PO .every 6 hours omeprazole 40 mg PO DAILY ondansetron 8 mg PO Q12H PRN 30 days oxycodone-acetaminophen 5-325 mg (Percocet) 1 tab PO Q8H PRN 4 days polyethylene glycol 3350 (Miralax) 17 grams PO DAILY PRN propranolol 20 mg PO BID riboflavin (vitamin B2) 400 mg PO DAILY 30 days tramadol 50 mg PO BID PRN trazodone 100 mg (2 x 50 mg) PO BEDTIME PRN ubrogepant (Ubrelvy) 50 - 100 mg (0.5 - 1 x 100 mg) PO ONCE PRN 30 days Do you need a note to return to daycare/school/sports/work: No HPI HPI COPD: Details: JAX, 59 YEARS OLD FEMALE,, WITH MULTIPLE COMORBIDITIES AND ADVANCED CHRONIC ASTHMA/COPD SYNDROME, COMES FOR ROUTINE FOLLOW-UP AFTER 3 MONTHS. BREATHING QUIROZ HAS BEEN RELATIVELY STABLE IN THE LAST 3 MONTHS. LUCKILY SHE DID NOT HAVE TO TAKE ANY ORAL PREDNISONE. SHE IS DEPENDING MORE ON COMBIVENT RESPIMAT THE RESCUE INHALER, BECAUSE SHE CAN NOT USE THE DUONEB UPDRAFTS DUE TO USE DENTAL SURGERY AND SO FOR GUMS. SMOKING 3 CIGARETTES A DAY., THIS IS BETTER THAN BEFORE . MAIN COMPLAINT IS ABOUT THE BACK PAIN KNEES PAIN GENERAL WEAKNESS DIFFICULTY IN WALKING AROUND. [facility] Medical History Asthma COPD exacerbation Nicotine dependence, cigarettes, uncomplicated Osteopenia (~2018) Hypertensive retinopathy of both eyes Tubular adenoma of colon (~2020) Post covid-19 condition, unspecified (~06/2021) Delayed gastric emptying PTSD (post-traumatic stress disorder) HTN (hypertension) Depression COPD (chronic obstructive pulmonary disease) History of cocaine abuse History of alcohol abuse Nausea Post concussive syndrome (~2019) Fibromyalgia Psoriasis Psoriatic arthritis Facial trauma Surgical History History of right breast biopsy History of cranial surgery History of colonoscopy History of foot surgery History of foot surgery Family History Father Family history of diabetes mellitus Medical history non-contributory Maternal Grandmother Rectal cancer Maternal Grandfather Stomach cancer Family/Other Bone cancer Mother Breast cancer Social History Household Members: Spouse Housing: Apartment Are you a primary multi care technician to a significant other at home: No Do you presently have visiting nurse or other home services: No Alcohol intake: current Alcohol intake frequency: holidays/special occasions only Patient Tobacco Use Status: Current everyday Tobacco user Tobacco use type: Cigarette Cigarette Packs Per Day: 0.25 Cigarettes Per Day: 1 Years Smoked: (onset 11yo, x 46yrs, max 1ppd, now 1/2ppd - 30pyh) e-Cigarette/Vaping Use: Never Used Second Hand Smoke Exposure: Yes Substance Use Type: Marijuana service: No Current occupational status: disabled Cognitive needs: No Hearing needs: No Vision needs: No Review of Systems Const All systems reviewed & are unremarkable except as noted in HPI and below Reports headache(s) Eyes Reports no additional complaints ENT Reports headache(s) and Reports nasal congestion (MILD OFF AND ON) Card Denies chest pain, Denies irregular heart rhythm and Denies leg edema Resp Reports as per HPI GI Reports no additional complaints, Reports heartburn and Reports nausea Reports no additional complaints Musc Reports back pain Skin/Breast Reports system reviewed and no additional complaints, except as documented Neuro Reports headache(s) and Reports memory loss (Has had post concussion syndrome) Psych Reports anxiety (Mild chronic), Reports depression (Mild) and Reports memory loss (Has had post concussion syndrome) Physical Exam Vital Signs: Last Vital Signs Pulse 94 11/18/24 13:34 BP 130/88 11/18/24 13:34 Pulse Ox 97 11/18/24 13:34 Oxygen Delivery Method Room Air 11/18/24 13:34 BMI result Body Mass Index 21.1 Const General: comfortable, no acute distress, alert and awake Orientation/consciousness: patient oriented x3 HEENT Head: Yes normal to inspection General nose exam: No nasal polyps present and No nasal discharge present Face and sinus: Yes sinuses nontender Mouth: oropharynx normal Throat: Yes posterior oropharynx normal Eyes General: appearance normal, both eyes and all related structures Neck Neck: Yes normal visual inspection, Yes no lymphadenopathy, Yes trachea midline and Yes no JVD Thyroid: Thyroid normal Chest Chest palpation & inspection: normal inspection of the chest, normal palpation of entire chest wall and no tenderness Resp Other: Percussion note is resonant . Breath sounds are distant , There are no wheezes or rhonchi today. Cardio Palpation: normal PMI Rate: regular rate Rhythm: regular rhythm Heart sounds: no gallops and no murmurs GI Palpation (GI): Soft to palpation, Tenderness to palpation present (GI), No hepatosplenomegaly present and Palpable mass present Auscultation: normal bowel sounds Back/Spine/Pelvis Thoracic/Lumbar Spine: thoracic and lumbar spine normal to inspection and other (BACK IS VERY STIFF AND TENDER TO TOUCH) Skin General skin exam: no rashes or lesions noted Neuro General: patient oriented x3 and no focal motor deficits Cranial nerves: Yes CN's II-XII intact bilaterally Extrem General: Yes normal to inspection, Yes no clubbing, cyanosis or edema and Yes no calf tenderness Psych Speech and movement: Normal speech and movement present Assessment & Plan Assessment & Plan (1) Pulmonary nodule 1 cm or greater in diameter: Comment: SHE HAS A FEW TINY BASILAR NODULES, MAXIMUM SIZE [address] SCAN IN DECEMBER 2023, DID NOT SHOW ANY LARGE PULMONARY NODULE. Code(s): R91.1 - Solitary pulmonary nodule Category: Medical Plan: CONTINUE ANNUAL LUNG SCREENING WITH LDCT. (2) Nicotine dependence, cigarettes, uncomplicated: Comment: (current smoker, 1ppd x 46yrs, now 1/2ppd - 30pyh).says she has reduced to 2-3 cigarettes a day Code(s): F17.210 - Nicotine dependence, cigarettes, uncomplicated Category: Medical Plan: AGAIN DISCUSSED WITH HER THAT THE BEST THING IS TO QUIT SMOKING COMPLETELY. FOR THE TIME BEING TRY TO CUT DOWN TO NO MORE THAN 2 CIGARETTES A DAY. (3) Asthma: Comment: PATIENT DOES HAVE FEATURES OF CHRONIC ASTHMA/COPD. PULMONARY FUNCTION TEST DID NOT SHOW ANY SIGNIFICANT ABNORMALITY EXCEPT FOR MILD DECREASE IN FEF 25-75 CLINICALLY I THINK SHE HAS BRONCHIAL ASTHMA , WITH FREQUENT FLARE UPS. CURRENTLY SHE IS NOT TAKING ANY PREDNISONE P.O. . Code(s): J45.909 - Unspecified asthma, uncomplicated Category: Medical Plan: CONTINUE BREO ELLIPTA 200-251 INHALATION DAILY. COMBIVENT RESPIMAT 1 INHALATION Q 4-6 HOURS P.R.N. ( SHE IS CURRENTLY USING ABOUT TWICE A DAY) WHEN SHE CAN NOT TOLERATE SHE CAN GO TO IPRATROPIUM-ALBUTEROL SOLUTION IN THE NEBULIZER Q 6 HOURS P.R.N.. Coding Level of Care Code Est Pt Level 3 (33386) Diagnoses Pulmonary nodule 1 cm or greater in diameter R91.1 Nicotine dependence, cigarettes, uncomplicated F17.210 Asthma J45.909
== END 2024-11-18 13:50 | disposition home or self-care (01) ==
LOC: HO.HPS 13:30
PROVIDERS: PCP Nurse Practitioner Family; Visit Provider Internal Medicine
DX: R91.1 Solitary pulmonary nodule (principal); F17.210 Nicotine dependence, cigarettes, uncomplicated; J45.909 Unspecified asthma, uncomplicated
CPT/HCPCS: 99213

== ENCOUNTER → 2024-11-18 13:29 | Outpatient (BNVA) | payer OTHER, SELFPAY | PROVIDERS: PCP Nurse Practitioner Family; Visit Provider Internal Medicine | DX: J44.9 Chronic obstructive pulmonary disease, unspecified (principal); R91.1 Solitary pulmonary nodule; F17.210 Nicotine dependence, cigarettes, uncomplicated | CPT/HCPCS: 99212 ==

== ENCOUNTER 2024-11-24 14:00 | Outpatient (AMB) | payer OTHER, SELFPAY ==
[2024-11-24 14:05] VITALS: BMI 21.1
--- NOTE | 2024-11-24 14:05 | MHC.OFFVIS ---
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 Intake Note: Anne is a 59 year old female who presents today as a new patient for an evaluation of right knee. MRI done at [facility]. Patient reports that she took a fall down steps in May of 2024. In July of 2024 her pain increased, she has swelling with increased activity and descending stairs.No previous therapy or injection history. Has been seen with Pain Mgmt for a compression fracture of her Lumbar spine. 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: Details: Anne is a 59 year old female who presents today as a new patient for an evaluation of right knee. MRI done at [facility]. Patient reports that she took a fall down steps in May of 2024. In July of 2024 her pain increased, she has swelling with increased activity and descending stairs.No previous therapy or injection history. Has been seen with Pain Mgmt for a compression fracture of her Lumbar spine. Her knee is occasionally bothersome but her primary complaint seems to be back pain. She is very upset if she feels like pain management has not called her back and she is suffering and pain. Her history around her right knee is vague. She states she has pain with ambulation and going up and downstairs and can not clearly tell me what makes it worse or better. [facility] Medical History Asthma COPD exacerbation Nicotine dependence, cigarettes, uncomplicated Osteopenia (~2018) Hypertensive retinopathy of both eyes Tubular adenoma of colon (~2020) Post covid-19 condition, unspecified (~06/2021) Delayed gastric emptying PTSD (post-traumatic stress disorder) HTN (hypertension) Depression COPD (chronic obstructive pulmonary disease) History of cocaine abuse History of alcohol abuse Nausea Post concussive syndrome (~2019) Fibromyalgia Psoriasis Psoriatic arthritis Facial trauma Surgical History History of right breast biopsy History of cranial surgery History of colonoscopy History of foot surgery History of foot surgery Family History Father Family history of diabetes mellitus Medical history non-contributory Maternal Grandmother Rectal cancer Maternal Grandfather Stomach cancer Family/Other Bone cancer Mother Breast cancer Social History Household Members: Spouse Housing: Apartment Are you a primary director of health care marketing to a significant other at home: No Do you presently have visiting nurse or other home services: No Alcohol intake: current Alcohol intake frequency: holidays/special occasions only Patient Tobacco Use Status: Current everyday Tobacco user Tobacco use type: Cigarette Cigarette Packs Per Day: 0.25 Cigarettes Per Day: 1 Years Smoked: (onset 11yo, x 46yrs, max 1ppd, now 1/2ppd - 30pyh) e-Cigarette/Vaping Use: Never Used Second Hand Smoke Exposure: Yes Substance Use Type: Marijuana service: No Current occupational status: disabled Cognitive needs: No Hearing needs: No Vision needs: No Physical Exam Vital Signs: BMI result Body Mass Index 21.1 Extrem Other: On exam her right knee is without effusion. She has a negative Mamadou's. She has 0-125 degrees of motion. Stable to varus/valgus stress. She walks with stiff legged unsteady gait. Office Procedures Joint Inj/Aspir; Non-Pain Clin Joint Injection/Drain Details: Injected 1 mL of Decadron and 3 mL 1% lidocaine and 3 mL of 0.25% Marcaine. Site was prepped using aseptic technique. Patient tolerated the procedure well. Shoulders, Hips, Knees, Knee Large Joint Injection [id number]: Right Knee Coding Procedure code (CPT) selection complete Results Reviewed Results Reviewed: I personally reviewed relevant radiographs. IMPRESSION: 1. Moderate to large bone contusion involving the anterior aspect of the lateral tibial plateau. 2. Moderate osteoarthritis of the patellofemoral compartment. Mild osteoarthritis of the lateral compartment. 3. Horizontal tear of the lateral meniscus. Assessment & Plan Assessment & Plan (1) Contusion of bone: Code(s): T14.8XXA - Other injury of unspecified body region, initial encounter Category: Medical Plan: 59-year-old woman with a lateral bone contusion that is been present for least 4 months. She has moderate to mild tenderness over the lateral plateau so I suspect this improving. There is no surgical management for this problem at this time. She has a ongoing continued compression fractures with pain of the lumbar spine which is consistent with her knee injury. I do suspect that she has pretty poor bone health. I discussed this with her. She has what she considers to be a traumatic brain injury and so I think surgical management of her right knee is complicated in contraindicated. I injected her right knee. Hopefully this will be helpful to her. (2) Lateral meniscus tear: Code(s): S83.289A - Other tear of lateral meniscus, current injury, unspecified knee, initial encounter Category: Medical Plan: There is a degenerative posterolateral meniscus tear which does not seem to be causing symptoms. It is adjacent to the area of bony injury and so again surgical intervention would be unlikely to ameliorate her symptoms. I discussed this with her. She expressed understanding. Coding Level of Care Code New Pt Level 4 (49198) Diagnoses Contusion of bone T14.8XXA Lateral meniscus tear S83.289A CPT Codes Shoulders, Hips, Knees, - Knee Large Joint Injection : Right Knee ([id number])
--- OUTSIDE RECORDS SUMMARY | 2024-11-24 15:16 | XMS_ITS | Patient Health Record ---
Author Organization [facility] Address [address] [place] [address] Care Team Providers Care Per Diem Physical Therapist Name Role Phone Maddy Cruz MD Primary Care Provider Unavailab Frannie Caicedo Unavailable [phone] Reason For Referral No Information Medications Medication SIG (Take, Route, Fr equency, Duration) Notes Start Date End Date Status Multivitamin & Mineral as directed Orally Active Percocet 5-325 MG 1 tablet as needed O rally every 6 hrs Active Zoloft 25 MG 1 tablet Orally Once a day for 30 day(s) Active Calcium 150 MG as directed Orally Active KlonoPIN 0.5 MG 0.5 tablet Orally Twice a day Active Social History Alcohol Screen Question Answer Notes Did you have a drink containing alcohol in the p ast year? Yes Points 0 Interpretation Negative Problems Problem Type SNOMED Code ICD Code Onset Dates Problem Status W/U Status Risk Notes Problem Hallux valgus ([id number]) Hallux Valgus (735.0) Active confirmed Problem Hammer toe ([id number]) Hammer toe (735.4) Active confirmed Problem Neuralgia - Neuritis (729.2) Active confirmed Plan Of Treatment No Information Insurance Providers Payer Name Payer Address Payer Phone Subscriber Number Group Number Insured Name Patient Relationship to Insured Coverage Start Date Coverage End Date Mikhail All Others [address] [place] [address] [id number] XochitlRoseannaa Self - patient is the insured Medical (General) History Medical History History ICD Code psychiatric disorder neuropathy headaches/migraines chicken pox back, hip, knee pain asthma Anxiety disorder Surgical History Surgery Date(Month/Year) breast biopsy lumpectomy
== END 2024-11-24 15:01 | disposition home or self-care (01) ==
LOC: HO.HOS 14:01
PROVIDERS: PCP Nurse Practitioner Family; Visit Provider Orthopaedic Surgery
DX: S83.281A Other tear of lateral meniscus, current injury, right knee, initial encounter (principal); T14.8XXA Other injury of unspecified body region, initial encounter
CPT/HCPCS: 20610; 99204

== ENCOUNTER → 2024-11-24 14:00 | Outpatient (BNVA) | payer OTHER, SELFPAY | PROVIDERS: PCP Nurse Practitioner Family; Visit Provider Orthopaedic Surgery | DX: S83.281A Other tear of lateral meniscus, current injury, right knee, initial encounter (principal); T14.8XXA Other injury of unspecified body region, initial encounter; X58.XXXA Exposure to other specified factors, initial encounter; Y93.9 Activity, unspecified; Y92.9 Unspecified place or not applicable; Y99.9 Unspecified external cause status | CPT/HCPCS: 20610; 99202; J0665; J1100; J2003 ==

== ENCOUNTER 2024-11-26 13:56 | Outpatient (AMB) | payer OTHER, SELFPAY ==
--- OUTSIDE RECORDS SUMMARY | 2024-11-26 14:01 | XMS_ITS | Patient Health Record ---
Author Organization [facility] Address [address] [place] [address] Care Team Providers Care Pharmacy District Manager Name Role Phone Maddy Cruz MD Primary Care Provider Unavailab Frannie Caicedo Unavailable [phone] Reason For Referral No Information Medications Medication [...] W/U Status Risk Notes Problem Hallux valgus ([id number]) Hallux Valgus (735.0) Active confirmed Problem Hammer toe ([id number]) Hammer toe (735.4) Active confirmed Problem Neuralgia - Neuritis (729.2) Active confirmed Plan Of Treatment No Information Insurance Providers Payer Name Payer Address Payer Phone Subscriber Number Group Number Insured Name Patient Relationship to Insured Coverage Start Date Coverage End Date Mikhail All Others [address] [place] [address] [id number] XochitlRoseannaa Self - patient is the insured Medical (General) History Medical History History ICD Code psychiatric disorder neuropathy headaches/migraines chicken pox back, hip, knee pain asthma Anxiety disorder Surgical History Surgery Date(Month/Year) breast biopsy lumpectomy
--- NOTE | 2024-11-26 14:04 | MHC.OFFVIS ---
Vital Signs 11/26/24 14:05 Height 5 ft 7 in Weight 140 lb 14.006 oz BMI 22.1 BP 112/66 Blood Pressure Location Lt brachial Position Sitting Pulse 77 Pulse Source Pulse Oximeter Pulse Oximetry (%) 93 Oxygen Delivery Method Room Air Intake Visit Reasons: Osteoporosis/discuss Fosamax Intake Note: Patient present today to discuss Osteoporosis and Fosamax. 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 Compressor Engineer Required: No Accompanied by: Self / Same As Patient Allergies gabapentin [GABAPENTIN] Allergy (Mild, Verified 11/26/24 14:09) SWELLING pregabalin [From LYRICA] Allergy (Mild, Verified 11/26/24 14:09) AGITATION, swelling, SWELLING Medication List - Last Reconciled 11/26/24 by Natalio Gayle MD amitriptyline 50 mg PO BEDTIME azelastine 2 sprays intranasal BID 30 days sfdnqtazgl-zhnjaogyicllf-numn 50-325-40 mg 1 tab PO Q6H PRN calcium citrate 250 mg PO DAILY cholecalciferol (vitamin D3) 50 mcg PO DAILY clonazepam 1 mg PO BID PRN 30 days cyclobenzaprine 10 mg PO BID PRN 30 days famotidine 20 mg PO BEDTIME fluoride (sodium) 1.1% (Denta 5000 Plus) 1 appl PO DAILY fluticasone furoate-vilanterol 200-25 mcg/dose (Breo Ellipta) 1 inh inhalation DAILY 30 days galcanezumab-gnlm (Emgality Pen) 120 mg subcut ONCE 30 days hydroxyzine HCl 50 mg PO BID PRN ipratropium-albuterol 0.5 mg-3 mg(2.5 mg base)/3 mL 3 mL inhalation .prn 30 days ipratropium-albuterol 20-100 mcg/actuation (Combivent Respimat) 1 puff inhalation Q6H 30 days ixekizumab (Taltz Autoinjector) 80 mg subcut Q4W lidocaine 4% 2 patches topical Q24H 30 days lidocaine 5% 1 patch topical DAILY [LSO [place] LSO ] Magic Mouthwash Diphen/Nystat/Antacid 1:1:1 10 mL PO .every 6 hours omeprazole 40 mg PO DAILY ondansetron 8 mg PO Q12H PRN 30 days oxycodone-acetaminophen 5-325 mg (Percocet) 1 tab PO Q8H PRN 4 days polyethylene glycol 3350 (Miralax) 17 grams PO DAILY PRN propranolol 20 mg PO BID riboflavin (vitamin B2) 400 mg PO DAILY 30 days tramadol 50 mg PO BID PRN trazodone 100 mg (2 x 50 mg) PO BEDTIME PRN ubrogepant (Ubrelvy) 50 - 100 mg (0.5 - 1 x 100 mg) PO ONCE PRN 30 days HPI Comments Details: 59 YO F with is seen in consultation at the request of PCP for Osteoporosis. First diagnosed in couple of mos ago . Never Received treatment in the past No history of pathologic fracture or ONJ. Has several servings of dietary calcium per day in the form ofmilk and cheese . Not Takes Calcium supplement Took 5000 IU of Vitamin D dailyup to couple of days ago Takes PPI, anticoagulant, antiepileptic or glucocorticoid medication. Does weight bearing exercise 7 days per week in the form of push- ups . 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 UTD on dental cleanings and sees dentist every 6 months. No planned upcoming dental work or extractions. Current tabacco use 1/2 ppd /day Has hot flashes . Had precancerous breast cancer DXA dated : TScore in L femoral neck =-2.8 T-Score L-S =-1.1 Labs: Secondary workup was negative. Recent MRI of the spine showed subacute compression fracture The patient is a 59-year-old female presenting with osteoporosis with recent vertebral compression fractures. She has experienced two such fractures, leading to increased concern regarding her bone integrity and strength. Her osteoporosis was previously found to be borderline based on past bone density assessments. The patient reports a past diagnosis of precancerous breast cells, though she did not receive radiation therapy, and recalls a history of traumatic brain injury contributing to memory issues. Her insurance, [employer], makes obtaining certain medications challenging due to cost concerns. The focus of the current evaluation is on adjusting the osteoporosis management plan following these recent fractures. [facility] Medical History Asthma COPD exacerbation Nicotine dependence, cigarettes, uncomplicated Osteopenia (~2018) Hypertensive retinopathy of both eyes Tubular adenoma of colon (~2020) Post covid-19 condition, unspecified (~06/2021) Delayed gastric emptying PTSD (post-traumatic stress disorder) HTN (hypertension) Depression COPD (chronic obstructive pulmonary disease) History of cocaine abuse History of alcohol abuse Nausea Post concussive syndrome (~2019) Fibromyalgia Psoriasis Psoriatic arthritis Facial trauma Surgical History History of right breast biopsy History of cranial surgery History of colonoscopy History of foot surgery History of foot surgery Family History Father Family history of diabetes mellitus Medical history non-contributory Maternal Grandmother Rectal cancer Maternal Grandfather Stomach cancer Family/Other Bone cancer Mother Breast cancer Social History Household Members: Spouse Housing: Apartment Are you a primary care coordination manager to a significant other at home: No Do you presently have visiting nurse or other home services: No Alcohol intake: current Alcohol intake frequency: holidays/special occasions only Patient Tobacco Use Status: Current everyday Tobacco user Tobacco use type: Cigarette Cigarette Packs Per Day: 0.25 Cigarettes Per Day: 1 Years Smoked: (onset 11yo, x 46yrs, max 1ppd, now 1/2ppd - 30pyh) e-Cigarette/Vaping Use: Never Used Second Hand Smoke Exposure: Yes Substance Use Type: Marijuana service: No Current occupational status: disabled Cognitive needs: No Hearing needs: No Vision needs: No Physical Exam Vital Signs: Last Vital Signs Pulse 77 11/26/24 14:05 BP 112/66 11/26/24 14:05 Pulse Ox 93 11/26/24 14:05 Oxygen Delivery Method Room Air 11/26/24 14:05 BMI result Body Mass Index 22.1 Assessment & Plan Assessment & Plan (1) Osteoporosis: Code(s): M81.0 - Age-related osteoporosis without current pathological fracture Category: Medical Qualifiers: Osteoporosis type: age-related Presence of current pathological fracture: without current pathological fracture Qualified Code(s): M81.0 - Age-related osteoporosis without current pathological fracture Plan: This is a 57-year-old white female with a history of osteoporosis. Negative secondary workup. Had a recent compression fracture of the lumbar spine 1. Osteoporosis with Vertebral Compression Fractures I plan to initiate a more aggressive osteoporosis treatment regimen due to recent fractures. Evenity is recommended as the primary choice, with efforts to obtain insurance approval. Should this fail, Tymlos o Forteo will be considered. Follow-up is planned in six weeks to assess the effectiveness of the treatment. 3. Dementia Caregiver involvement is essential due to memory concerns. Education will be provided to both the patient and her caregiver. In addition, Evenity revealed a choice as anabolic then Tymlos or Forteo because the patient would be administered the Evenity in the office as opposed to self administering the patient has memory problems I discussed with the patient the significance of her recent vertebral compression fractures and the necessity for a more aggressive osteoporosis treatment approach. Therapy options were evaluated, highlighting Evenity for its potential to enhance bone density and reduce fracture risk, followed by maintenance with alendronate. Forteo was considered as an alternative. Challenges with insurance regarding medication approval were reviewed, including potential legal recourse options. The importance of adhering to the prescribed treatment regimen was emphasized. I also advised including her in discussions due to her cognition concerns. A six-week follow-up was planned, and the need for continued calcium and vitamin D supplementation was reinforced. - Begin calcium and vitamin D supplementation as recommended. - Be aware of the need for potential treatment adjustments due to recent fractures. - Discuss any insurance issues with [facility] as we attempt to obtain medication authorization. - Notify the office if there are concerns with adherence to the osteoporosis management plan. - The patient had an opportunity to ask questions regarding treatment plan. The patient expressed understanding and agreement with the above treatment plan. Patient was informed and verbally consented to the use of an ambient scribe for clinic note documentation during this visit. Medications: New romosozumab-aqqg (Evenity) 210 mg (2.34 mL) subcut .q mo 2.34 mL 11RF Coding Level of Care Code Est Pt Level 3 (90063) Diagnoses Age-related osteoporosis without current pathological fracture M81.0 Osteoporosis type: age-related Presence of current pathological fracture: without current pathological fracture
[2024-11-26 14:05] VITALS: BP 112/66; PULSE 77; O2SAT 93; BMI 22.1
== END 2024-11-26 14:45 | disposition home or self-care (01) ==
LOC: HO.ENCR 13:57
PROVIDERS: PCP Nurse Practitioner Family; Visit Provider Internal Medicine Endocrinology, Diabetes & Metabolism
DX: M81.0 Age-related osteoporosis without current pathological fracture (principal)
CPT/HCPCS: 99213

== ENCOUNTER → 2024-11-26 13:56 | Outpatient (BNVA) | payer OTHER, SELFPAY | PROVIDERS: PCP Nurse Practitioner Family; Visit Provider Internal Medicine Endocrinology, Diabetes & Metabolism | DX: M81.0 Age-related osteoporosis without current pathological fracture (principal) | CPT/HCPCS: 99212 ==

== ENCOUNTER 2024-12-03 11:28 | Outpatient (REF) | payer OTHER, SELFPAY ==
--- NOTE | ~2024-12-03 | MM_ITS ---
EXAMINATION: DXA BONE DENSITY AXIAL HISTORY: S32.000A - Wedge compression fracture of unspecified lumbar vertebra, in... TECHNIQUE: [employer] Dual energy absorptiometry (DEXA) of the lumbar spine, total left hip, and femoral neck was performed. COMPARISON: Comparison is made with the prior examination dated 11/30/2022. FINDINGS: The bone mineral density of the lumbar spine is 1.003, corresponding to a T-score of -1.5, and a Z-score of -0.4. This is indicative of osteopenia. This represents a BMD change of -4.2% compared to the prior exam. This is statistically significant. The bone mineral density of the left total hip is 0.818, corresponding to a T-score of -1.5, and a Z-score of -0.7. This is indicative of osteopenia. This represents a BMD change of 5.3% compared to the prior exam. This is statistically significant. The bone mineral density of the left femoral neck is 0.748, corresponding to a T-score of -2.1, and a Z-score of -0.9. This is indicative of osteopenia. This represents a BMD change of 14.5% compared to the prior exam. FRACTURE RISK: The FRAX index suggests a ten year probability of major osteoporotic fracture of 18.0%, and of hip fracture 4.4%. MM/XR DEXA axial skeleton IMPRESSION: Based on bone mineral density, and according to World Health Organization (WHO) criteria, the diagnosis is consistent with osteopenia. All bone density values are in grams per centimeter squared (g/cm2). Statistically, 68% of repeat scans fall within 1 SD (+/- 0.010 g/cm2 for AP spine L1-L4) and 1 SD (+/- 0.012 g/cm2 for femur total) FRAX is a trademark of the [employer] Metabolic Bone Disease, a World Health Organization (WHO) Collaborating Center. Electronically signed by: Natalio Erickson MD 12/03/2024 01:29 PM EDT
--- OUTSIDE RECORDS SUMMARY | 2024-12-03 13:13 | XMS_ITS | Patient Health Record ---
Author Organization [facility] Address [address] [place] [facility] [place] [address] Care Team Providers Care Electrical Engineering Teacher Name Role Phone Maddy Cruz MD Primary Care Provider Unavailab Frannie Caicedo Unavailable [phone] Reason For Referral No Information Medications Medication [...] W/U Status Risk Notes Problem Hallux valgus ([id number]) Hallux Valgus (735.0) Active confirmed Problem Hammer toe ([id number]) Hammer toe (735.4) Active confirmed Problem Neuralgia - Neuritis (729.2) Active confirmed Plan Of Treatment No Information Insurance Providers Payer Name Payer Address Payer Phone Subscriber Number Group Number Insured Name Patient Relationship to Insured Coverage Start Date Coverage End Date Mikhail All Others [address] [place] [address] [id number] Xochitl Anne Self - patient is the insured Medical (General) History Medical History History ICD Code psychiatric disorder neuropathy headaches/migraines chicken pox back, hip, knee pain asthma Anxiety disorder Surgical History Surgery Date(Month/Year) breast biopsy lumpectomy
== END 2024-12-03 11:29 | disposition home or self-care (01) ==
LOC: HO.MAMMO 11:28
PROVIDERS: PCP Nurse Practitioner Family; Visit Provider Internal Medicine
DX: M81.0 Age-related osteoporosis without current pathological fracture (principal); S32.000D Wedge compression fracture of unspecified lumbar vertebra, subsequent encounter for fracture with routine healing
CPT/HCPCS: 77080

== ENCOUNTER → 2024-12-03 11:30 | Outpatient (BNV) | payer OTHER, SELFPAY | PROVIDERS: PCP Nurse Practitioner Family; Visit Provider Radiology Diagnostic Radiology | DX: E28.39 Other primary ovarian failure (principal) | CPT/HCPCS: 77080 ==

== ENCOUNTER 2024-12-10 09:15 | Outpatient (REF) | payer OTHER, SELFPAY ==
--- OUTSIDE RECORDS SUMMARY | 2024-12-10 10:07 | XMS_ITS | Patient Health Record ---
Author Organization [facility] Address [address] [place] [address] Care Team Providers Care Freelance Photographer Name Role Phone Maddy Cruz MD Primary Care Provider Unavailab Frannie Caicedo Unavailable [phone] Reason For Referral No Information Medications Medication [...] W/U Status Risk Notes Problem Hallux valgus ([id number]) Hallux Valgus (735.0) Active confirmed Problem Hammer toe ([id number]) Hammer toe (735.4) Active confirmed Problem Neuralgia - Neuritis (729.2) Active confirmed Plan Of Treatment No Information Insurance Providers Payer Name Payer Address Payer Phone Subscriber Number Group Number Insured Name Patient Relationship to Insured Coverage Start Date Coverage End Date Mikhail All Others [address] [place] [address] [phone] [id number] XochitlRoseannaa Self - patient is the insured Medical (General) History Medical History History ICD Code psychiatric disorder neuropathy headaches/migraines chicken pox back, hip, knee pain asthma Anxiety disorder Surgical History Surgery Date(Month/Year) breast biopsy lumpectomy
[2024-12-10 13:38] LABS: Alanine Aminotransferase 33 U/L (0-31); Albumin Level 4.4 g/dL (3.5-5.0); Alkaline Phosphatase 59 U/L (39-117); Anion Gap 8 (12-20); Aspartate Amino Transferase 31 U/L (5-31); Bilirubin Total 0.5 mg/dL (0.0-1.0); Blood Urea Nitrogen 14 mg/dL (9-16); Calcium 9.5 mg/dL (8.4-10.2); Carbon Dioxide 26 mmol/L (22-29); Chloride 108 mmol/L (96-108); Cholesterol 238 mg/dL (<200); Estimated Glomerular Filt Rate > 60; Glucose Fasting 105 mg/dL (60-99); HDL Cholesterol 53 mg/dL (>40); LDL Cholesterol Calculated 146 mg/dL (<100); Sodium 138 mmol/L (135-145); Total Protein 7.6 g/dL (6.5-8.0); Triglycerides 199 mg/dL (<150)
== END 2024-12-10 09:16 | disposition home or self-care (01) ==
LOC: HO.HMGCLDS 09:15
PROVIDERS: PCP Nurse Practitioner Family; Visit Provider Nurse Practitioner Family
DX: E78.5 Hyperlipidemia, unspecified (principal)
CPT/HCPCS: 36415; 80053; 80061

== ENCOUNTER 2024-12-24 13:48 | Outpatient (AMB) | payer OTHER, SELFPAY ==
--- NOTE | 2024-12-24 13:50 | A.OFFVIS_ITS ---
Vital Signs 12/24/24 13:56 Height 5 ft 6.81 in Weight 143 lb 4.807 oz BMI 22.6 BP 112/60 Blood Pressure Location Rt brachial Position Sitting Pulse 73 Pulse Source Pulse Oximeter Pulse Oximetry (%) 96 Oxygen Delivery Method Room Air Intake Visit Reasons: Osteoporosis/Forteo side effects Intake Note: Patient present today for Osteoporosis, has side effects to Forteo. C/o after 3 days of getting the injection her muscles and joints were painful and felt like she was hit by a truck . She states picking up her coffee cup was a challenge. 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 Accompanied by: Self / Same As Patient Allergies gabapentin (GABAPENTIN) Allergy (Mild, Verified 12/24/24 13:58) SWELLING pregabalin (From LYRICA) Allergy (Mild, Verified 12/24/24 13:58) AGITATION, swelling, SWELLING Medication List - Last Reconciled 12/24/24 by Natalio Gayle MD amitriptyline 50 mg PO BEDTIME atorvastatin (Lipitor) 10 mg PO BEDTIME 90 days azelastine 2 sprays intranasal BID 30 days zytptqnvmu-zetwxeawfseeg-xlwe 50-325-40 mg 1 tab PO Q6H PRN calcium citrate 250 mg PO DAILY cholecalciferol (vitamin D3) 50 mcg PO DAILY clonazepam 1 mg PO BID PRN 30 days cyclobenzaprine 10 mg PO BID PRN 30 days famotidine 20 mg PO BEDTIME fluoride (sodium) 1.1% (Denta 5000 Plus) 1 appl PO DAILY fluticasone furoate-vilanterol 200-25 mcg/dose (Breo Ellipta) 1 inh inhalation DAILY 30 days galcanezumab-gnlm (Emgality Pen) 120 mg subcut ONCE 30 days hydroxyzine HCl 50 mg PO BID PRN ipratropium-albuterol 0.5 mg-3 mg(2.5 mg base)/3 mL 3 mL inhalation .prn 30 days ipratropium-albuterol 20-100 mcg/actuation (Combivent Respimat) 1 puff inhalation Q6H ixekizumab (Taltz Autoinjector) 80 mg subcut Q4W lidocaine 4% 2 patches topical Q24H 30 days lidocaine 5% 1 patch topical DAILY [LSO [place] LSO ] Magic Mouthwash Diphen/Nystat/Antacid 1:1:1 10 mL PO .every 6 hours omeprazole 40 mg PO DAILY ondansetron 8 mg PO Q12H PRN 30 days oxycodone-acetaminophen 5-325 mg (Percocet) 1 tab PO Q8H PRN 4 days pen needle, diabetic (Comfort EZ Pen [place]) As directed daily for use with tymlos polyethylene glycol 3350 (Miralax) 17 grams PO DAILY PRN propranolol 20 mg PO BID riboflavin (vitamin B2) 400 mg PO DAILY 30 days teriparatide (Forteo) 20 mcg (0.08 mL) subcut DAILY tramadol 50 mg PO BID PRN trazodone 100 mg (2 x 50 mg) PO BEDTIME PRN ubrogepant (Ubrelvy) 50 - 100 mg (0.5 - 1 x 100 mg) PO ONCE PRN 30 days HPI Comments Details: 59 YO F with is seen in consultation at the request of PCP for Osteoporosis. First diagnosed in couple of mos ago . Never Received treatment in the past History of recent vertebral fractures prompted the start of Forteo Has several servings of dietary calcium per day in the form ofmilk and cheese . Not Takes Calcium supplement Took 5000 IU of Vitamin D dailyup to couple of days ago Takes PPI, anticoagulant, antiepileptic or glucocorticoid medication. Does weight bearing exercise 7 days per week in the form of push- ups . 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 UTD on dental cleanings and sees dentist every 6 months. No planned upcoming dental work or extractions. Current tabacco use 1/2 ppd /day Has hot flashes . Had precancerous breast cancer DXA dated : TScore in L femoral neck =-2.8 T-Score L-S =-1.1 Labs: Secondary workup was negative. Recent MRI of the spine showed subacute compression fracture The patient is a 59-year-old female presenting with osteoporosis with recent vertebral compression fractures. She has experienced two such fractures, leading to increased concern regarding her bone integrity and strength. Her osteoporosis was previously found to be borderline based on past bone density assessments. The patient reports a past diagnosis of precancerous breast cells, though she did not receive radiation therapy, and recalls a history of traumatic brain injury contributing to memory issues. Her insurance, [employer], makes obtaining certain medications challenging due to cost concerns. The focus of the current evaluation is on adjusting the osteoporosis management plan following these recent fractures. She started Forteo but is experiencing side effects The patient is a 59-year-old female presenting with adverse reactions to Teriparatide (Forteo) and management of osteoporosis. The patient started Teriparatide (Forteo) and experienced dizziness and severe muscle and joint pain by the third day of administration. She discontinued the medication after consulting with the clinic due to these side effects. The muscle aches persisted for three to four days after stopping the medication. The patient has a history of vertebral fractures, which necessitates the use of anabolic therapy to prevent further fractures. Insurance issues have complicated the approval of alternative medications such as Evenity, which is considered more potent but expensive. [facility] Medical History Asthma COPD exacerbation Nicotine dependence, cigarettes, uncomplicated Osteopenia (~2018) Hypertensive retinopathy of both eyes Tubular adenoma of colon (~2020) Post covid-19 condition, unspecified (~06/2021) Delayed gastric emptying PTSD (post-traumatic stress disorder) HTN (hypertension) Depression COPD (chronic obstructive pulmonary disease) History of cocaine abuse History of alcohol abuse Nausea Post concussive syndrome (~2019) Fibromyalgia Psoriasis Psoriatic arthritis Facial trauma Surgical History History of right breast biopsy History of cranial surgery History of colonoscopy History of foot surgery History of foot surgery Family History Father Family history of diabetes mellitus Medical history non-contributory Maternal Grandmother Rectal cancer Maternal Grandfather Stomach cancer Family/Other Bone cancer Mother Breast cancer Social History Household Members: Spouse Housing: Apartment Are you a primary transitional care nurse to a significant other at home: No Do you presently have visiting nurse or other home services: No Alcohol intake: current Alcohol intake frequency: holidays/special occasions only Patient Tobacco Use Status: Current everyday Tobacco user Tobacco use type: Cigarette Cigarette Packs Per Day: 0.25 Cigarettes Per Day: 1 Years Smoked: (onset 11yo, x 46yrs, max 1ppd, now 1/2ppd - 30pyh) e-Cigarette/Vaping Use: Never Used Second Hand Smoke Exposure: Yes Substance Use Type: Marijuana service: No Current occupational status: disabled Cognitive needs: No Hearing needs: No Vision needs: No Physical Exam Vital Signs: Last Vital Signs Pulse 73 12/24/24 13:56 BP 112/60 12/24/24 13:56 Pulse Ox 96 12/24/24 13:56 Oxygen Delivery Method Room Air 12/24/24 13:56 BMI result Body Mass Index 22.6 Assessment & Plan Assessment & Plan (1) Osteoporosis: Code(s): M81.0 - Age-related osteoporosis without current pathological fracture Category: Medical Qualifiers: Osteoporosis type: age-related Presence of current pathological fracture: without current pathological fracture Qualified Code(s): M81.0 - Age- related osteoporosis without current pathological fracture Plan: This is a 57-year-old white female with a history of osteoporosis. Negative secondary workup. Had a recent compression fracture of the lumbar spine 1. Osteoporosis The patient has a history of vertebral fractures and requires anabolic therapy to prevent further fractures. Teriparatide Forteo) was initially prescribed but discontinued due to adverse effects. Alternative options include Tymlos and Evenity, with the latter being more potent but facing insurance approval challenges. The plan is to attempt insurance approval for Evenity, citing intolerance to Forteo and probable intolerance to Tymlos due to their similarities. The patient had an opportunity to ask questions regarding treatment plan. The patient expressed understanding and agreement with the above treatment plan. During the visit, we discussed the adverse effects experienced with Teriparatide (Forteo), including dizziness and muscle pain, and the need for alternative osteoporosis treatments. We reviewed the options of Tymlos and Evenity, noting the insurance challenges with Evenity due to its cost. I explained the importance of preventing further fractures and the rationale for pursuing Evenity despite potential insurance hurdles. We agreed to attempt insurance approval for Evenity, emphasizing the patient's intolerance to Forteo and probable intolerance to Tymlos. - Do not restart Teriparatide (Forteo) until further notice. - Await contact from the clinic regarding insurance approval for Evenity. - Schedule a follow-up appointment if no contact is made within two weeks. Patient was informed and verbally consented to the use of an ambient scribe for clinic note documentation during this visit. The patient had an opportunity to ask questions regarding treatment plan. The patient expressed understanding and agreement with the above treatment plan. Patient was informed and verbally consented to the use of an ambient scribe for clinic note documentation during this visit. Medications: New romosozumab-aqqg (Evenity) 210 mg (2.34 mL) subcut .q mo 2.34 mL 11RF Discontinued teriparatide (Forteo) Discontinued Reason: Doctor's Order 20 mcg (0.08 mL) subcut DAILY 2.24 mL 10RF Coding Level of Care Code Est Pt Level 3 (92062) Diagnoses Age-related osteoporosis without current pathological fracture M81.0 Osteoporosis type: age-related Presence of current pathological fracture: without current pathological fracture
[2024-12-24 13:56] VITALS: BP 112/60; PULSE 73; O2SAT 96; BMI 22.6
== END 2024-12-24 14:40 | disposition home or self-care (01) ==
LOC: HO.ENCR 13:49
PROVIDERS: PCP Nurse Practitioner Family; Visit Provider Internal Medicine Endocrinology, Diabetes & Metabolism
DX: M81.0 Age-related osteoporosis without current pathological fracture (principal)
CPT/HCPCS: 99213

== ENCOUNTER → 2024-12-24 13:48 | Outpatient (BNVA) | payer OTHER, SELFPAY | PROVIDERS: PCP Nurse Practitioner Family; Visit Provider Internal Medicine Endocrinology, Diabetes & Metabolism | DX: M81.0 Age-related osteoporosis without current pathological fracture (principal) | CPT/HCPCS: 99212 ==

== ENCOUNTER 2024-12-29 13:17 | Outpatient (AMB) | payer OTHER, SELFPAY ==
--- OUTSIDE RECORDS SUMMARY | 2024-12-29 13:42 | XMS_ITS | Patient Health Record ---
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 Role Phone Maddy Cruz MD Primary Care Provider Unavailab Frannie Caicedo Unavailable [phone] Reason For Referral No Information Medications Medication SIG (Take, Route, Fr equency, Duration) Notes Start Date End Date Status Multivitamin & Mineral as directed Orally Active Percocet 5-325 MG 1 tablet as needed O rally every 6 hrs Active Zoloft 25 MG 1 tablet Orally Once a day; Duration: 30 day(s) Active Calcium 150 MG as directed Orally Active KlonoPIN 0.5 MG 0.5 tablet Orally Twice a day Active Social History Alcohol Screen Question Answer Notes Did you have a drink containing alcohol in the p ast year? Yes Points 0 Interpretation Negative Problems Problem Type SNOMED Code ICD Code Onset Dates Problem Status W/U Status Risk Notes Problem Hallux valgus (106088781) Hallux Valgus (735.0) Active confirmed Problem Hammer toe (632909434) Hammer toe (735.4) Active confirmed Problem Neuralgia - Neuritis (729.2) Active confirmed Plan Of Treatment No Information Insurance Providers Payer Name Payer Address Payer Phone Subscriber Number Group Number Insured Name Patient Relationship to Insured Coverage Start Date Coverage End Date Mikhail All Others [address] [place] [address] [phone] [id number] XochitlAnne Self - patient is the insured Medical (General) History Medical History History ICD Code psychiatric disorder neuropathy headaches/migraines chicken pox back, hip, knee pain asthma Anxiety disorder Surgical History Surgery Date(Month/Year) breast biopsy lumpectomy
--- NOTE | 2024-12-29 13:53 | AM.OFFVISNUR ---
Intake Visit Reasons: Evenity #1 Allergies gabapentin (GABAPENTIN) Allergy (Mild, Verified 12/24/24 13:58) SWELLING pregabalin (From LYRICA) Allergy (Mild, Verified 12/24/24 13:58) AGITATION, swelling, SWELLING Office Meds romosozumab-aqqg 210 mg/2.34 mL(105 mg/1.17 mL x2)subcutaneous syringe Performing Provider: Natalio Gayle MD Performing Location: [facility] [place] Endocrinology Administered by: Ila Paz RN on 12/29/24 13:54 Dose Route Admin Location Dispensed Lot Number Expiration Date NDC Cosmetic Maker 210 mg subcut bilateral upper arms 2.34 mL [id number] 03/24/27 63391-113-41 AMGEN Total Dispensed Waste 2.34 mL 0 % Comments: Pt advised to continue taking calcium and Vit D supplementation throughout evenity injections. Patient advised to alert her dentist she is on this medication. Patient aware to watch for site reactions at injection site such as redness, warmth or swelling. Pt aware to call the office if any of these were to occur or other side effects such as headache or joint pain. Pt tolerated injection well. Pt observed for 15 minutes following injection without any adverse reactions. No further questions at this time. Assessment & Plan Assessment & Plan Orders: Orders AMB Romosozumab Injection Patient Supplied Today M81.0 - Age-related osteoporosis without current pathological fracture Coding
== END 2024-12-29 13:56 | disposition home or self-care (01) ==
LOC: HO.ENCR 13:18
PROVIDERS: PCP Nurse Practitioner Family; Visit Provider Internal Medicine Endocrinology, Diabetes & Metabolism
DX: M81.0 Age-related osteoporosis without current pathological fracture (principal)

== ENCOUNTER → 2024-12-29 13:17 | Outpatient (BNVA) | payer OTHER, SELFPAY | PROVIDERS: PCP Nurse Practitioner Family; Visit Provider Internal Medicine Endocrinology, Diabetes & Metabolism | DX: M81.0 Age-related osteoporosis without current pathological fracture (principal); Z79.620 Long term (current) use of immunosuppressive biologic | CPT/HCPCS: 96372; J3111 ==

== ENCOUNTER 2024-12-31 14:34 | Outpatient (REF) | payer OTHER, SELFPAY ==
--- NOTE | ~2024-12-31 | XR_ITS ---
EXAMINATION: XR CERVICAL SPINE CLINICAL INFORMATION: M50.90 - Cervical disc disorder, unspecified, unspecified cervical region COMPARISON: November 13, 2018. TECHNIQUE: AP, lateral and atlantoodontoid views. FINDINGS: Craniocervical junction is intact. Bilateral facet joint hypertrophy at C3-4 and C6-7. Marginal osteophyte formation and endplate sclerosis and decreased intervertebral disc height at C6-7. Cortical disruption in the anterior inferior aspect of the vertebral body of C3. Grade 1 anterolisthesis C5-6. Upper airways patent. XR/XR cervical spine 2V IMPRESSION: Multilevel cervical spondylosis, C6-7 and to a lesser extent C3-4 resulting in grade 1 anterolisthesis C5-6. Probable old traumatic deformity anterior inferior C3. Electronically signed by: Nain Barahona MD 12/31/2024 03:43 PM EDT
--- OUTSIDE RECORDS SUMMARY | 2024-12-31 15:06 | XMS_ITS | Patient Health Record ---
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 Role Phone Maddy Cruz MD Primary Care Provider Unavailab Frannie Caicedo Unavailable [phone] Reason For Referral No Information Medications Medication [...] W/U Status Risk Notes Problem Hallux valgus (823279159) Hallux Valgus (735.0) Active confirmed Problem Hammer toe (895283833) Hammer toe (735.4) Active confirmed Problem Neuralgia - Neuritis (729.2) Active confirmed Plan Of Treatment No Information Insurance Providers Payer Name Payer Address Payer Phone Subscriber Number Group Number Insured Name Patient Relationship to Insured Coverage Start Date Coverage End Date Mikhail All Others [address] [place] [address] [phone] [id number] XochitlAnne Self - patient is the insured Medical (General) History Medical History History ICD Code psychiatric disorder neuropathy headaches/migraines chicken pox back, hip, knee pain asthma Anxiety disorder Surgical History Surgery Date(Month/Year) breast biopsy lumpectomy
== END 2024-12-31 14:35 | disposition home or self-care (01) ==
LOC: HO.HMGCX 14:34
PROVIDERS: PCP Nurse Practitioner Family; Visit Provider Nurse Practitioner Family
DX: M50.90 Cervical disc disorder, unspecified, unspecified cervical region (principal); M47.812 Spondylosis without myelopathy or radiculopathy, cervical region
CPT/HCPCS: 72040

== ENCOUNTER → 2024-12-31 14:40 | Outpatient (BNV) | payer OTHER, SELFPAY | PROVIDERS: PCP Nurse Practitioner Family; Visit Provider Radiology Diagnostic Radiology | DX: M50.90 Cervical disc disorder, unspecified, unspecified cervical region (principal) | CPT/HCPCS: 72040 ==

== ENCOUNTER 2025-01-16 10:42 | Outpatient (AMB) | payer OTHER, SELFPAY ==
[2025-01-16 10:43] VITALS: BP 131/83; PULSE 83; RESP 16; O2SAT 98; BMI 21.3
--- NOTE | 2025-01-16 10:43 | MHC.OFFVIS ---
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 The patient has been experiencing chronic pain, which has significantly impacted her quality of life, confining her to the couch for months due to severe discomfort. She reports that the pain is exacerbated by movement and has been persistent despite the use of tramadol, which provides minimal relief. The patient has been actively seeking approval for kyphoplasty, which was initially denied, and is currently under appeal. The patient also reports cervical spine issues, with significant pain and limited mobility in the neck, described as cracking and soreness. She has been advised to use topical treatments like Icy Hot and patches to manage the pain temporarily. There is a family history of psoriatic arthritis, as her sister suffers from the condition and has undergone multiple surgeries. Pain Description - Onset: Persistent pain for several months - Quality: Severe discomfort, exacerbated by movement - Location: Generalized pain with significant cervical spine involvement - Exacerbating factors: Movement - Relieving factors: Tramadol provides some relief, use of topical treatments like Icy Hot and patches - Impact: Confined to couch for months, affecting quality of life Physical Exam - Appears afebrile; distressed by pain. - Alert and oriented. - Mood and affect depressed. - Follows and participates in conversation appropriately. - Respiratory effort is unlabored. Results Pain Management - Affect: Pain significantly impacts mood and psychological wellbeing, leading to frustration and distress. - Analgesia: Currently using tramadol, which provides some relief; goal is to manage pain effectively with kyphoplasty. - Adverse Effects: No specific adverse effects from tramadol reported. - Activities of Daily Living: Pain confines patient to couch, severely affecting quality of life and daily activities. - Aberrant Drug Related Behaviors: No aberrant behaviors reported. [facility] Medical History (Updated 01/20/25 @ 12:35 by David Stinson, [facility]) Panic attacks Asthma COPD exacerbation Nicotine dependence, cigarettes, uncomplicated Osteopenia (~2018) Hypertensive retinopathy of both eyes Tubular adenoma of colon (~2020) Post covid-19 condition, unspecified (~06/2021) Delayed gastric emptying PTSD (post-traumatic stress disorder) HTN (hypertension) Depression COPD (chronic obstructive pulmonary disease) History of cocaine abuse History of alcohol abuse Nausea Post concussive syndrome (~2019) Fibromyalgia Psoriasis Psoriatic arthritis Facial trauma Surgical History History of right breast biopsy History of cranial surgery History of colonoscopy History of foot surgery History of foot surgery Family History Father Family history of diabetes mellitus Medical history non-contributory Maternal Grandmother Rectal cancer Maternal Grandfather Stomach cancer Family/Other Bone cancer Mother Breast cancer Social History Household Members: Spouse Housing: Apartment Are you a primary managed care liaison to a significant other at home: No Do you presently have visiting nurse or other home services: No Alcohol intake: current Alcohol intake frequency: holidays/special occasions only Patient Tobacco Use Status: Current everyday Tobacco user Tobacco use type: Cigarette Cigarette Packs Per Day: 0.25 Cigarettes Per Day: 1 Years Smoked: (onset 11yo, x 46yrs, max 1ppd, now 1/2ppd - 30pyh) e-Cigarette/Vaping Use: Never Used Second Hand Smoke Exposure: Yes Substance Use Type: Marijuana service: No Current occupational status: disabled Cognitive needs: No Hearing needs: No Vision needs: No Physical Exam Vital Signs: Last Vital Signs Pulse 83 01/16/25 10:43 Resp 16 01/16/25 10:43 BP 131/83 01/16/25 10:43 Pulse Ox 98 01/16/25 10:43 Oxygen Delivery Method Room Air 01/16/25 10:43 BMI result Body Mass Index 21.3 Assessment & Plan Assessment & Plan (1) Osteoporosis: Code(s): M81.0 - Age-related osteoporosis without current pathological fracture Category: Medical Qualifiers: Osteoporosis type: age-related Presence of current pathological fracture: without current pathological fracture Qualified Code(s): M81.0 - Age-related osteoporosis without current pathological fracture (2) Osteoporotic compression fracture of spine with delayed healing: Code(s): M80.88XG - Other osteoporosis with current pathological fracture, vertebra(e), subsequent encounter for fracture with delayed healing Category: Medical Plan Plan - Continue to pursue kyphoplasty approval through appeal process. - Advise patient to continue using tramadol for pain management until kyphoplasty is approved. - Recommend use of topical treatments like Icy Hot and patches for temporary pain relief. - Encourage patient to maintain communication with insurance company regarding kyphoplasty approval. - Plan to address cervical spine issues after kyphoplasty approval, including potential interventions. Patient was informed and verbally consented to the use of an ambient scribe for clinic note documentation during this visit. Discussion Notes I discussed with the patient the ongoing appeal process for kyphoplasty and emphasized the importance of maintaining communication with the insurance company to expedite approval. We reviewed the current pain management strategy, including the use of tramadol and topical treatments, and discussed the plan to address cervical spine issues once kyphoplasty is approved. Patient Instructions - Continue taking tramadol as prescribed for pain management. - Use topical treatments like Icy Hot and patches for temporary relief. - Keep in regular contact with the insurance company to follow up on kyphoplasty approval. - Cancel any unnecessary appointments with other specialists if not needed. Coding Level of Care Code Est Pt Level 3 (09787) Diagnoses Age-related osteoporosis without current pathological fracture M81.0 Osteoporosis type: age-related Presence of current pathological fracture: without current pathological fracture Osteoporotic compression fracture of spine with delayed healing M80.88XG
--- OUTSIDE RECORDS SUMMARY | 2025-01-16 10:50 | XMS_ITS | Patient Health Record ---
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 Role Phone Maddy Cruz MD Primary Care Provider Unavailab Frannie Caicedo Unavailable [phone] Reason For Referral No Information Medications Medication [...] W/U Status Risk Notes Problem Hallux valgus (416581931) Hallux Valgus (735.0) Active confirmed Problem Hammer toe (934854941) Hammer toe (735.4) Active confirmed Problem Neuralgia - Neuritis (729.2) Active confirmed Plan Of Treatment No Information Insurance Providers Payer Name Payer Address Payer Phone Subscriber Number Group Number Insured Name Patient Relationship to Insured Coverage Start Date Coverage End Date Mikhail All Others [address] [place] [address] [phone] [id number] XochitlRoseannaa Self - patient is the insured Medical (General) History Medical History History ICD Code psychiatric disorder neuropathy headaches/migraines chicken pox back, hip, knee pain asthma Anxiety disorder Surgical History Surgery Date(Month/Year) breast biopsy lumpectomy
--- OUTSIDE RECORDS SUMMARY | 2025-01-16 10:50 | XMS_ITS | Clinical Summary ---
Author Organization [facility] Address [address] [facility] [address] [place] [address] Phone Care Team Providers Care Car Stower Name Role Phone David Stinson NP Primary Care Provider + Allergies Active Allergy Reactions Criticality Noted Date Comments Gabapentin 10/21/2021 Pregabalin 10/21/2021 Medications butalbital-acetami nophen-caffeine (FIORICET, ESGIC) 50-325-40 mg per tablet Take 1 tablet by mouth every 6 (six) hours as needed. 2 Active clonazePAM (KLONOPIN) 1 MG tablet TAKE 1 TABLET BY MOUTH TWICE A DAY 30 DAYS 2 Active ENBREL SURECLICK 50 mg/mL (1 mL) PnIj 2 Active FLOVENT HFA 110 mcg/actuation inhaler Inhale 2 puffs into the lungs 2 (two) times a day. 2 Active hydrOXYzine (ATARAX) 50 MG tablet PLEASE SEE ATTACHED FOR DETAILED DIRECTIONS 2 Active methocarbamoL (ROBAXIN) 750 MG tablet TAKE 1 TABLET BY MOUTH 3 TIMES A DAY FOR 30 DAYS NEEDED FOR MUSCLE SPASTICITY 2 Active metoclopramide HCl (REGLAN) 10 MG tablet TAKE 1 TABLET BY MOUTH THREE TIMES A DAY BEFORE MEALS FOR 30 DAYS 2 Active omeprazole (PRILOSEC) 40 MG capsule Take 40 mg by mouth 2 (two) times a day. 2 Active ondansetron (ZOFRAN-ODT) 8 MG disintegrating tablet DISSOLVE ONE TABLET BY MOUTH TWICE A DAY NEEDED FOR NAUSEA / VOMITING 2 Active propranoloL (INDERAL) 20 MG immediate release tablet 2 Active venlafaxine (EFFEXOR-XR) 150 MG 24 hr capsule Take by mouth daily. 2 Active venlafaxine (EFFEXOR-XR) 75 MG 24 hr capsule Take by mouth daily. 2 Active amitriptyline (ELAVIL) 50 MG tablet TAKE 1 TABLET BY MOUTH EVERYDAY AT BEDTIME 90 tablet 1 5 Active Encounters Date Type Department Care Team Description 01/01/2025 Refill [facility] [place] Department of Neurology [address] [facility], 8th [address], [address] [place] [address] Jimbo Phillips MD, PhD Medication Refill from Last 3 Months Social History Tobacco Use Types Packs/Day Years Used Date Smoking Tobacco: Light Smoker Cigarettes Smokeless Tobacco: Never Education Answer Date Recorded Are you interested in more education? Not on eddie e 10/20/2022 Are you concerned about learning? Not on file 10/20/2022 No 10/20/2022 No 10/20/2022 Digital Access Answer Date Recorded No 11/18/2022 No 11/18/2022 No 11/18/2022 Reliable internet access at home? Not on file 11/18/2022 Device with a working camera? Not on file Comments Unknown Sex and Gender Information Value Date Recorded Sex Assigned at Female 09/26/2021 2:20 PM EDT Legal Sex Female 9:42 PM EDT Gender Identity Female 09/26/2021 2:20 PM EDT Sexual Orientation Straight 09/26/2021 2: 20 PM EDT Last Filed Vital Signs Vital Sign Reading Time Taken Comments Blood Pressure 132/90 10/21/2021 11:11 AM EDT Pulse 61 10/21/2021 11:11 AM EDT Temperature 36.1 C (97 F) 10/21/2021 11:07 AM EDT Respiratory Rate - - Oxygen Saturation 99% 10/21/2021 11:11 AM EDT Inhaled Oxygen Concentration - - Weight 59.9 kg (132 lb) 10/21/2021 11:07 AM EDT Height 169 cm (5' 6.54 ) 10/21/2021 11:07 AM EDT Body Mass Index 20.96 10/21/2021 11:07 AM EDT Plan of Treatment Health Maintenance Due Date Last Done Comments LIPID PANEL 1964 DEPRESSION SCREENING 1976 SMOKING Hx and SMOKELESS TOBACCO SCREENING 1977 HEPATITIS C SCREENING 1982 HIV ONE-TIME SCREENING (18-65 YEARS) 1982 ZOSTER VACCINES (1 of 2) 1983 PAP SMEAR 1985 MAMMOGRAM 2004 COLOGUARD 2009 COLONOSCOPY 2009 COLORECTAL CANCER SCREENING 2009 FIT TEST 2009 FOBT 2009 SIGMOIDOSCOPY 2009 VIRTUAL COLONOSCOPY 2009 PNEUMOCOCCAL VACCINES (50+ years) (2 of 2 - PCV) 01/22/2010 01/22/2009 COVID-19 VACCINE ( - season) 2024 10/18/2020, 10/18/2020, 09/27/2020, Additional history exists RSV VACCINE (1 - Risk 60-74 years 1-dose series) 2024 Adult Td,Tdap Booster 08/31/2030 08/31/2020 HEPATITIS A VACCINES Aged Out No long er eligible based on patient's age to complete this topic HIB VACCINES Aged Out No longer eligi ble based on patient's age to complete this topic MENINGOCOCCAL VACCINES (ACWY) Aged Out No longer eligible based on patient's age to complete this topic MENINGOCOCCAL VACCINES (B) Aged Out N o longer eligible based on patient's age to complete this topic Medical Devices Not on file Insurance [facility] ACO ACO ACO ACO ACO ACO ACO Member Subscriber Plan / Payer (Ef fective 2021-Present) Name:Xochitl Anne Relation to Subscriber:Self Name:Anne Leung Payer ID:[id number] Group ID:[id number] Type:Medicaid Address: [place] [id number] [facility] ACO [facility] Care Teams Car Stower Relationship Specialty Start Date End Date David Stinson NP [address] [place] [address] [email or web address] PCP - General Family Medicine 09/26/21 Additional Source Comments The information contained in this document represents components of the legal health record. It is not the complete legal health record.[facility]
== END 2025-01-16 11:03 | disposition home or self-care (01) ==
LOC: HO.PMC 10:43
PROVIDERS: PCP Nurse Practitioner Family; Visit Provider Internal Medicine
DX: M81.0 Age-related osteoporosis without current pathological fracture (principal)
CPT/HCPCS: 99213

== ENCOUNTER → 2025-01-16 10:42 | Outpatient (BNVA) | payer OTHER, SELFPAY | PROVIDERS: PCP Nurse Practitioner Family; Visit Provider Internal Medicine | DX: M80.88XG Other osteoporosis with current pathological fracture, vertebra(e), subsequent encounter for fracture with delayed healing (principal); F11.20 Opioid dependence, uncomplicated | CPT/HCPCS: 99212 ==

== ENCOUNTER 2025-01-20 10:23 | Outpatient (REF) | payer OTHER, SELFPAY ==
--- NOTE | ~2025-01-20 | US_ITS ---
EXAMINATION: US ABDOMEN COMPLETE CLINICAL INFORMATION: Increased liver enzymes. COMPARISON: 03/16/2021. TECHNIQUE: Real-time imaging of the abdominal viscera. FINDINGS: PANCREAS: Visualized portions are unremarkable. ABDOMINAL AORTA: The proximal, mid, and distal segments are normal in caliber. There is atherosclerosis noted. INFERIOR VENA CAVA: Visualized portions are normal. LIVER: The liver is normal in size. Right hepatic lobe measures 15.0 cm. The liver contour is normal. Parenchymal echogenicity is somewhat coarsened, which may indicate underlying hepatocellular disease versus mild steatosis. No focal hepatic lesion. There is no intrahepatic biliary duct dilatation seen. GALLBLADDER: The gallbladder is mildly contracted, without evidence of stones, sludge, polyps, wall thickening or pericholecystic fluid. COMMON BILE DUCT: Normal in caliber measuring 0.3 cm in diameter. RIGHT KIDNEY: No hydronephrosis. No renal calculi or suspicious focal parenchymal lesions. The kidney measures 10.1 cm in maximum dimension. There is a mid pole simple cyst measuring 1.2 x 1.0 x 1.0 cm. LEFT KIDNEY: No hydronephrosis. No renal calculi or suspicious focal parenchymal lesions. The kidney measures 10.0 cm in maximum dimension. There is a mid to lateral pole simple cyst measuring 1.3 x 1.2 x 1.0 cm. SPLEEN: The spleen is somewhat small measuring 8.0 cm in maximum dimension. FREE FLUID: None. US/US abdomen complete IMPRESSION: 1. Mildly coarsened echogenicity of the liver, may indicate underlying mild steatosis or hepatocellular disease. No suspicious focal lesion. 2. Normal gallbladder and bile ducts. 3. Simple bilateral renal cysts. Kidneys otherwise normal. Electronically signed by: Carlos Anderson MD 01/20/2025 11:14 AM EDT
--- OUTSIDE RECORDS SUMMARY | 2025-01-20 11:20 | XMS_ITS | Patient Health Record ---
Author Organization [facility] Address [address] [place] [address] Care Team Providers Care Energy Auditor Name Role Phone Maddy Cruz MD Primary Care Provider Unavailab Frannie Caicedo Unavailable [phone] Reason For Referral No Information Medications Medication [...] W/U Status Risk Notes Problem Hallux valgus (874884400) Hallux Valgus (735.0) Active confirmed Problem Hammer toe (311762682) Hammer toe (735.4) Active confirmed Problem Neuralgia - Neuritis (729.2) Active confirmed Plan Of Treatment No Information Insurance Providers Payer Name Payer Address Payer Phone Subscriber Number Group Number Insured Name Patient Relationship to Insured Coverage Start Date Coverage End Date Mikhail All Others [address] [place] [address] [id number] XochitlRoseannaa Self - patient is the insured Medical (General) History Medical History History ICD Code psychiatric disorder neuropathy headaches/migraines chicken pox back, hip, knee pain asthma Anxiety disorder Surgical History Surgery Date(Month/Year) breast biopsy lumpectomy
--- OUTSIDE RECORDS SUMMARY | 2025-01-20 11:20 | XMS_ITS | Clinical Summary ---
Author Organization [facility] Address [address] [facility] [address] [place] [address] Phone Care Team Providers Care Veneer Jointer Offbearer Name Role Phone David Stinson NP Primary [...] Type Department Care Team Description 01/01/2025 Refill [facility] Department of Neurology [address], [address] [place] [address] Jimbo Phillips MD, PhD Medication Refill from [...] topic Medical Devices Not on file Insurance [facility] ACO ACO ACO ACO ACO ACO ACO Member Subscriber Plan / Payer (Ef fective 2021-Present) Name:Xochitl Anne Relation to Subscriber:Self Name:Anne Leung Payer ID:[id number] Group ID:[id number] Type:Medicaid Address: [place] [id number] [facility] ACO [facility] Care Teams Veneer Jointer Offbearer Relationship Specialty Start Date End Date David Stinson NP [address] [facility] [address] [email or web address] PCP - General Family Medicine 09/26/21 Additional Source Comments The information contained in this document represents components of the legal health record. It is not the complete legal health record.[facility]
[2025-01-21 03:39] LABS: HBS Num1 0.71 mIU/mL (0-7.99); HBc Num1 0.05 S/CO (0.00-0.79); HBsAGNum1 0.34 S/CO (0.00-0.99); Hepatitis A Antibody IgM 0.15 Index (0-0.79); Hepatitis B Surface Antigen Negative (Negative); ~HepC Num1 0.09 S/CO (0.00-0.79); ~Hepatitis A Antibody IgM Nonreactive (Nonreactive); ~Hepatitis B Surface Antibody NONREACTIVE (Nonreactive); ~Hepatitis C Antibody Nonreactive (Nonreactive)
== END 2025-01-20 10:24 | disposition home or self-care (01) ==
LOC: HO.HMGCX 10:23
PROVIDERS: PCP Nurse Practitioner Family; Visit Provider Nurse Practitioner Family
DX: R74.8 Abnormal levels of other serum enzymes (principal)
CPT/HCPCS: 36415; 76700; 86704; 86706; 86709; 86803; 87340

== ENCOUNTER → 2025-01-20 10:29 | Outpatient (BNV) | payer OTHER, SELFPAY | PROVIDERS: PCP Nurse Practitioner Family; Visit Provider Radiology Diagnostic Radiology | DX: R74.01 Elevation of levels of liver transaminase levels (principal) | CPT/HCPCS: 76700 ==

== ENCOUNTER 2025-01-29 13:51 | Outpatient (AMB) | payer OTHER, SELFPAY ==
--- OUTSIDE RECORDS SUMMARY | 2025-01-29 13:58 | XMS_ITS | Patient Health Record ---
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
--- OUTSIDE RECORDS SUMMARY | 2025-01-29 13:58 | XMS_ITS | Encounter Summary ---
Author Organization [facility] Address [address] [place] [address] Phone Care Team Providers Care Production Officer Name Role Phone David Stinson NP Primary Care Provider + Reason for Visit * Reason Comments Medication Refill Encounter Details Date Type Department Care Team (Late st Contact Info) Description 01/23/2025 Refill [facility] Department of Neurology [address] [place] [address], 8th [address], [address] [place] [address] Jimbo Phillips MD, PhD [address] [place] [id number] [email or web address] Medication Refill Social History Tobacco Use Types Packs/Day Years [...] Orientation Straight 09/26/2021 2: 20 PM EDT documented as of this encounter Progress Notes * Josefa Núñez - 01/26/2025 2:48 PM EDT Rx Care Gap Status - Instructions for Clinical Staff (prescriber discretion applies): > Mismatch review guide > At least one request does not meet full criteria. Specifics below. > No recent or future appts: Please review request for appropriateness. Visit Info Last visit: 04/10/2022 Jmibo Phillips MD, PhD - Neurology [facility] > Requested f/u: Not specified Upcoming visit: None ACTIONS TAKEN BY Josefa Núñez - GYNECOLOGY TEACHER, Follow up appointment not specified. Provider stated Return as needed Antidepressant / Anxiolytics (Non-Benzodiazepine) Rx Protocol - amitriptyline HCl Criteria not met; renew for up to 3 months. Visit in the past 14 months: No documented in this encounter Plan of Treatment Not on file documented as of this encounter Visit Diagnoses Not on filedocumented in this encounter Care Teams Production Officer Relationship Specialty Start Date End Date David Stinson NP [address] [place] [address] [email or web address] PCP - General Family Medicine 09/26/21 documented as of this encounter Additional Source Comments The information contained in this document represents components of the legal health record. It is not the complete legal health record.[facility]
--- NOTE | 2025-01-29 14:25 | AM.OFFVISNUR ---
Intake Visit Reasons: Evenity #2 Allergies gabapentin (GABAPENTIN) Allergy (Mild, Verified 01/16/25 10:50) SWELLING pregabalin (From LYRICA) Allergy (Mild, Verified 01/16/25 10:50) AGITATION, swelling, SWELLING Office Meds romosozumab-aqqg 210 mg/2.34 mL(105 mg/1.17 mL x2)subcutaneous syringe Performing Provider: Natalio Gayle MD Performing Location: [facility] Endocrinology Administered by: Ila Paz RN on 01/29/25 14:25 Dose Route Admin Location Dispensed Lot Number Expiration Date [place] Director Of Psychology 210 mg subcut bilateral up 2.34 mL [id number] 04/24/27 84211-328-03 [facility] Total Dispensed Waste 2.34 mL 0 % Comments: No adverse reactions reported from previous injection. Pt tolerated injection well. Pt scheduled in 4 weeks for next injection. No further questions at this time. Assessment & Plan Assessment & Plan Orders: Orders AMB Romosozumab Injection Patient Supplied Today M81.0 - Age-related osteoporosis without current pathological fracture Coding
== END 2025-01-29 14:24 | disposition home or self-care (01) ==
LOC: HO.ENCR 13:52
PROVIDERS: PCP Nurse Practitioner Family; Visit Provider Internal Medicine Endocrinology, Diabetes & Metabolism
DX: M81.0 Age-related osteoporosis without current pathological fracture (principal)

== ENCOUNTER → 2025-01-29 13:51 | Outpatient (BNVA) | payer OTHER, SELFPAY | PROVIDERS: PCP Nurse Practitioner Family; Visit Provider Internal Medicine Endocrinology, Diabetes & Metabolism | DX: M81.0 Age-related osteoporosis without current pathological fracture (principal) | CPT/HCPCS: 96372; J3111 ==

== ENCOUNTER 2025-02-04 12:50 | Outpatient (AMB) | payer OTHER, SELFPAY ==
[2025-02-04 12:53] VITALS: BP 124/86; PULSE 79; RESP 16; TEMP 36.8; O2SAT 100; BMI 22.1
--- NOTE | 2025-02-04 12:53 | A.OFFPC_ITS ---
Vital Signs 02/04/25 12:53 Height 5 ft 6 in Weight 137 lb BMI 22.1 BP 124/86 Blood Pressure Location Rt brachial Position Sitting Respiration 16 Pulse 79 Pulse Source Pulse Oximeter Temp 98.2 F Temp Source Oral Pulse Oximetry (%) 100 Oxygen Delivery Method Room Air Intake Visit Reasons: PE Accompanied by: Self / Same As Patient Allergies gabapentin (GABAPENTIN) Allergy (Mild, Verified 02/04/25 13:30) SWELLING pregabalin (From LYRICA) Allergy (Mild, Verified 02/04/25 13:30) AGITATION, swelling, SWELLING Medication List - Last Reconciled 02/04/25 by David Stinson, [facility]- amitriptyline 50 mg PO BEDTIME atorvastatin (Lipitor) 10 mg PO BEDTIME 90 days azelastine 2 sprays intranasal BID 30 days ajbmlagixn-nqjpzbpalfcip-xjuw 50-325-40 mg 1 tab PO Q6H PRN calcium citrate 250 mg PO DAILY cholecalciferol (vitamin D3) 50 mcg PO DAILY clonazepam 1 mg PO BID PRN 30 days cyclobenzaprine 10 mg PO BID PRN 30 days famotidine 20 mg PO BEDTIME fluoride (sodium) 1.1% (Denta 5000 Plus) 1 appl PO DAILY fluticasone furoate-vilanterol 200-25 mcg/dose (Breo Ellipta) 1 inh inhalation DAILY galcanezumab-gnlm (Emgality Pen) 120 mg subcut ONCE 30 days hydroxyzine HCl 50 mg PO BID PRN ipratropium-albuterol 0.5 mg-3 mg(2.5 mg base)/3 mL 3 mL inhalation .prn 30 days ipratropium-albuterol 20-100 mcg/actuation (Combivent Respimat) 1 puff inhalation Q6H ixekizumab (Taltz Autoinjector) 80 mg subcut Q4W lidocaine 4% 2 patches topical Q24H 30 days lidocaine 5% 1 patch topical DAILY [LSO [place] [facility] ] Magic Mouthwash Diphen/Nystat/Antacid 1:1:1 10 mL PO .every 6 hours omeprazole 40 mg PO DAILY ondansetron 8 mg PO Q12H PRN 30 days pen needle, diabetic (Comfort EZ Pen [place]) As directed daily for use with tymlos polyethylene glycol 3350 (Miralax) 17 grams PO DAILY PRN propranolol 20 mg PO BID riboflavin (vitamin B2) 400 mg PO DAILY romosozumab-aqqg (Evenity) 210 mg (2.34 mL) subcut .q mo tramadol 50 mg PO BID PRN trazodone 100 mg (2 x 50 mg) PO BEDTIME PRN ubrogepant (Ubrelvy) 50 - 100 mg (0.5 - 1 x 100 mg) PO ONCE PRN 30 days Tobacco use date assessed: 02/04/25 Dental Screening Dental Screen Date: 02/04/25 Did you have a dental visit in the last 12 months?: Yes Did you have a dental problem in the last 6 months where you did not have access to dental care?: No Was dental information given to patient?: Patient has dentist HPI PE HPI Details History of Present Illness The patient is a 59-year-old female presenting for a physical exam. 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 The recent of a close neighbor has also impacted her emotional state. The patient has compression fractures in the lumbar spine from a fall in May. She is under the care of a pain specialist and has been recommended for kyphoplasty, pending insurance approval. She is on tramadol for pain but wishes to discontinue it once alternative treatments are available, with I 100% agree with. She reports thoracic back pain with severe tenderness along the spine and paraspinous muscles. An x-ray of the thoracic spine has been ordered. She smokes and experiences dyspnea on exertion, but denies chest pain, urinary, or bowel issues. Preventative care includes a scheduled mammogram and a pending colonoscopy, delayed due to back issues. Sees endo for osteoporosis. LDCT was cancelled and will be rescheduled due to o much happening with her MD appointments for her back/back pain. Health Maintenance - Mammogram scheduled - Colonoscopy follow-up needed Social History - Primary caregiver for with sev ere dementia - Smokes heavily Review of Systems - Cardiovascular: Denies chest pain - Respiratory: Reports dyspnea on exerti on - Gastrointestinal: Denies urinary issue s, bowel issues, blood in stool, or abdominal pain - Neurological: Denies suicidal or homic idal ideation denies any fevers, chills. Physical Exam General: Cooperative, healthy appearing, comfortable, no acute distress and well developed Orientation: Patient oriented x3 Limitations: Severe limitations in turning up her torso due to thoracic back pain Head: Normal to inspection Ears: Hearing grossly normal bilaterally Nose: Normal external nose present Face and sinus: Normal facial exam Eyes: Appearance normal, both eyes and all related structures Neck: Normal visual inspection and Yes full ROM Respiratory: wheezing noted throughout Cardiovascular: Regular rate and rhythm. Normal S1 and S2 GI: Normal to inspection. Soft to palpation and nontender Skin: No rashes or lesions noted Neuro: Patient oriented x3 Extremities: Normal to inspection, except for severe tenderness along the thoracic spine and paraspinous muscles Results - X-ray of thoracic spine ordered Plan The patient will continue clonazepam for anxiety, as it is effective without affecting her daily activities. Tramadol is used for lumbar compression fracture pain, with plans to discontinue once alternative treatments are approved by insurance. An x-ray of the thoracic spine is ordered to evaluate reported severe tenderness and pain. Preventative care includes a scheduled mammogram and a follow-up colonoscopy, delayed due to back issues. Discussion Notes I discussed with the patient the continuation of clonazepam for anxiety management, and the importance of adhering to the prescribed dosage, not to share or drive on med. We also talked about the use of tramadol for her lumbar compression fractures, with a plan to transition off this medication once insurance approves alternative procedures like kyphoplasty. I advised her on the importance of completing her scheduled mammogram and following up on her colonoscopy, which was postponed due to her back issues. Patient Instructions - Continue taking clonazepam as prescrib ed for anxiety management. - Use tramadol for pain management as ne eded, but aim to discontinue once alternative treatments are approved. (med from use of clonazepam) - Complete the scheduled mammogram, fol low up on the colonoscopy/endo, and LDCT appointment. [facility] Medical History Panic attacks Asthma COPD exacerbation Nicotine dependence, cigarettes, uncomplicated Osteopenia (~2018) Hypertensive retinopathy of both eyes Tubular adenoma of colon (~2020) Post covid-19 condition, unspecified (~06/2021) Delayed gastric emptying PTSD (post-traumatic stress disorder) HTN (hypertension) Depression COPD (chronic obstructive pulmonary disease) History of cocaine abuse History of alcohol abuse Nausea Post concussive syndrome (~2019) Fibromyalgia Psoriasis Psoriatic arthritis Facial trauma Surgical History History of right breast biopsy History of cranial surgery History of colonoscopy History of foot surgery History of foot surgery Family History Father Family history of diabetes mellitus Medical history non-contributory Maternal Grandmother Rectal cancer Maternal Grandfather Stomach cancer Family/Other Bone cancer Mother Breast cancer Social History Household Members: Spouse Housing: Apartment Are you a primary manager intensive care to a significant other at home: No Do you presently have visiting nurse or other home services: No Alcohol intake: current Alcohol intake frequency: holidays/special occasions only Patient Tobacco Use Status: Current everyday Tobacco user Tobacco use type: Cigarette Cigarette Packs Per Day: 0.25 Cigarettes Per Day: 1 Years Smoked: (onset 11yo, x 46yrs, max 1ppd, now 1/2ppd - 30pyh) e-Cigarette/Vaping Use: Never Used Second Hand Smoke Exposure: Yes Substance Use Type: Marijuana service: No Current occupational status: disabled Cognitive needs: No Hearing needs: No Vision needs: No Questionnaire Thrive Questionnaire Date Thrive assessed: 09/22/24 I am a: Patient What is your living situation today?: I have a steady place to live Within the past 12 months, did the food you bought not last and you didn't have the money to get more?: Sometimes True Within the past 12 months, did you worry whether your food would run out before you got money to buy more?: Sometimes True Do you have trouble paying for medicines?: Yes Do you have trouble getting transportation to medical appointments?: No Do you have trouble paying your heating and electricity bill?: No Do you have trouble taking care of your child, family member or friend?: No Do you have trouble with day-to-day activities such as bathing, preparing meals, shopping, managing finances, etc.?: Yes Are you currently unemployed and looking for a job?: Yes Are you interested in more education?: No Please select the resources that you would like help with: Paying for medicine THRIVE Score: 2 JODEE-7 AMB Questionnaire JODEE-7 Date JODEE - 7 assessed: 09/22/24 Feeling nervous, anxious, or on edge: 3 = Nearly every day Not being able to stop or control worryin = Nearly every day Worrying too much about different things: 3 = Nearly every day Trouble relaxin = Nearly every day Being so restless that it is hard to sit still: 2 = More than half the days Becoming easily annoyed or irritable: 2 = More than half the days Feeling afraid as if something awful might happen: 2 = More than half the days Total JODEE-7 score (0-4 normal; 5-9 mild; 10-14 moderate; 15-21 severe): 18 Source: Developed by Drs. Natalio Zimmer, Angelique Bucoi, Joseph Frederick and colleagues, with an educational diandra from [employer]. JODEE-7 Assessment Billing JODEE-7 Assessment Tool: JODEE-7 Assessment 65583 (will have patrice () speak with pt. denies any si or hi) Physical exam (Primary Care) Vital Signs: Last Vital Signs Temp 98.2 F 02/04/25 12:53 Pulse 79 02/04/25 12:53 Resp 16 02/04/25 12:53 BP 124/86 02/04/25 12:53 Pulse Ox 100 02/04/25 12:53 Oxygen Delivery Method Room Air 02/04/25 12:53 BMI result Body Mass Index 22.1 Tobacco/Smoking Status: Tobacco use Status Tobacco use date assessed 02/04/25 02/04/25 13:02 Patient Tobacco Use Status Current everyday Tobacco 02/04/25 12:56 Tobacco use type Cigarette 02/04/25 12:56 e-Cigarette/Vaping Use Never Used 02/04/25 12:56 Thrive Assessment: Date of Thrive Assessment Date Thrive assessed 09/22/24 02/04/25 12:56 Coding Level of Care Code Est Pt Level 3 (03095) Est Pt Prev Care 40-64y(24600) Diagnoses Age-related osteoporosis without current pathological fracture M81.0 Osteoporosis type: age-related Presence of current pathological fracture: without current pathological fracture Thoracic back pain M54.6 Encounter for routine adult physical exam with abnormal findings Z00.01 Lumbar compression fracture S32.000A Anxiety and depression F41.9; F32.9 COPD (chronic obstructive pulmonary disease) J44.9 Additional Codes JODEE-7 Assessment Billing - JODEE-7 Assessment Tool: JODEE-7 Assessment 73184 ([id number]) Assessment & Plan Assessment & Plan (1) Osteoporosis: Code(s): M81.0 - Age-related osteoporosis without current pathological fracture Category: Medical Qualifiers: Osteoporosis type: age-related Presence of current pathological fracture: without current pathological fracture Qualified Code(s): M81.0 - Age- related osteoporosis without current pathological fracture (2) Thoracic back pain: Code(s): M54.6 - Pain in thoracic spine Category: Medical (3) Encounter for routine adult physical exam with abnormal findings: Code(s): Z00. - Encounter for general adult medical examination with abnormal findings Category: Medical (4) Lumbar compression fracture: Code(s): S32.000A - Wedge compression fracture of unspecified lumbar vertebra, initial encounter for closed fracture Category: Medical (5) Anxiety and depression: Code(s): F41.9 - Anxiety disorder, unspecified; F32.9 - Major depressive disorder, single episode, unspecified Category: Medical (6) COPD (chronic obstructive pulmonary disease): Comment: Code(s): J44.9 - Chronic obstructive pulmonary disease, unspecified Category: Medical Plan . Orders: Orders XR thoracic spine 2V Today M54.6 - Pain in thoracic spine, M81.0 - Age-related osteoporosis without current pathological fracture Complete Blood Count Auto Diff Today Z00.01 - Encounter for general adult medical examination with abnormal findings Comprehensive [place]. Panel Fast Today Z00. - Encounter for general adult medical examination with abnormal findings TSH reflex Free T4 Today Z00.01 - Encounter for general adult medical examination with abnormal findings Lipid Panel Today Z00.01 - Encounter for general adult medical examination with abnormal findings UA CC w/rflx Micro + Cult Today Z00.01 - Encounter for general adult medical examination with abnormal findings Medications: Refilled lidocaine 5% leave on most painful area for up to 12 hrs 1 patch topical DAILY 30 ea 3RF clonazepam 1 mg PO BID PRN 60 tabs 0RF anxiety attacks 30 days
--- OUTSIDE RECORDS SUMMARY | 2025-02-04 13:21 | XMS_ITS | Patient Health Record ---
Author Organization [facility] Address [address] [place] [address] Care Team Providers Care Cork Grinder Name Role Phone Maddy Cruz MD Primary Care Provider Unavailab Frannie Caicedo Unavailable [phone] Reason For Referral No Information Medications Medication [...] W/U Status Risk Notes Problem Hallux valgus ([id number]) Hallux Valgus (735.0) Active confirmed Problem Hammer toe ([id number]) Hammer toe (735.4) Active confirmed Problem Neuralgia - Neuritis (729.2) Active confirmed Plan Of Treatment No Information Insurance Providers Payer Name Payer Address Payer Phone Subscriber Number Group Number Insured Name Patient Relationship to Insured Coverage Start Date Coverage End Date Mikhail All [employer] [id number] [place] [address] [id number] XochitlRoseannaa Self - patient is the insured Medical (General) History Medical History History ICD Code psychiatric disorder neuropathy headaches/migraines chicken pox back, hip, knee pain asthma Anxiety disorder Surgical History Surgery Date(Month/Year) breast biopsy lumpectomy
--- OUTSIDE RECORDS SUMMARY | 2025-02-04 13:21 | XMS_ITS | Clinical Summary ---
Author Organization [facility] Address [address] [place] [phone] Phone Care Team Providers Care Patient Registration Rep Name Role Phone David Stinson NP Primary Care Provider + Allergies Active Allergy Reactions Criticality Noted Date Comments Gabapentin 10/21/2021 Pregabalin 10/21/2021 Medications butalbital-acetam inophen-caffeine (FIORICET, ESGIC) 50-325-40 mg per tablet Take 1 tablet by mouth every 6 (six) hours as needed. 10/11/19 22 Active clonazePAM (KLONOPIN) 1 MG tablet TAKE 1 TABLET BY MOUTH TWICE A DAY 30 DAYS 09/27/19 22 Active ENBREL SURECLICK 50 mg/mL (1 mL) PnIj 10/13/19 22 Active FLOVENT HFA 110 mcg/actuation inhaler Inhale 2 puffs into the lungs 2 (two) times a day. 08/12/19 22 Active hydrOXYzine (ATARAX) 50 MG tablet PLEASE SEE ATTACHED FOR DETAILED DIRECTIONS 10/12/19 22 Active methocarbamoL (ROBAXIN) 750 MG tablet TAKE 1 TABLET BY MOUTH 3 TIMES A DAY FOR 30 DAYS NEEDED FOR MUSCLE SPASTICITY 10/11/19 22 Active metoclopramide HCl (REGLAN) 10 MG tablet TAKE 1 TABLET BY MOUTH THREE TIMES A DAY BEFORE MEALS FOR 30 DAYS 08/25/19 22 Active omeprazole (PRILOSEC) 40 MG capsule Take 40 mg by mouth 2 (two) times a day. 08/04/19 22 Active ondansetron (ZOFRAN-ODT) 8 MG disintegrating tablet DISSOLVE ONE TABLET BY MOUTH TWICE A DAY NEEDED FOR NAUSEA / VOMITING 09/20/19 Active propranoloL (INDERAL) 20 MG immediate release tablet 10/18/19 Active venlafaxine (EFFEXOR-XR) 150 MG 24 hr capsule Take by mouth daily. 07/23/19 Active venlafaxine (EFFEXOR-XR) 75 MG 24 hr capsule Take by mouth daily. 07/29/19 Active amitriptyline (ELAVIL) 50 MG tablet TAKE 1 TABLET BY MOUTH EVERY NIGHT AT BEDTIME. 90 tablet 1 01/28/20 Active amitriptyline (ELAVIL) 50 MG tablet TAKE 1 TABLET BY MOUTH EVERYDAY AT BEDTIME 90 tablet 1 07/09/19 25 2024 Discontinued Encounters Date Type Department Care Team Description 01/23/2025 Refill [facility] Department of Neurology [address] [place] [address], [address] Floor, [address] [place] [address] Jimbo Phillips MD, PhD Medication Refill 01/01/2025 Refill [facility] Department of Neurology [address] [place] [address], [address] Floor, [address] [place] [address] Jimbo Phillips MD, PhD Medication Refill from [...] 2 - PCV) 01/22/2010 01/22/2009 COVID-19 VACCINE (4 - season) 2024 10/18/2020, 10/18/2020, 09/27/2020, Additional [...] topic Medical Devices Not on file Insurance [place] [address] [address] [place] [address] ACO [facility]CO [facility]CO [facility] ACO Care Teams Patient Registration Rep Relationship Specialty Start Date End Date David Stinson NP [address] [address] PCP - General Family Medicine 09/26/21 Additional Source Comments The information contained in this document represents components of the legal health record. It is not the complete legal health record.[facility]
== END 2025-02-04 14:33 | disposition home or self-care (01) ==
LOC: HO.HMCC 12:51
PROVIDERS: PCP Nurse Practitioner Family; Visit Provider Nurse Practitioner Family
DX: Z00.01 Encounter for general adult medical examination with abnormal findings (principal); S32.000A Wedge compression fracture of unspecified lumbar vertebra, initial encounter for closed fracture; J44.9 Chronic obstructive pulmonary disease, unspecified; M81.0 Age-related osteoporosis without current pathological fracture; M54.6 Pain in thoracic spine; F41.9 Anxiety disorder, unspecified; F32.9 Major depressive disorder, single episode, unspecified

== ENCOUNTER 2025-02-04 12:50 | Outpatient (REF) | payer OTHER, SELFPAY ==
--- NOTE | ~2025-02-04 | XR_ITS ---
EXAMINATION: XR THORACIC SPINE CLINICAL INFORMATION: M81.0 - Age-related osteoporosis without current pathological fracture COMPARISON: November 13, 2018 TECHNIQUE: AP lateral and swimmer's projection. FINDINGS: There is a superior endplate compression deformity representing 30% volume loss at T11. Mild multilevel endplate sclerosis and small marginal osteophyte formation at multiple levels pronounced at C5-6 in the lower cervical spine. No acute cortical disruption or malalignment. No lytic or blastic lesions. S-shaped curvature, mild. XR/XR thoracic spine 3V IMPRESSION: Multilevel cervical thoracic spondylosis. Probable old superior endplate compression deformity representing 30% volume loss, T11. Electronically signed by: Nain Barahona MD 02/04/2025 02:54 PM EDT
== END 2025-02-04 12:51 | disposition home or self-care (01) ==
LOC: HO.HMGCX 12:50
PROVIDERS: PCP Nurse Practitioner Family; Visit Provider Nurse Practitioner Family
DX: Z00.01 Encounter for general adult medical examination with abnormal findings (principal); M81.0 Age-related osteoporosis without current pathological fracture; M54.6 Pain in thoracic spine; F41.9 Anxiety disorder, unspecified; F32.9 Major depressive disorder, single episode, unspecified; J44.9 Chronic obstructive pulmonary disease, unspecified; S32.000D Wedge compression fracture of unspecified lumbar vertebra, subsequent encounter for fracture with routine healing
CPT/HCPCS: 72072; 96127; 99212; 99396

== ENCOUNTER → 2025-02-04 14:39 | Outpatient (BNV) | payer OTHER, SELFPAY | PROVIDERS: PCP Nurse Practitioner Family; Visit Provider Radiology Diagnostic Radiology | DX: M81.0 Age-related osteoporosis without current pathological fracture (principal) | CPT/HCPCS: 72072 ==

== ENCOUNTER 2025-02-16 13:27 | Outpatient (AMB) | payer OTHER, SELFPAY ==
[2025-02-16 13:33] VITALS: BP 125/70; PULSE 57; RESP 18; O2SAT 100; BMI 22.6
--- NOTE | 2025-02-16 13:33 | MHC.OFFVIS ---
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 Required: No Allergies gabapentin (GABAPENTIN) Allergy (Mild, Verified 02/16/25 13:35) SWELLING pregabalin (From LYRICA) Allergy (Mild, Verified 02/16/25 13:35) AGITATION, swelling, SWELLING Medication List - Last Reconciled 02/16/25 by Rome Parekh MD amitriptyline 50 mg PO BEDTIME atorvastatin (Lipitor) 10 mg PO BEDTIME 90 days azelastine 2 sprays intranasal BID 30 days yjmccqvxjp-httinhimdoqbl-tiks 50-325-40 mg 1 tab PO Q6H PRN calcium citrate 250 mg PO DAILY cholecalciferol (vitamin D3) 50 mcg PO DAILY clonazepam 1 mg PO BID PRN 30 days cyclobenzaprine 10 mg PO BID PRN 30 days famotidine 20 mg PO BEDTIME fluoride (sodium) 1.1% (Denta 5000 Plus) 1 appl PO DAILY fluticasone furoate-vilanterol 200-25 mcg/dose (Breo Ellipta) 1 inh inhalation DAILY galcanezumab-gnlm (Emgality Pen) 120 mg subcut ONCE 30 days hydroxyzine HCl 50 mg PO BID PRN ipratropium-albuterol 0.5 mg-3 mg(2.5 mg base)/3 mL 3 mL inhalation .prn 30 days ipratropium-albuterol 20-100 mcg/actuation (Combivent Respimat) 1 puff inhalation Q6H ixekizumab (Taltz Autoinjector) 80 mg subcut Q4W lidocaine 5% 1 patch topical DAILY lidocaine 4% 2 patches topical Q24H 30 days [LSO [place] LSO ] Magic Mouthwash Diphen/Nystat/Antacid 1:1:1 10 mL PO .every 6 hours omeprazole 40 mg PO DAILY ondansetron 8 mg PO Q12H PRN 30 days pen needle, diabetic (Comfort EZ Pen [place]) As directed daily for use with tymlos polyethylene glycol 3350 (Miralax) 17 grams PO DAILY PRN propranolol 20 mg PO BID riboflavin (vitamin B2) 400 mg PO DAILY romosozumab-aqqg (Evenity) 210 mg (2.34 mL) subcut .q mo tramadol 50 mg PO BID PRN trazodone 100 mg (2 x 50 mg) PO BEDTIME PRN ubrogepant (Ubrelvy) 50 - 100 mg (0.5 - 1 x 100 mg) PO ONCE PRN 30 days Do you need a note to return to daycare/school/sports/work: No HPI HPI COPD: Details: 59 years old female, is here for follow-up after 3 months. Severe COPD has remained relatively stable. Every now and then she does have a wheeze and has an urge to cough and clear. The mucus She smokes 3 cigarettes a day and claims that she can not go any further, at this time as she is under lot of stress. At least in the last 3 months she has not used any prednisone. Her main issue today is ongoing back pain and she is scheduled to have back surgery soon. [facility] Medical History Panic attacks Asthma COPD exacerbation Nicotine dependence, cigarettes, uncomplicated Osteopenia (~2018) Hypertensive retinopathy of both eyes Tubular adenoma of colon (~2020) Post covid-19 condition, unspecified (~06/2021) Delayed gastric emptying PTSD (post-traumatic stress disorder) HTN (hypertension) Depression COPD (chronic obstructive pulmonary disease) History of cocaine abuse History of alcohol abuse Nausea Post concussive syndrome (~2019) Fibromyalgia Psoriasis Psoriatic arthritis Facial trauma Surgical History History of right breast biopsy History of cranial surgery History of colonoscopy History of foot surgery History of foot surgery Family History Father Family history of diabetes mellitus Medical history non-contributory Maternal Grandmother Rectal cancer Maternal Grandfather Stomach cancer Family/Other Bone cancer Mother Breast cancer Social History Household Members: Spouse Housing: Apartment Are you a primary vehicle care specialist to a significant other at home: No Do you presently have visiting nurse or other home services: No Alcohol intake: current Alcohol intake frequency: holidays/special occasions only Patient Tobacco Use Status: Current everyday Tobacco user Tobacco use type: Cigarette Cigarette Packs Per Day: 0.25 Cigarettes Per Day: 1 Years Smoked: (onset 11yo, x 46yrs, max 1ppd, now 1/2ppd - 30pyh) e-Cigarette/Vaping Use: Never Used Second Hand Smoke Exposure: Yes Substance Use Type: Marijuana service: No Current occupational status: disabled Cognitive needs: No Hearing needs: No Vision needs: No Review of Systems Const All systems reviewed & are unremarkable except as noted in HPI and below Reports headache(s) Eyes Reports no additional complaints ENT Reports headache(s) and Reports nasal congestion (MILD OFF AND ON) Card Denies chest pain, Denies irregular heart rhythm and Denies leg edema Resp Reports as per HPI GI Reports no additional complaints, Reports heartburn and Reports nausea Reports no additional complaints Musc Reports back pain Skin/Breast Reports system reviewed and no additional complaints, except as documented Neuro Reports headache(s) and Reports memory loss (Has had post concussion syndrome) Psych Reports anxiety (Mild chronic), Reports depression (Mild) and Reports memory loss (Has had post concussion syndrome) Physical Exam Vital Signs: Last Vital Signs Pulse 57 02/16/25 13:33 Resp 18 02/16/25 13:33 BP 125/70 02/16/25 13:33 Pulse Ox 100 02/16/25 13:33 Oxygen Delivery Method Room Air 02/16/25 13:33 BMI result Body Mass Index 22.6 Const General: comfortable, no acute distress, alert and awake Orientation/consciousness: patient oriented x3 HEENT Head: Yes normal to inspection General nose exam: No nasal polyps present and No nasal discharge present Face and sinus: Yes sinuses nontender Mouth: oropharynx normal Throat: Yes posterior oropharynx normal Eyes General: appearance normal, both eyes and all related structures Neck Neck: Yes normal visual inspection, Yes no lymphadenopathy, Yes trachea midline and Yes no JVD Thyroid: Thyroid normal Chest Chest palpation & inspection: normal inspection of the chest, normal palpation of entire chest wall and no tenderness Resp Other: Percussion note is resonant . Breath sounds are distant , There are no wheezes or rhonchi today. Cardio Palpation: normal PMI Rate: regular rate Rhythm: regular rhythm Heart sounds: no gallops and no murmurs GI Palpation (GI): Soft to palpation, Tenderness to palpation present (GI), No hepatosplenomegaly present and Palpable mass present Auscultation: normal bowel sounds Back/Spine/Pelvis Thoracic/Lumbar Spine: thoracic and lumbar spine normal to inspection and other (BACK IS VERY STIFF AND TENDER TO TOUCH) Skin General skin exam: no rashes or lesions noted Neuro General: patient oriented x3 and no focal motor deficits Cranial nerves: Yes CN's II-XII intact bilaterally Extrem General: Yes normal to inspection, Yes no clubbing, cyanosis or edema and Yes no calf tenderness Psych Speech and movement: Normal speech and movement present Assessment & Plan Assessment & Plan (1) COPD (chronic obstructive pulmonary disease): Comment: She has moderately severe chronic obstructive pulmonary disease. Has history of frequent acute exacerbations. Now for the last few months she has been relatively stable. She has been told that she has developed osteoporosis. So she is less anxious to get prescription of prednisone. Code(s): J44.9 - Chronic obstructive pulmonary disease, unspecified Category: Medical Plan: Advise that she should continue to use Breo 200-251 inhalation daily. Ipratropium-albuterol solution in the nebulizer Q 6 hours p.r.n. Combivent Respimat 1 inhalation Q 6 hours while awake . (2) Nicotine dependence, cigarettes, uncomplicated: Comment: (current smoker, 1ppd x 46yrs, now 1/2ppd - 30pyh).says she has reduced to 2-3 cigarettes a day. She is trying her best to quit smoking or at lease keep the number of cigarettes to 2 or 3. Currently not using the nicotine patches, but wants to get more supplies so that she can use. Code(s): F17.210 - Nicotine dependence, cigarettes, uncomplicated Category: Medical Plan: Counseled about smoking that she must quit completely. She is going to call [phone] quit smoking, and get nicotine patches where she can get free. (3) Pulmonary nodule 1 cm or greater in diameter: Comment: SHE HAS A FEW TINY BASILAR NODULES, MAXIMUM SIZE [address] SCAN IN DECEMBER 2023, DID NOT SHOW ANY LARGE PULMONARY NODULE. Code(s): R91.1 - Solitary pulmonary nodule Category: Medical Plan: Continue to have CT scan once a year Coding Level of Care Code Est Pt Level 3 (58997) Diagnoses COPD (chronic obstructive pulmonary disease) J44.9 Nicotine dependence, cigarettes, uncomplicated F17.210 Pulmonary nodule 1 cm or greater in diameter R91.1
--- OUTSIDE RECORDS SUMMARY | 2025-02-16 14:47 | XMS_ITS | Clinical Summary ---
Author Organization [facility] Address [address] [place] [address] Phone Care Team Providers Care Account Development Manager Name Role Phone David Stinson NP Primary [...] Type Department Care Team Description 01/23/2025 Refill [facility] Department of Neurology [address] [place] [address], 8th Floor, [address] [place] [address] Jimbo Phillips MD, PhD Medication Refill 01/01/2025 Refill [facility] Department of Neurology [address] [place] [address], [address] Floor, [address] [place] [address] Jimbo Phillips MD, PhD Medication Refill from [...] Devices Not on file Insurance [place] [address] [place] [address] ACO [facility]CO [facility] Care Teams Account Development Manager Relationship Specialty Start Date End Date David Stinson NP 1962 [address] [facility] [address] [place] [address] PCP - General Family Medicine 09/26/21 Additional Source Comments The information contained in this document represents components of the legal health record. It is not the complete legal health record.[facility]
--- OUTSIDE RECORDS SUMMARY | 2025-02-16 14:47 | XMS_ITS | Patient Health Record ---
Author Organization [facility] Address [address] [place] [address] Care Team Providers Care Preparole Counseling Aide Name Role Phone Maddy Cruz MD Primary Care Provider Unavailab Frannie Caicedo Unavailable [phone] Reason For Referral No Information Medications Medication [...] W/U Status Risk Notes Problem Hallux valgus (212101510) Hallux Valgus (735.0) Active confirmed Problem Hammer toe ([id number]) Hammer toe (735.4) Active confirmed Problem Neuralgia - Neuritis (729.2) Active confirmed Plan Of Treatment No Information Insurance Providers Payer Name Payer Address Payer Phone Subscriber Number Group Number Insured Name Patient Relationship to Insured Coverage Start Date Coverage End Date Mikhail All Others [address] [place] [address] [phone] [id number] XochitlRoseannaa Self - patient is the insured Medical (General) History Medical History History ICD Code psychiatric disorder neuropathy headaches/migraines chicken pox back, hip, knee pain asthma Anxiety disorder Surgical History Surgery Date(Month/Year) breast biopsy lumpectomy
== END 2025-02-16 13:43 | disposition home or self-care (01) ==
LOC: HO.HPS 13:27
PROVIDERS: PCP Nurse Practitioner Family; Visit Provider Internal Medicine
DX: J44.9 Chronic obstructive pulmonary disease, unspecified (principal); F17.210 Nicotine dependence, cigarettes, uncomplicated; R91.1 Solitary pulmonary nodule
CPT/HCPCS: 99213

== ENCOUNTER → 2025-02-16 13:27 | Outpatient (BNVA) | payer OTHER, SELFPAY | PROVIDERS: PCP Nurse Practitioner Family; Visit Provider Internal Medicine | DX: R91.1 Solitary pulmonary nodule (principal); J44.9 Chronic obstructive pulmonary disease, unspecified; F17.210 Nicotine dependence, cigarettes, uncomplicated | CPT/HCPCS: 99212 ==

== ENCOUNTER 2025-02-17 12:39 | Outpatient (AMB) | payer OTHER, SELFPAY ==
--- NOTE | 2025-02-17 12:58 | A.OFFVIS_ITS ---
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: No Accompanied by: Self / Same As Patient Allergies gabapentin (GABAPENTIN) Allergy (Mild, Verified 02/17/25 12:58) SWELLING pregabalin (From LYRICA) Allergy (Mild, Verified 02/17/25 12:58) AGITATION, swelling, SWELLING Medication List - Last Reconciled 02/17/25 by FREDERICK Christy amitriptyline 50 mg PO BEDTIME atorvastatin (Lipitor) 10 mg PO BEDTIME 90 days azelastine 2 sprays intranasal BID 30 days mbmpiicpcf-llopfdijatyyi-fcxj 50-325-40 mg 1 tab PO Q6H PRN calcium citrate 250 mg PO DAILY cholecalciferol (vitamin D3) 50 mcg PO DAILY clonazepam 1 mg PO BID PRN 30 days cyclobenzaprine 10 mg PO BID PRN 30 days famotidine 20 mg PO BEDTIME fluoride (sodium) 1.1% (Denta 5000 Plus) 1 appl PO DAILY fluticasone furoate-vilanterol 200-25 mcg/dose (Breo Ellipta) 1 inh inhalation DAILY galcanezumab-gnlm (Emgality Pen) 120 mg subcut ONCE 30 days hydroxyzine HCl 50 mg PO BID PRN ipratropium-albuterol 0.5 mg-3 mg(2.5 mg base)/3 mL 3 mL inhalation .prn 30 days ipratropium-albuterol 20-100 mcg/actuation (Combivent Respimat) 1 puff inhalation Q6H ixekizumab (Taltz Autoinjector) 80 mg subcut Q4W lidocaine 5% 1 patch topical DAILY [LSO [place] LSO ] Magic Mouthwash Diphen/Nystat/Antacid 1:1:1 10 mL PO .every 6 hours omeprazole 40 mg PO DAILY ondansetron 8 mg PO Q12H PRN 30 days pen needle, diabetic (Comfort EZ Pen [place]) As directed daily for use with tymlos polyethylene glycol 3350 (Miralax) 17 grams PO DAILY PRN propranolol 20 mg PO BID riboflavin (vitamin B2) 400 mg PO DAILY romosozumab-aqqg (Evenity) 210 mg (2.34 mL) subcut .q mo tramadol 50 mg PO BID PRN trazodone 100 mg (2 x 50 mg) PO BEDTIME PRN ubrogepant (Ubrelvy) 50 - 100 mg (0.5 - 1 x 100 mg) PO ONCE PRN 30 days HPI Comments Details: 59-yr-old female presents for f/u visit for migraine and sleep difficulties. She reports the following interval changes- worsening back pain s/p a fall at [place], has been f/b [facility] neurospine and pain management. Has just been approved for kyphoplasty on 03/04/25 by [facility] pain management. Also states she is to have f/u visit w/ [facility] w/ ? plans for cervical injection on 03/02/25. She has also started osteoporosis tx. HST did not show sleep apnea, however did show some nocturnal hypoxemia. 10/23/23, HST showed AHI 1.4/hr w/ O2 travis 84% (w/ SpO2 < 90% x's 135min and < 88% x's 27.7 min of 499 min study). She states that the azelastine at bedtime helps some- using prn, still wakes up in the morning with congestion. Pt reports she has been working closely w/ Dr Parekh for her ongoing SOB and COPD management. She continues to have postconcussive cognitive difficulties- feels that it is worse since she has been having the bothersome back pain. Easily forgets things, such as small details or appointments. She is also having increased migraines- which she attributes to increased stress. Now having 5 migraine days per week, which can still be severe and cause activity intolerance. Prior to starting Emgality, she was having daily w/ sinus congestion and headache. Has started Ubrelvy, which is helpful. Using Tylenol prn. Using Aleve liquigel prn, which is more helpful. Rarely using Fioricet. Baseline headache characteristics: Moderate to severe. Usually starts denton retroorbital, left-sided, but can be holocranial. Crushing pain, throbbing a/w Photophobia, phonophobia, osmophobia- less so now, nausea, brain fog, activity intolerance. She is not sleeping as well d/t her neck and back pain. Prone to ruminating thoughts. She states her 74 yr old has early stages of dementia. Trazodone 100mg 1.5 hrs before bed and Melatonin 10-20mg at bedtime- not helping any more. [facility] Medical History Panic attacks Asthma COPD exacerbation Nicotine dependence, cigarettes, uncomplicated Osteopenia (~2018) Hypertensive retinopathy of both eyes Tubular adenoma of colon (~2020) Post covid-19 condition, unspecified (~06/2021) Delayed gastric emptying PTSD (post-traumatic stress disorder) HTN (hypertension) Depression COPD (chronic obstructive pulmonary disease) History of cocaine abuse History of alcohol abuse Nausea Post concussive syndrome (~2019) Fibromyalgia Psoriasis Psoriatic arthritis Facial trauma Surgical History History of right breast biopsy History of cranial surgery History of colonoscopy History of foot surgery History of foot surgery Family History Father Family history of diabetes mellitus Medical history non-contributory Maternal Grandmother Rectal cancer Maternal Grandfather Stomach cancer Family/Other Bone cancer Mother Breast cancer Social History Household Members: Spouse Housing: Apartment Are you a primary care tech to a significant other at home: No Do you presently have visiting nurse or other home services: No Alcohol intake: current Alcohol intake frequency: holidays/special occasions only Patient Tobacco Use Status: Current everyday Tobacco user Tobacco use type: Cigarette Cigarette Packs Per Day: 0.25 Cigarettes Per Day: 1 Years Smoked: (onset 11yo, x 46yrs, max 1ppd, now 1/2ppd - 30pyh) e-Cigarette/Vaping Use: Never Used Second Hand Smoke Exposure: Yes Substance Use Type: Marijuana service: No Current occupational status: disabled Cognitive needs: No Hearing needs: No Vision needs: No Physical Exam Vital Signs: Last Vital Signs Pulse 61 02/17/25 12:59 BP 102/70 02/17/25 12:59 Pulse Ox 98 02/17/25 12:59 Oxygen Delivery Method Room Air 02/17/25 12:59 BMI result Body Mass Index 22.3 Const General: cooperative and no acute distress Orientation/consciousness: patient oriented x3 Resp Effort & Inspection: normal respiratory effort and able to speak in complete sentences Neuro Other: Patient is unable to sit for long due to back discomfort. General: patient oriented x3 Cranial nerves: Yes CN's II-XII intact bilaterally Cognition (Neuro): normal cognition Psych Appearance: grossly normal Mental Status: mental status grossly normal Speech and movement: Normal speech and movement present Affect: normal affect Attitude: cooperative Assessment & Plan Assessment & Plan (1) Migraine without aura: Code(s): G43.009 - Migraine without aura, not intractable, without status migrainosus Category: Medical Qualifiers: Intractability: not intractable Status migrainosus presence: without status migrainosus Qualified Code(s): G43.009 - Migraine without aura, not intractable, without status migrainosus (2) Cognitive dysfunction: Code(s): F09 - Unspecified mental disorder due to known physiological condition Category: Medical (3) Sleep difficulties: Code(s): G47.9 - Sleep disorder, unspecified Category: Medical Plan For general health: * Patient advised that she should review her upcoming cervical injection treatment plan with pain management, as it may result in her kyphoplasty procedure be delayed. Sent a message to pain management regarding the same, as patient has STM lapses. For sleep difficulties: * Start duloxetine 30 mg daily in hopes this lessens anxiety and ruminating thoughts (may take in the morning if activating) * Continue Azelastine q.h.s.- to decreased nasal congestion symptoms. * Trazodone 50-100 mg p.r.n.. * Previously shared information on sleep education books/resources on strategies to optimize sleep hygiene. For postconcussive cognitive difficulties: * Consider referral back to SENIOR TAX MANAGER or neuro psych evaluation after patient has undergone kyphoplasty through pain management ?? For overall headache management: * Track headaches * Patient may try blue light filtering glasses, green glasses, green light bulb, green light therapy. * Avoid wearing sunglasses inside. ? For acute headache treatment: * May continue Fioricet for now-not within 5 days of using Ubrelvy. * Continue Ubrogepant (Ubrelvy) 100mg tab, 1/2 - 1 tab (50-100mg) at onset of headache, may repeat in 2 hours. Max of 2 tabs (200mg) per 24 hours. May adj unct with OTC Tylenol 650mg q 4 hours, Ibuprofen 600mg q 6 hours, or Naproxen 440mg q 12 hrs prn. Do not take w/ Butalbital (Fioricet or Fiorinal). * Previous acute migraine medication trials: Sumatriptan- ineffective * Acute migraine medication contraindications: Triptans d/t HTN and HLD ? For headache prevention medication: * Riboflavin 400mg qam * Magnesium 400mg qhs * Continue Amitriptyline 50mg qhs * Continue Propranolol 20mg bid- would not increase furtehr d/t Asthma/COPD dx. * Continue Emgality 120mg sc q month- monitor injection site redness, if worsens can pre treat with Benadryl p.r.n.. * Previous migraine prevention medication trials: As above * Migraine prevention medication contraindications: Topiramate- d/t h/o nephrolithiasis ? Pt to follow-up in 6 months or sooner prn. Medications: New duloxetine 30 mg PO DAILY 30 caps 3RF 30 days Refilled ubrogepant (Ubrelvy) take at onset of migraine, may repeat in 2hrs (may take w/ Ibuprofen) 50 - 100 mg (0.5 - 1 x 100 mg) PO ONCE PRN 16 tabs 3RF migraine headache 30 days Coding Level of Care Code Est Pt Level 4 (37366) Complex EM visit Add On G2211 Diagnoses Migraine without aura and without status migrainosus, not intractable G43.009 Intractability: not intractable Status migrainosus presence: without status migrainosus Cognitive dysfunction F09 Sleep difficulties G47.9
[2025-02-17 12:59] VITALS: BP 102/70; PULSE 61; O2SAT 98; BMI 22.3
--- OUTSIDE RECORDS SUMMARY | 2025-02-17 13:21 | XMS_ITS | Patient Health Record ---
Author Organization [facility] Address [address] [place] [address] Care Team Providers Care Certified Hyperbaric Technologist Name Role Phone Maddy Cruz MD Primary Care Provider Unavailab Frannie Caicedo Unavailable [phone] Reason For Referral No Information Medications Medication [...] W/U Status Risk Notes Problem Hallux valgus (947198561) Hallux Valgus (735.0) Active confirmed Problem Hammer toe ([id number]) Hammer toe (735.4) Active confirmed Problem Neuralgia - Neuritis (729.2) Active confirmed Plan Of Treatment No Information Insurance Providers Payer Name Payer Address Payer Phone Subscriber Number Group Number Insured Name Patient Relationship to Insured Coverage Start Date Coverage End Date Mikhail All Others [address] [place] [address] [phone] [id number] XochitlRoseannaa Self - patient is the insured Medical (General) History Medical History History ICD Code psychiatric disorder neuropathy headaches/migraines chicken pox back, hip, knee pain asthma Anxiety disorder Surgical History Surgery Date(Month/Year) breast biopsy lumpectomy
--- OUTSIDE RECORDS SUMMARY | 2025-02-17 13:21 | XMS_ITS | Clinical Summary ---
Author Organization [facility] Address [address] [place] [address] Phone Care Team Providers Care Medical Genetics Director Name Role Phone David Stinson NP Primary [...] Type Department Care Team Description 01/23/2025 Refill [facility] Department of Neurology [address] [place] [address], 8th Floor, [address] [place] [address] Jimbo Phillips MD, PhD Medication Refill 01/01/2025 Refill [facility] Department of Neurology [address] [place] [address], 8th Floor, [address] [place] [address] Jimbo Phillips MD, PhD Medication Refill from [...] Devices Not on file Insurance [place] [address] [place] [address] ACO ACO [facility] ACO [facility] ACO Care Teams Medical Genetics Director Relationship Specialty Start Date End Date David Stinson NP [address] [place] [address] PCP - General Family Medicine 09/26/21 Additional Source Comments The information contained in this document represents components of the legal health record. It is not the complete legal health record.[facility]
== END 2025-02-17 13:58 | disposition home or self-care (01) ==
LOC: HO.HSMS 12:40
PROVIDERS: PCP Nurse Practitioner Family; Visit Provider Nurse Practitioner Family
DX: G43.009 Migraine without aura, not intractable, without status migrainosus (principal); R41.89 Other symptoms and signs involving cognitive functions and awareness; G47.9 Sleep disorder, unspecified
CPT/HCPCS: 99214

== ENCOUNTER → 2025-02-17 12:39 | Outpatient (BNVA) | payer OTHER, SELFPAY | PROVIDERS: PCP Nurse Practitioner Family; Visit Provider Nurse Practitioner Family | DX: G43.009 Migraine without aura, not intractable, without status migrainosus (principal); F09 Unspecified mental disorder due to known physiological condition; G47.9 Sleep disorder, unspecified | CPT/HCPCS: 99212 ==

== ENCOUNTER 2025-02-25 13:18 | Outpatient (AMB) | payer OTHER, SELFPAY ==
[2025-02-25 13:23] VITALS: BP 120/90; PULSE 83; O2SAT 100; BMI 21.8
--- NOTE | 2025-02-25 13:23 | A.OFFVIS_ITS ---
Vital Signs 02/25/25 13:23 Height 5 ft 6 in Weight 135 lb 5.821 oz BMI 21.8 BP 120/90 H Blood Pressure Location Lt brachial Position Standing Pulse 83 Pulse Source Pulse Oximeter Pulse Oximetry (%) 100 Oxygen Delivery Method Room Air Intake Visit Reasons: PSA Intake Note: Patient presents today for a Psa follow up. Accompanied by: Self / Same As Patient Allergies gabapentin (GABAPENTIN) Allergy (Mild, Verified 02/17/25 12:58) SWELLING pregabalin (From LYRICA) Allergy (Mild, Verified 02/17/25 12:58) AGITATION, swelling, SWELLING HPI HPI PSA: Details: She has been experiencing increased pain in her joints for the last 4 months. She has patches of psoriasis that come and go. At this time she does not have any psoriatic patch. Dr. Kothari mentioned that she had a flex in her scalp at his last visit. She fell in May resulting in a head injury. She reports that her skull was exposed requiring stitches. She has a compression fracture of her lumbar spine and is planning to have kyphoplasty performed next week. She is due for [employer] tomorrow. She has had Evenity for 4 consecutive months. She has been taking Tylenol and tramadol but reports as it ineffective. She was told to avoid NSAIDs prior to kyphoplasty. No new joint swelling. Stiffness is all day. She will be seeing [facility] for evaluation of neck pain. She has been experiencing injection site reaction for the last 3 Taltz injections. She has not had any infections this year. She has chronic sinus congestion. [facility] Medical History Panic attacks Asthma COPD exacerbation Nicotine dependence, cigarettes, uncomplicated Osteopenia (~2018) Hypertensive retinopathy of both eyes Tubular adenoma of colon (~2020) Post covid-19 condition, unspecified (~06/2021) Delayed gastric emptying PTSD (post-traumatic stress disorder) HTN (hypertension) Depression COPD (chronic obstructive pulmonary disease) History of cocaine abuse History of alcohol abuse Nausea Post concussive syndrome (~2019) Fibromyalgia Psoriasis Psoriatic arthritis Facial trauma Surgical History History of right breast biopsy History of cranial surgery History of colonoscopy History of foot surgery History of foot surgery Family History Father Family history of diabetes mellitus Medical history non-contributory Maternal Grandmother Rectal cancer Maternal Grandfather Stomach cancer Family/Other Bone cancer Mother Breast cancer Social History Household Members: Spouse Housing: Apartment Are you a primary animal caretaker to a significant other at home: No Do you presently have visiting nurse or other home services: No Alcohol intake: current Alcohol intake frequency: holidays/special occasions only Patient Tobacco Use Status: Current everyday Tobacco user Tobacco use type: Cigarette Cigarette Packs Per Day: 0.25 Cigarettes Per Day: 1 Years Smoked: (onset 11yo, x 46yrs, max 1ppd, now 1/2ppd - 30pyh) e-Cigarette/Vaping Use: Never Used Second Hand Smoke Exposure: Yes Substance Use Type: Marijuana service: No Current occupational status: disabled Cognitive needs: No Hearing needs: No Vision needs: No Physical Exam Vital Signs: Last Vital Signs Pulse 83 02/25/25 13:23 BP 120/90 H 02/25/25 13:23 Pulse Ox 100 02/25/25 13:23 Oxygen Delivery Method Room Air 02/25/25 13:23 BMI result Body Mass Index 21.8 Const Other: General: Comfortable CVS: RRR Respiratory: clear to auscultation bilaterally. Good respiratory effort Skin: No lesions seen MSK: Tender MCPs, PIP, IPs, bilateral MTPs. Shoulder abduction 90 degrees bilateral limited due to pain in spine. She has hammertoes on her right foot. No dactylitis or synovitis. No enthesitis. Patient was examined standing up due to uncontrolled pain in her back then sitting down. Assessment & Plan Assessment & Plan (1) Psoriatic arthritis: Comment: She is experiencing polyarthralgias since starting Evenity, which is a known drug side effect. Psoriasis is controlled on Taltz. She has not had infections on Taltz. She is experiencing injection site reaction to Taltz. We discuss management of injection site reactions. Rheumatology history: Enbrel 02/2019- 05/2025 changed to Taltz due to recurrent COPD exacerbations requiring antibiotic and prednisone. Taltz May 2024 to present. Methotrexate: before 2019- dates are not available to me-patient is unsure why this was stopped. Code(s): L40.50 - Arthropathic psoriasis, unspecified Category: Medical Plan: She will contact endocrinology to find out if she can hold Evenity tomorrow prior to kyphoplasty next week. This will also allow her to assess if joint pain improves with missing a dose. Labs for drug monitoring on high-risk medication ordered. She will have labs done tomorrow Continue Taltz subcutaneous injection monthly She she will ice injection site 15-20 minutes prior to Taltz injection then after. If she continues to have raised lesion with pruritus, she will use 1% hydrocortisone b.i.d. until reaction resolves. Return to clinic in 3 months Orders: Orders Complete Blood Count Auto Diff Today Z79.899 - Other home mortgage disclosure act specialist (current) drug therapy Aspartate Amino Transferase Today Z79.899 - Other snf (current) drug therapy Erythrocyte Sedimentation Rate Today Z79.899 - Other home mortgage disclosure act specialist (current) drug therapy Alanine Aminotransferase Today Z79.899 - Other home mortgage disclosure act specialist (current) drug therapy Creatinine Today Z79.899 - Other home mortgage disclosure act specialist (current) drug therapy C Reactive Protein Today Z79.899 - Other snf (current) drug therapy Medications: New hydrocortisone 1% 1 appl topical BID-TID PRN 28.4 grams 2RF Injection site r eaction Coding Level of Care Code Est Pt Level 4 (24940) Complex EM visit Add On G2211 Diagnoses Psoriatic arthritis L40.50 Time Spent (min) 30
--- OUTSIDE RECORDS SUMMARY | 2025-02-25 15:36 | XMS_ITS | Clinical Summary ---
Author Organization [facility] Address [address] [place] [id number] Phone Care Team Providers Care Meteorology Professor Name Role Phone David Stinson NP Primary [...] Type Department Care Team Description 01/23/2025 Refill [facility] [place] [address] [place] [address], 8th Floor, [address] [place] [address] Jimbo Phillips MD, PhD Medication Refill 01/01/2025 Refill [facility] Department of Neurology [address] [place] [address], 8th Floor, [address] [place] [address] Jimbo Phillips MD, PhD Medication Refill from [...] (2 of 2 - PCV) 01/22/2010 01/22/2009 RSV VACCINE (1 - Risk 60-74 years 1-dose series) 2024 INFLUENZA VACCINE (#1) 2025 , 04/29/2015, 03/18/2014, Additional history exists COVID-19 VACCINE ( season) 2025 10/18/2020, 10/18/2020, 09/27/2020, Additional history exists Adult Td,Tdap Booster 08/31/2030 08/31/2020 HEPATITIS A [...] Devices Not on file Insurance ACO ACO [place] [address] [place] [address] ACO [employer] ACO ACO ACO Care Teams Meteorology Professor Relationship Specialty Start Date End Date David Stinson NP [address] [place] [address] PCP - General Family Medicine 09/26/21 Additional Source Comments The information contained in this document represents components of the legal health record. It is not the complete legal health record.[facility]
--- OUTSIDE RECORDS SUMMARY | 2025-02-25 15:36 | XMS_ITS | Patient Health Record ---
Author Organization [facility] Address [address] [facility] [address] Care Team Providers Care Customer Counter Representative Name Role Phone Maddy Cruz MD Primary Care Provider Unavailab Frannie Caicedo Unavailable [phone] Reason For Referral No Information Medications Medication [...] W/U Status Risk Notes Problem Hallux valgus ([id number]) Hallux Valgus (735.0) Active confirmed Problem Hammer toe ([id number]) Hammer toe (735.4) Active confirmed Problem Neuralgia - Neuritis (729.2) Active confirmed Plan Of Treatment No Information Insurance Providers Payer Name Payer Address Payer Phone Subscriber Number Group Number Insured Name Patient Relationship to Insured Coverage Start Date Coverage End Date [employer]ail All Others [address] [place] [address] [id number] XochitlAnne Self - patient is the insured Medical (General) History Medical History History ICD Code psychiatric disorder neuropathy headaches/migraines chicken pox back, hip, knee pain asthma Anxiety disorder Surgical History Surgery Date(Month/Year) breast biopsy lumpectomy
== END 2025-02-25 14:13 | disposition home or self-care (01) ==
LOC: HO.RHES 13:19
PROVIDERS: PCP Nurse Practitioner Family; Visit Provider Internal Medicine Rheumatology
DX: L40.50 Arthropathic psoriasis, unspecified (principal)
CPT/HCPCS: 99214

== ENCOUNTER → 2025-02-25 13:18 | Outpatient (BNVA) | payer OTHER, SELFPAY | PROVIDERS: PCP Nurse Practitioner Family; Visit Provider Internal Medicine Rheumatology | DX: L40.50 Arthropathic psoriasis, unspecified (principal); L40.9 Psoriasis, unspecified; Z79.899 Other long term (current) drug therapy | CPT/HCPCS: 99212 ==

== ENCOUNTER 2025-02-26 10:49 | Outpatient (REF) | payer OTHER, SELFPAY ==
--- OUTSIDE RECORDS SUMMARY | 2025-02-26 12:27 | XMS_ITS | Clinical Summary ---
Author Organization [facility] Address [address] [place] [address] Phone Care Team Providers Care Mobile Patrol Officer Name Role Phone David Stinson NP [...] EVERY NIGHT AT BEDTIME. 90 tablet 1 5 Active Encounters Date Type Department Care Team Description 01/23/2025 Refill [facility] Department of Neurology [address], 8th Floor, [address] [place] [address] Jimbo Phillips MD, PhD Medication Refill 01/01/2025 Refill [facility] Department of Neurology [address] [place] [address], 8th Floor, [address] [place] [address] Jimbo Phillips MD, PhD Medication Refill from [...] on file Insurance ACO ACO ACO ACO [facility] ACO [facility] ACO Care Teams Mobile Patrol Officer Relationship Specialty Start Date End Date David Stinson NP [address] [place] [address] PCP - General Family Medicine 09/26/21 Additional Source Comments The information contained in this document represents components of the legal health record. It is not the complete legal health record.[facility]
--- OUTSIDE RECORDS SUMMARY | 2025-02-26 12:27 | XMS_ITS | Patient Health Record ---
Author Organization [facility] Address [address] [place] [address] Care Team Providers Care Manufacturing Technician Name Role Phone Maddy Cruz MD Primary Care Provider Unavailab Frannie Caicedo Unavailable [phone] Reason For Referral No Information Medications Medication [...] W/U Status Risk Notes Problem Hallux valgus ([id number]) Hallux Valgus (735.0) Active confirmed Problem Hammer toe ([id number]) Hammer toe (735.4) Active confirmed Problem Neuralgia - Neuritis (729.2) Active confirmed Plan Of Treatment No Information Insurance Providers Payer Name Payer Address Payer Phone Subscriber Number Group Number Insured Name Patient Relationship to Insured Coverage Start Date Coverage End Date [employer] All Others [address] [place] [address] [id number] XochitlAnne Self - patient is the insured Medical (General) History Medical History History ICD Code psychiatric disorder neuropathy headaches/migraines chicken pox back, hip, knee pain asthma Anxiety disorder Surgical History Surgery Date(Month/Year) breast biopsy lumpectomy
[2025-02-26 13:10] LABS: Appearance Urine Clear; Glucose Urine UA Negative (Negative); PH 6.0 (5.0-9.0); Specific Gravity - Urine 1.020 (1.005-1.025); UMIC TRIGGER UACC YES
[2025-02-26 13:23] LABS: MANUAL DIFF FLAG NO
[2025-02-26 13:29] LABS: Hematocrit 40.4 % (37.0-47.0); Hemoglobin 13.8 g/dl (12.0-16.0); Imm Gran Abs Auto 0.01 X10*3/uL (0.00-0.03); Imm Gran Pct Auto 0.2 % (0.0-0.4); Lymphocytes Absolute Auto 2.0 X10*3/uL (1.2-4.9); Mean Corpuscular HGB Conc 34.2 g/dl (31.0-35.0); Mean Corpuscular Hemoglobin 34.0 pg (27.0-33.0); Mean Corpuscular Volume 99.5 fL (80.0-98.0); NRBC Abs Auto 0.000 X10*3/uL (0.0-0.012); NRBC Pct Auto 0.0 /100WBC (0.0-0.2); Platelet Count 240 X10*3/uL (160-400); Red Blood Count 4.06 X10*6/uL (4.20-5.50); White Blood Count 4.8 X10*3/uL (4.8-10.8)
[2025-02-26 13:53] LABS: Alanine Aminotransferase 19 U/L (0-31); Albumin Level 4.4 g/dL (3.5-5.0); Alkaline Phosphatase 70 U/L (39-117); Anion Gap 11 (12-20); Aspartate Amino Transferase 22 U/L (5-31); Blood Urea Nitrogen 14 mg/dL (9-16); Calcium 10.0 mg/dL (8.4-10.2); Carbon Dioxide 26 mmol/L (22-29); Chloride 106 mmol/L (96-108); Cholesterol 174 mg/dL (<200); Estimated Glomerular Filt Rate > 60; HDL Cholesterol 60 mg/dL (>40); Potassium 4.2 mmol/L (3.3-5.1); Sodium 139 mmol/L (135-145); Total Protein 7.3 g/dL (6.5-8.0); Triglycerides 88 mg/dL (<150)
== END 2025-02-26 10:50 | disposition home or self-care (01) ==
LOC: HO.HMGCLDS 10:49
PROVIDERS: PCP Nurse Practitioner Family; Referring Provider Internal Medicine Rheumatology; Visit Provider Nurse Practitioner Family
DX: Z00.01 Encounter for general adult medical examination with abnormal findings (principal); E78.5 Hyperlipidemia, unspecified; Z79.899 Other long term (current) drug therapy
CPT/HCPCS: 36415; 80053; 80061; 81001; 81003; 84443; 85025; 85652; 86140

== ENCOUNTER 2025-03-04 09:43 | Day surgery (SDC) | payer OTHER, SELFPAY ==
[2025-03-02 12:40] VITALS: BMI 21.3
--- NOTE | 2025-03-02 14:54 | HO.ANESPROP2 ---
Documented by User: Lucrecia Dodson NP 03/02/25 15:02 HPI - Anesthesia Eval Consult details Narrative: 59 yr old female for L2 and L4 Kyphoplasty Osteoporosis: On Evenity managed by endocrine Psoriatic arthritis: controlled on Taltz COPD: h/o frequent exacerbations but stable recently per end of Jan 2025 pulm note; still smoking PMFSH Active Problems Active Problems: All Active Problems (Updated 02/26/25 @ 17:27 by David Stinson, [facility]) Dehydration (Acute) Thoracic back pain (Acute) Fatty liver (Acute) Cervical neck pain with evidence of disc disease (Acute) Elevated liver enzymes (Acute) Lateral meniscus tear (Acute) Contusion of bone (Acute) Osteoporotic compression fracture of spine with delayed healing (Acute) Lumbar compression fracture (Acute) Elevated lymphocytes (Acute) Buttock pain (Acute) Spondylosis (Acute) Low back pain (Acute) Lower respiratory infection (e.g., bronchitis, pneumonia, pneumonitis, pulmonitis) (Acute) Internal derangement of knee (Acute) Chest pain (Acute) Wheezing (Acute) Screening for colon cancer (Acute) Asthma (Acute) Shortness of breath at rest (Acute) Cervicalgia (Acute) Dyslipidemia (Acute) COPD exacerbation (Acute) Screening for lipid disorders (Acute) Migraine without aura (Acute) Cognitive dysfunction (Acute) Excessive daytime sleepiness (Acute) Sleep difficulties (Acute) Restless leg syndrome (Acute) Snoring (Acute) White matter abnormality on MRI of brain (Acute) HTN (hypertension) (Acute) HLD (hyperlipidemia) (Acute) Immunization counseling (Acute) High risk medication use (Acute) Elevated fasting blood sugar (Acute) Hematuria, microscopic (Acute) Osteoporosis (Acute) Postmenopausal (Acute) Atypical lobular hyperplasia (ALH) of right breast (Acute) Nicotine dependence, cigarettes, uncomplicated (Acute) Abnormal brain MRI (Acute) Vestibular disorder (Acute) Post covid-19 condition, unspecified (Acute ~06/2021) Pulmonary nodule 1 cm or greater in diameter (Acute) COPD (chronic obstructive pulmonary disease) (Acute) HTN (hypertension), benign (Acute) Hypertensive retinopathy of both eyes (Acute) High cholesterol (Acute) MGUS (monoclonal gammopathy of unknown significance) (Acute) Psoriasis (Acute) Psoriatic arthritis (Acute) Chronic idiopathic constipation (Acute) Delayed gastric emptying (Acute) GERD (gastroesophageal reflux disease) (Acute) Severe somatic symptom disorder with predominant pain (Acute) PTSD (post-traumatic stress disorder) (Acute) Bipolar disorder (Acute) Anxiety and depression (Acute) Insomnia (Acute) Osteopenia (Acute ~2018) Post concussive syndrome (Acute ~2019) Headache (Acute) Nephrolithiasis (Acute) Tubular adenoma of colon (Acute ~2020) Past Medical History Medical History Panic attacks Asthma COPD exacerbation Nicotine dependence, cigarettes, uncomplicated Osteopenia (~2018) Hypertensive retinopathy of both eyes Tubular adenoma of colon (~2020) Post covid-19 condition, unspecified (~06/2021) Delayed gastric emptying PTSD (post-traumatic stress disorder) HTN (hypertension) Depression COPD (chronic obstructive pulmonary disease) History of cocaine abuse History of alcohol abuse Nausea Post concussive syndrome (~2019) Fibromyalgia Psoriasis Psoriatic arthritis Facial trauma Family History Family History Father Family history of diabetes mellitus Medical history non-contributory Maternal Grandmother Rectal cancer Maternal Grandfather Stomach cancer Family/Other Bone cancer Mother Breast cancer Family history of problems with anesthesia: No Surgical History Surgical History History of right breast biopsy History of cranial surgery History of colonoscopy History of foot surgery History of foot surgery History of Problems with Anesthesia: No Social History Social History Household Members: Spouse Housing: Apartment Are you a primary associate director career services to a significant other at home: No Do you presently have visiting nurse or other home services: No Alcohol intake: current Alcohol intake frequency: holidays/special occasions only Patient Tobacco Use Status: Current everyday Tobacco user Tobacco use type: Cigarette Cigarette Packs Per Day: 0.25 Cigarettes Per Day: 3 Years Smoked: (onset 11yo, x 46yrs, max 1ppd, now 1/2ppd - 30pyh) e-Cigarette/Vaping Use: Never Used Second Hand Smoke Exposure: Yes Use of substances other than those prescribed or required for medical reasons: Yes Substance Use Type: Marijuana Are you DNR?: No Advance Directives: No Advance Directives Information Provided: Yes Patient : No service: No Current occupational status: disabled Cognitive needs: No Hearing needs: No Vision needs: No Meds Allergies Allergy/AdvReac Type Severity Reaction Status Date / Time gabapentin (GABAPENTIN) Allergy Mild SWELLING Verified 02/17/25 12:58 pregabalin (From LYRICA) Allergy Mild AGITATION, Verified 02/17/25 12:58 swelling, SWELLING Home Medications ?Medication ?Instructions ?Recorded ?Confirmed ?Last Taken ?Type amitriptyline 50 mg tablet 50 mg PO BEDTIME 03/09/22 02/17/25 Unknown History calcium citrate 250 mg PO DAILY 04/24/23 02/17/25 Unknown History cholecalciferol (vitamin D3) 50 50 mcg PO DAILY 04/24/23 02/17/25 Unknown History mcg (2,000 unit) tablet fluoride (sodium) 1.1 % dental 1 appl PO DAILY 04/24/23 02/17/25 Unknown History cream (Denta 5000 Plus) Ubrelvy 03/04/25 03/04/25 09:50 History Exam Height,Weight and Vital Signs: Height 5 ft 7 in Weight 61.689 kg Assessment and Plan Final Anesthetic Review Family History of Problems with Anesthesia: No History of Problems with Anesthesia: No Documented by User: Amita Ceron MD 03/04/25 12:31 PMFSH Past Medical History Medical History Panic attacks Asthma COPD exacerbation Nicotine dependence, cigarettes, uncomplicated Osteopenia (~2018) Hypertensive retinopathy of both eyes Tubular adenoma of colon (~2020) Post covid-19 condition, unspecified (~06/2021) Delayed gastric emptying PTSD (post-traumatic stress disorder) HTN (hypertension) Depression COPD (chronic obstructive pulmonary disease) History of cocaine abuse History of alcohol abuse Nausea Post concussive syndrome (~2019) Fibromyalgia Psoriasis Psoriatic arthritis Facial trauma Family History Family History Father Family history of diabetes mellitus Medical history non-contributory Maternal Grandmother Rectal cancer Maternal Grandfather Stomach cancer Family/Other Bone cancer Mother Breast cancer Surgical History Surgical History History of right breast biopsy History of cranial surgery History of colonoscopy History of foot surgery History of foot surgery Social History Social History Household Members: Spouse Housing: Apartment Are you a primary associate director career services to a significant other at home: No Do you presently have visiting nurse or other home services: No Alcohol intake: current Alcohol intake frequency: holidays/special occasions only Patient Tobacco Use Status: Current everyday Tobacco user Tobacco use type: Cigarette Cigarette Packs Per Day: 0.25 Cigarettes Per Day: 3 Years Smoked: (onset 11yo, x 46yrs, max 1ppd, now 1/2ppd - 30pyh) e-Cigarette/Vaping Use: Never Used Second Hand Smoke Exposure: Yes Use of substances other than those prescribed or required for medical reasons: Yes Substance Use Type: Marijuana Are you DNR?: No Advance Directives: No Advance Directives Information Provided: Yes Patient : No service: No Current occupational status: disabled Cognitive needs: No Hearing needs: No Vision needs: No Meds Allergies Allergy/AdvReac Type Severity Reaction Status Date / Time gabapentin (GABAPENTIN) Allergy Mild SWELLING Verified 02/17/25 12:58 pregabalin (From LYRICA) Allergy Mild AGITATION, Verified 02/17/25 12:58 swelling, SWELLING Home Medications ?Medication ?Instructions ?Recorded ?Confirmed ?Last Taken ?Type amitriptyline 50 mg tablet 50 mg PO BEDTIME 03/09/22 02/17/25 Unknown History calcium citrate 250 mg PO DAILY 04/24/23 02/17/25 Unknown History cholecalciferol (vitamin D3) 50 50 mcg PO DAILY 04/24/23 02/17/25 Unknown History mcg (2,000 unit) tablet fluoride (sodium) 1.1 % dental 1 appl PO DAILY 04/24/23 02/17/25 Unknown History cream (Denta 5000 Plus) Ubrelvy 03/04/25 03/04/25 09:50 History Exam Airway Mallampati Class: II TM Dist: >3cm Neck ROM: Limited Heart: rrr Lungs: cta Assessment and Plan Assessment Anesthesia Assessment: Anesthesia Plan Discussed and Chart Reviewed Final Anesthetic Review NPO: Yes ASA Class: III Final Preanesthetic Review: No Changes in Pt Med Stat, Meds/Allgs Chart Reviewed, Consent Obtained/Reviewed and Anes Risks/Benef Reviewed Patient Risk: Intermediate Procedure Risk: Intermediate Anesthetic Plan Anesthetic Plan: GA and MAC: Disposition: Standard PACU
[2025-03-04] VITALS (15 sets, daily range): BP systolic 118–139; BP diastolic 63–78; PULSE 58–74; RESP 16–20; TEMP 36.5–36.8; O2SAT 92–99; BMI 22.3
--- NOTE | ~2025-03-04 | FL_ITS ---
EXAMINATION: FL GUIDANCE ONLY HISTORY: L2 L4 KYPHO COMPARISON: Correlation is made with plain films of the thoracic spine dated 1325. TECHNIQUE: Fluoroscopy time: 3 minutes, 43.4 seconds. Cumulative Dose: 105.745 mGy. DAP: 19.355 mGym2 Images: 4. FINDINGS: Fluoroscopic spot films of the thoracic spine demonstrate kyphoplasty changes at 2 levels. FL/FL guidance in OR IMPRESSION: Fluoroscopy during procedure. Please see procedure report for additional information. Electronically signed by: Natalio Erickson MD 03/05/2025 07:02 AM EDT
[2025-03-04] MEDS: Lactated Ringers 1,000 ML 100 ML IVCONT (10:37)
[2025-03-04 11:54] LABS: MRSA Nasal PCR NEGATIVE (Negative); SA Nasal PCR NEGATIVE (Negative)
--- NOTE | 2025-03-04 13:30 | MHC.SHP ---
Pre-Procedural Eval Section A - 24 Hr Update-Section A only Date of Service: 03/04/25 The patient is an INPATIENT: No Changes since office visit: Yes Patient answered all questions The patient has been examined within 24 hours of the surgical procedure. The History & Physical has been completed within 30 days and I have reviewed it.: No Section B - Complete if H&P > 30 days Chief Complaint: Other osteoporosis with current pathological fx Relevant Family History (Specify if Yes): No Relevant Social History: None Present Medications: see Short Stay Collaborative assessment Medical History: No relevant PMH History of Previous Operations: No relevant previous surgery Allergies: Allergies Allergy/AdvReac Type Severity Reaction Status Date / Time gabapentin (GABAPENTIN) Allergy Mild SWELLING Verified 02/17/25 12:58 pregabalin (From LYRICA) Allergy Mild AGITATION, Verified 02/17/25 12:58 swelling, SWELLING Review of Systems Sugical H&P ROS: Negative: Constitution, Cardiovascular and Respiratory Exam Surgical H&P Exam: Normal: HEENT, Normal: Heart and Normal: Lungs Plan Diagnosis/Plan: Unchanged I have reviewed the history and physical and performed a pertinent physical examination on my patient. No changes have occurred unless specified. Time Spent With Patient Time: Total time managing care of this patient today ____ minutes.
--- NOTE | 2025-03-04 16:04 | P.OP_ITS ---
Operative Note Operative Note Date of Service: 03/04/25 Narrative: Preprocedure diagnosis: Osteoporotic VCF L2, L4 Postprocedure Diagnosis: Same Procedure: Kyphon Balloon Kyphoplasty with Insertion of HV-R Bone Cement, L2 and L4 Vertebral Bodies The patient was brought to the operating room and sedated. The patient was positioned prone on the table. The back was prepped and draped. Two image intensifiers (C-arms) were brought into the AP and lateral positions and the L2 pedicles were identified and marked with a skin marker. A transpedicular approach to the vertebral body was deemed appropriate. A spinal needle was advanced along the expected course of the introducer up to the pedicle and the tract was anesthetized with 0.25% bupivacaine with epinephrine. A stab incision was made 4.5 cm lateral to the pedicle with a 15 blade. A 10- gauge bevel introducer was advanced through the L2 pedicle to the junction of the pedicle and vertebral body on the left side first. Positioning was confirmed on the AP and lateral plane at regular intervals to ensure bevel position within the cortical boundaries of the pedicle until the body of the vertebra was accessed. Following satisfactory placement of the osteointroducer, the bevel tip was removed, leaving the cannula in place, positioned approximately 1 cm past the posterior vertebral body wall. Through the cannula, a drill was advanced into the vertebral body under fluoroscopic guidance toward the anterior cortex to create a channel, stopping approximately 3-5 mm posterior to the anterior cortical wall in the lateral view and approaching the ipsilateral edge of the spinous process in the AP view. The anterior cortex was probed with the guide pin to ensure no perforations in the anterior cortex. After completing the entry into the vertebral body, a 15 mm inflatable bone tamp was inserted through the cannula and advanced under fluoroscopic guidance into the vertebral body near the anterior cortex. The radiopaque marker bands on the bone tamp were identified using AP and lateral images and confirmed to be within the anterior 2/3rd of the body. . The above sequence of instrument placement was then repeated on the right side. Once both bone tamps were in position, they were inflated sequentially in increments of 0.25 to 0.5 cc of contrast, with careful attention being paid to the inflation pressures and balloon position. The inflation was monitored with AP and lateral imaging. The final balloon volume was 1.5 cc on the left and 1.5 cc on the right side. Maximum pressure applied on either side was approximately 350-400 psi. There was no breach of the lateral wall or anterior cortex of the vertebral body. However, the left balloon was noted to pop and thereafter full removed. Direct reduction of the fracture was achieved. Under fluoroscopic imaging, and the use of the bone void fillers, internal fixation was achieved through a low-pressure injection of appropriately cured KYPHON HV-R methylmethacrylate bone cement. The cavity was filled with a total volume of 1.2 cc on the left side and 2.2 cc on the right side. No vascular, disc or spinal extravasation of the cement was noted. Once the bone cement had hardened, the bevel tip was reinserted into each of the cannulas to clear it and they were were then removed. For the L4 vertebral body, stab incision was made 6.5 cm lateral to the pedicle with a 15 blade. A 10-gauge bevel introducer was advanced through the L4 pedicle to the junction of the pedicle and vertebral body on the left side first. Positioning was confirmed on the AP and lateral plane at regular intervals to ensure bevel position within the cortical boundaries of the pedicle until the body of the vertebra was accessed. Following satisfactory placement of the osteointroducer, the bevel tip was removed, leaving the cannula in place, positioned approximately 1 cm past the posterior vertebral body wall. Through the cannula, a drill was advanced into the vertebral body under fluoroscopic guidance toward the anterior cortex to create a channel, stopping approximately 3-5 mm posterior to the anterior cortical wall in the lateral view and approaching the ipsilateral edge of the spinous process in the AP view. The anterior cortex was probed with the guide pin to ensure no perforations in the anterior cortex. After completing the entry into the vertebral body, a 15 mm inflatable bone tamp was inserted through the cannula and advanced under fluoroscopic guidance into the vertebral body near the anterior cortex. The radiopaque marker bands on the bone tamp were identified using AP and lateral images and confirmed to be within the anterior 2/3rd of the body. . The above sequence of instrument placement was then repeated on the right side. Once both bone tamps were in position, they were inflated sequentially in increments of 0.25 to 0.5 cc of contrast, with careful attention being paid to the inflation pressures and balloon position. The inflation was monitored with AP and lateral imaging. The final balloon volume was 2 cc on the left and 1.5 cc on the right side. Maximum pressure applied on either side was approximately 300 psi. There was no breach of the lateral wall or anterior cortex of the vertebral body. Direct reduction of the fracture was achieved. Under fluoroscopic imaging, and the use of the bone void fillers, internal fixation was achieved through a low-pressure injection of appropriately cured KYPHON HV-R methylmethacrylate bone cement. The cavity was filled with a total volume of 1.8 cc on the left side and 3 cc on the right side. No vascular, disc or spinal extravasation of the cement was noted. Once the bone cement had hardened, the bevel tip was reinserted into each of the cannulas to clear it and they were were then removed. Post-procedure, the incisions were closed with dermabond and steristrips. Op- Site dressings were placed. The patient was kept in the prone position for approximately 10 minutes post cement injection. She was then turned supine, extubated and brought to the PACU where she reported minimal back pain. She was able to move both her lower extremities at this time. She was subsequently discharged with postprocedure and follow-up instructions. Estimated blood loss was rougly 40 mL.
--- NOTE | 2025-03-04 16:10 | P.BOP_ITS ---
Brief Operative Note Date of Service: 03/04/25 Pre-op diagnosis: Osteoporotic Vertebral Compression Fracture L2, L4 Post-op diagnosis: same Procedure: Kyphon Balloon Kyphoplasty with Insertion of HV-R Bone Cement, L2, L4 Vertebral Body Implants: None Surgeon: Fei Haney MD Anesthesia: MAC Was an On Site Construction Superintendent used for this Procedure?: No Estimated blood loss (mL): 40 Pathology: none sent Condition: stable Disposition: PACU
== END 2025-03-04 18:04 | disposition home or self-care (01) ==
PROVIDERS: Registered Nurse Emergency; PCP Nurse Practitioner Family; Visit Provider Internal Medicine
PROC: (CPT 22514; principal; 2025-03-04 12:30)
DX: M80.88XG Other osteoporosis with current pathological fracture, vertebra(e), subsequent encounter for fracture with delayed healing (principal); G89.29 Other chronic pain; M54.50 Low back pain, unspecified; M54.2 Cervicalgia; R26.89 Other abnormalities of gait and mobility; Z82.61 Family history of arthritis; I10 Essential (primary) hypertension; H35.033 Hypertensive retinopathy, bilateral; Z79.899 Other long term (current) drug therapy; J44.9 Chronic obstructive pulmonary disease, unspecified; Z88.8 Allergy status to other drugs, medicaments and biological substances; F43.10 Post-traumatic stress disorder, unspecified; F10.11 Alcohol abuse, in remission; F14.11 Cocaine abuse, in remission; F17.210 Nicotine dependence, cigarettes, uncomplicated; Z98.890 Other specified postprocedural states
CPT/HCPCS: 22514; 22515; 87640; 87641; C1713; J0690; J2003; J2250; J2704; J3010; Q9967

== ENCOUNTER → 2025-03-04 09:43 | Outpatient (BNV) | payer OTHER, SELFPAY | PROVIDERS: PCP Nurse Practitioner Family; Visit Provider Internal Medicine | DX: M80.88XA Other osteoporosis with current pathological fracture, vertebra(e), initial encounter for fracture (principal) | CPT/HCPCS: 22514; 22515 ==

== ENCOUNTER 2025-03-10 14:04 | Outpatient (REF) | payer OTHER, SELFPAY ==
[2025-03-10 16:20] LABS: MANUAL DIFF FLAG NO
[2025-03-10 16:26] LABS: Hematocrit 33.0 % (37.0-47.0); Hemoglobin 11.2 g/dl (12.0-16.0); Imm Gran Abs Auto 0.02 X10*3/uL (0.00-0.03); Imm Gran Pct Auto 0.3 % (0.0-0.4); Lymphocytes Absolute Auto 1.5 X10*3/uL (1.2-4.9); Mean Corpuscular HGB Conc 33.9 g/dl (31.0-35.0); Mean Corpuscular Hemoglobin 33.8 pg (27.0-33.0); Mean Corpuscular Volume 99.7 fL (80.0-98.0); NRBC Abs Auto 0.000 X10*3/uL (0.0-0.012); NRBC Pct Auto 0.0 /100WBC (0.0-0.2); Platelet Count 259 X10*3/uL (160-400); Red Blood Count 3.31 X10*6/uL (4.20-5.50); White Blood Count 6.4 X10*3/uL (4.8-10.8)
[2025-03-10 16:29] LABS: Appearance Urine Clear; Glucose Urine UA Negative (Negative); PH 7.5 (5.0-9.0); Specific Gravity - Urine <= 1.005 (1.005-1.025)
[2025-03-10 17:18] LABS: Folate > 20.0 ng/mL (> or = 4.0); Vitamin B12 512 pg/mL (200-900)
--- OUTSIDE RECORDS SUMMARY | 2025-03-10 17:53 | XMS_ITS | Patient Health Record ---
Author Organization [facility] Address [address] [place] [address] Care Team Providers Care Linoleum Floor Layer Name Role Phone Maddy Cruz MD Primary Care Provider Unavailab Frannie Caicedo Unavailable [phone] Reason For Referral No Information Medications Medication [...] W/U Status Risk Notes Problem Hallux valgus ([id number]) Hallux Valgus (735.0) Active confirmed Problem Hammer toe ([id number]) Hammer toe (735.4) Active confirmed Problem Neuralgia - Neuritis (729.2) Active confirmed Plan Of Treatment No Information Insurance Providers Payer Name Payer Address Payer Phone Subscriber Number Group Number Insured Name Patient Relationship to Insured Coverage Start Date Coverage End Date Mikhail All Others [address] [place] [address] [phone] [id number] XochitlAnne Self - patient is the insured Medical (General) History Medical History History ICD Code psychiatric disorder neuropathy headaches/migraines chicken pox back, hip, knee pain asthma Anxiety disorder Surgical History Surgery Date(Month/Year) breast biopsy lumpectomy
--- OUTSIDE RECORDS SUMMARY | 2025-03-10 17:53 | XMS_ITS | Clinical Summary ---
Author Organization [facility] Address [address] [place] [address] Phone Care Team Providers Care Cash Person Name Role Phone David Stinson NP Primary [...] Type Department Care Team Description 01/23/2025 Refill [facility] Department of Neurology [address], 8th [address], [address] [place] [address] Jimbo Phillips MD, PhD Medication Refill 01/01/2025 Refill [facility] Department of Neurology [address] [place] [address], 8th Floor, [address] [place] [address] Jimbo Phillips MD, PhD Medication Refill from [...] file Insurance ACO ACO ACO ACO [facility] ACO [facility]CO Care Teams Cash Person Relationship Specialty Start Date End Date David Stinson NP [address] [facility] [address] [place] [address] PCP - General Family Medicine 09/26/21 Additional Source Comments The information contained in this document represents components of the legal health record. It is not the complete legal health record.[facility]
== END 2025-03-10 14:05 | disposition home or self-care (01) ==
LOC: HO.HMGCLDS 14:04
PROVIDERS: PCP Nurse Practitioner Family; Visit Provider Nurse Practitioner Family
DX: I10 Essential (primary) hypertension (principal); E86.0 Dehydration
CPT/HCPCS: 36415; 81003; 82607; 82746; 85025

== ENCOUNTER 2025-03-13 10:22 | Outpatient (AMB) | payer OTHER, SELFPAY ==
--- NOTE | 2025-03-13 10:27 | A.OFFVIS_ITS ---
Vital Signs 03/13/25 10:28 Height 5 ft 6 in Weight 135 lb BMI 21.8 BP 98/64 Blood Pressure Location Lt brachial Position Sitting Respiration 16 Pulse 88 Pulse Source Pulse Oximeter Pulse Oximetry (%) 98 Oxygen Delivery Method Room Air Intake Visit Reasons: S/p L2 and L4 Kyphoplasty 03/04/25 Sample Preparation Supervisor Required: No Allergies gabapentin (GABAPENTIN) Allergy (Mild, Verified 03/13/25 10:30) SWELLING pregabalin (From LYRICA) Allergy (Mild, Verified 03/13/25 10:30) AGITATION, swelling, SWELLING Medication List - Last Reconciled 03/13/25 by Fatoumata Pro LPN amitriptyline 50 mg PO BEDTIME atorvastatin 10 mg PO BEDTIME azelastine 2 sprays intranasal BID 30 days oglabuonup-imfplcznwdzmr-gbzq 50-325-40 mg 1 tab PO Q6H PRN calcium citrate 250 mg PO DAILY cholecalciferol (vitamin D3) 50 mcg PO DAILY clonazepam 1 mg PO BID PRN 30 days cyclobenzaprine 10 mg PO BID PRN 30 days duloxetine 30 mg PO DAILY 30 days famotidine 20 mg PO BEDTIME fluoride (sodium) 1.1% (Denta 5000 Plus) 1 appl PO DAILY fluticasone furoate-vilanterol 200-25 mcg/dose (Breo Ellipta) 1 inh inhalation DAILY galcanezumab-gnlm (Emgality Pen) 120 mg subcut ONCE 30 days hydrocortisone 1% 1 appl topical BID-TID PRN hydroxyzine HCl 50 mg PO BID PRN ipratropium-albuterol 0.5 mg-3 mg(2.5 mg base)/3 mL 3 mL inhalation .prn 30 days ipratropium-albuterol 20-100 mcg/actuation (Combivent Respimat) 1 puff inhalation Q6H ixekizumab (Taltz Autoinjector) 80 mg subcut Q4W lidocaine 5% 1 patch topical DAILY [LSO [place] LSO ] magnesium oxide 400 mg PO BEDTIME 30 days omeprazole 40 mg PO DAILY ondansetron 8 mg PO Q12H PRN 30 days pen needle, diabetic (Comfort EZ Pen Shirley) As directed daily for use with tymlos polyethylene glycol 3350 (Miralax) 17 grams PO DAILY PRN propranolol 20 mg PO BID riboflavin (vitamin B2) 400 mg PO DAILY romosozumab-aqqg (Evenity) 210 mg (2.34 mL) subcut .q mo tramadol 50 mg PO BID PRN trazodone 100 mg (2 x 50 mg) PO BEDTIME PRN ubrogepant (Ubrelvy) 50 - 100 mg (0.5 - 1 x 100 mg) PO ONCE PRN 30 days HPI HPI S/p L2 and L4 Kyphoplasty 03/04/25: Details: History of Present Illness The patient is a 59-year-old female presenting with pain management concerns following L2 and L4 kyphoplasty. She reports persistent pain in the thoracic region, which she associates with a possible fracture prior to her initial consultation. The pain in the thoracic area remains significant, and an MRI has been ordered to assess for a T11 vertebral body compression fracture. The patient also experiences cervical spine arthritis, which contributes to significant neck pain. She has a history of osteoporosis, which complicates potential surgical interventions for her neck pain. A consult with a neurosurgeon is scheduled to explore non-surgical options, including facet blocks and radiofrequency ablation. The patient has a history of osteoporosis, previously managed with Evenity, which was paused due to joint pain concerns. She has received four doses over four months, and the medication was paused following a in school suspension aide's recommendation. The patient is scheduled to discuss the continuation of Evenity with her model maker apprentice, Dr. Gayle, on April 02. Pain Description - Onset: Pain persists following L2 and L4 kyphoplasty. - Quality: Soreness in the lumbar region, significant pain in the thoracic and cervical regions. - Location: Thoracic and cervical spine, lumbar region. - Exacerbating factors: Movement and certain positions. - Relieving factors: None explicitly mentioned. Physical Exam - Spine: Tenderness noted in the low thoracic region - Around the incision site there is mild tenderness in the incision area but the wounds are healing well. Results - Imaging: MRI ordered for thoracic spine to assess T11 vertebral body compression fracture. Pain Management - Affect: Pain impacts daily activities and psychological well-being. - Analgesia: Current pain management strategies not fully effective. - Adverse Effects: Joint pain possibly related to Evenity. - Activities of Daily Living: Pain limits mobility and daily functions. - Aberrant Drug Related Behaviors: None reported. REPLACED BY [facility] Medical History Panic attacks Asthma COPD exacerbation Nicotine dependence, cigarettes, uncomplicated Osteopenia (~2018) Hypertensive retinopathy of both eyes Tubular adenoma of colon (~2020) Post covid-19 condition, unspecified (~06/2021) Delayed gastric emptying PTSD (post-traumatic stress disorder) HTN (hypertension) Depression COPD (chronic obstructive pulmonary disease) History of cocaine abuse History of alcohol abuse Nausea Post concussive syndrome (~2019) Fibromyalgia Psoriasis Psoriatic arthritis Facial trauma Surgical History History of right breast biopsy History of cranial surgery History of colonoscopy History of foot surgery History of foot surgery Family History Father Family history of diabetes mellitus Medical history non-contributory Maternal Grandmother Rectal cancer Maternal Grandfather Stomach cancer Family/Other Bone cancer Mother Breast cancer Social History Household Members: Spouse Housing: Apartment Are you a primary healthcare educator to a significant other at home: No Do you presently have visiting nurse or other home services: No Alcohol intake: current Alcohol intake frequency: holidays/special occasions only Patient Tobacco Use Status: Current everyday Tobacco user Tobacco use type: Cigarette Cigarette Packs Per Day: 0.25 Cigarettes Per Day: 3 Years Smoked: (onset 11yo, x 46yrs, max 1ppd, now 1/2ppd - 30pyh) e-Cigarette/Vaping Use: Never Used Second Hand Smoke Exposure: Yes Substance Use Type: Marijuana service: No Current occupational status: disabled Cognitive needs: No Hearing needs: No Vision needs: No Physical Exam Vital Signs: Last Vital Signs Pulse 88 03/13/25 10:28 Resp 16 03/13/25 10:28 BP 98/64 03/13/25 10:28 Pulse Ox 98 03/13/25 10:28 Oxygen Delivery Method Room Air 03/13/25 10:28 BMI result Body Mass Index 21.8 Assessment & Plan Assessment & Plan (1) Osteoporosis: Code(s): M81.0 - Age-related osteoporosis without current pathological fracture Category: Medical Qualifiers: Osteoporosis type: age-related Presence of current pathological fracture: without current pathological fracture Qualified Code(s): M81.0 - Age- related osteoporosis without current pathological fracture (2) Thoracic back pain: Code(s): M54.6 - Pain in thoracic spine Category: Medical (3) Lumbar compression fracture: Code(s): S32.000A - Wedge compression fracture of unspecified lumbar vertebra, initial encounter for closed fracture Category: Medical (4) Osteoporotic compression fracture of spine with delayed healing: Code(s): M80.88XG - Other osteoporosis with current pathological fracture, vertebra(e), subsequent encounter for fracture with delayed healing Category: Medical (5) Cervical neck pain with evidence of disc disease: Code(s): M50.90 - Cervical disc disorder, unspecified, unspecified cervical region Category: Medical Plan Plan Patient was informed and verbally consented to the use of an ambient scribe for clinic note documentation during this visit. 1. Osteoporosis - Plan to discuss continuation of Evenity with model maker apprentice on April 02. - Monitor bone density and adjust treatment as necessary. 2. Thoracic Spine Pain - MRI of thoracic spine ordered to assess for T11 vertebral body compression fracture. - Consider kyphoplasty if MRI confirms acute fracture. 3. Cervical Spine Arthritis - Consult with neurosurgeon to explore options. - Consider facet blocks and radiofrequency ablation for pain management. 4. Lumbar Spine Pain - Continue monitoring and managing pain symptoms. Discussion Notes I discussed with the patient the importance of continuing osteoporosis treatment and the risks associated with stopping Evenity without a clear plan. We reviewed the need for an MRI to evaluate the thoracic spine for potential fractures and discussed non-surgical options for managing cervical spine arthritis, including facet blocks and radiofrequency ablation. The patient was advised to follow up with her model maker apprentice regarding osteoporosis management and to schedule the MRI as soon as possible. Patient Instructions - Schedule and complete the MRI for the thoracic spine. - Follow up with Dr. Gayle on April 02 regarding osteoporosis treatment. - Discuss non-surgical pain management options with the neurosurgeon. Coding Level of Care Code Est Pt Level 4 (01710) Diagnoses Age-related osteoporosis without current pathological fracture M81.0 Osteoporosis type: age-related Presence of current pathological fracture: without current pathological fracture Thoracic back pain M54.6 Lumbar compression fracture S32.000A Osteoporotic compression fracture of spine with delayed healing M80.88XG Cervical neck pain with evidence of disc disease M50.90
[2025-03-13 10:28] VITALS: BP 98/64; PULSE 88; RESP 16; O2SAT 98; BMI 21.8
--- OUTSIDE RECORDS SUMMARY | 2025-03-13 10:57 | XMS_ITS | Clinical Summary ---
Author Organization [facility] Address [address] [place] [address] Phone Care Team Providers Care Under Seal Operator Name Role Phone David Stinson NP Primary [...] Type Department Care Team Description 01/23/2025 Refill [facility] Department of Neurology [address], 8th [address], [address] [place] [address] Jimbo Phillips MD, PhD Medication Refill 01/01/2025 Refill [facility] Department of Neurology [address] [place] [address], 8th Floor, [address] [place] [address] Jimbo Phillips MD, PhD Medication Refill from [...] on file Insurance ACO ACO ACO ACO [facility] ACO [facility] ACO Care Teams Under Seal Operator Relationship Specialty Start Date End Date David Stinson NP [address] [place] [address] PCP - General Family Medicine 09/26/21 Additional Source Comments The information contained in this document represents components of the legal health record. It is not the complete legal health record.[facility]
--- OUTSIDE RECORDS SUMMARY | 2025-03-13 10:57 | XMS_ITS | Patient Health Record ---
Author Organization [facility] Address [address] [place] [address] Care Team Providers Care Firesetter Name Role Phone Maddy Cruz MD Primary Care Provider Unavailab Frannie Caicedo Unavailable [phone] Reason For Referral No Information Medications Medication [...] W/U Status Risk Notes Problem Hallux valgus ([id number]) Hallux Valgus (735.0) Active confirmed Problem Hammer toe ([id number]) Hammer toe (735.4) Active confirmed Problem Neuralgia - Neuritis (729.2) Active confirmed Plan Of Treatment No Information Insurance Providers Payer Name Payer Address Payer Phone Subscriber Number Group Number Insured Name Patient Relationship to Insured Coverage Start Date Coverage End Date Mikhail All Others [address] [place] [address] [phone] [id number] XochitlAnne Self - patient is the insured Medical (General) History Medical History History ICD Code psychiatric disorder neuropathy headaches/migraines chicken pox back, hip, knee pain asthma Anxiety disorder Surgical History Surgery Date(Month/Year) breast biopsy lumpectomy
== END 2025-03-13 10:56 | disposition home or self-care (01) ==
LOC: HO.PMC 10:23
PROVIDERS: PCP Nurse Practitioner Family; Visit Provider Internal Medicine
DX: M81.0 Age-related osteoporosis without current pathological fracture (principal); M54.6 Pain in thoracic spine; S32.000A Wedge compression fracture of unspecified lumbar vertebra, initial encounter for closed fracture; M80.88XG Other osteoporosis with current pathological fracture, vertebra(e), subsequent encounter for fracture with delayed healing; M50.90 Cervical disc disorder, unspecified, unspecified cervical region
CPT/HCPCS: 99024

== ENCOUNTER → 2025-03-13 10:22 | Outpatient (BNVA) | payer OTHER, SELFPAY | PROVIDERS: PCP Nurse Practitioner Family; Visit Provider Internal Medicine | DX: M50.90 Cervical disc disorder, unspecified, unspecified cervical region (principal); M80.88XG Other osteoporosis with current pathological fracture, vertebra(e), subsequent encounter for fracture with delayed healing; M54.6 Pain in thoracic spine; S32.000A Wedge compression fracture of unspecified lumbar vertebra, initial encounter for closed fracture | CPT/HCPCS: 99212 ==

== ENCOUNTER 2025-03-16 15:44 | Outpatient (REF) | payer OTHER, SELFPAY ==
--- NOTE | ~2025-03-16 | CT_ITS ---
CLINICAL HISTORY: F17.210 - Nicotine dependence, cigarettes, uncomplicated CT lung cancer screening (LDCT) Comparison: CT/ME/SR - CT LUNG SCREENING - 12/26/23 13:17 EDT Technique: Axial CT images of the chest using low-dose technique. Referring provider counseled the patient on shared decision-making for LDCT screening. Additional counseling was provided on smoking cessation. Effective radiation dose total: DLP 27.3 mGycm, CTDIvol 0.9 mGy. Findings: For instance there is a 1 cm perivascular nodule in the right upper lobe best seen on image number 39 of series number 5. There is a 7 mm ground-glass nodule in the right upper lobe best seen on image number 13 of series number 5. There is a 3 mm nodule in the right upper lobe on image number 47 of series number 5. 6 mm irregular nodule in the right upper lobe best seen on image number 59 of series number 5. Adjacent 4 mm nodule also seen on this image. 4 mm perifissural nodule is best seen on image number 122 of series number 9 and image number 73 of series 5. 6 mm nodule seen in the right upper lobe on image number 78 of series number 5. 8 mm perifissural nodule is seen in the right middle lobe on image number 96 of series 5. There are mild coronary artery calcifications. Limited upper abdomen: Unremarkable There is interval development of several irregular nodules. IMPRESSION: LungRADS 3 - Probably benign: Recommend low dose screening Chest CT in 6 months. ##L3# This document has been electronically signed by: Amanuel Bal MD on 03/18/2025 09:48:17
== END 2025-03-16 15:45 | disposition home or self-care (01) ==
LOC: HO.CT 15:44
PROVIDERS: Visit Provider Physician Assistant Medical
DX: Z12.2 Encounter for screening for malignant neoplasm of respiratory organs (principal); F17.210 Nicotine dependence, cigarettes, uncomplicated
CPT/HCPCS: 71271

== ENCOUNTER → 2025-03-16 15:45 | Outpatient (BNV) | payer OTHER, SELFPAY | PROVIDERS: Visit Provider Radiology Diagnostic Radiology | DX: Z12.2 Encounter for screening for malignant neoplasm of respiratory organs (principal); Z87.891 Personal history of nicotine dependence | CPT/HCPCS: 71271 ==

== ENCOUNTER 2025-03-31 14:33 | Outpatient (REF) | payer OTHER, SELFPAY ==
[2025-03-31 16:20] LABS: MANUAL DIFF FLAG NO
[2025-03-31 16:21] LABS: Hematocrit 40.0 % (37.0-47.0); Hemoglobin 13.5 g/dl (12.0-16.0); Imm Gran Abs Auto 0.02 X10*3/uL (0.00-0.03); Imm Gran Pct Auto 0.3 % (0.0-0.4); Lymphocytes Absolute Auto 1.6 X10*3/uL (1.2-4.9); Mean Corpuscular HGB Conc 33.8 g/dl (31.0-35.0); Mean Corpuscular Hemoglobin 32.8 pg (27.0-33.0); Mean Corpuscular Volume 97.3 fL (80.0-98.0); NRBC Abs Auto 0.000 X10*3/uL (0.0-0.012); NRBC Pct Auto 0.0 /100WBC (0.0-0.2); Platelet Count 302 X10*3/uL (160-400); Red Blood Count 4.11 X10*6/uL (4.20-5.50); Reticulocytes Absolute 0.054 X10*6/uL (0.026-0.095); White Blood Count 7.0 X10*3/uL (4.8-10.8)
[2025-03-31 16:47] LABS: Alanine Aminotransferase 13 U/L (0-31); Albumin Level 4.5 g/dL (3.5-5.0); Alkaline Phosphatase 69 U/L (39-117); Anion Gap 12 (12-20); Aspartate Amino Transferase 20 U/L (5-31); Blood Urea Nitrogen 11 mg/dL (9-16); Calcium 9.8 mg/dL (8.4-10.2); Carbon Dioxide 27 mmol/L (22-29); Chloride 101 mmol/L (96-108); Estimated Glomerular Filt Rate > 60; Iron 96 mcg/dL (30-160); Percent Iron Saturation 36 % (15-50); Potassium 5.1 mmol/L (3.3-5.1); Sodium 135 mmol/L (135-145); Total Iron Binding Capacity 264 mcg/dL (228-428); Total Protein 8.0 g/dL (6.5-8.0); Unsaturated Iron Binding 168 ug/dL
[2025-03-31 16:52] LABS: Ferritin 292 ng/mL (10-250)
[2025-03-31 17:09] LABS: Folate 13.6 ng/mL (> or = 4.0); Vitamin B12 493 pg/mL (200-900)
--- OUTSIDE RECORDS SUMMARY | 2025-03-31 17:54 | XMS_ITS | Clinical Summary ---
Author Organization [facility] Address [address] [place] [address] Phone Care Team Providers Care Strike Off Machine Operator Name Role Phone David Stinson NP [...] Type Department Care Team Description 01/23/2025 Refill [facility] Department of Neurology [address], 8th [address], [address] [place] [address] Jimbo Phillips MD, PhD Medication Refill 01/01/2025 Refill [facility] Department of Neurology [address] [place] [address], 8th Floor, [address] [place] [address] Jimbo Phillips MD, PhD Medication Refill from [...] on file Insurance ACO ACO ACO ACO [facility] ACO [facility] ACO Care Teams Strike Off Machine Operator Relationship Specialty Start Date End Date David Stinson NP [address] [place] [address] PCP - General Family Medicine 09/26/21 Additional Source Comments The information contained in this document represents components of the legal health record. It is not the complete legal health record.[facility]
--- OUTSIDE RECORDS SUMMARY | 2025-03-31 17:54 | XMS_ITS | Patient Health Record ---
Author Organization [facility] Address [address] [place] [address] Care Team Providers Care Dispatcher Chief Oil Name Role Phone Maddy Cruz MD Primary Care Provider Unavailab Frannie Caicedo Unavailable [phone] Reason For Referral No Information Medications Medication [...] W/U Status Risk Notes Problem Hallux valgus (868943523) Hallux Valgus (735.0) Active confirmed Problem Hammer toe ([id number]) Hammer toe (735.4) Active confirmed Problem Neuralgia - Neuritis (729.2) Active confirmed Plan Of Treatment No Information Insurance Providers Payer Name Payer Address Payer Phone Subscriber Number Group Number Insured Name Patient Relationship to Insured Coverage Start Date Coverage End Date Mikhail All Others [address] [place] [address] [phone] [id number] XochitlAnne Self - patient is the insured Medical (General) History Medical History History ICD Code psychiatric disorder neuropathy headaches/migraines chicken pox back, hip, knee pain asthma Anxiety disorder Surgical History Surgery Date(Month/Year) breast biopsy lumpectomy
== END 2025-03-31 14:34 | disposition home or self-care (01) ==
LOC: HO.HMGCLDS 14:33
PROVIDERS: PCP Nurse Practitioner Family; Visit Provider Nurse Practitioner Family
DX: D64.9 Anemia, unspecified (principal)
CPT/HCPCS: 36415; 80053; 82607; 82728; 82746; 83540; 83615; 85025; 85045

== ENCOUNTER 2025-04-01 15:19 | Outpatient (REF) | payer OTHER, SELFPAY ==
--- NOTE | ~2025-04-01 | MR_ITS ---
EXAM: TECHNIQUE: Multiplanar multisequence imaging of the thoracic spine was performed from the C7-L1 without contrast. INDICATION: M81.0 - Age-related osteoporosis without current pathological fracture PRIOR: X-ray February 04, 2025] centimeters from 03/04/2025 FINDINGS: Marrow and end-plates: There is mild superior endplate fracture involving T11. It demonstrates Modic 2 signal change with no acute edema. There is mild to moderate inferior endplate compression fracture of L2 with internal low signal consistent with methacrylate. There are also tracts through the pedicles related to kyphoplasty. There is no extraosseous cement. There is a circular lesion in the inferior T6 with coarse trabeculation. The lesion is intermediate signal on T1 imaging and hyperintense on fluid sensitive sequences consistent with a lipid poor vertebral hemangioma. Lipid rich vertebral hemangiomas are visible in T12 and L1. Alignment: No listhesis is evident. Soft tissues: There is a benign simple cyst in the mid right kidney. Cord: There is no abnormal cord signal. There is no hydrosyringomyelia. The termination of conus medullaris is within normal limits at the level of L1-2. T2-T3 through T5-6: Mild disc bulge indents thecal sac without causing spinal stenosis or foraminal narrowing. T6-7: Broad-based disc bulge indents thecal sac and results in mild spinal stenosis. T7-8: Broad-based disc bulge indents thecal sac without causing spinal stenosis. T8-9: Based disc bulge indents thecal sac and results in borderline mild spinal stenosis. T9-10:Based disc bulge and ligamentum flavum thickening results in mild spinal stenosis without foraminal narrowing. T10-11 and T11-12: Minimal broad-based disc bulge indents thecal sac without causing spinal stenosis. There is no foraminal narrowing. Thoracic disc levels not specifically described demonstrated no disc bulge, herniation, spinal stenosis, or foraminal narrowing. MR/MR thoracic spine wo con IMPRESSION: Chronic mild superior endplate compression fracture of T11. L2: Mild to moderate inferior endplate compression fracture post kyphoplasty on 03/04/2025. Multilevel degenerative disc disease with mild spinal stenosis at T6-7 and T9-10 Electronically signed by: Vasile Hutton MD 04/01/2025 04:13 PM EDT RP
== END 2025-04-01 15:20 | disposition home or self-care (01) ==
LOC: HO.MRI 15:19
PROVIDERS: PCP Nurse Practitioner Family; Visit Provider Internal Medicine
DX: M80.88XG Other osteoporosis with current pathological fracture, vertebra(e), subsequent encounter for fracture with delayed healing (principal)
CPT/HCPCS: 72146

== ENCOUNTER → 2025-04-01 15:30 | Outpatient (BNV) | payer OTHER, SELFPAY | PROVIDERS: PCP Nurse Practitioner Family; Visit Provider Radiology Diagnostic Radiology | DX: S22.080A Wedge compression fracture of T11-T12 vertebra, initial encounter for closed fracture (principal) | CPT/HCPCS: 72146 ==

== ENCOUNTER 2025-04-02 13:27 | Outpatient (AMB) | payer OTHER, SELFPAY ==
--- NOTE | 2025-04-02 13:29 | MHC.OFFVIS ---
Vital Signs 04/02/25 13:30 Height 5 ft 6.65 in Weight 136 lb 3.931 oz BMI 21.6 BP 130/68 Blood Pressure Location Lt brachial Position Sitting Respiration 20 Pulse 81 Pulse Source Pulse Oximeter Pulse Oximetry (%) 99 Oxygen Delivery Method Room Air Intake Visit Reasons: Discuss evenity treatment Intake Note: Patient present today for Osteoporosis follow up. Filler Spreader Required: No Accompanied by: Self / Same As Patient Allergies gabapentin (GABAPENTIN) Allergy (Mild, Verified 04/02/25 13:35) SWELLING pregabalin (From LYRICA) Allergy (Mild, Verified 04/02/25 13:35) AGITATION, swelling, SWELLING Medication List - Last Reconciled 04/02/25 by Natalio Gayle MD amitriptyline 50 mg PO BEDTIME atorvastatin 10 mg PO BEDTIME azelastine 2 sprays intranasal BID 30 days edxtkqusyy-iyqwnauuwllgd-getz 50-325-40 mg 1 tab PO Q6H PRN calcium citrate 250 mg PO DAILY cholecalciferol (vitamin D3) 50 mcg PO DAILY clonazepam 1 mg PO BID PRN 30 days cyclobenzaprine 10 mg PO BID PRN 30 days duloxetine 30 mg PO DAILY 30 days famotidine 20 mg PO BEDTIME fluoride (sodium) 1.1% (Denta 5000 Plus) 1 appl PO DAILY fluticasone furoate-vilanterol 200-25 mcg/dose (Breo Ellipta) 1 inh inhalation DAILY galcanezumab-gnlm (Emgality Pen) 120 mg subcut ONCE 30 days hydrocortisone 1% 1 appl topical BID-TID PRN hydroxyzine HCl 50 mg PO BID PRN ipratropium-albuterol 0.5 mg-3 mg(2.5 mg base)/3 mL 3 mL inhalation .prn 30 days ipratropium-albuterol 20-100 mcg/actuation (Combivent Respimat) 1 puff inhalation Q6H ixekizumab (Taltz Autoinjector) 80 mg subcut Q4W lidocaine 5% 1 patch topical DAILY [LSO [place] LSO ] magnesium oxide 400 mg PO BEDTIME 30 days omeprazole 40 mg PO DAILY ondansetron 8 mg PO Q12H PRN 30 days pen needle, diabetic (Comfort EZ Pen [place]) As directed daily for use with tymlos polyethylene glycol 3350 (Miralax) 17 grams PO DAILY PRN propranolol 20 mg PO BID riboflavin (vitamin B2) 400 mg PO DAILY romosozumab-aqqg (Evenity) 210 mg (2.34 mL) subcut .q mo tramadol 50 mg PO BID PRN trazodone 100 mg (2 x 50 mg) PO BEDTIME PRN ubrogepant (Ubrelvy) 50 - 100 mg (0.5 - 1 x 100 mg) PO ONCE PRN 30 days HPI Comments Details: 59 YO F with is seen in consultation at the request of PCP for Osteoporosis. First diagnosed in couple of mos ago . Never Received treatment in the past History of recent vertebral fractures prompted the start of Forteo Has several servings of dietary calcium per day in the form ofmilk and cheese . Not Takes Calcium supplement Took 5000 IU of Vitamin D dailyup to couple of days ago Takes PPI, anticoagulant, antiepileptic or glucocorticoid medication. Does weight bearing exercise 7 days per week in the form of push- ups . 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 UTD on dental cleanings and sees dentist every 6 months. No planned upcoming dental work or extractions. Current tabacco use 1/2 ppd /day Has hot flashes . Had precancerous breast cancer DXA dated : TScore in L femoral neck =-2.8 T-Score L-S =-1.1 Labs: Secondary workup was negative. Recent MRI of the spine showed subacute compression fracture Patient had adverse reaction to teriparatide. She recently underwent a kyphoplasty and was experiencing ? Joint pain perhaps due to Evenity. Took 4 Evenity injections off 1 mo . Had a recent T11 fx [facility] Medical History Panic attacks Asthma COPD exacerbation Nicotine dependence, cigarettes, uncomplicated Osteopenia (~2018) Hypertensive retinopathy of both eyes Tubular adenoma of colon (~2020) Post covid-19 condition, unspecified (~06/2021) Delayed gastric emptying PTSD (post-traumatic stress disorder) HTN (hypertension) Depression COPD (chronic obstructive pulmonary disease) History of cocaine abuse History of alcohol abuse Nausea Post concussive syndrome (~2019) Fibromyalgia Psoriasis Psoriatic arthritis Facial trauma Surgical History History of right breast biopsy History of cranial surgery History of colonoscopy History of foot surgery History of foot surgery Family History Father Family history of diabetes mellitus Medical history non-contributory Maternal Grandmother Rectal cancer Maternal Grandfather Stomach cancer Family/Other Bone cancer Mother Breast cancer Social History Household Members: Spouse Housing: Apartment Are you a primary career center advisor to a significant other at home: No Do you presently have visiting nurse or other home services: No Alcohol intake: current Alcohol intake frequency: holidays/special occasions only Patient Tobacco Use Status: Current everyday Tobacco user Tobacco use type: Cigarette Cigarette Packs Per Day: 0.25 Cigarettes Per Day: 3 Years Smoked: (onset 11yo, x 46yrs, max 1ppd, now 1/2ppd - 30pyh) e-Cigarette/Vaping Use: Never Used Second Hand Smoke Exposure: Yes Substance Use Type: Marijuana service: No Current occupational status: disabled Cognitive needs: No Hearing needs: No Vision needs: No Physical Exam Vital Signs: Last Vital Signs Pulse 81 04/02/25 13:30 Resp 20 04/02/25 13:30 BP 130/68 04/02/25 13:30 Pulse Ox 99 04/02/25 13:30 Oxygen Delivery Method Room Air 04/02/25 13:30 BMI result Body Mass Index 21.6 Assessment & Plan Assessment & Plan (1) Osteoporosis: Code(s): M81.0 - Age-related osteoporosis without current pathological fracture Category: Medical Qualifiers: Osteoporosis type: age-related Presence of current pathological fracture: without current pathological fracture Qualified Code(s): M81.0 - Age-related osteoporosis without current pathological fracture Plan: This is a 57-year-old white female with a history of osteoporosis. Negative secondary workup. Had a recent compression fracture of the lumbar spine. Underwent kyphoplasty. She had adverse reaction to Forteo in past and was taking Evenity. 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
[2025-04-02 13:30] VITALS: BP 130/68; PULSE 81; RESP 20; O2SAT 99; BMI 21.6
--- OUTSIDE RECORDS SUMMARY | 2025-04-02 13:31 | XMS_ITS | Patient Health Record ---
Author Organization [facility] Address [address] [place] [address] Care Team Providers Care Director Of Procurement Name Role Phone Maddy Cruz MD Primary Care Provider Unavailab Frannie Caicedo Unavailable [phone] Reason For Referral No Information Medications Medication [...] W/U Status Risk Notes Problem Hallux valgus ([id number]) Hallux Valgus (735.0) Active confirmed Problem Hammer toe ([id number]) Hammer toe (735.4) Active confirmed Problem Neuralgia - Neuritis (729.2) Active confirmed Plan Of Treatment No Information Insurance Providers Payer Name Payer Address Payer Phone Subscriber Number Group Number Insured Name Patient Relationship to Insured Coverage Start Date Coverage End Date Mikhail All Others [address] [place] [address] [id number] XochitlAnne Self - patient is the insured Medical (General) History Medical History History ICD Code psychiatric disorder neuropathy headaches/migraines chicken pox back, hip, knee pain asthma Anxiety disorder Surgical History Surgery Date(Month/Year) breast biopsy lumpectomy
--- OUTSIDE RECORDS SUMMARY | 2025-04-02 13:31 | XMS_ITS | Clinical Summary ---
Author Organization [facility] Address [address] [place] [address] Phone Care Team Providers Care Respite Worker Name Role Phone David Stinson NP Primary [...] Type Department Care Team Description 01/23/2025 Refill [facility] Department of Neurology [address], [address]th [address], [address] [place] [address] Jimbo Phillips MD, PhD Medication Refill 01/01/2025 Refill [facility] Department of Neurology [address] [place] [address], [address] Floor, [address] [place] [address] Jimbo Phillips MD, PhD Medication Refill from [...] file Insurance ACO ACO ACO ACO [facility] ACO [facility] ACO Care Teams Respite Worker Relationship Specialty Start Date End Date David Stinson NP [address] [address] PCP - General Family Medicine 09/26/21 Additional Source Comments The information contained in this document represents components of the legal health record. It is not the complete legal health record.[facility]
== END 2025-04-02 14:13 | disposition home or self-care (01) ==
LOC: HO.ENCR 13:28
PROVIDERS: PCP Nurse Practitioner Family; Visit Provider Internal Medicine Endocrinology, Diabetes & Metabolism
DX: M81.0 Age-related osteoporosis without current pathological fracture (principal)
CPT/HCPCS: 99213

== ENCOUNTER → 2025-04-02 13:27 | Outpatient (BNVA) | payer OTHER, SELFPAY | PROVIDERS: PCP Nurse Practitioner Family; Visit Provider Internal Medicine Endocrinology, Diabetes & Metabolism | DX: J44.9 Chronic obstructive pulmonary disease, unspecified (principal); R91.1 Solitary pulmonary nodule; F17.210 Nicotine dependence, cigarettes, uncomplicated | CPT/HCPCS: 99212 ==

== ENCOUNTER 2025-04-02 14:19 | Outpatient (AMB) | payer OTHER, SELFPAY ==
--- NOTE | 2025-04-02 14:59 | A.OFFVIS_ITS ---
Vital Signs 04/02/25 15:00 Height 5 ft 6 in Weight 135 lb 9.349 oz BMI 21.9 BP 118/70 Blood Pressure Location Rt brachial Position Sitting Pulse 79 Pulse Source Pulse Oximeter Pulse Oximetry (%) 99 Oxygen Delivery Method Room Air Intake Visit Reasons: f/u ct scan Allergies gabapentin (GABAPENTIN) Allergy (Mild, Verified 04/02/25 15:24) SWELLING pregabalin (From LYRICA) Allergy (Mild, Verified 04/02/25 15:24) AGITATION, swelling, SWELLING Medication List - Last Reconciled 04/02/25 by Rome Parekh MD amitriptyline 50 mg PO BEDTIME atorvastatin 10 mg PO BEDTIME azelastine 2 sprays intranasal BID 30 days pztlqbkihx-zsuucdkbfqqsw-fium 50-325-40 mg 1 tab PO Q6H PRN calcium citrate 250 mg PO DAILY cholecalciferol (vitamin D3) 50 mcg PO DAILY clonazepam 1 mg PO BID PRN 30 days cyclobenzaprine 10 mg PO BID PRN 30 days duloxetine 30 mg PO DAILY 30 days famotidine 20 mg PO BEDTIME fluticasone furoate-vilanterol 200-25 mcg/dose (Breo Ellipta) 1 inh inhalation DAILY galcanezumab-gnlm (Emgality Pen) 120 mg subcut ONCE 30 days hydrocortisone 1% 1 appl topical BID-TID PRN hydroxyzine HCl 50 mg PO BID PRN ipratropium-albuterol 0.5 mg-3 mg(2.5 mg base)/3 mL 3 mL inhalation .prn 30 days ipratropium-albuterol 20-100 mcg/actuation (Combivent Respimat) 1 puff inhalation Q6H ixekizumab (Taltz Autoinjector) 80 mg subcut Q4W lidocaine 5% 1 patch topical DAILY [LSO [place] LSO ] magnesium oxide 400 mg PO BEDTIME 30 days omeprazole 40 mg PO DAILY ondansetron 8 mg PO Q12H PRN 30 days pen needle, diabetic (Comfort EZ Pen [place]) As directed daily for use with tymlos polyethylene glycol 3350 (Miralax) 17 grams PO DAILY PRN propranolol 20 mg PO BID riboflavin (vitamin B2) 400 mg PO DAILY romosozumab-aqqg (Evenity) 210 mg (2.34 mL) subcut .q mo tramadol 50 mg PO BID PRN trazodone 100 mg (2 x 50 mg) PO BEDTIME PRN ubrogepant (Ubrelvy) 50 - 100 mg (0.5 - 1 x 100 mg) PO ONCE PRN 30 days Do you need a note to return to daycare/school/sports/work: No HPI HPI f/u ct scan: Details: JAX IS HERE TODAY FOR HER FOLLOW-UP OF COPD D AND ALSO TO GO OVER THE FINDINGS OF CT SCAN. SHE HAD A VISIT WITH VACUUM FILTER OPERATOR BEFORE SHE CAME TO SEE ME. 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 SHE IS BEING REFERRED TO THE ONCOLOGIST FOR FOLLOW-UP. BREATHING QUIROZ SHE REMAINS UNCHANGED. STILL SMOKES ABOUT 2-3 CIGARETTES A DAY. STILL HAS INTERMITTENT COUGH AND ESPECIALLY IN THE MORNING HOURS SHE IS EXPECTORATING SOME MUCUS WHICH IS DARK COLORED. SHE IS USING HER INHALERS PRESCRIBED AND THE OVERALL THE BREATHING IS REMAINING STABLE. [facility] Medical History Panic attacks Asthma COPD exacerbation Nicotine dependence, cigarettes, uncomplicated Osteopenia (~2018) Hypertensive retinopathy of both eyes Tubular adenoma of colon (~2020) Post covid-19 condition, unspecified (~06/2021) Delayed gastric emptying PTSD (post-traumatic stress disorder) HTN (hypertension) Depression COPD (chronic obstructive pulmonary disease) History of cocaine abuse History of alcohol abuse Nausea Post concussive syndrome (~2019) Fibromyalgia Psoriasis Psoriatic arthritis Facial trauma Surgical History History of right breast biopsy History of cranial surgery History of colonoscopy History of foot surgery History of foot surgery Family History Father Family history of diabetes mellitus Medical history non-contributory Maternal Grandmother Rectal cancer Maternal Grandfather Stomach cancer Family/Other Bone cancer Mother Breast cancer Social History Household Members: Spouse Housing: Apartment Are you a primary special needs child caregiver to a significant other at home: No Do you presently have visiting nurse or other home services: No Alcohol intake: current Alcohol intake frequency: holidays/special occasions only Patient Tobacco Use Status: Current everyday Tobacco user Tobacco use type: Cigarette Cigarette Packs Per Day: 0.25 Cigarettes Per Day: 3 Years Smoked: (onset 11yo, x 46yrs, max 1ppd, now 1/2ppd - 30pyh) e-Cigarette/Vaping Use: Never Used Second Hand Smoke Exposure: Yes Substance Use Type: Marijuana service: No Current occupational status: disabled Cognitive needs: No Hearing needs: No Vision needs: No Review of Systems Const All systems reviewed & are unremarkable except as noted in HPI and below Reports headache(s) Eyes Reports no additional complaints ENT Reports headache(s) and Reports nasal congestion (MILD OFF AND ON) Card Denies chest pain, Denies irregular heart rhythm and Denies leg edema Resp Reports as per HPI GI Reports no additional complaints, Reports heartburn and Reports nausea Reports no additional complaints Musc Reports back pain Skin/Breast Reports system reviewed and no additional complaints, except as documented Neuro Reports headache(s) and Reports memory loss (Has had post concussion syndrome) Psych Reports anxiety (Mild chronic), Reports depression (Mild) and Reports memory loss (Has had post concussion syndrome) Physical Exam Vital Signs: Last Vital Signs Pulse 79 04/02/25 15:00 BP 118/70 04/02/25 15:00 Pulse Ox 99 04/02/25 15:00 Oxygen Delivery Method Room Air 04/02/25 15:00 BMI result Body Mass Index 21.9 Const General: comfortable, no acute distress, alert and awake Orientation/consciousness: patient oriented x3 HEENT Head: Yes normal to inspection General nose exam: No nasal polyps present and No nasal discharge present Face and sinus: Yes sinuses nontender Mouth: oropharynx normal Throat: Yes posterior oropharynx normal Eyes General: appearance normal, both eyes and all related structures Neck Neck: Yes normal visual inspection, Yes no lymphadenopathy, Yes trachea midline and Yes no JVD Thyroid: Thyroid normal Chest Chest palpation & inspection: normal inspection of the chest, normal palpation of entire chest wall and no tenderness Resp Other: Percussion note is resonant . Breath sounds are distant , There are no wheezes or rhonchi today. Cardio Palpation: normal PMI Rate: regular rate Rhythm: regular rhythm Heart sounds: no gallops and no murmurs GI Palpation (GI): Soft to palpation, Tenderness to palpation present (GI), No hepatosplenomegaly present and Palpable mass present Auscultation: normal bowel sounds Back/Spine/Pelvis Thoracic/Lumbar Spine: thoracic and lumbar spine normal to inspection and other (BACK IS VERY STIFF AND TENDER TO TOUCH) Skin General skin exam: no rashes or lesions noted Neuro General: patient oriented x3 and no focal motor deficits Cranial nerves: Yes CN's II-XII intact bilaterally Extrem General: Yes normal to inspection, Yes no clubbing, cyanosis or edema and Yes no calf tenderness Psych Speech and movement: Normal speech and movement present Results Reviewed Results Reviewed: LDCT, 03/16/25 Findings: For instance there is a 1 cm perivascular nodule in the right upper lobe best seen on image number 39 of series number 5. There is a 7 mm ground-glass nodule in the right upper lobe best seen on image number 13 of series number 5. There is a 3 mm nodule in the right upper lobe on image number 47 of series number 5. 6 mm irregular nodule in the right upper lobe best seen on image number 59 of series number 5. Adjacent 4 mm nodule also seen on this image. 4 mm perifissural nodule is best seen on image number 122 of series number 9 and image number 73 of series 5. 6 mm nodule seen in the right upper lobe on image number 78 of series number 5. 8 mm perifissural nodule is seen in the right middle lobe on image number 96 of series 5. There are mild coronary artery calcifications. Limited upper abdomen: Unremarkable There is interval development of several irregular nodules. IMPRESSION: LungRADS 3 - Probably benign: Recommend low dose screening Chest CT in 6 months. Assessment & Plan Assessment & Plan (1) COPD (chronic obstructive pulmonary disease): Comment: She has moderately severe chronic obstructive pulmonary disease. Has history of frequent acute exacerbations. Now for the last few months she has been relatively stable. She has been told that she has developed osteoporosis. So she is less anxious to get prescription of prednisone. Code(s): J44.9 - Chronic obstructive pulmonary disease, unspecified Category: Medical Plan: CONTINUE BREO 200-25, 1 INHALATION DAILY IPRATROPIUM-ALBUTEROL SOLUTION IN THE NEBULIZER Q 6 HOURS WHILE AWAKE , PRESCRIPTION RENEWED COMBIVENT RESPIMAT 1 INHALATION Q 6 HOURS ( 3 TIMES A DAY) (2) Pulmonary nodule 1 cm or greater in diameter: Comment: Numerous 6-10mm RUL nodules - largest measuring 13.8mm on our measure - CASE WAS DISCUSSED IN MULTIDISCIPLINARY COMMITTEE AND THE CURRENT FINDINGS REVIEWED . LDCT upgrade to Lung RADS 4A - AND A REPEAT LDCT AFTER 3 MONTHS IS PLANNED Code(s): R91.1 - Solitary pulmonary nodule Category: Medical Plan: REPEAT LDCT . IN JUNE 2025 (3) Nicotine dependence, cigarettes, uncomplicated: Comment: (current smoker, 1ppd x 46yrs, now 1/2ppd - 30pyh).says she has reduced to 2-3 cigarettes a day. She is trying her best to quit smoking or at lease keep the number of cigarettes to 2 or 3. Currently not using the nicotine patches, but wants to get more supplies so that she can use. Code(s): F17.210 - Nicotine dependence, cigarettes, uncomplicated Category: Medical Plan: HAD A LONG TALK ABOUT QUITTING COMPLETELY. I ADVISED HER TO GO BACK ON NICOTINE PATCH-14 MG AND APPLY 1 EVERY DAY Medications: New nicotine 1 patch transdermal DAILY 28 ea 3RF QUIT SMOKING 28 days Refilled ipratropium-albuterol 0.5 mg-3 mg(2.5 mg base)/3 mL 3 mL inhalation .prn 180 mL 3RF ASTHMA/COPD 30 days Coding Level of Care Code Est Pt Level 3 (43708) Diagnoses COPD (chronic obstructive pulmonary disease) J44.9 Pulmonary nodule 1 cm or greater in diameter R91.1 Nicotine dependence, cigarettes, uncomplicated F17.210
[2025-04-02 15:00] VITALS: BP 118/70; PULSE 79; O2SAT 99; BMI 21.9
== END 2025-04-02 15:38 | disposition home or self-care (01) ==
LOC: HO.HPS 14:20
PROVIDERS: PCP Nurse Practitioner Family; Visit Provider Internal Medicine
DX: J44.9 Chronic obstructive pulmonary disease, unspecified (principal); R91.1 Solitary pulmonary nodule; F17.210 Nicotine dependence, cigarettes, uncomplicated
CPT/HCPCS: 99213

== ENCOUNTER 2025-04-03 | Outpatient (REF) | payer OTHER, SELFPAY ==
[2025-04-07 14:51] LABS: FIT Int Ctl YES
[2025-04-07 14:53] LABS: FIT1 NEGATIVE (NEGATIVE); FIT2 NEGATIVE (NEGATIVE)
== END 2025-04-03 00:01 | disposition home or self-care (01) ==
LOC: HO.HMGCLNP
PROVIDERS: Visit Provider Nurse Practitioner Family
DX: D64.9 Anemia, unspecified (principal)
CPT/HCPCS: 82274

== ENCOUNTER 2025-04-20 12:42 | Outpatient (RCR) | payer OTHER, SELFPAY | END 2025-04-20 13:55 | disposition home or self-care (01) | LOC: HO.PTCHIC 12:42 | PROVIDERS: PCP Nurse Practitioner Family; Visit Provider Neurological Surgery | DX: M54.2 Cervicalgia (principal) ==

== ENCOUNTER 2025-04-30 10:21 | Outpatient (AMB) | payer OTHER, SELFPAY ==
--- NOTE | 2025-04-30 10:24 | A.OFFVIS_ITS ---
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 The back pain has been ongoing and is associated with a T11 vertebral body compression fracture, as identified in a thoracic MRI conducted on April 01, 2025. The MRI showed a chronic mild superior endplate compression fracture of T11 without acute edema, and mild to moderate inferior endplate compression fracture at L2 post-kyphoplasty. The patient has a history of osteoporosis, which contributes to her vertebral fractures. She was seen by Endocrinology, Dr. Gayle on April 02 and has had an adverse reaction to Forteo in the past, leading to the use of Abenity, which is currently on hold. There is a plan for the patient to follow up with oncology to assess for MGUS progression, which could be contributing to the vertebral fractures. The patient also reports neck pain, with a history of cervical spine arthritis. She has been advised to start physical therapy, but concerns about her back fracture have delayed this intervention. The patient has been considered for facet blocks in the cervical spine to confirm arthritic and axial pain, with potential radiofrequency ablation for pain management. Thoracic spine xrays completed today showed stable mild compression fracture of T11 and L2 post kyphoplasty of L2. Patient also reports following providers at [facility] who prescribe her tramadol 50 mg TID prn which provides her partial relief. Denies any recent cough, cold, infection, fever or any significant changes in medical history since last office visit. - Affect: Pain is impacting the patient's mood and causing significant distress. - Analgesia: Currently taking tramadol; allergic to gabapentin; stopped duloxetine due to nausea. - Adverse Effects: Nausea from duloxetine, leading to discontinuation. - Activities of Daily Living: Pain interferes with sleep and daily activities, causing the patient to wake up multiple times at night. - Aberrant Drug Related Behaviors: No signs of medication abuse or misuse reported. PRIOR Dr. Haney 03/13/25: The patient is a 59-year-old female presenting with pain management concerns following L2 and L4 kyphoplasty. She reports persistent pain in the thoracic region, which she associates with a possible fracture prior to her initial consultation. The pain in the thoracic area remains significant, and an MRI has been ordered to assess for a T11 vertebral body compression fracture. The patient also experiences cervical spine arthritis, which contributes to significant neck pain. She has a history of osteoporosis, which complicates potential surgical interventions for her neck pain. A consult with a neurosurgeon is scheduled to explore non-surgical options, including facet blocks and radiofrequency ablation. The patient has a history of osteoporosis, previously managed with Evenity, which was paused due to joint pain concerns. She has received four doses over four months, and the medication was paused following a coil tier's recommendation. The patient is scheduled to discuss the continuation of Evenity with her business owner/engineer, Dr. Gayle, on April 02. Pain Description - Onset: Pain persists following L2 and L4 kyphoplasty. - Quality: Soreness in the lumbar region, significant pain in the thoracic and cervical regions. - Location: Thoracic and cervical spine, lumbar region. - Exacerbating factors: Movement and certain positions. - Relieving factors: None explicitly mentioned. Pain Management - Affect: Pain impacts daily activities and psychological well-being. - Analgesia: Current pain management strategies not fully effective. - Adverse Effects: Joint pain possibly related to Evenity. - Activities of Daily Living: Pain limits mobility and daily functions. - Aberrant Drug Related Behaviors: None reported. [facility] Medical History Panic attacks Asthma COPD exacerbation Nicotine dependence, cigarettes, uncomplicated Osteopenia (~2018) Hypertensive retinopathy of both eyes Tubular adenoma of colon (~2020) Post covid-19 condition, unspecified (~06/2021) Delayed gastric emptying PTSD (post-traumatic stress disorder) HTN (hypertension) Depression COPD (chronic obstructive pulmonary disease) History of cocaine abuse History of alcohol abuse Nausea Post concussive syndrome (~2019) Fibromyalgia Psoriasis Psoriatic arthritis Facial trauma Surgical History History of right breast biopsy History of cranial surgery History of colonoscopy History of foot surgery History of foot surgery Family History Father Family history of diabetes mellitus Medical history non-contributory Maternal Grandmother Rectal cancer Maternal Grandfather Stomach cancer Family/Other Bone cancer Mother Breast cancer Social History Household Members: Spouse Housing: Apartment Are you a primary coronary care unit nurse to a significant other at home: No Do you presently have visiting nurse or other home services: No Alcohol intake: current Alcohol intake frequency: holidays/special occasions only Patient Tobacco Use Status: Current everyday Tobacco user Tobacco use type: Cigarette Cigarette Packs Per Day: 0.25 Cigarettes Per Day: 3 Years Smoked: (onset 11yo, x 46yrs, max 1ppd, now 1/2ppd - 30pyh) e-Cigarette/Vaping Use: Never Used Second Hand Smoke Exposure: Yes Substance Use Type: Marijuana service: No Current occupational status: disabled Cognitive needs: No Hearing needs: No Vision needs: No Review of Systems Const All systems reviewed & are unremarkable except as noted in HPI and below Physical Exam General: Appears afebrile. Moderate distress due to mid back pain. Alert and oriented. Mood and affect appropriate. Follows and participates in conversation appropriately. Respiratory effort is unlabored. No cough. Able to transition from sit to stand unassisted. Ambulates with bilaterally normal heel strike and toe off. Neck Neck: Yes normal visual inspection, Yes no lymphadenopathy, Yes supple, No anterior neck swelling, Yes no JVD, No prominent supraclavicular fat pad and No prominent dorsocervical fat pad General: Yes no CVA tenderness Back/Spine/Pelvis Other: Limited thoracolumbar ROM due to pain. Mild to moderate TTP noted in the low thoracic region. Around well healed incision sites there is mild tenderness. No midline tenderness in the lumbar region area. Positive facet loading bilaterally. Patient reports increased mid back pain with movements, leaning backwards, sitting upright or coughing. Back: no CVA tenderness Cervical Spine: cervical ROM normal, No collar present, No Lhermitte's sign positive, loss of normal cervical lordosis, cervical muscular tenderness, pain with cervical ROM (increased pain with cervical extension and lateral rotations) and No Cervical spine tenderness Thoracic/Lumbar Spine: thoracic and lumbar spine normal to inspection, Thoracic/lumbar spine scar(s), Lasegue's sign negative, straight leg raise negative bilaterally, pain with thoraco-lumbar ROM and thoraco-lumbar ROM limited Results Reviewed Results Reviewed: MR thoracic spine wo con 04/01/25 TECHNIQUE: Multiplanar multisequence imaging of the thoracic spine was performed from the C7-L1 without contrast. INDICATION: M81.0 - Age-related osteoporosis without current pathological fracture PRIOR: X-ray February 04, 2025] centimeters from 03/04/2025 FINDINGS: Marrow and end-plates: There is mild superior endplate fracture involving T11. It demonstrates Modic 2 signal change with no acute edema. There is mild to moderate inferior endplate compression fracture of L2 with internal low signal consistent with methacrylate. There are also tracts through the pedicles related to kyphoplasty. There is no extraosseous cement. There is a circular lesion in the inferior T6 with coarse trabeculation. The lesion is intermediate signal on T1 imaging and hyperintense on fluid sensitive sequences consistent with a lipid poor vertebral hemangioma. Lipid rich vertebral hemangiomas are visible in T12 and L1. Alignment: No listhesis is evident. Soft tissues: There is a benign simple cyst in the mid right kidney. Cord: There is no abnormal cord signal. There is no hydrosyringomyelia. The termination of conus medullaris is within normal limits at the level of L1-2. T2-T3 through T5-6: Mild disc bulge indents thecal sac without causing spinal stenosis or foraminal narrowing. T6-7: Broad-based disc bulge indents thecal sac and results in mild spinal stenosis. T7-8: Broad-based disc bulge indents thecal sac without causing spinal stenosis. T8-9: Based disc bulge indents thecal sac and results in borderline mild spinal stenosis. T9-10:Based disc bulge and ligamentum flavum thickening results in mild spinal stenosis without foraminal narrowing. T10-11 and T11-12: Minimal broad-based disc bulge indents thecal sac without causing spinal stenosis. There is no foraminal narrowing. Thoracic disc levels not specifically described demonstrated no disc bulge, herniation, spinal stenosis, or foraminal narrowing. IMPRESSION: Chronic mild superior endplate compression fracture of T11. L2: Mild to moderate inferior endplate compression fracture post kyphoplasty on 03/04/2025. Multilevel degenerative disc disease with mild spinal stenosis at T6-7 and T9-10 XR THORACIC SPINE 04/30/25 CLINICAL INFORMATION: M80.88XG - Other osteoporosis with current pathological fracture, verteb... COMPARISON: MRI April 01, 2025 TECHNIQUE: 3 views of the thoracic spine were obtained. FINDINGS: T11 demonstrates mild loss of height and mild concavity of superior endplate compression cyst with compression fracture. The appearance is similar to the MRI performed one month ago. Kyphoplasty has been performed at L2. The aorta is tortuous. IMPRESSION: Stable mild compression fracture of T11 and L2 post kyphoplasty of L2. XR CERVICAL SPINE 12/31/24 CLINICAL INFORMATION: M50.90 - Cervical disc disorder, unspecified, unspecified cervical region COMPARISON: November 13, 2018. TECHNIQUE: AP, lateral and atlantoodontoid views. FINDINGS: Craniocervical junction is intact. Bilateral facet joint hypertrophy at C3-4 and C6-7. Marginal osteophyte formation and endplate sclerosis and decreased intervertebral disc height at C6-7. Cortical disruption in the anterior inferior aspect of the vertebral body of C3. Grade 1 anterolisthesis C5-6. Upper airways patent. IMPRESSION: Multilevel cervical spondylosis, C6-7 and to a lesser extent C3-4 resulting in grade 1 anterolisthesis C5-6. Probable old traumatic deformity anterior inferior C3. Assessment & Plan Assessment & Plan (1) Osteoporotic compression fracture of spine with delayed healing: Code(s): M80.88XG - Other osteoporosis with current pathological fracture, vertebra(e), subsequent encounter for fracture with delayed healing Category: Medical (2) Thoracic back pain: Code(s): M54.6 - Pain in thoracic spine Category: Medical (3) Thoracic radiculitis: Code(s): M54.14 - Radiculopathy, thoracic region Category: Medical (4) Cervical neck pain with evidence of disc disease: Code(s): M50.90 - Cervical disc disorder, unspecified, unspecified cervical region Category: Medical (5) Osteoporosis: Code(s): M81.0 - Age-related osteoporosis without current pathological fracture Category: Medical Qualifiers: Osteoporosis type: age-related Presence of current pathological fracture: without current pathological fracture Qualified Code(s): M81.0 - Age- related osteoporosis without current pathological fracture (6) Cervical spondylosis: Code(s): M47.812 - Spondylosis without myelopathy or radiculopathy, cervical region Category: Medical Plan Thoracic spine MRI results were discussed with patient today. We followed up MRI with updated thoracic xray today, which showed stable mild compression fracture of T11 and L2 post kyphoplasty of L2, per MRI there is no acute edema. Patient was informed she is not candidate for T11 kyphoplasty. This was confirmed with Dr. Vázquez. The plan includes following up with Oncology to assess for MGUS progression, which could be contributing to the vertebral fractures and ongoing bone pain. T In meantime, we will proceed with Bilateral Diagnostic C5-C6-C7 Medial Branch Blocks with local and fluoroscopy for potential radiofrequency ablation for pain management of axial cervical spine pain. Expectations, risks and benefits were reviewed. Patient is aware she will be contacted to schedule this procedure. All questions and concerns have been answered and patient agreed with the treatment plan. Follow up with Dr. Haney after injections and sooner as needed. Patient was informed and verbally consented to the use of an ambient scribe for clinic note documentation during this visit. Orders: Orders XR thoracic spine 3V Today M54.14 - Radiculopathy, thoracic region, M54.6 - Pain in thoracic spine, M80.88XG - Other osteoporosis with current pathological fracture, vertebra(e), subsequent encounter for fracture with delayed healing, S22.000A - Wedge compression fracture of unspecified thoracic vertebra, initial encounter for closed fracture Coding Level of Care Code Est Pt Level 4 (56149) Complex EM visit Add On G2211 Diagnoses Osteoporotic compression fracture of spine with delayed healing M80.88XG Thoracic back pain M54.6 Thoracic radiculitis M54.14 Cervical neck pain with evidence of disc disease M50.90 Age-related osteoporosis without current pathological fracture M81.0 Osteoporosis type: age-related Presence of current pathological fracture: without current pathological fracture Cervical spondylosis M47.812
[2025-04-30 10:28] VITALS: BP 124/65; PULSE 71; O2SAT 98; BMI 22.3
--- OUTSIDE RECORDS SUMMARY | 2025-04-30 12:09 | XMS_ITS | Clinical Summary ---
Author Organization [facility] Address [address] [place] [phone] Phone Care Team Providers Care Instructional Services Librarian Name Role Phone David Stinson NP Primary [...] AT BEDTIME. 90 tablet 1 5 Active Social History Tobacco Use Types Packs/Day Years [...] 01/22/2010 01/22/2009 RSV VACCINE (1 - Risk 50-74 years 1-dose series) 2014 INFLUENZA VACCINE (#1) 2025 , 04/29/2015, 03/18/2014, Additional history exists COVID-19 VACCINE (2024- season) 2025 10/18/2020, 10/18/2020, 09/27/2020, Additional history [...] topic Medical Devices Not on file Insurance [facility] [employer] [place] [place] [address] [place] [address] [place] [address] [facility] [employer] [employer] Care Teams Instructional Services Librarian Relationship Specialty Start Date End Date David Stinson NP [address] [place] [id number] PCP - General Family Medicine 09/26/21 Additional Source Comments The information contained in this document represents components of the legal health record. It is not the complete legal health record.[facility]
--- OUTSIDE RECORDS SUMMARY | 2025-04-30 12:10 | XMS_ITS | Patient Health Record ---
Author Organization [facility] Address [address] [place] [address] Care Team Providers Care Cotton Presser Name Role Phone Maddy Cruz MD Primary Care Provider Unavailab Frannie Caicedo Unavailable [phone] Reason For Referral No Information Medications Medication [...] W/U Status Risk Notes Problem Hallux valgus ([id number]) Hallux Valgus (735.0) Active confirmed Problem Hammer toe ([id number]) Hammer toe (735.4) Active confirmed Problem Neuralgia - Neuritis (729.2) Active confirmed Plan Of Treatment No Information Insurance Providers Payer Name Payer Address Payer Phone Subscriber Number Group Number Insured Name Patient Relationship to Insured Coverage Start Date Coverage End Date [employer] [address] [place] [address] [id number] XochitlAnne Self - patient is the insured Medical (General) History Medical History History ICD Code psychiatric disorder neuropathy headaches/migraines chicken pox back, hip, knee pain asthma Anxiety disorder Surgical History Surgery Date(Month/Year) breast biopsy lumpectomy
== END 2025-04-30 10:55 | disposition home or self-care (01) ==
LOC: HO.PMC 10:21
PROVIDERS: PCP Nurse Practitioner Family; Visit Provider Nurse Practitioner Family
DX: M80.88XG Other osteoporosis with current pathological fracture, vertebra(e), subsequent encounter for fracture with delayed healing (principal); M54.6 Pain in thoracic spine; M54.14 Radiculopathy, thoracic region; M50.90 Cervical disc disorder, unspecified, unspecified cervical region; M81.0 Age-related osteoporosis without current pathological fracture; M47.812 Spondylosis without myelopathy or radiculopathy, cervical region
CPT/HCPCS: 99214

== ENCOUNTER 2025-04-30 10:21 | Outpatient (REF) | payer OTHER, SELFPAY ==
--- NOTE | ~2025-04-30 | XR_ITS ---
EXAMINATION: XR THORACIC SPINE CLINICAL INFORMATION: M80.88XG - Other osteoporosis with current pathological fracture, verteb... COMPARISON: MRI April 01, 2025 TECHNIQUE: 3 views of the thoracic spine were obtained. FINDINGS: T11 demonstrates mild loss of height and mild concavity of superior endplate compression cyst with compression fracture. The appearance is similar to the MRI performed one month ago. Kyphoplasty has been performed at L2. The aorta is tortuous. XR/XR thoracic spine 3V IMPRESSION: Stable mild compression fracture of T11 and L2 post kyphoplasty of L2. Electronically signed by: Vasile Hutton MD 04/30/2025 11:14 AM EST
== END 2025-04-30 10:22 | disposition home or self-care (01) ==
LOC: HO.XRAY 10:21
PROVIDERS: PCP Nurse Practitioner Family; Visit Provider Nurse Practitioner Family
DX: M80.88XG Other osteoporosis with current pathological fracture, vertebra(e), subsequent encounter for fracture with delayed healing (principal); M54.14 Radiculopathy, thoracic region; M50.90 Cervical disc disorder, unspecified, unspecified cervical region; M47.812 Spondylosis without myelopathy or radiculopathy, cervical region; S22.080A Wedge compression fracture of T11-T12 vertebra, initial encounter for closed fracture; S32.020A Wedge compression fracture of second lumbar vertebra, initial encounter for closed fracture; X58.XXXA Exposure to other specified factors, initial encounter
CPT/HCPCS: 72072; 99212

== ENCOUNTER → 2025-04-30 10:52 | Outpatient (BNV) | payer OTHER, SELFPAY | PROVIDERS: PCP Nurse Practitioner Family; Visit Provider Radiology Diagnostic Radiology | DX: M80.88XG Other osteoporosis with current pathological fracture, vertebra(e), subsequent encounter for fracture with delayed healing (principal); S22.080D Wedge compression fracture of T11-T12 vertebra, subsequent encounter for fracture with routine healing | CPT/HCPCS: 72072 ==

== ENCOUNTER 2025-05-07 13:02 | Outpatient (AMB) | payer OTHER, SELFPAY ==
--- NOTE | 2025-05-07 13:13 | MHC.OFFVIS ---
Vital Signs 05/07/25 13:19 Height 5 ft 6 in Weight 137 lb 4 oz BMI 22.2 BP 134/82 Blood Pressure Location Rt brachial Position Sitting Pulse 80 Pulse Source Pulse Oximeter Pulse Oximetry (%) 97 Oxygen Delivery Method Room Air Intake Visit Reasons: X-RAY FOLLOW UP Intake Note: Pain today 01/01 Box Office Attendant Required: No Accompanied by: Self / Same As Patient Allergies gabapentin (GABAPENTIN) Allergy (Mild, Verified 05/07/25 13:20) SWELLING pregabalin (From LYRICA) Allergy (Mild, Verified 05/07/25 13:20) AGITATION, swelling, SWELLING HPI Comments Details: The patient is a 59-year-old female presenting with chronic pain management concerns for persistent mid back pain since L2 kyphoplasty. Her neck pain has been persistent as well but not as bothersome as mid back pain. Also, here is a requirement from the insurance for physical therapy before proceeding with injections. The thoracic spine compression fracture at T11 is described as mild, with stability noted post-kyphoplasty at L2. The patient reports ongoing pain despite the fracture being stable. She is seeking a second opinion regarding vascular concerns related to her back pain. The patient has been experiencing significant pain, impacting her daily activities, functioning, mobility and causing sleep disturbances. The patient has a history of monoclonal gammopathy of undetermined significance (MGUS), which is being monitored due to concerns about its progression and potential contribution to her pain. She plans to follow up with Oncology, as she reports appetite loss and nausea frequent episodes which she also attributes to pain. PRIOR: The patient is a 59-year-old female presenting with persistent back pain following L2 and L4 kyphoplasty in February. The back pain has been ongoing and is associated with a T11 vertebral body compression fracture, as identified in a thoracic MRI conducted on April 01, 2025. The MRI showed a chronic mild superior endplate compression fracture of T11 without acute edema, and mild to moderate inferior endplate compression fracture at L2 post-kyphoplasty. The patient has a history of osteoporosis, which contributes to her vertebral fractures. She was seen by Endocrinology, Dr. Gayle on April 02 and has had an adverse reaction to Forteo in the past, leading to the use of Abenity, which is currently on hold. There is a plan for the patient to follow up with oncology to assess for MGUS progression, which could be contributing to the vertebral fractures. The patient also reports neck pain, with a history of cervical spine arthritis. She has been advised to start physical therapy, but concerns about her back fracture have delayed this intervention. The patient has been considered for facet blocks in the cervical spine to confirm arthritic and axial pain, with potential radiofrequency ablation for pain management. Thoracic spine xrays completed today showed stable mild compression fracture of T11 and L2 post kyphoplasty of L2. Patient also reports following providers at [facility] who prescribe her tramadol 50 mg TID prn which provides her partial relief. Denies any recent cough, cold, infection, fever or any significant changes in medical history since last office visit. - Affect: Pain is impacting the patient's mood and causing significant distress. - Analgesia: Currently taking tramadol; allergic to gabapentin; stopped duloxetine due to nausea. - Adverse Effects: Nausea from duloxetine, leading to discontinuation. - Activities of Daily Living: Pain interferes with sleep and daily activities, causing the patient to wake up multiple times at night. - Aberrant Drug Related Behaviors: No signs of medication abuse or misuse reported. PRIOR Dr. Haney 03/13/25: The patient is a 59-year-old female presenting with pain management concerns following L2 and L4 kyphoplasty. She reports persistent pain in the thoracic region, which she associates with a possible fracture prior to her initial consultation. The pain in the thoracic area remains significant, and an MRI has been ordered to assess for a T11 vertebral body compression fracture. The patient also experiences cervical spine arthritis, which contributes to significant neck pain. She has a history of osteoporosis, which complicates potential surgical interventions for her neck pain. A consult with a neurosurgeon is scheduled to explore non-surgical options, including facet blocks and radiofrequency ablation. The patient has a history of osteoporosis, previously managed with Evenity, which was paused due to joint pain concerns. She has received four doses over four months, and the medication was paused following a supervisor cold rolling's recommendation. The patient is scheduled to discuss the continuation of Evenity with her blood bank business manager, Dr. Gayle, on April 02. Pain Description - Onset: Pain persists following L2 and L4 kyphoplasty. - Quality: Soreness in the lumbar region, significant pain in the thoracic and cervical regions. - Location: Thoracic and cervical spine, lumbar region. - Exacerbating factors: Movement and certain positions. - Relieving factors: None explicitly mentioned. Pain Management - Affect: Pain impacts daily activities and psychological well-being. - Analgesia: Current pain management strategies not fully effective. - Adverse Effects: Joint pain possibly related to Evenity. - Activities of Daily Living: Pain limits mobility and daily functions. - Aberrant Drug Related Behaviors: None reported. [facility] Medical History Panic attacks Asthma COPD exacerbation Nicotine dependence, cigarettes, uncomplicated Osteopenia (~2018) Hypertensive retinopathy of both eyes Tubular adenoma of colon (~2020) Post covid-19 condition, unspecified (~06/2021) Delayed gastric emptying PTSD (post-traumatic stress disorder) HTN (hypertension) Depression COPD (chronic obstructive pulmonary disease) History of cocaine abuse History of alcohol abuse Nausea Post concussive syndrome (~2019) Fibromyalgia Psoriasis Psoriatic arthritis Facial trauma Surgical History History of right breast biopsy History of cranial surgery History of colonoscopy History of foot surgery History of foot surgery Family History Father Family history of diabetes mellitus Medical history non-contributory Maternal Grandmother Rectal cancer Maternal Grandfather Stomach cancer Family/Other Bone cancer Mother Breast cancer Social History Household Members: Spouse Housing: Apartment Are you a primary care transition mgr to a significant other at home: No Do you presently have visiting nurse or other home services: No Alcohol intake: current Alcohol intake frequency: holidays/special occasions only Patient Tobacco Use Status: Current everyday Tobacco user Tobacco use type: Cigarette Cigarette Packs Per Day: 0.25 Cigarettes Per Day: 3 Years Smoked: (onset 11yo, x 46yrs, max 1ppd, now 1/2ppd - 30pyh) e-Cigarette/Vaping Use: Never Used Second Hand Smoke Exposure: Yes Substance Use Type: Marijuana service: No Current occupational status: disabled Cognitive needs: No Hearing needs: No Vision needs: No Review of Systems Const Details: - Musculoskeletal: Reports chronic pain in cervical and thoracic spine regions. - Neurological: Reports pain mid back pain radiating to the right side of her ribs, impacting mobility. - Gastrointestinal: Reports nausea and reduced appetite. - General: Reports sleep disturbances due to pain. All systems reviewed & are unremarkable except as noted in HPI and below Physical Exam Vital Signs: Last Vital Signs Pulse 80 05/07/25 13:19 BP 134/82 05/07/25 13:19 Pulse Ox 97 05/07/25 13:19 Oxygen Delivery Method Room Air 05/07/25 13:19 BMI result Body Mass Index 22.2 General: Appears afebrile. Moderate distress due to mid back pain. Alert and oriented. Mood and affect appropriate. Follows and participates in conversation appropriately. Respiratory effort is unlabored. No cough. Able to transition from sit to stand unassisted. Ambulates with bilaterally normal heel strike and toe off. General: Yes no CVA tenderness Back/Spine/Pelvis Other: Limited thoracolumbar ROM due to pain. Mild to moderate TTP noted in the low thoracic region. Well healed incision sites with mild tenderness. No midline tenderness in the cervical or lumbar region area. Positive facet loading bilaterally. Patient reports increased mid back pain with movements, leaning backwards, sitting upright or coughing. Back: no CVA tenderness Cervical Spine: cervical ROM normal, No collar present, No Lhermitte's sign positive, loss of normal cervical lordosis, cervical muscular tenderness, pain with cervical ROM (increased pain with cervical extension and lateral rotations) and No Cervical spine tenderness Thoracic/Lumbar Spine: thoracic and lumbar spine normal to inspection, Thoracic/lumbar spine scar(s), Lasegue's sign negative, straight leg raise negative bilaterally, pain with thoraco-lumbar ROM, thoraco-lumbar ROM limited, thoracic spinal tenderness (mid thoracic) and lumbar spinal tenderness (upper lumbar) Sacroiliac joints: bilaterally tender to palpation Extrem General: Yes capillary refill normal, Yes no clubbing, cyanosis or edema and Yes no calf tenderness Results Reviewed Results Reviewed: MR thoracic spine wo con 04/01/25 TECHNIQUE: Multiplanar multisequence imaging of the thoracic spine was performed from the C7-L1 without contrast. INDICATION: M81.0 - Age-related osteoporosis without current pathological fracture PRIOR: X-ray February 04, 2025] centimeters from 03/04/2025 FINDINGS: Marrow and end-plates: There is mild superior endplate fracture involving T11. It demonstrates Modic 2 signal change with no acute edema. There is mild to moderate inferior endplate compression fracture of L2 with internal low signal consistent with methacrylate. There are also tracts through the pedicles related to kyphoplasty. There is no extraosseous cement. There is a circular lesion in the inferior T6 with coarse trabeculation. The lesion is intermediate signal on T1 imaging and hyperintense on fluid sensitive sequences consistent with a lipid poor vertebral hemangioma. Lipid rich vertebral hemangiomas are visible in T12 and L1. Alignment: No listhesis is evident. Soft tissues: There is a benign simple cyst in the mid right kidney. Cord: There is no abnormal cord signal. There is no hydrosyringomyelia. The termination of conus medullaris is within normal limits at the level of L1-2. T2-T3 through T5-6: Mild disc bulge indents thecal sac without causing spinal stenosis or foraminal narrowing. T6-7: Broad-based disc bulge indents thecal sac and results in mild spinal stenosis. T7-8: Broad-based disc bulge indents thecal sac without causing spinal stenosis. T8-9: Based disc bulge indents thecal sac and results in borderline mild spinal stenosis. T9-10:Based disc bulge and ligamentum flavum thickening results in mild spinal stenosis without foraminal narrowing. T10-11 and T11-12: Minimal broad-based disc bulge indents thecal sac without causing spinal stenosis. There is no foraminal narrowing. Thoracic disc levels not specifically described demonstrated no disc bulge, herniation, spinal stenosis, or foraminal narrowing. IMPRESSION: Chronic mild superior endplate compression fracture of T11. L2: Mild to moderate inferior endplate compression fracture post kyphoplasty on 03/04/2025. Multilevel degenerative disc disease with mild spinal stenosis at T6-7 and T9-10 XR THORACIC SPINE 04/30/25 CLINICAL INFORMATION: M80.88XG - Other osteoporosis with current pathological fracture, verteb... COMPARISON: MRI April 01, 2025 TECHNIQUE: 3 views of the thoracic spine were obtained. FINDINGS: T11 demonstrates mild loss of height and mild concavity of superior endplate compression cyst with compression fracture. The appearance is similar to the MRI performed one month ago. Kyphoplasty has been performed at L2. The aorta is tortuous. IMPRESSION: Stable mild compression fracture of T11 and L2 post kyphoplasty of L2. XR CERVICAL SPINE 12/31/24 CLINICAL INFORMATION: M50.90 - Cervical disc disorder, unspecified, unspecified cervical region COMPARISON: November 13, 2018. TECHNIQUE: AP, lateral and atlantoodontoid views. FINDINGS: Craniocervical junction is intact. Bilateral facet joint hypertrophy at C3-4 and C6-7. Marginal osteophyte formation and endplate sclerosis and decreased intervertebral disc height at C6-7. Cortical disruption in the anterior inferior aspect of the vertebral body of C3. Grade 1 anterolisthesis C5-6. Upper airways patent. IMPRESSION: Multilevel cervical spondylosis, C6-7 and to a lesser extent C3-4 resulting in grade 1 anterolisthesis C5-6. Probable old traumatic deformity anterior inferior C3. Assessment & Plan Assessment & Plan (1) Osteoporotic compression fracture of spine with delayed healing: Code(s): M80.88XG - Other osteoporosis with current pathological fracture, vertebra(e), subsequent encounter for fracture with delayed healing Category: Medical (2) Thoracic back pain: Code(s): M54.6 - Pain in thoracic spine Category: Medical (3) Thoracic radiculitis: Code(s): M54.14 - Radiculopathy, thoracic region Category: Medical (4) Cervical neck pain with evidence of disc disease: Code(s): M50.90 - Cervical disc disorder, unspecified, unspecified cervical region Category: Medical (5) Osteoporosis: Code(s): M81.0 - Age-related osteoporosis without current pathological fracture Category: Medical Qualifiers: Osteoporosis type: age-related Presence of current pathological fracture: without current pathological fracture Qualified Code(s): M81.0 - Age-related osteoporosis without current pathological fracture (6) Cervical spondylosis: Code(s): M47.812 - Spondylosis without myelopathy or radiculopathy, cervical region Category: Medical Plan Thoracic spine xrays results were discussed with patient today. We followed up MRI with updated thoracic xray, which showed stable mild compression fracture of T11 and L2 post kyphoplasty of L2, per MRI there is no acute edema. Patient was informed she is not candidate for T11 kyphoplasty. This was confirmed with Dr. Vázquez. The plan includes following up with Oncology to assess for MGUS progression, which could be contributing to the vertebral fractures and ongoing bone pain. She also reports episodes of nausea and loss of appetite. The plan includes changing the focus from cervical to mid-back injections due to the patient's current pain distribution and severity. We will proceed with Bilateral Diagnostic [id number] Medial Branch Blocks with local and fluoroscopy to confirm axial thoracolumbar pain. Expectations, risks and benefits were reviewed. Patient is aware she will be contacted to schedule this procedure. All questions and concerns have been answered and patient agreed with the treatment plan. Follow up with Dr. Haney after injections and sooner as needed. Patient was informed and verbally consented to the use of an ambient scribe for clinic note documentation during this visit. Coding Level of Care Code Est Pt Level 3 (24908) Complex EM visit Add On G2211 Diagnoses Osteoporotic compression fracture of spine with delayed healing M80.88XG Thoracic back pain M54.6 Thoracic radiculitis M54.14 Cervical neck pain with evidence of disc disease M50.90 Age-related osteoporosis without current pathological fracture M81.0 Osteoporosis type: age-related Presence of current pathological fracture: without current pathological fracture Cervical spondylosis M47.812
[2025-05-07 13:19] VITALS: BP 134/82; PULSE 80; O2SAT 97; BMI 22.2
--- OUTSIDE RECORDS SUMMARY | 2025-05-07 16:22 | XMS_ITS | Clinical Summary ---
Author Organization [facility] Address [address] [place] [id number] Phone Care Team Providers Care Yard Spotter Name Role Phone David Stinson NP Primary [...] on patient's age to complete this topic IPV VACCINES Aged Out No longer eligi ble based on patient's age to complete this topic MENINGOCOCCAL VACCINES (ACWY) Aged Out No longer eligible based on patient's age to complete this topic MENINGOCOCCAL VACCINES (B) Aged Out N o longer eligible based on patient's age to complete this topic Medical Devices Not on file Insurance [facility] [place] [address] [place] [address] [place] [address] [place] [address] [employer] [facility] Care Teams Yard Spotter Relationship Specialty Start Date End Date David Stinson NP [address] [place] [address] PCP - General Family Medicine 09/26/21 Additional Source Comments The information contained in this document represents components of the legal health record. It is not the complete legal health record.[facility]
--- OUTSIDE RECORDS SUMMARY | 2025-05-07 16:22 | XMS_ITS | Patient Health Record ---
Author Organization [facility] Address [address] [place] [address] Care Team Providers Care Cuffer Name Role Phone Maddy Cruz MD Primary Care Provider Unavailab Frannie Caicedo Unavailable [phone] Reason For Referral No Information Medications Medication [...] W/U Status Risk Notes Problem Hallux valgus ([id number]) Hallux Valgus (735.0) Active confirmed Problem Hammer toe ([id number]) Hammer toe (735.4) Active confirmed Problem Neuralgia - Neuritis (729.2) Active confirmed Plan Of Treatment No Information Insurance Providers Payer Name Payer Address Payer Phone Subscriber Number Group Number Insured Name Patient Relationship to Insured Coverage Start Date Coverage End Date [employer] [address] [place] [address] [phone] [id number] XochitlAnne Self - patient is the insured Medical (General) History Medical History History ICD Code psychiatric disorder neuropathy headaches/migraines chicken pox back, hip, knee pain asthma Anxiety disorder Surgical History Surgery Date(Month/Year) breast biopsy lumpectomy
== END 2025-05-07 13:40 | disposition home or self-care (01) ==
LOC: HO.PMC 13:03
PROVIDERS: PCP Nurse Practitioner Family; Visit Provider Nurse Practitioner Family
DX: M80.88XG Other osteoporosis with current pathological fracture, vertebra(e), subsequent encounter for fracture with delayed healing (principal); M54.6 Pain in thoracic spine; M54.14 Radiculopathy, thoracic region; M50.90 Cervical disc disorder, unspecified, unspecified cervical region; M81.0 Age-related osteoporosis without current pathological fracture; M47.812 Spondylosis without myelopathy or radiculopathy, cervical region
CPT/HCPCS: 99213

== ENCOUNTER → 2025-05-07 13:02 | Outpatient (BNVA) | payer OTHER, SELFPAY | PROVIDERS: PCP Nurse Practitioner Family; Visit Provider Nurse Practitioner Family | DX: Z71.2 Person consulting for explanation of examination or test findings (principal); M54.6 Pain in thoracic spine; M54.14 Radiculopathy, thoracic region; M50.90 Cervical disc disorder, unspecified, unspecified cervical region; M47.812 Spondylosis without myelopathy or radiculopathy, cervical region; M80.88XG Other osteoporosis with current pathological fracture, vertebra(e), subsequent encounter for fracture with delayed healing | CPT/HCPCS: 99212 ==

== ENCOUNTER 2025-05-18 13:20 | Outpatient (AMB) | payer OTHER, SELFPAY ==
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
--- OUTSIDE RECORDS SUMMARY | 2025-05-13 23:59 | XMS_ITS | Continuity of Care Document ---
Author Organization [facility] Address [address] [place] [address]- Support Name Relationship Address Phone JHONY, ANA [...] JAX Personal Relationship Unknown Unavai lable JUDYCARLTON father Unknown Unavailable Care Team Providers Care Auto Design Detailer Name Role Phone Shantell BAIRES, David Varghese Primary Care Physician Encounter [facility] Date(s): 01/13/25 - 05/13/25 [facility] [address] [place] [id number]- Attending Physician: Mari Millan MD Admitting Physician: Mari Millan MD Referring Physician: David Stinson NP Encounter Type: Pre-OutPatient One Time Allergies, Adverse Reactions, Alerts Substance Criticality Severity [...] 1:21:49 PM EDT, Route to Pharmacy Electronically, [facility]/pharmacy #[id number] Start Date: 12/23/15 Stop Date: 06/20/16 [...] Refills, Maintenance, 03/30/16 3:29:58 PM EDT, Aerosol, [facility]/pharmacy #[id number] Start Date: 03/30/16 Status: Ordered Medication [...] 9:04:54 AM EDT, Route to Pharmacy Electronically, [facility]/pharmacy #[id number] Start Date: 11/18/15 Stop Date: 05/16/16 Status: Ordered Medication Dispense Status: Completed Quantity: 90.0 Unit: tablet Total Allowed Fills: 2 Fills Dispensed: 0 methocarbamol 750 mg oral tablet 1 tablet = 750 mg, By Mouth, 4 times a day, dx: plantar fibromatosis, chronic foot pain, # 120 tablet, 0 Refills, Maintenance, 04/19/16 9:51:11 AM EDT, Tablet, [facility]/pharmacy #[id number] Start Date: 04/19/16 Stop Date: 05/19/16 [...] 0 Refills, Maintenance, 07/20/16 1:25:43 PM EST, [facility]/pharmacy #[id number] Start Date: 07/20/16 Stop Date: 08/19/16 Status: Ordered Medication Dispense Status: Completed Quantity: 60.0 Unit: capsule Total Allowed Fills: 1 Fills Dispensed: 0 ondansetron 4 mg oral tablet, disintegrating 1 tablet = 4 mg, By Mouth, Every 8 hours, PRN Nausea & Vomiting, # 42 tablet, 1 Refills, Maintenance, 04/09/20 3:23:00 PM EDT, [facility]/pharmacy #[id number], 170.18, cm, 04/06/20 11:01:00 EDT, Height Start Date: 04/09/20 Stop Date: 05/07/20 Status: Ordered Medication Dispense Status: Completed Quantity: 42.0 Unit: tablet Total Allowed Fills: 2 Fills Dispensed: 0 ProAir HFA 90 mcg/inh inhalation aerosol with adapter 2, puffs, Inhalation, 4 times a day, # 1 each, Refills 0, Tot. Refills 0, Maintenance, 03/30/16 3:28:27 PM EDT, Route to Pharmacy Electronically, [id number], [facility]/pharmacy #[id number] Start Date: 03/30/16 Status: Ordered Medication Dispense Status: Completed Quantity: 1.0 Unit: each Total Allowed Fills: 1 Fills Dispensed: 0 propranolol 40 mg oral tablet 40 mg, 1, tablet, By Mouth, 2 times a day, # 60 tablet, Refills 0, Tot. Refills 0, Maintenance, 06/22/16 9:15:20 AM EST, Route to Pharmacy Electronically, [facility]/pharmacy #[id number] Start Date: 06/22/16 Status: Ordered Medication Dispense Status: Completed Quantity: 60.0 Unit: tablet Total Allowed Fills: 1 Fills Dispensed: 0 topiramate 50 mg oral tablet See Instructions, 1.5 tablet By Mouth bid., # 90 tablet, 2 Refills, Maintenance, 12/09/20 4:41:00 PMEDT, [facility]/pharmacy #[id number], Partial fill upon patient request if [...] 2 Refills, Maintenance, 04/06/20 11:53:00AM EDT, Tablet, [facility]/pharmacy #[id number], 170.18, cm, 04/06/20 11:01:00 EDT, Height Start Date: 04/06/20 Stop Date: 07/05/20 Status: Ordered Medication Dispense Status: Completed Quantity: 120.0 Unit: tablet Total Allowed Fills: 3 Fills Dispensed: 0 Vitamin D 47014 iu oral capsule 50,000 International_Units, By Mouth, [...] plantar fibromatosis by Russel Willams M.D. at [facility]. Note: had popliteal block with general endotracheal anesthesia. Social History Social History Type Response Smoking Status Current every day matt fernando entered on: 09/04/14 Sex Sex Representation Female (finding) Patient Care team information Care Team Personnel Name: Marleny Finch RN Position: S RN Member Role: Primary Care Nurse Name: David Stinson NP Position: Reference Physician Member Role: PCP Address: [address] [place] [address] Telecom: Name: Andreea Benoit RN Position: S RN Member Role: Primary Care Nurse Care Team Related Persons Name: ANA BOOKER Name: CARLTON KIM Insurance Providers Guarantor name: JAX JHONY Health Plan Information #: 1 Payer: [employer] Payer Identifier: NA Member Number: [id number] Group Number: [id number] Subscriber Identifier: [id number] Relationship to Subscriber: self Coverage Type: NA Coverage Verification Date: NA Telecom: Address:
--- OUTSIDE RECORDS SUMMARY | 2025-05-14 23:59 | XMS_ITS | Continuity of Care Document ---
Author Organization [facility] Address [address] [place] [address]- Support Name Relationship Address Phone JHONY, ANA [...] father Unknown Unavailable Care Team Providers Care Special Services Coordinator Name Role Phone Shantell BAIRES, David Varghese Primary Care Physician [place] [facility] [place] - 05/14/25 [facility] [address] [place] [address]- Attending Physician: Mari Millan MD Admitting Physician: [...] 1:21:49 PM EDT, Route to Pharmacy Electronically, [facility]/pharmacy #[id number] Start Date: 12/23/15 Stop Date: [...] Refills, Maintenance, 03/30/16 3:29:58 PM EDT, Aerosol, [facility]/pharmacy #[id number] Start Date: 03/30/16 Status: Ordered [...] 9:04:54 AM EDT, Route to Pharmacy Electronically, [facility]/pharmacy #[id number] Start Date: 11/18/15 Stop Date: 05/16/16 Status: Ordered Medication Dispense Status: Completed Quantity: 90.0 Unit: tablet Total Allowed Fills: 2 Fills Dispensed: 0 methocarbamol 750 mg oral tablet 1 tablet = 750 mg, By Mouth, 4 times a day, dx: plantar fibromatosis, chronic foot pain, # 120 tablet, 0 Refills, Maintenance, 04/19/16 9:51:11 AM EDT, Tablet, [facility]/pharmacy #[id number] Start Date: 04/19/16 Stop Date: [...] 0 Refills, Maintenance, 07/20/16 1:25:43 PM EST, [facility]/pharmacy #[id number] Start Date: 07/20/16 Stop Date: 08/19/16 Status: Ordered Medication Dispense Status: Completed Quantity: 60.0 Unit: capsule Total Allowed Fills: 1 Fills Dispensed: 0 ondansetron 4 mg oral tablet, disintegrating 1 tablet = 4 mg, By Mouth, Every 8 hours, PRN Nausea & Vomiting, # 42 tablet, 1 Refills, Maintenance, 04/09/20 3:23:00 PM EDT, [facility]/pharmacy #[id number], 170.18, cm, 04/06/20 11:01:00 EDT, Height Start Date: 04/09/20 Stop Date: 05/07/20 Status: Ordered Medication Dispense Status: Completed Quantity: 42.0 Unit: tablet Total Allowed Fills: 2 Fills Dispensed: 0 ProAir HFA 90 mcg/inh inhalation aerosol with adapter 2, puffs, Inhalation, 4 times a day, # 1 each, Refills 0, Tot. Refills 0, Maintenance, 03/30/16 3:28:27 PM EDT, Route to Pharmacy Electronically, [id number], [facility]/pharmacy #[id number] Start Date: 03/30/16 Status: Ordered Medication Dispense Status: Completed Quantity: 1.0 Unit: each Total Allowed Fills: 1 Fills Dispensed: 0 propranolol 40 mg oral tablet 40 mg, 1, tablet, By Mouth, 2 times a day, # 60 tablet, Refills 0, Tot. Refills 0, Maintenance, 06/22/16 9:15:20 AM EST, Route to Pharmacy Electronically, [facility]/pharmacy #[id number] Start Date: 06/22/16 Status: Ordered Medication Dispense Status: Completed Quantity: 60.0 Unit: tablet Total Allowed Fills: 1 Fills Dispensed: 0 topiramate 50 mg oral tablet See Instructions, 1.5 tablet By Mouth bid., # 90 tablet, 2 Refills, Maintenance, 12/09/20 4:41:00 PMEDT, [facility]/pharmacy #[id number], Partial fill upon patient request [...] 2 Refills, Maintenance, 04/06/20 11:53:00AM EDT, Tablet, [facility]/pharmacy #[id number], 170.18, cm, 04/06/20 11:01:00 EDT, Height Start Date: 04/06/20 Stop Date: 07/05/20 Status: Ordered Medication Dispense Status: Completed Quantity: 120.0 Unit: tablet Total Allowed Fills: 3 Fills Dispensed: 0 Vitamin D 77213 iu oral capsule 50,000 International_Units, By Mouth, [...] plantar fibromatosis by Russel Willams M.D. at [facility]. Note: had popliteal block with general endotracheal anesthesia. Social History Social History Type Response Smoking Status Current every day matt fernando entered on: 09/04/14 Sex Sex Representation Female (finding) Patient Care team information Care Team Personnel Name: Marleny Finch RN Position: S RN Member Role: Primary Care Nurse Name: David Stinson NP Position: Reference Physician Member Role: PCP Address: [address] [place] [address] Telecom: Name: Andreea Benoit RN Position: S RN Member Role: Primary Care Nurse Care Team Related Persons Name: ANA BOOKER Name: CARLTON KIM Insurance Providers Guarantor name: JAX JHONY Health Plan Information #: 1 Payer: [employer] Payer Identifier: NA Member Number: [id number] Group Number: [id number] Subscriber Identifier: [id number] Relationship to Subscriber: self Coverage Type: NA Coverage Verification Date: NA Telecom: Address:
--- NOTE | 2025-05-18 13:52 | AM.OFFVISNUR ---
Intake Visit Reasons: Evenity #3 Allergies gabapentin (GABAPENTIN) Allergy (Mild, Verified 05/11/25 10:39) SWELLING pregabalin (From LYRICA) Allergy (Mild, Verified 05/11/25 10:39) AGITATION, swelling, SWELLING Office Meds romosozumab-aqqg 210 mg/2.34 mL(105 mg/1.17 mL x2)subcutaneous syringe Performing Provider: Natalio Gayle MD [place] [facility] Administered by: lIa Paz RN on 05/18/25 13:45 Dose Route Admin Location Dispensed Lot Number Expiration Date NDC Surgical Coordinator 210 mg subcut Bilateral upper arms 2.34 mL [id number] 05/24/27 80155-877-10 AMGEN Total Dispensed Waste 2.34 mL 0 % Comments: No adverse reactions reported from previous injection. Pt tolerated injection well. Pt scheduled in 4 weeks for next appt. No further questions at this time. Assessment & Plan Assessment & Plan Orders: Orders AMB Romosozumab Injection Patient Supplied Today M81.0 - Age-related osteoporosis without current pathological fracture Coding
--- OUTSIDE RECORDS SUMMARY | 2025-05-18 18:01 | XMS_ITS | Clinical Summary ---
Author Organization [facility] Address [address] [place] [address] Phone Care Team Providers Care Solar Installer Pv Name Role Phone David Stinson NP Primary [...] Medical Devices Not on file Insurance [facility] [place] [address] [address] [place] [address] [place] [address] [facility] Care Teams Solar Installer Pv Relationship Specialty Start Date End Date David Stinson NP [address] [place] [address] PCP - General Family Medicine 09/26/21 Additional Source Comments The information contained in this document represents components of the legal health record. It is not the complete legal health record.[facility]
== END 2025-05-18 13:49 | disposition home or self-care (01) ==
LOC: HO.ENCR 13:21
PROVIDERS: PCP Nurse Practitioner Family; Visit Provider Internal Medicine Endocrinology, Diabetes & Metabolism
DX: M81.0 Age-related osteoporosis without current pathological fracture (principal)

== ENCOUNTER → 2025-05-18 13:20 | Outpatient (BNVA) | payer OTHER, SELFPAY | PROVIDERS: PCP Nurse Practitioner Family; Visit Provider Internal Medicine Endocrinology, Diabetes & Metabolism | DX: M81.0 Age-related osteoporosis without current pathological fracture (principal) | CPT/HCPCS: 96372; J3111 ==

== ENCOUNTER 2025-05-28 11:51 | Outpatient (REF) | payer OTHER, SELFPAY ==
--- NOTE | ~2025-05-28 | XR_ITS ---
EXAMINATION: XR THORACIC SPINE CLINICAL INFORMATION: Pain in thoracic spine. COMPARISON: April 30, 2025. TECHNIQUE: AP and lateral views FINDINGS: Multilevel marginal osteophyte formation and endplate sclerosis. Mild superior endplate compression deformity representing 20% volume loss at T11. Radiopaque material at L2 vertebra likely kyphoplasty/vertebroplasty procedure. Mild S-shaped curvature. No acute cortical disruption or malalignment. XR/XR thoracic spine 2V IMPRESSION: Multilevel spondylosis and old superior endplate compression deformity at T11. Electronically signed by: Nain Barahona MD 05/28/2025 12:11 PM [facility] MEDRANO
[2025-05-28 13:00] LABS: MANUAL DIFF FLAG NO
[2025-05-28 13:08] LABS: Hematocrit 35.6 % (37.0-47.0); Hemoglobin 11.7 g/dl (12.0-16.0); Imm Gran Abs Auto 0.01 X10*3/uL (0.00-0.03); Imm Gran Pct Auto 0.2 % (0.0-0.4); Lymphocytes Absolute Auto 2.5 X10*3/uL (1.2-4.9); Mean Corpuscular HGB Conc 32.9 g/dl (31.0-35.0); Mean Corpuscular Hemoglobin 33.1 pg (27.0-33.0); Mean Corpuscular Volume 100.8 fL (80.0-98.0); NRBC Abs Auto 0.000 X10*3/uL (0.0-0.012); NRBC Pct Auto 0.0 /100WBC (0.0-0.2); Platelet Count 225 X10*3/uL (160-400); Red Blood Count 3.53 X10*6/uL (4.20-5.50); White Blood Count 5.0 X10*3/uL (4.8-10.8)
[2025-05-28 13:17] LABS: Alanine Aminotransferase 14 U/L (0-31); Aspartate Amino Transferase 17 U/L (5-31); Estimated Glomerular Filt Rate > 60
== END 2025-05-28 11:52 | disposition home or self-care (01) ==
LOC: HO.HMGCX 11:51
PROVIDERS: Absent Provider Physician Assistant; PCP Nurse Practitioner Family; Visit Provider Internal Medicine Rheumatology
DX: M54.6 Pain in thoracic spine (principal); Z59.89 Other problems related to housing and economic circumstances; Z79.899 Other long term (current) drug therapy
CPT/HCPCS: 36415; 72070; 82565; 84450; 84460; 85025

== ENCOUNTER → 2025-05-28 12:00 | Outpatient (BNV) | payer OTHER, SELFPAY | PROVIDERS: Absent Provider Physician Assistant; PCP Nurse Practitioner Family; Visit Provider Radiology Diagnostic Radiology | DX: M47.814 Spondylosis without myelopathy or radiculopathy, thoracic region (principal); S22.080S Wedge compression fracture of T11-T12 vertebra, sequela | CPT/HCPCS: 72070 ==

== ENCOUNTER 2025-06-02 12:31 | Outpatient (REF) | payer OTHER, SELFPAY ==
[2025-06-02 18:18] LABS: Erythrocyte Sedimentation Rate 13 MM/HR (0-20)
== END 2025-06-02 12:32 | disposition home or self-care (01) ==
LOC: HO.HMGCLDS 12:31
PROVIDERS: PCP Nurse Practitioner Family; Visit Provider Internal Medicine Rheumatology
DX: Z79.899 Other long term (current) drug therapy (principal)
CPT/HCPCS: 36415; 85652; 86140

== ENCOUNTER 2025-06-04 14:12 | Outpatient (AMB) | payer OTHER, SELFPAY ==
--- NOTE | 2025-06-04 14:20 | A.OFFVIS_ITS ---
Vital Signs 06/04/25 14:21 Height 5 ft 6.5 in Weight 133 lb 6.075 oz BMI 21.2 BP 150/92 H Blood Pressure Location Lt brachial Position Sitting Pulse 91 Pulse Source Pulse Oximeter Pulse Oximetry (%) 96 Oxygen Delivery Method Room Air Intake Visit Reasons: COPD Intake Note: pt is here for follow up and states she is very stressed affecting all her health. Director Of Event Management Required: No Allergies gabapentin (GABAPENTIN) Allergy (Mild, Verified 06/04/25 14:50) SWELLING pregabalin (From LYRICA) Allergy (Mild, Verified 06/04/25 14:50) AGITATION, swelling, SWELLING Medication List - Last Reconciled 06/04/25 by Rome Parekh MD amitriptyline 50 mg PO BEDTIME atorvastatin 10 mg PO BEDTIME azelastine 2 sprays intranasal BID 30 days dnfnlkqddv-bwiyzsjuyvaue-fxct 50-325-40 mg 1 tab PO Q6H PRN calcium citrate 250 mg PO DAILY cholecalciferol (vitamin D3) 50 mcg PO DAILY clonazepam 1 mg PO BID PRN 30 days cyclobenzaprine 10 mg PO BID PRN 30 days duloxetine 30 mg PO DAILY 30 days famotidine 20 mg PO BEDTIME fluticasone furoate-vilanterol 200-25 mcg/dose (Breo Ellipta) 1 inh inhalation DAILY galcanezumab-gnlm (Emgality Pen) 120 mg subcut ONCE 30 days hydrocortisone 1% 1 appl topical BID-TID PRN hydroxyzine HCl 50 mg PO BID PRN ipratropium-albuterol 0.5 mg-3 mg(2.5 mg base)/3 mL 3 mL inhalation Q6H PRN 30 days ipratropium-albuterol 20-100 mcg/actuation (Combivent Respimat) 1 puff inhalation Q6H ixekizumab (Taltz Autoinjector) 80 mg subcut Q4W lidocaine 5% 1 patch topical DAILY [LSO Drayton LSO ] magnesium oxide 400 mg PO BEDTIME 30 days nicotine 1 patch transdermal DAILY 28 days omeprazole 40 mg PO DAILY ondansetron 8 mg PO Q8H ondansetron 8 mg PO Q12H PRN 30 days pen needle, diabetic (Comfort EZ Pen Tiffin) As directed daily for use with tymlos polyethylene glycol 3350 (Miralax) 17 grams PO DAILY PRN propranolol 20 mg PO BID riboflavin (vitamin B2) 400 mg PO DAILY romosozumab-aqqg (Evenity) 210 mg (2.34 mL) subcut .q mo tramadol 50 mg PO BID PRN trazodone 100 mg (2 x 50 mg) PO BEDTIME PRN ubrogepant (Ubrelvy) 50 - 100 mg (0.5 - 1 x 100 mg) PO ONCE PRN 30 days Do you need a note to return to daycare/school/sports/work: No HPI HPI COPD: Details: THIS 59 YEARS OLD FEMALE IS HERE FOR FOLLOW-UP AFTER 2 MONTHS. SHE HAS ADVANCED CHRONIC OBSTRUCTIVE PULMONARY DISEASE AND IS VERY PRONE TO GET FREQUENT ACUTE EXACERBATIONS. SO SHE NEEDS TO BE SEEN MORE FREQUENTLY. IN THE LAST 2 MONTHS SHE HAS BEEN RELATIVELY STABLE WITHOUT ANY INCREASE IN HER RESPIRATORY SYMPTOMS. SHE HAS BEEN A HEAVY SMOKER NOW HAS CUT DOWN TO 2 CIGARETTES A DAY. SHE CONTINUES TO SMOKE 2 CIGARETTES BECAUSE SHE REMAINS UNDER LOT OF STRESS. . 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 SHE AND HER LIVE IN 1 BEDRO[address] APARTMENT IN THE APARTMENT FACILITY WHICH IS RAISING THE RENT BY $ 400 PER MONTH AND SHE WILL NEED TO VACATE THE CURRENT FACILITY AND GO TO A DIFFERENT 1 WITH CHEAPER RENT. THIS IS CAUSING MOST OF HER STRESS [facility] Medical History Panic attacks Asthma COPD exacerbation Nicotine dependence, cigarettes, uncomplicated Osteopenia (~2018) Hypertensive retinopathy of both eyes Tubular adenoma of colon (~2020) Post covid-19 condition, unspecified (~06/2021) Delayed gastric emptying PTSD (post-traumatic stress disorder) HTN (hypertension) Depression COPD (chronic obstructive pulmonary disease) History of cocaine abuse History of alcohol abuse Nausea Post concussive syndrome (~2019) Fibromyalgia Psoriasis Psoriatic arthritis Facial trauma Surgical History History of right breast biopsy History of cranial surgery History of colonoscopy History of foot surgery History of foot surgery Family History Father Family history of diabetes mellitus Medical history non-contributory Maternal Grandmother Rectal cancer Maternal Grandfather Stomach cancer Family/Other Bone cancer Mother Breast cancer Social History Household Members: Spouse Housing: Apartment Are you a primary customer care voice consultant to a significant other at home: No Do you presently have visiting nurse or other home services: No Alcohol intake: current Alcohol intake frequency: holidays/special occasions only Patient Tobacco Use Status: Current everyday Tobacco user Tobacco use type: Cigarette Cigarette Packs Per Day: 0.25 Cigarettes Per Day: 3 Years Smoked: (onset 11yo, x 46yrs, max 1ppd, now 1/2ppd - 30pyh) e-Cigarette/Vaping Use: Never Used Second Hand Smoke Exposure: Yes Substance Use Type: Marijuana service: No Current occupational status: disabled Cognitive needs: No Hearing needs: No Vision needs: No Review of Systems Const All systems reviewed & are unremarkable except as noted in HPI and below Reports headache(s) Eyes Reports no additional complaints ENT Reports headache(s) and Reports nasal congestion (MILD OFF AND ON) Card Denies chest pain, Denies irregular heart rhythm and Denies leg edema Resp Reports as per HPI GI Reports no additional complaints, Reports heartburn and Reports nausea Reports no additional complaints Musc Reports back pain Skin/Breast Reports system reviewed and no additional complaints, except as documented Neuro Reports headache(s) and Reports memory loss (Has had post concussion syndrome) Psych Reports anxiety (Mild chronic), Reports depression (Mild) and Reports memory loss (Has had post concussion syndrome) Physical Exam Vital Signs: Last Vital Signs Pulse 91 06/04/25 14:21 BP 150/92 H 06/04/25 14:21 Pulse Ox 96 06/04/25 14:21 Oxygen Delivery Method Room Air 06/04/25 14:21 BMI result Body Mass Index 21.2 Const General: comfortable, no acute distress, alert and awake Orientation/consciousness: patient oriented x3 HEENT Head: Yes normal to inspection General nose exam: No nasal polyps present and No nasal discharge present Face and sinus: Yes sinuses nontender Mouth: oropharynx normal Throat: Yes posterior oropharynx normal Eyes General: appearance normal, both eyes and all related structures Neck Neck: Yes normal visual inspection, Yes no lymphadenopathy, Yes trachea midline and Yes no JVD Thyroid: Thyroid normal Chest Chest palpation & inspection: normal inspection of the chest, normal palpation of entire chest wall and no tenderness Resp Other: Percussion note is resonant . Breath sounds are distant , There are no wheezes or rhonchi today. Cardio Palpation: normal PMI Rate: regular rate Rhythm: regular rhythm Heart sounds: no gallops and no murmurs GI Palpation (GI): Soft to palpation, Tenderness to palpation present (GI), No hepatosplenomegaly present and Palpable mass present Auscultation: normal bowel sounds Back/Spine/Pelvis Thoracic/Lumbar Spine: thoracic and lumbar spine normal to inspection and other (BACK IS VERY STIFF AND TENDER TO TOUCH) Skin General skin exam: no rashes or lesions noted Neuro General: patient oriented x3 and no focal motor deficits Cranial nerves: Yes CN's II-XII intact bilaterally Extrem General: Yes normal to inspection, Yes no clubbing, cyanosis or edema and Yes no calf tenderness Psych Speech and movement: Normal speech and movement present Assessment & Plan Assessment & Plan (1) COPD (chronic obstructive pulmonary disease): Comment: She has moderately severe chronic obstructive pulmonary disease. Has history of frequent acute exacerbations. Now for the last few months she has been relatively stable. She has been told that she has developed osteoporosis. So she is less anxious to get prescription of prednisone. Code(s): J44.9 - Chronic obstructive pulmonary disease, unspecified Category: Medical Plan: DISCUSSED ABOUT HER LUNG CONDITION IN DETAIL. I REASSURED HER THAT HER LUNGS ARE QUITE CLEAR AT THIS TIME.. ADVISE THAT SHE SHOULD CONTINUE TO USE BREO ELLIPTA 200-251 INHALATION DAILY. COMBIVENT RESPIMAT 1 INHALATION Q 6 HOURS WHILE AWAKE AND USE IPRATROPIUM-ALBUTEROL SOLUTION IN THE NEBULIZER Q 4-6 HOURS PRN (2) Pulmonary nodule 1 cm or greater in diameter: Comment: Numerous 6-10mm RUL nodules - largest measuring 13.8mm on our measure - CASE WAS DISCUSSED IN MULTIDISCIPLINARY COMMITTEE AND THE CURRENT FINDINGS REVIEWED . LDCT upgrade to Lung RADS 4A - AND A REPEAT LDCT AFTER 3 MONTHS IS PLANNED Code(s): R91.1 - Solitary pulmonary nodule Category: Medical Plan: SHE IS WAITING TO UNDERGO THE REPEAT LDCT (3) Nicotine dependence, cigarettes, uncomplicated: Comment: (current smoker, 1ppd x 46yrs, now 1/2ppd - 30pyh).says she has reduced to 2-3 cigarettes a day. She is trying her best to quit smoking or at lease keep the number of cigarettes to 2 or 3. Currently not using the nicotine patches, but wants to get more supplies so that she can use. Code(s): F17.210 - Nicotine dependence, cigarettes, uncomplicated Category: Medical Plan: DISCUSSED ABOUT SMOKING THE BEST THING IS TO STOP COMPLETELY. BUT AT LEAST FOR THE TIME BEING SHE HAS CUT IT DOWN TO 2 OR 3 CIGARETTES A DAY. Coding Level of Care Code Est Pt Level 3 (39316) Diagnoses COPD (chronic obstructive pulmonary disease) J44.9 Pulmonary nodule 1 cm or greater in diameter R91.1 Nicotine dependence, cigarettes, uncomplicated F17.210
[2025-06-04 14:21] VITALS: BP 150/92; PULSE 91; O2SAT 96; BMI 21.2
--- OUTSIDE RECORDS SUMMARY | 2025-06-04 21:43 | XMS_ITS | Patient Health Record ---
Author Organization [facility] Address [address] [place] [address] Care Team Providers Care Laborer Marine Terminal Name Role Phone Maddy Cruz MD Primary Care Provider Unavailab Frannie Caicedo Unavailable [phone] Reason For Referral No Information Medications Medication [...] W/U Status Risk Notes Problem Hallux valgus (065598490) Hallux Valgus (735.0) Active confirmed Problem Hammer toe ([id number]) Hammer toe (735.4) Active confirmed Problem Neuralgia - Neuritis (729.2) Active confirmed Plan Of Treatment No Information Insurance Providers Payer Name Payer Address Payer Phone Subscriber Number Group Number Insured Name Patient Relationship to Insured Coverage Start Date Coverage End Date Mikhail All [address] [place] [address] [phone] [id number] XochitlAnne Self - patient is the insured Medical (General) History Medical History History ICD Code psychiatric disorder neuropathy headaches/migraines chicken pox back, hip, knee pain asthma Anxiety disorder Surgical History Surgery Date(Month/Year) breast biopsy lumpectomy
--- OUTSIDE RECORDS SUMMARY | 2025-06-04 21:43 | XMS_ITS | Clinical Summary ---
Author Organization [facility] Address [address] [place] [address] Phone Care Team Providers Care Network Engineer Name Role Phone David Stinson NP Primary [...] topic Medical Devices Not on file Insurance [facility] [employer] ACO A[place] [address] [address] [place] [address] [place] [address] [facility] Care Teams Network Engineer Relationship Specialty Start Date End Date David Stinson NP [address] [place] [address] PCP - General Family Medicine 09/26/21 Additional Source Comments The information contained in this document represents components of the legal health record. It is not the complete legal health record.[facility]
== END 2025-06-04 14:50 | disposition home or self-care (01) ==
LOC: HO.HPS 14:13
PROVIDERS: PCP Nurse Practitioner Family; Visit Provider Internal Medicine
DX: J44.9 Chronic obstructive pulmonary disease, unspecified (principal); R91.1 Solitary pulmonary nodule; F17.210 Nicotine dependence, cigarettes, uncomplicated
CPT/HCPCS: 99213

== ENCOUNTER → 2025-06-04 14:12 | Outpatient (BNVA) | payer OTHER, SELFPAY | PROVIDERS: PCP Nurse Practitioner Family; Visit Provider Internal Medicine | DX: J44.9 Chronic obstructive pulmonary disease, unspecified (principal); R91.1 Solitary pulmonary nodule; F17.210 Nicotine dependence, cigarettes, uncomplicated; Z79.899 Other long term (current) drug therapy | CPT/HCPCS: 99212 ==

== ENCOUNTER 2025-06-09 13:41 | Outpatient (AMB) | payer OTHER, SELFPAY ==
[2025-06-09 13:47] VITALS: BP 118/80; PULSE 83; O2SAT 98; BMI 22.0
--- NOTE | 2025-06-09 13:47 | A.OFFVIS_ITS ---
Vital Signs 06/09/25 13:47 Height 5 ft 6 in Weight 136 lb 3.931 oz BMI 22.0 BP 118/80 Blood Pressure Location Rt brachial Position Standing Pulse 83 Pulse Source Pulse Oximeter Pulse Oximetry (%) 98 Oxygen Delivery Method Room Air Intake Visit Reasons: 3 Months Intake Note: Patient presents today for a Psa follow up. Accompanied by: Self / Same As Patient Allergies gabapentin (GABAPENTIN) Allergy (Mild, Verified 06/09/25 13:48) SWELLING pregabalin (From LYRICA) Allergy (Mild, Verified 06/09/25 13:48) AGITATION, swelling, SWELLING HPI HPI 3 Months: Details: She continues to have injection site reaction after Taltz. Injection site we will swell expand and she is experiencing pruritus for at least 2 days. She recently restarted Evenity. She is working with pain management with consideration of having spinal injections to control back pain. She has small psoriatic lesions on her legs. She has age-related macular degeneration and has a hard time seeing her lesions. Denies any new joint swelling. She has stiffness all day. She is under a lot of personal stress because her apartment rent increase by 500 dollars, which she can not afford starting June 25. [facility] Medical History Panic attacks Asthma COPD exacerbation Nicotine dependence, cigarettes, uncomplicated Osteopenia (~2018) Hypertensive retinopathy of both eyes Tubular adenoma of colon (~2020) Post covid-19 condition, unspecified (~06/2021) Delayed gastric emptying PTSD (post-traumatic stress disorder) HTN (hypertension) Depression COPD (chronic obstructive pulmonary disease) History of cocaine abuse History of alcohol abuse Nausea Post concussive syndrome (~2019) Fibromyalgia Psoriasis Psoriatic arthritis Facial trauma Surgical History History of right breast biopsy History of cranial surgery History of colonoscopy History of foot surgery History of foot surgery Family History Father Family history of diabetes mellitus Medical history non-contributory Maternal Grandmother Rectal cancer Maternal Grandfather Stomach cancer Family/Other Bone cancer Mother Breast cancer Social History Household Members: Spouse Housing: Apartment Are you a primary manager medicare marketing to a significant other at home: No Do you presently have visiting nurse or other home services: No Alcohol intake: current Alcohol intake frequency: holidays/special occasions only Patient Tobacco Use Status: Current everyday Tobacco user Tobacco use type: Cigarette Cigarette Packs Per Day: 0.25 Cigarettes Per Day: 3 Years Smoked: (onset 11yo, x 46yrs, max 1ppd, now 1/2ppd - 30pyh) e-Cigarette/Vaping Use: Never Used Second Hand Smoke Exposure: Yes Substance Use Type: Marijuana service: No Current occupational status: disabled Cognitive needs: No Hearing needs: No Vision needs: No Physical Exam Vital Signs: Last Vital Signs Pulse 83 06/09/25 13:47 BP 118/80 06/09/25 13:47 Pulse Ox 98 06/09/25 13:47 Oxygen Delivery Method Room Air 06/09/25 13:47 BMI result Body Mass Index 22.0 Const Other: General: Comfortable CVS: RRR Respiratory: clear to auscultation bilaterally. Good respiratory effort Skin: No lesions seen MSK: No tender joints. Shoulder abduction 90 degrees bilateral limited due to pain in spine. No synovitis. No enthesitis. She has limited full external rotation of hips and bilateral knee flexion. Assessment & Plan Assessment & Plan (1) Psoriatic arthritis: Comment: She continues to have injection site reaction on Taltz. Inflammatory arthritis is controlled. She has a few psoriatic lesions on her legs but it is tolerable. If she continues to have injection site reaction, consider alternative DMARD therapy. Rheumatology history: Enbrel 02/2019- 05/2025 changed to Taltz due to recurrent COPD exacerbations requiring antibiotic and prednisone. Taltz May 2024 to present. Methotrexate: before 2019- dates are not available to me-patient is unsure why this was stopped. Code(s): L40.50 - Arthropathic psoriasis, unspecified Category: Medical Plan: Labs for drug monitoring on high-risk medication up-to-date Continue Taltz subcutaneous injection monthly with pretreatment with Benadryl 25 mg 15 minutes before injection. She she will ice injection site 15-20 minutes prior to Taltz injection then after. If she continues to have raised lesion with pruritus, she will use 1% hydrocortisone b.i.d. until reaction resolves. 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
--- OUTSIDE RECORDS SUMMARY | 2025-06-09 17:44 | XMS_ITS | Clinical Summary ---
Author Organization [facility] Address [address] [place] [id number] Phone Care Team Providers Care Barge Loader Name Role Phone David Stinson NP Primary [...] topic Medical Devices Not on file Insurance [facility] ACO [place] [address] [place] [address] [place] [address] [facility] Care Teams Barge Loader Relationship Specialty Start Date End Date David Stinson NP [address] [facility] [address] [address] [place] [place] [address] PCP - General Family Medicine 09/26/21 Additional Source Comments The information contained in this document represents components of the legal health record. It is not the complete legal health record.[facility]
--- OUTSIDE RECORDS SUMMARY | 2025-06-09 17:44 | XMS_ITS | Patient Health Record ---
Author Organization [facility] Address [address] [place] [address] Care Team Providers Care Data Modeler Name Role Phone Maddy Cruz MD Primary Care Provider Unavailab Frannie Caicedo Unavailable [phone] Reason For Referral No Information Medications Medication [...] W/U Status Risk Notes Problem Hallux valgus (817020170) Hallux Valgus (735.0) Active confirmed Problem Hammer toe (992416528) Hammer toe (735.4) Active confirmed Problem Neuralgia - Neuritis (729.2) Active confirmed Plan Of Treatment No Information Insurance Providers Payer Name Payer Address Payer Phone Subscriber Number Group Number Insured Name Patient Relationship to Insured Coverage Start Date Coverage End Date Mikhail All Others [address] [place] [address] [id number] XochitlAnne Self - patient is the insured Medical (General) History Medical History History ICD Code psychiatric disorder neuropathy headaches/migraines chicken pox back, hip, knee pain asthma Anxiety disorder Surgical History Surgery Date(Month/Year) breast biopsy lumpectomy
== END 2025-06-09 14:18 | disposition home or self-care (01) ==
LOC: HO.RHES 13:42
PROVIDERS: PCP Nurse Practitioner Family; Visit Provider Internal Medicine Rheumatology
DX: L40.50 Arthropathic psoriasis, unspecified (principal); Z79.899 Other long term (current) drug therapy
CPT/HCPCS: 99214

== ENCOUNTER → 2025-06-09 13:41 | Outpatient (BNVA) | payer OTHER, SELFPAY | PROVIDERS: PCP Nurse Practitioner Family; Visit Provider Internal Medicine Rheumatology | DX: L40.50 Arthropathic psoriasis, unspecified (principal); Z79.899 Other long term (current) drug therapy; Z51.81 Encounter for therapeutic drug level monitoring | CPT/HCPCS: 99212 ==

== ENCOUNTER 2025-06-15 13:14 | Outpatient (AMB) | payer OTHER, SELFPAY ==
--- NOTE | 2025-06-15 14:02 | AM.OFFVISNUR ---
Intake Visit Reasons: Evenity #4 Allergies gabapentin (GABAPENTIN) Allergy (Mild, Verified 06/09/25 13:48) SWELLING pregabalin (From [facility]) Allergy (Mild, Verified 06/09/25 13:48) AGITATION, swelling, SWELLING Office Meds romosozumab-aqqg 210 mg/2.34 mL(105 mg/1.17 mL x2)subcutaneous syringe Performing Provider: Natalio Gayle MD Performing [facility]: [facility] Administered by: Ila Paz RN on 06/15/25 13:35 Dose Route Admin Location Dispensed Lot Number Expiration Date NDC Postal Supervisor 210 mg subcut bilateral upper arms 2.34 mL [id number] 10/23/27 97730-251-63 [employer] Total Dispensed Waste 2.34 mL 0 % Comments: No adverse reactions reported from previous injection. Pt tolerated injection well. Pt scheduled in 4 weeks for next appt. No further questions at this time. Assessment & Plan Assessment & Plan Orders: Orders AMB Romosozumab Injection Patient Supplied Today M81.0 - Age-related osteoporosis without current pathological fracture Coding
--- OUTSIDE RECORDS SUMMARY | 2025-06-15 16:38 | XMS_ITS | Clinical Summary ---
Author Organization [facility] Address [address] [place] [address] Phone Care Team Providers Care Energy Administrator Name Role Phone David Stinson NP Primary [...] topic Medical Devices Not on file Insurance [facility] ACO ACO ACO [place] [address] [address] [place] [address] [place] [address] [facility] ACO [facility] ACO Care Teams Energy Administrator Relationship Specialty Start Date End Date David Stinson NP [address] [place] [place] [address] PCP - General Family Medicine 09/26/21 Additional Source Comments The information contained in this document represents components of the legal health record. It is not the complete legal health record.[facility]
--- OUTSIDE RECORDS SUMMARY | 2025-06-15 16:38 | XMS_ITS | Patient Health Record ---
Author Organization [facility] Address [address] [place] [address] Care Team Providers Care Cigarette Catcher Name Role Phone Maddy Cruz MD Primary Care Provider Unavailab Frannie Caicedo Unavailable [phone] Reason For Referral No Information Medications Medication [...] W/U Status Risk Notes Problem Hallux valgus ([id number]) Hallux Valgus (735.0) Active confirmed Problem Hammer toe (984975246) Hammer toe (735.4) Active confirmed Problem Neuralgia - Neuritis (729.2) Active confirmed Plan Of Treatment No Information Insurance Providers Payer Name Payer Address Payer Phone Subscriber Number Group Number Insured Name Patient Relationship to Insured Coverage Start Date Coverage End Date Mikhail All Others [address] [place] [address] [phone] [id number] XochitlAnne Self - patient is the insured Medical (General) History Medical History History ICD Code psychiatric disorder neuropathy headaches/migraines chicken pox back, hip, knee pain asthma Anxiety disorder Surgical History Surgery Date(Month/Year) breast biopsy lumpectomy
== END 2025-06-15 13:51 | disposition home or self-care (01) ==
LOC: HO.ENCR 13:15
PROVIDERS: PCP Nurse Practitioner Family; Visit Provider Internal Medicine Endocrinology, Diabetes & Metabolism
DX: M81.0 Age-related osteoporosis without current pathological fracture (principal)

== ENCOUNTER → 2025-06-15 13:14 | Outpatient (BNVA) | payer OTHER, SELFPAY | PROVIDERS: PCP Nurse Practitioner Family; Visit Provider Internal Medicine Endocrinology, Diabetes & Metabolism | DX: M81.0 Age-related osteoporosis without current pathological fracture (principal) | CPT/HCPCS: 96372; J3111 ==